=== PATIENT | female | born 1960 | race Caucasian/White ===

== ENCOUNTER 2022-03-18 08:59 | Outpatient (CLI) | payer OTHER, SELFPAY ==
[2022-03-18 13:42] LABS: Basophils Absolute Auto 0.04 K/uL (0.00-0.30); Basophils Percent Auto 0.6 % (0.0-3.0); Eosinophils Absolute Auto 0.17 K/uL (0.00-0.50); Eosinophils Percent Auto 2.5 % (0.0-7.0); Hematocrit 42.2 % (33.0-51.0); Hemoglobin* 13.4 gm/dL (12.0-16.0); Immature Granulocytes Abs Auto 0.04 K/uL (0.00-0.30); Lymphocytes Percent Auto 22.3 % (20-44); Mean Corpuscular HGB Conc 32 gm/dL (32-36); Mean Corpuscular Hemoglobin 28 pg (26-34); Mean Corpuscular Volume 87 fL (80-100); Monocytes Percent Auto 5.5 % (0.0-11.0); Neutrophils Absolute Auto 4.61 K/uL (1.7-7.0); Neutrophils Percent Auto 68.5 % (42.0-72.0); Platelet Count* 280 K/uL (140-440); RDW Coefficient of Variation % 13.5 % (11.5-15.5); Red Blood Count 4.86 m/uL (4.00-5.20); White Blood Count* 6.73 K/uL (4.50-11.00)
[2022-03-18 13:56] LABS: D Dimer Quantitative* 0.35 ug/ml (0.00-0.50)
[2022-03-18 14:00] LABS: Slide Review Reflex No
[2022-03-18 14:47] LABS: Chloride* 100 mmol/L (96-114); Sodium* 137 mmol/L (135-149)
[2022-03-18 14:50] LABS: Creatinine* 0.7 mg/dL (0.5-1.5); Estimated Glomerular Filt Rate 97 ml/min
[2022-03-18 14:51] LABS: Blood Urea Nitrogen* 17 mg/dL (7-30); Carbon Dioxide* 24 mmol/L (20-32); Glucose* 125 mg/dL (60-115)
[2022-03-18 15:01] LABS: NT Pro B Type NatriureticPept* 51 PG/mL (0-125)
[2022-03-18 15:08] LABS: Troponin I* < 0.01 ng/mL (0.01-0.04)
== END 2022-03-18 09:00 | disposition home or self-care (01) ==
PROVIDERS: PCP Physician Assistant; Visit Provider Nurse Practitioner Family
DX: R42 Dizziness and giddiness (principal); R06.00 Dyspnea, unspecified
CPT/HCPCS: 36415; 80048; 83880; 84443; 84484; 85025; 85379

== ENCOUNTER 2022-07-17 08:23 | Outpatient (CLI) | payer OTHER, SELFPAY ==
[2022-07-17 14:56] LABS: Basophils Absolute Auto 0.05 K/uL (0.00-0.30); Eosinophils Absolute Auto 0.25 K/uL (0.00-0.50); Eosinophils Percent Auto 5.1 % (0.0-7.0); Hematocrit 41.9 % (33.0-51.0); Hemoglobin* 13.4 gm/dL (12.0-16.0); Immature Granulocytes Abs Auto 0.03 K/uL (0.00-0.30); Immature Granulocytes Pct Auto 0.6 %; Lymphocytes Percent Auto 28.3 % (20-44); Mean Corpuscular HGB Conc 32 gm/dL (32-36); Mean Corpuscular Hemoglobin 27 pg (26-34); Mean Corpuscular Volume 86 fL (80-100); Monocytes Percent Auto 7.5 % (0.0-11.0); Neutrophils Absolute Auto 2.84 K/uL (1.7-7.0); Neutrophils Percent Auto 57.5 % (42.0-72.0); Platelet Count* 203 K/uL (140-440); RDW Coefficient of Variation % 14.2 % (11.5-15.5); Red Blood Count 4.89 m/uL (4.00-5.20); White Blood Count* 4.94 K/uL (4.50-11.00)
[2022-07-17 15:07] LABS: Slide Review Reflex No
[2022-07-17 15:22] LABS: Chloride* 104 mmol/L (96-114)
[2022-07-17 15:23] LABS: Albumin* 4.6 g/dL (3.3-5.0); Potassium* 4.2 mmol/L (3.6-5.1); Sodium* 138 mmol/L (135-149)
[2022-07-17 15:25] LABS: Carbon Dioxide* 23 mmol/L (20-32); Cholesterol* 218 mg/dL (90-199); Creatinine* 0.7 mg/dL (0.5-1.5); Estimated Glomerular Filt Rate 97 ml/min
[2022-07-17 15:26] LABS: Alanine Aminotransferase* 20 U/L (4-35); Alkaline Phosphatase* 79 U/L (40-150); Aspartate Amino Transferase* 19 U/L (12-35); Bilirubin Total* 0.4 mg/dL (0.1-1.5); Blood Urea Nitrogen* 15 mg/dL (7-30); Glucose* 130 mg/dL (60-115); Triglycerides* 259 mg/dL (40-149)
[2022-07-17 15:27] LABS: HDL Cholesterol* 50 mg/dL (>=50); LDL Cholesterol Calculated 116 mg/dL (<100)
== END 2022-07-17 08:24 | disposition home or self-care (01) ==
PROVIDERS: PCP Physician Assistant; Visit Provider Nurse Practitioner Family
DX: Z00.00 Encounter for general adult medical examination without abnormal findings (principal); E03.9 Hypothyroidism, unspecified; I10 Essential (primary) hypertension; R53.83 Other fatigue; Z13.6 Encounter for screening for cardiovascular disorders; Z13.1 Encounter for screening for diabetes mellitus
CPT/HCPCS: 80053; 80061; 84443; 85025

== ENCOUNTER 2022-08-19 10:39 | Emergency (ER) | payer OTHER, SELFPAY ==
[2022-08-19 10:44] VITALS: BP 142/102; PULSE 76; RESP 18; TEMP 36.3; O2SAT 96; BMI 33.9
--- NOTE | 2022-08-19 11:00 | ED.HA ---
HPI - Headache General Time Seen by Provider: 11:00 Date Seen: 08/19/22 Chief Complaint: Headache/Migraine Stated Complaint: Headache, dizzy Time Seen by Provider: 08/19/22 11:00 Source: patient and RN notes reviewed Mode of arrival: ambulatory Limitations: no limitations History of Present Illness HPI Narrative: Patient is a very pleasant 62-year-old female with a history of frequent headaches cluster headaches hypertension recent positive Cologuard test who comes to the emergency room for evaluation regarding a severe headache. Patient initially seen at the clinic at which time blood pressure 147/87 per patient report. She was sent here to the emergency room. Patient notes that she does get frequent headaches but this headache today that she woke with his unusual and that it is quite severe and associated with nausea and blurriness of vision. She does not normally have these things occur. Her headaches often are clustered and she states around the left side of her eye and zoroastrianism but today the headache is everywhere. Has not had any trauma fever or chills. She denies photophobia. She denies any neck pain. She has not had a new cough. She does describe a severe cough which has been ongoing for about 5 years. Initially they thought this was attributable to an JUSTINE-inhibitor but it has not improved in she was taken off her lisinopril. She denies a sore throat or runny nose. Her had COVID but that was over a month and a half ago but they do have some grand children with recent illnesses. She also states that she had Cologuard done and that it was positive about a week ago. She cannot see any hiro blood in her stool. She states she takes 1 Advil does a day for arthritis. Initially patient denies any numbness or tingling or weakness. However upon further discussion she notes that her right fingers have been tingling since yesterday. She has not noticed any change in her strength. She denies going to bed with a headache. This is a headache that she awoke with at approximately 0730. Additional discussion shows that she is what she describes as dizzy but this is not vertigo and is was described as lightheadedness. Related Data Home Medications Medication Instructions Recorded Confirmed ibuprofen 200 mg tablet (Advil) 400 mg PO Q8H PRN 07/17/22 07/28/22 Previous Rx's Medication Instructions Recorded amlodipine 5 mg tablet 5 mg PO QDAY #90 tabs 07/21/22 levothyroxine 100 mcg tablet 100 mcg PO QDAY #90 tabs 07/21/22 (Euthyrox) triamterene 37.5 1 cap PO QDAY #90 caps 07/21/22 mg-hydrochlorothiazide 25 mg capsule Allergies Allergy/AdvReac Type Severity Reaction Status Date / Time neomycin Allergy Verified 07/28/22 09:41 lisinopril Allergy Uncoded 07/28/22 09:41 Review of Systems Status of ROS: Reports: 10 or more systems reviewed and unremarkable except as noted in History and below Const: Denies: fever or chills Eyes: Reports: blurry vision; Denies: light sensitivity or eye discomfort ENMT: Denies: throat pain, neck pain or difficulty swallowing Cardio: Denies: chest pain, swelling of feet/ankles, lightheadedness or shortness of breath with exertion Resp: Reports: cough (Chronic); Denies: shortness of breath GI: Reports: nausea; Denies: abdominal pain, vomiting, diarrhea or difficulty swallowing : Denies: painful urination Musculo: Denies: neck pain Integ/Breast: Denies: rash Neuro: Reports: headache and numbness in extremities (Tingling of the right fingers); Denies: weakness in extremities, lack of coordination, dizziness or confusion [facility] History History of femur fracture (Unknown) Hypertension Surgical History Fixation hardware in foot Fixation hardware in lower extremity History of hysterectomy History of left hip replacement Family History Mother Heart disease Diabetes Brother High blood pressure Social History Narrative: . 4 children. The patient does not formally exercise. Alcohol rare. No illicit drug use. No smoker. bottle carrier. Smoking Status: Never smoker How often do you have a drink containing alcohol: 4 or more times a week AUDIT-C Alcohol total score: 4 Non-prescribed substance use: denies use Little interest or pleasure in doing things: not at all Feeling down, depressed, or hopeless: not at all Exam Narrative: Exam Narrative: Nurse's note reviewed. Patient is alert and oriented. She is nontoxic in appearance. Eyes are clear. EOM is full and pupils are equal round reactive. Head is atraumatic normocephalic. No midline cervical tenderness. Range of motion of neck is full. No photophobia. TMs bilaterally without erythema or fluid line. Oral cavity with moist mucous membranes. No erythema exudate in the posterior oropharynx. Neck is supple without lymphadenopathy. Heart with regular rate and rhythm lungs are clear to auscultation. Abdomen is soft nontender. Lower extremities with scant peripheral edema. Patient has full strength and motor throughout. Motor strength in hand and upper extremities fully intact and symmetrical. Const: Vital Signs, click to edit/add: Vital Signs - 24 hr 08/19/22 10:44 08/19/22 12:14 08/19/22 13:00 Temperature 97.4 F L Pulse Rate [Pulse Oximeter] 76 72 83 Respiratory Rate 18 18 Blood Pressure [Le ft Upper Arm] Blood Pressure [Ri ght Upper Arm] 142/102 H 163/105 H Pulse Oximetry 96 96 98 Oxygen Delivery Me thod Room Air Room Air 08/19/22 13:30 08/19/22 13:30 08/19/22 14:04 Temperature 97.0 F L Pulse Rate [Pulse Oximeter] Respiratory Rate Blood Pressure [Le ft Upper Arm] 150/94 H Blood Pressure [Ri ght Upper Arm] 148/92 H Pulse Oximetry Oxygen Delivery Me thod Documenting provider has reviewed patient's vital signs: yes Eye: Direct Ophthalmoscopy: no photophobia Course Course Hospital Course: Patient notes history of headaches with states that this is severe and she has not experienced anything like this in the past. Her blood pressure is somewhat elevated at 140/102. At this time will obtain head CT start IV and use Reglan and Benadryl for treatment of suspected migraine. However will need to rule out other underlying possibilities with the CT including intracranial mass, bleed. Patient notes tingling of the right fingers but there is no change in strength or movement. Stroke is in the differential diagnosis although symptoms started 24 hours ago. Laboratory values also pending include a CBC, basic panel, CRP, INR. Reevaluation(s) Reevaluation #1: Patient noted to have decreased in her headache from 7 until 2. She notes resolution of her right hand symptoms and blurred vision. Blood pressure continues to be elevated. I have requested manual check and blood pressure is 150/94. Consultations Consultation #1: Had the pleasure of speaking with Dr. Krueger, [place] neurologist. At this time no suggestion that an MRI is needed in this particular situation especially with patient improved. She has no meningeal signs and white count is reassuring. She is negative for COVID. We did briefly speak about the use of aspirin and patient has had recent positive Cologuard and therefore will hold off on that right now. Vital Signs Vital signs: Initial Vital Signs Temperature 97.4 F L 08/19/22 10:44 Temperature Source Temporal Artery Scan 08/19/22 10:44 Pulse Rate 76 08/19/22 10:44 Respiratory Rate 18 08/19/22 10:44 Blood Pressure 142/102 H 08/19/22 10:44 Blood Pressure Mean 115 08/19/22 10:44 Blood Pressure Position Supine 08/19/22 10:44 Pulse Oximetry 96 08/19/22 10:44 Oxygen Delivery Method 08/19/22 10:44 Vital Signs Temperature 97.4 F L 08/19/22 10:44 Pulse Rate 76 08/19/22 10:44 Respiratory Rate 18 08/19/22 10:44 Blood Pressure 142/102 H 08/19/22 10:44 Pulse Oximetry 96 08/19/22 10:44 Oxygen Delivery Method 08/19/22 10:44 Temperature 97.0 F L 08/19/22 14:04 Pulse Rate 83 08/19/22 13:00 Respiratory Rate 18 08/19/22 12:14 Blood Pressure 148/92 H 08/19/22 13:30 Pulse Oximetry 98 08/19/22 13:00 Oxygen Delivery Method 08/19/22 13:00 MDM - Headache MDM Narrative Medical decision making narrative: 1. Headache-patient has longstanding history of headaches but this is what she described as quite severe and unusual. This was proceeded by some tingling in her left fingers yesterday. She also then discussed some lightheadedness not originally noted in our initial conversation. There has been no vertigo or difficulty with ambulation. Exam and Head CT is reassuring and negative for any acute abnormalities. Patient received Reglan Benadryl and IV fluids and has had resolution of the tingling in her fingers. Headache has gone from 7/10 to 2. I did discuss this patient with Neurology. No further imaging or interventions at this time. At this time patient will be discharged home in the care of her . Recommend sleeping this afternoon. Recommending push fluids. Requested she return for further evaluation for recurrent symptoms onset of new symptoms and as needed. She agrees that she feels safe going home. 2. Positive Cologuard-hemoglobin 12.0. Recommend follow-up with primary MD as I suspect they will proceed with scheduling of colonoscopy. 3. Disposition -home. Return as needed for worsening symptoms. Lab Data Attestation: I reviewed the patient's lab results. Labs: Lab Results 08/19/22 08/19/22 08/19/22 Range/Units 11:16 11:32 11:32 WBC 7.20 (4.50-11.00) K/uL RBC 4.43 (4.00-5.20) m/uL Hgb 12.0 (12.0-16.0) gm/dL Hct 37.6 (33.0-51.0) % MCV 85 (80-100) fL MCH 27 (26-34) pg MCHC 32 (32-36) gm/dL RDW Coeff of Hamida 13.6 (11.5-15.5) % Plt Count 257 (140-440) K/uL Neut % (Auto) 74.7 H (42.0-72.0) % Lymph % (Auto) 18.1 L (20-44) % Toombs % (Auto) 5.6 (0.0-11.0) % Eos % (Auto) 0.6 (0.0-7.0) % Baso % (Auto) 0.6 (0.0-3.0) % Neut # (Auto) 5.40 (1.7-7.0) K/uL Lymph # (Auto) 1.30 (0.90-2.90) K/uL Toombs # (Auto) 0.40 (0.00-0.90) K/UL Eos # (Auto) 0.04 (0.00-0.50) K/uL Baso # (Auto) 0.04 (0.00-0.30) K/uL INR 0.95 (0.91-1.10) Sodium (135-149) mmol/L Potassium (3.6-5.1) mmol/L Chloride (96-114) mmol/L Carbon Dioxide (20-32) mmol/L BUN (7-30) mg/dL Creatinine (0.5-1.5) mg/dL Estimated Creat Clear Estimated GFR ml/min Glucose (60-115) mg/dL Calcium (8.4-10.6) mg/dL Magnesium (1.5-2.6) mg/dL C-Reactive Protein (0.5-1.0) mg/dL SARS-CoV-2 (PCR) Negative SARS-CoV-2 (Negative) Influenza Type A (PCR) Negative PCR FLU A (Negative) Influenza Type B (PCR) Negative PCR FLU B (Negative) RSV (PCR) Negative PCR RSV (Negative) 08/19/22 Range/Units 11:32 WBC (4.50-11.00) K/uL RBC (4.00-5.20) m/uL Hgb (12.0-16.0) gm/dL Hct (33.0-51.0) % MCV (80-100) fL MCH (26-34) pg MCHC (32-36) gm/dL RDW Coeff of Hamida (11.5-15.5) % Plt Count (140-440) K/uL Neut % (Auto) (42.0-72.0) % Lymph % (Auto) (20-44) % Toombs % (Auto) (0.0-11.0) % Eos % (Auto) (0.0-7.0) % Baso % (Auto) (0.0-3.0) % Neut # (Auto) (1.7-7.0) K/uL Lymph # (Auto) (0.90-2.90) K/uL Toombs # (Auto) (0.00-0.90) K/UL Eos # (Auto) (0.00-0.50) K/uL Baso # (Auto) (0.00-0.30) K/uL INR (0.91-1.10) Sodium 138 (135-149) mmol/L Potassium 4.0 (3.6-5.1) mmol/L Chloride 106 (96-114) mmol/L Carbon Dioxide 26 (20-32) mmol/L BUN 16 (7-30) mg/dL Creatinine 0.6 (0.5-1.5) mg/dL Estimated Creat Clear 53.91 Estimated GFR 101 ml/min Glucose 111 (60-115) mg/dL Calcium 9.3 (8.4-10.6) mg/dL Magnesium 2.0 (1.5-2.6) mg/dL C-Reactive Protein 1.2 H (0.5-1.0) mg/dL SARS-CoV-2 (PCR) (Negative) Influenza Type A (PCR) (Negative) Influenza Type B (PCR) (Negative) RSV (PCR) (Negative) Imaging Data CT scan - head: Attestation: I have reviewed the pertinent imaging results. My impression: I do not note any acute findings. Radiologist's impression: The brain shows no sign of mass lesion, mass effect, hemorrhage, or edema. The ventricles and sulci are normal in appearance for the patient`s age. The visualized portions of the orbits are normal in appearance. The osseous structures are normal in their appearance with no sign of abnormality in the skull base or calvarium. IMPRESSION: Age-appropriate appearance of the brain. No acute focal findings. Discharge Plan Discharge Clinical Impression: Headache Patient Disposition: Home, Self-Care Condition: Improved Additional Instructions: Rest. Increase fluid intake. Return or seek medical attention for ongoing symptoms. Prescriptions: No Action ibuprofen [Advil] 200 mg tablet 400 mg PO Q8H PRN amlodipine 5 mg tablet 5 mg PO QDAY Qty: 90 3RF levothyroxine [Euthyrox] 100 mcg tablet 100 mcg PO QDAY Qty: 90 3RF triamterene-hydrochlorothiazid 37.5-25 mg capsule 1 cap PO QDAY Qty: 90 3RF Follow Up/Referrals: Laith Luz PA-C [Referring] - Stand Alone Forms: [facility] Info Instructions
--- NOTE | 2022-08-19 11:16 | CRLHL7_ITS ---
For Patients: As a result of the Century Cures Act, medical imaging exams and procedure reports are released immediately into your electronic medical record. You may view this report before your referring provider. If you have questions, please contact your health care provider. INDICATION: Severe headache COMPARISON: None TECHNIQUE: CT examination of the head was performed as axial sections without intravenous contrast. Images were obtained from the vertex of the skull through the skull base. Please note that all CT scans at this facility use dose modulation, iterative reconstruction, and/or weight-based dosing when appropriate to reduce radiation dose to as low as reasonably achievable. FINDINGS: The brain shows no sign of mass lesion, mass effect, hemorrhage, or edema. The ventricles and sulci are normal in appearance for the patient`s age. The visualized portions of the orbits are normal in appearance. The osseous structures are normal in their appearance with no sign of abnormality in the skull base or calvarium. IMPRESSION: Age-appropriate appearance of the brain. No acute focal findings. Please note that all CT scans at this facility use dose modulation, iterative reconstruction, and/or weight-based dosing when appropriate to reduce radiation dose to as low as reasonably achievable. Dictated by Sharif Kwong MD @ 08/19/2022 12:46:30 PM (Electronically Signed)
[2022-08-19 11:40] LABS: Basophils Absolute Auto 0.04 K/uL (0.00-0.30); Basophils Percent Auto 0.6 % (0.0-3.0); Eosinophils Absolute Auto 0.04 K/uL (0.00-0.50); Eosinophils Percent Auto 0.6 % (0.0-7.0); Hematocrit 37.6 % (33.0-51.0); Immature Granulocytes Abs Auto 0.03 K/uL (0.00-0.30); Immature Granulocytes Pct Auto 0.4 %; Lymphocytes Percent Auto 18.1 % (20-44); Mean Corpuscular HGB Conc 32 gm/dL (32-36); Mean Corpuscular Hemoglobin 27 pg (26-34); Mean Corpuscular Volume 85 fL (80-100); Monocytes Percent Auto 5.6 % (0.0-11.0); Neutrophils Percent Auto 74.7 % (42.0-72.0); Platelet Count* 257 K/uL (140-440); RDW Coefficient of Variation % 13.6 % (11.5-15.5); Red Blood Count 4.43 m/uL (4.00-5.20)
[2022-08-19 11:44] LABS: Slide Review Reflex No
[2022-08-19 12:11] LABS: INR 0.95 (0.91-1.10); Prothrombin Time 13.3 Seconds
[2022-08-19] MEDS: 0.9 % SODIUM CHLORIDE 1000 ml 1,000 ML IV (12:11)
[2022-08-19] MEDS: diphenhydrAMINE 50 MG/ML inj IVP (12:12)
[2022-08-19] MEDS: METOCLOPRAMIDE HCL 10 MG in 0.9 % SODIUM CHLORIDE 100 ml 100 ML 306 MG IVPB (12:12)
[2022-08-19 12:14] VITALS: PULSE 72; RESP 18; O2SAT 96
[2022-08-19 12:17] LABS: Chloride* 106 mmol/L (96-114); Sodium* 138 mmol/L (135-149)
[2022-08-19 12:20] LABS: Blood Urea Nitrogen* 16 mg/dL (7-30); Carbon Dioxide* 26 mmol/L (20-32); Creatinine* 0.6 mg/dL (0.5-1.5); Est. Creatinine Clearance* 53.91; Estimated Glomerular Filt Rate 101 ml/min
[2022-08-19 12:21] LABS: Calcium* 9.3 mg/dL (8.4-10.6); Glucose* 111 mg/dL (60-115)
[2022-08-19 12:23] LABS: C Reactive Protein* 1.2 mg/dL (0.5-1.0)
[2022-08-19 12:52] LABS: PCR FLU A Negative PCR FLU A (Negative); PCR FLU B Negative PCR FLU B (Negative); PCR RSV Negative PCR RSV (Negative)
[2022-08-19 12:54] LABS: SARS PCR* Negative SARS-CoV-2 (Negative)
[2022-08-19 13:00] VITALS: BP 163/105; PULSE 83; O2SAT 98
[2022-08-19 13:30] VITALS: BP 148/92; BP 150/94
[2022-08-19 14:04] VITALS: TEMP 36.1
== END 2022-08-19 14:05 | disposition home or self-care (01) ==
PROVIDERS: Emergency Provider Family Medicine; PCP Nurse Practitioner Family
DX: R51.9 Headache, unspecified (principal)
CPT/HCPCS: 36415; 70450; 80048; 83735; 85025; 85610; 86140; 87502; 87634; 87635; 96365; 96375; 99284; J1200; J2765; J7030

== ENCOUNTER 2022-10-02 07:55 | Day surgery (SDC) | payer OTHER, SELFPAY ==
[2022-10-02] VITALS (11 sets, daily range): BP systolic 128–155; BP diastolic 83–109; PULSE 64–93; RESP 11–16; TEMP 36.1–36.6; O2SAT 92–100; BMI 33.9
[2022-10-02] MEDS: SODIUM CHLORIDE 0.9 % (FLUSH) 10 ML SYRINGE IVF (08:20)
[2022-10-02] MEDS: LACTATED RINGERS 1000 ML 1,000 ML 100 ML IV ×2 (08:20→11:51)
--- NOTE | 2022-10-02 08:28 | SUR.PREOP ---
Patient provided home covid negative results to RN.
--- NOTE | 2022-10-02 09:15 | CRLHL7_ITS ---
For Patients: As a result of the 21st Century Cures Act, medical imaging exams and procedure reports are released immediately into your electronic medical record. You may view this report before your referring provider. If you have questions, please contact your health care provider. INDICATION: 62-year-old female. Malignant melanoma of the left shoulder. Injection for sentinel lymph node scintigraphy. PROCEDURE: Informed consent was obtained by the on-site staff. The benefits and risks were discussed. The patient agreed to proceed. Utilizing sterile technique, 530 microcuries of technetium-filtered sulfur colloid was injected within four points about the left shoulder lesion. No immediate complications. A single sentinel lymph node was identified in the left axilla and marked on the overlying skin. Subsequently, two small foci of activity were identified in the medial left infraclavicular space, also indicating lymph nodes. These findings were discussed briefly with Dr. Montalvo at 10:25 a.m. IMPRESSION: Technically successful injection for sentinel lymph node scintigraphy. Dictated by George Espinal MD @ 10/02/2022 11:03:06 AM (Electronically Signed)
--- NOTE | 2022-10-02 09:38 | W.ANESCHARGE ---
Anesthesia Charges Start Date/Time Anesthesia Start Date: 10/02/22 Anesthesia Start Time: 10:52 Stop Date/Time Anesthesia Stop Date: 10/02/22 Anesthesia Stop Time: 12:40
[2022-10-02] MEDS: CEFAZOLIN 2 GM INJ IVP (11:00)
[2022-10-02] MEDS: BUPIVACAINE 0.25% 30 ML INJECTION (11:15)
[2022-10-02] MEDS: ISOSULFAN BLUE 5 ML VIAL INJECTION (11:15)
--- NOTE | 2022-10-02 11:50 | W.ANESCHARGE ---
Anesthesia Charges Start Date/Time Anesthesia Start Date: 10/02/22 Anesthesia Start Time: 10:52 Stop Date/Time Anesthesia Stop Date: 10/02/22 Anesthesia Stop Time: 12:40
--- NOTE | 2022-10-02 12:33 | P.GSOP_ITS ---
Operative Note Date of procedure: 10/02/22 Pre-op diagnosis: Malignant melanoma, left shoulder Post-op diagnosis: Same Type of Procedure: 1. Wide local excision malignant melanoma, left shoulder 2. Goodspring lymph node biopsy, left axillary Indications: Patient is a 62-year-old female who presented to clinic with a new diagnosis malignant melanoma. Pathology demonstrated a Breslow depth of 1 mm and recommendations based off of NCCN guidelines were discussed. Risks and benefits of wide local excision with sentinel lymph node biopsy were reviewed. Risks included, but were not limited to: Bleeding, infection, seroma, lymphedema, damage to surrounding structures and possible need for additional procedures. All questions and concerns were addressed with patient agreeing to proceed. Procedure Description: After discussing the risks and benefits of the procedure, the patient signed informed consent.? The operative site was marked and the patient was brought to the operating room and placed on the operating table in supine position.? Care was taken to pad the patient's pressure points.?? The patient was then intubated by anesthesia.?? The operative site was then prepped and draped in the usual sterile fashion.? A time-out was then performed. ? I injected 5 cc of lymphazurin blue into the biopsy site scar for lymph node mapping. ? I identified the patient's biopsy site and measured 1 cm circumferential margins. I then made an elliptical incision longer than wide. I sharply incised the skin and dissected the subcutaneous tissue down to but not including the underlying fascia. The specimen was circumferentially completely resected in this plane. It was marked with a short stitch superior and a long stitch lateral and sent for permanent evaluation. Lidocaine was infused for analgesia. ? Circumferentially I created approximately 2 cm of undermining within the subcutaneous space, to all helped assist with closure. I then closed the wound in intermediate fashion using interrupted 2-0 Vicryl deep stitches, 2-0 Vicryl stitches in the subcutaneous tissue and a running 4-0 monocryl for the skin. Steri strips and a sterile dressing were applied. ? The patient was then repositioned, reprepped and redraped. Using the Neoprobe, I identified an area of maximal counts in the left axilla. This was consistent with preoperative lymphoscintigraphy imaging which suggested drainage to the left axilla. I made a skin incision, dissected the subcutaneous tissue. There was an immediately identifiable radioactive non-blue node. This was circumferentially dissected and removed. The lymphatic drainage in arterial supply were ligated with 3-0 Vicryl ties. Ex vivo counts were in the 790. I rescanned the left axilla and found no additional area of high counts. ? Lidocaine was infused into the incision for analgesia. It was then closed with 3-0 Vicryl, 4-0 Monocryl and Dermabond. The patient was awakened from anesthesia and taken to the PACU in stable condition. ? The patient tolerated the procedure well. Findings: A 1.00 mm thick melanoma was excised with 1.0 cm margins down to fascia. A left axillary sentinel lymph node was identified and removed. Anesthesia: GETA Surgeon: Zaira Montalvo MD Estimated blood loss (mL): 5 Additional Specimen Information: 1. Left shoulder melanoma 2. Left axillary sentinel lymph node Condition: stable Disposition: same day
--- NOTE | 2022-10-02 14:53 | SUR.PHASEII ---
1309: Patient arrived from Phase I on room air. 1325: O2 sats dipping to 86-87% RA. Patient placed on O2 2L NC. Sats increased to 98-100%. 1345: O2 weaned to 1L NC. 1357: Patient on room air. Ambulatory to restroom independently. Patient returned to room sitting in recliner. O2 sats 91-94% RA.
== END 2022-10-02 14:58 | disposition home or self-care (01) ==
PROVIDERS: PCP Nurse Practitioner Family; Visit Provider Surgery
PROC: (CPT 11603; principal; 2022-10-02 10:15)
PROC: (CPT 11603; 2022-10-02 10:15)
DX: C43.62 Malignant melanoma of left upper limb, including shoulder (principal)
CPT/HCPCS: 11603; 12031; 38500; 00300; 00400; 78195; A9541; J0690; J1100; J2250; J2405; J2704; J2710; J3010; J3490; J7120

== ENCOUNTER 2022-10-21 07:25 | Outpatient (CLI) | payer OTHER, SELFPAY | END 2022-10-21 07:26 | disposition home or self-care (01) | LOC: OP CLINIC 07:25 | PROVIDERS: PCP Nurse Practitioner Family; Visit Provider Internal Medicine | DX: R19.5 Other fecal abnormalities (principal); K63.5 Polyp of colon; K57.30 Diverticulosis of large intestine without perforation or abscess without bleeding | CPT/HCPCS: 45385; 88305; 88307; 88342; 99153; J2250; J3010 ==

== ENCOUNTER 2022-11-24 15:30 | Outpatient (RCR) | payer OTHER, SELFPAY | END 2023-02-09 14:43 | disposition home or self-care (01) | PROVIDERS: PCP Nurse Practitioner Family; Visit Provider Nurse Practitioner Family | DX: M54.31 Sciatica, right side (principal); Z51.89 Encounter for other specified aftercare | CPT/HCPCS: 97110; 97162 ==

== ENCOUNTER 2023-04-14 09:16 | Outpatient (CLI) | payer OTHER, SELFPAY | END 2023-04-14 09:17 | disposition home or self-care (01) | LOC: NFLDREF 04-15 21:35 | PROVIDERS: PCP Nurse Practitioner Family; Referring Provider Nurse Practitioner Family; Visit Provider Nurse Practitioner Family | DX: M54.9 Dorsalgia, unspecified (principal); R13.10 Dysphagia, unspecified; R05.3 Chronic cough; L98.9 Disorder of the skin and subcutaneous tissue, unspecified | CPT/HCPCS: 81015 ==

== ENCOUNTER 2023-04-22 07:42 | Outpatient (CLI) | payer OTHER, SELFPAY ==
--- NOTE | 2023-04-22 08:00 | CRLHL7_ITS ---
For Patients: As a result of the Century Cures Act, medical imaging exams and procedure reports are released immediately into your electronic medical record. You may view this report before your referring provider. If you have questions, please contact your health care provider. CLINICAL INFORMATION: Right back pain, chronic cough. TECHNIQUE: Contrast-enhanced CT of the chest, abdomen and pelvis was obtained. Enteric contrast was administered.Coronal and sagittal reformatted images were obtained. Contrast: 106 mL of Isovue 370 intravenous contrast was injected uneventfully prior to image acquisition. Radiation Dose Estimate (Total Exam DLP): 1467 mGy-cm. COMPARISON: Chest radiograph 03/18/2022. FINDINGS: Chest: Thyroid: Visualized portions are symmetric. Lungs: Mild bibasilar dependent atelectatic changes. No focal airspace opacities or pleural effusions. 4 mm subsolid subpleural nodule in the lingula (series 3, image 38). Heart/Pericardium: Heart normal in size. No pericardial effusion. Main pulmonary artery normal in caliber. No central filling defects within the main, left, and right pulmonary arteries. Lymph Nodes: No significant axillary, mediastinal, or hilar lymphadenopathy. Abdomen/Pelvis: Liver: Noncirrhotic morphology. 1.6 cm anterior left hepatic lobe cyst. Gallbladder: Unremarkable. Spleen: Unremarkable. Adrenal glands: Unremarkable. Kidneys: Unremarkable. Pancreas: Unremarkable. Lymph nodes: Nonspecific fat stranding in the left mid abdomen along the mesenteric root with mildly prominent lymph nodes, nonspecific in appearance may represent entity such as sclerosing mesenteritis. Vascular: Abdominal aorta normal in caliber. Bowel: No bowel obstruction. Normal appendix in the right lower quadrant. Colonic diverticulosis. No evidence of diverticulitis. Urinary bladder: Limited evaluation due to underdistention. No gross pathology. Reproductive structures: Status post hysterectomy. No abdominal/pelvis ascites or free intraperitoneal air. Musculoskeletal: Fixation screws in the right iliac bone adjacent to the SI joint. Status post left hip arthroplasty. Visualized osseous structures demonstrate diffuse degenerative changes. 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 Healed fracture deformity of the posterior right 11th rib. IMPRESSION: 1. No acute findings in the chest, abdomen, and pelvis. 2. 4 mm subsolid pulmonary nodule in the lingula. No further follow-up is required. 3. Nonspecific fat stranding in the left mid abdomen along the mesenteric root with surrounding mildly prominent lymph nodes. This is nonspecific in appearance and may represent entity such as sclerosing mesenteritis. Lymphoma is considered less likely but cannot be excluded. Consider follow-up evaluation with repeat CT in 3-6 months to assure stability of findings. Please note that all CT scans at this facility use dose modulation, iterative reconstruction, and/or weight-based dosing when appropriate to reduce radiation dose to as low as reasonably achievable. Dictated by Florin Crooks MD @ 04/24/2023 6:43:16 AM (Electronically Signed)
[2023-04-22 08:20] LABS: Creatinine* 0.6 mg/dL (0.5-1.5); Estimated Glomerular Filt Rate 100 ml/min
--- NOTE | 2023-04-22 09:15 | CRLHL7_ITS ---
For Patients: As a result of the Century Cures Act, medical imaging exams and procedure reports are released immediately into your electronic medical record. You may view this report before your referring provider. If you have questions, please contact your health care provider. INDICATION: Dysphagia. TECHNIQUE: Recorded video swallow performed in junction speech therapy. FINDINGS: The patient tolerated all preparations of barium well. No aspiration. No penetration. No holdup of barium. Please see detailed notes from speech therapy. 1 minute 37 seconds fluoroscopy time utilized. IMPRESSION: Normal recorded video swallow. Dictated by George Espinal MD @ 04/22/2023 10:03:16 AM (Electronically Signed)
--- NOTE | 2023-04-22 09:50 | SLP.EVAL ---
Laura Curtis Please review, sign and return. Thank you Susan Ma, WINDING INSPECTOR WINDING INSPECTOR Rosalba Navarrete Start: 04/22/23 09:36 Freq: Status: Active Protocol: Document 04/22/23 09:37 HJS (Rec: 04/22/23 09:49 HJS [id number]) E-signed By Susan Ma, [place], WINDING INSPECTOR WINDING INSPECTOR System Review History & Reason For Referral Type of Speech Evaluation Modified Barium Swallow Evaluation Rehabilitation Order Evaluation Date of Order 04/14/23 Reason for Referral food getting stuck Medical Diagnosis Dysphagia unspecified Treatment Diagnosis dysphagia Hearing Information Hearing Status Normal Vision Information Vision Status within normal limits Patient Orientation Orientation & Mental Status Normal WINDING INSPECTOR Initial Assessment/POC Subjective Information Subjective/Pain Comment Patient independently ambulated to the xray suite. She is pleasant and cooperative. Assessment & Impression Assessment/Impression Patient is a 63 year old female referred for a modified barium swallow study due to some intermittent episodes of food getting stuck. She reports that last time it happened was when she was eating chicken on vacation in January. She ended up having to go to the restroom and vomiting up the stuck food. She denies episodes of aspiration. She is not aware of history of reflux. When she was she thinks she may have been diagnosed with an hiatal hernia. ORAL MOTOR FUNCTION AND DENTITION Patient exhibits functional tongue and lip movements and has adequate natural dentition . THIN LIQUID Patient took multiple sips of thin liquid by cup. She was able to initiate a swallow immediately and there was no penetration or aspiration on any trials. PUREE Patient given a teaspoon of puree. She was able to manipulate and swallow without penetration, aspiration or pharyngeal residue.. MUFFIN AND COOKIE WITH BARIUM PUREE Patient given separate trials of muffin and cookie each mixed with barium puree. She was able to adequately chew and swallow both consistencies without penetration, aspiration or pharyngeal residue. At various times throughout the test the radiologist followed the boluses down and did not note any difficulty with esophageal clearing. IMPRESSIONS AND RECOMMENDATIONS Patient exhibits a safe and functional oral pharyngeal swallow with no episodes of penetration, aspiration or pharyngeal residue. Since these episodes are happening so infrequently further evaluation of the esophagus may not be needed at this time . Recommended to patient that she keep track and if they start to increase in frequency report to doctor and at that time an esophagram might be appropriate. Other recommendations are that patient take small bites, chew well and alternate solids and liquids. Therapist Signature & License # I Certify That Therapy Services Provided Therapist Signature & License Number Susan Ma, [facility]-WINDING INSPECTOR, # [id number] Physician Signature Signature of Physician Indicates Medically Needed Services Physician Signature & Date Required Please Sign/Date Here Speech/Language Pathology Billing Units Billing Units Eval Swallow Motion Fluoro 1
== END 2023-04-22 07:43 | disposition home or self-care (01) ==
LOC: CT 07:42
PROVIDERS: PCP Nurse Practitioner Family; Visit Provider Nurse Practitioner Family
DX: R13.10 Dysphagia, unspecified (principal)
CPT/HCPCS: 36415; 71260; 74177; 74230; 82565; 92611; Q9967

== ENCOUNTER 2023-07-20 08:23 | Outpatient (CLI) | payer OTHER, SELFPAY ==
--- OUTSIDE RECORDS SUMMARY | 2023-07-20 08:29 | XMS_ITS | Clinical Summary ---
Author Name Unknown Organization [employer] [facility] [employer] Address [place], [place] [address] Care Team Providers Care Story Editor Name Role Phone Laith Luz Primary Care Provider [phone] Allergies Active Allergy Reactions Criticality Noted Date Comments Neomycin *Unknown 08/10/2015 Medications Medication Sig Dispensed Refills Start Date End Date Status levothyroxine (SYNTHROID) 100 mcg tablet Take 100 mcg by mouth before breakfast. 0 Active Active Problems Problem Noted Date Diagnosed Date Essential hypertension 07/11/2019 Lichen planus 05/14/2017 Hypothyroidism 02/22/2010 Social History Tobacco Use Types Packs/Day Years Used Date Smoking Tobacco: Never Smokeless Tobacco: Never Alcohol Use Standard Drinks/Week Comments Yes 0 (1 standard drink = 0.6 oz pur e alcohol) social Sex and Gender Information Value Date Recorded Sex Assigned at Not on file Gender Identity Not on file Sexual Orientation Not on file Obstetrics History Last Filed Vital Signs Vital Sign Reading Time Taken Comments Blood Pressure 156/106 10/11/2020 5:18 PM CDT Pulse 77 10/11/2020 5:18 PM CDT Temperature 36.7 ??C (98 ??F) 10/11/2020 5:18 PM CDT Respiratory Rate 12 10/11/2020 5:18 PM CDT Oxygen Saturation 96% 10/11/2020 5:18 PM CDT Inhaled Oxygen Concentration - - Weight 98.6 kg (217 lb 4.8 oz) 10/11/2020 5:17 P M CDT Height 167.6 cm (5' 6) 10/11/2020 5:17 PM CDT Body Mass Index 35.07 10/11/2020 5:17 PM CDT Plan of Treatment Health Maintenance Due Date Last Done Comments Tdap 1970 Depression screening for age 12+ 1971 HIV for age 15-65 1974 BMI (ht and wt on same day) for age 18+ 1977 Hepatitis C screening for ag e 18-79 1977 Tetanus booster 1979 Pap test for age 21-65 02/18/1980 Colonoscopy through age 75 02/18/2004 Lipids for age 45-75 02/18/2004 Mammogram for age 45-75 02/18/2004 Zoster (shingles) series for age 50+ (1 of 2) 2009 COVID-19 vaccine series (3 2022- season) 2023 10/23/2020, 09/26/2020 Influenza for age 50-64 03/06/2023 Pneumococcal series for age 6-64 Aged Out No longer eligible b ased on patient's age to complete this topic Additional Health Concerns Infection Onset Date Last Indicated MRSA Comment:Right foot 08/16/2015 08/16/2015 Advance Directives Latest Code Status on File Code Status Date Activated Date Inactivated Comments Full Code 08/16/2015 9:14 AM 08/16/2015 12:48 PM Care Teams Story Editor Relationship Specialty Start Date End Date Laith Luz PA PCP - General 08/08/15
== END 2023-07-20 08:24 | disposition home or self-care (01) ==
PROVIDERS: PCP Nurse Practitioner Family; Visit Provider Nurse Practitioner Family
DX: I10 Essential (primary) hypertension (principal); E03.9 Hypothyroidism, unspecified; Z13.220 Encounter for screening for lipoid disorders
CPT/HCPCS: 80053; 80061; 82607; 82746; 83540; 84443; 85025

== ENCOUNTER 2023-07-30 14:26 | Outpatient (CLI) | payer OTHER, SELFPAY ==
--- OUTSIDE RECORDS SUMMARY | 2023-07-30 14:31 | XMS_ITS | Clinical Summary ---
Author Name Unknown Organization [employer] [facility] Address [place], [place] [address] Care Team Providers Care Transplant Immunologist Name Role Phone Laith Luz Primary Care Provider [phone] Allergies Active Allergy Reactions Criticality Noted Date [...] 9:14 AM 08/16/2015 12:48 PM Care Teams Transplant Immunologist Relationship Specialty Start Date End Date Laith Luz PA PCP - General 08/08/15
== END 2023-07-30 14:27 | disposition home or self-care (01) ==
PROVIDERS: PCP Nurse Practitioner Family; Visit Provider Nurse Practitioner Family
DX: D50.9 Iron deficiency anemia, unspecified (principal); R19.5 Other fecal abnormalities; R73.03 Prediabetes; I10 Essential (primary) hypertension; E03.9 Hypothyroidism, unspecified; R53.83 Other fatigue
CPT/HCPCS: 82746; 84165; 85025

== ENCOUNTER 2023-08-10 08:56 | Outpatient (CLI) | payer OTHER, SELFPAY ==
--- OUTSIDE RECORDS SUMMARY | 2023-08-10 08:58 | XMS_ITS | Clinical Summary ---
Author Name Unknown Organization [employer] [facility] [employer] Address [place], [place] [address] Care Team Providers Care Trouble Operator Name Role Phone Laith Luz Primary Care Provider [phone] Allergies Active Allergy Reactions Criticality Noted Date [...] 9:14 AM 08/16/2015 12:48 PM Care Teams Trouble Operator Relationship Specialty Start Date End Date Laith Luz PA PCP - General 08/08/15
--- NOTE | 2023-08-10 10:16 | W.ANESCHARGE ---
Anesthesia Charges Start Date/Time Anesthesia Start Date: 08/10/23 Anesthesia Start Time: 09:40 Stop Date/Time Anesthesia Stop Date: 08/10/23 Anesthesia Stop Time: 10:15
== END 2023-08-10 08:57 | disposition home or self-care (01) ==
LOC: OP CLINIC 08:56
PROVIDERS: PCP Nurse Practitioner Family; Visit Provider Internal Medicine
DX: D50.9 Iron deficiency anemia, unspecified (principal); K64.8 Other hemorrhoids; K57.30 Diverticulosis of large intestine without perforation or abscess without bleeding
CPT/HCPCS: 00731; 43239; 45378; 88305; J2704; J3490

== ENCOUNTER 2023-08-13 08:38 | Outpatient (CLI) | payer OTHER, SELFPAY ==
--- OUTSIDE RECORDS SUMMARY | 2023-08-13 08:40 | XMS_ITS | Clinical Summary ---
Author Name Unknown Organization [employer] [facility] [employer] Address [place], [place] [address] Care Team Providers Care Casino Investigator Name Role Phone Laith Luz Primary Care Provider [phone] Allergies Active Allergy Reactions Criticality Noted Date Comments Neomycin *Unknown 08/10/2015 Medications Medication Sig Dispensed Refills Start Date End Date Status levothyroxine (SYNTHROID) 100 mcg tablet Take 100 mcg by mouth before breakfast. 0 Active Active Problems Problem Noted Date Diagnosed Date Essential hypertension 07/11/2019 Lichen planus 05/14/2017 Hypothyroidism 02/22/2010 Encounters Date Type Department Care Team Description 08/10/2023 Lab Requisition [facility] [phone] Soto Ibarra MD from Last 3 Months Social History Tobacco Use Types Packs/Day Years [...] (1 of 2) 2009 COVID-19 vaccine series (2022- season) 2023 10/23/2020, 09/26/2020 Influenza for age 50-64 03/06/2023 Pneumococcal series for age 6-64 Aged Out No longer eligible b ased on patient's age to complete this topic Procedures Procedure Name Priority Date/Time Associated Diagnosis Comments PATH TISSUE EXAM Routine 08/10/2023 9:50 AM NEWS EDITOR from Last 3 Months Results * PATH TISSUE EXAM (08/10/2023 9:50 AM NEWS EDITOR) Case Report Pathology Report ?Case: [id number] ? Authorizing Provider: ??Soto Ibarra MD ?Collected: ? 08/10/2023 0950 ? Ordering Location: ? [facility] ?Received: ?08/11/2023 0921 ? Pathologist: ? Coral Mackenzie MD ? Specimens: ?? A) - Duodenum ? B) - Stomach Biopsy, random stomach ? 08/12/2023 8:31 AM [facility] Final Diagnosis A) DUODENUM, BIOPSY: 1. Normal duodenal mucosa 2. Negative for celiac disease and other enteropathy B) STOMACH, BIOPSY: 1. Gastric antral and body mucosae with no diagnostic abnormalities 2. Negative for Helicobacter 08/12/2023 8:31 AM [facility] Clinical Information Iron deficiency anemia. Normal upper GI endoscopy. 08/12/2023 8:31 AM [facility] Gross Description A) Received in formalin is a woodard mucosal fragment measuring 5 mm in greatest dimension, which is entirely submitted in one cassette. It is labeled with the patient's name and designated duodenum. B) Received in formalin are 3 woodard mucosal fragments ranging from 2 mm to 7 mm in greatest dimension, which are entirely submitted in one cassette. It is labeled with the patient's name and designated random stomach. Rhea Carlos 08/11/2023 9:32 AM 08/12/2023 8:31 AM [facility] Microscopic Description The final diagnosis is based on microscopic examination of appropriate sections of all specimens. 08/12/2023 8:31 AM NEWS EDITOR [facility] Additional Information Interpreted at [facility] - [address] [facility] [address], [place] [address] 08/12/2023 8:31 AM NEWS EDITOR [facility] Other (Duodenum) 08/10/2023 9:50 AM NEWS EDITOR 08/11/2023 9:21 AM NEWS EDITOR Specimen (specimen) (Stomach Biopsy) 08/10/2023 9:50 AM NEWS EDITOR 08/11/2023 9:21 AM NEWS EDITOR Soto Ibarra MD [facility] [address] [place] [address], from Last 3 Months Additional Health Concerns Infection Onset Date Last Indicated MRSA Comment:Right foot 08/16/2015 08/16/2015 Advance Directives Latest Code Status on File Code Status Date Activated Date Inactivated Comments Full Code 08/16/2015 9:14 AM 08/16/2015 12:48 PM Care Teams Casino Investigator Relationship Specialty Start Date End Date Laith Luz PA PCP - General 08/08/15
--- NOTE | 2023-08-13 09:00 | CRLHL7_ITS ---
For Patients: As a result of the Century Cures Act, medical imaging exams and procedure reports are released immediately into your electronic medical record. You may view this report before your referring provider. If you have questions, please contact your health care provider. Indication: Swelling Technique: CT Chest/Abd/Pelvis W/104CC [id number] Please note that all CT scans at this facility use dose modulation, iterative reconstruction, and/or weight-based dosing when appropriate to reduce radiation dose to as low as reasonably achievable. Comparison: 04/22/2023 Findings: In the chest, enlarged left axillary lymph node noted measuring 1.8 cm. Visualized thyroid gland is within normal limits. A few scattered subcentimeter intrathoracic lymph nodes are present. There is no pleural or pericardial effusion. Severe degenerative changes are present at the left shoulder. Milder degenerative changes right shoulder. Mild dependent areas of scarring are present within the pulmonary parenchyma. Stable nodular density within the periphery of the left upper lobe measuring 4.7 millimeters. Stable nodular density within the right lower lobe measuring 5 millimeters. No fracture is present. In the abdomen, simple hepatic cyst is present within the left hepatic lobe. The gallbladder is within normal limits. Normal spleen. Small hiatal hernia. Adrenal glands normal. No hydronephrosis. No solid renal mass. Tiny cyst in the caudate lobe of the liver. Normal pancreas. Mild atherosclerotic changes. Similar ill-defined stranding within the central mesenteric fat with scattered subcentimeter lymph nodes. In the pelvis, the bladder is normal. Postop changes to the left hemipelvis. 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 Degenerative changes L5-S1. No pelvic adenopathy. Impression: Indeterminate left axillary lymph node measuring 1.8 cm. Targeted ultrasound recommended. 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 Stable bilateral pulmonary nodules measuring up to 5 millimeters. Please note that all CT scans at this facility use dose modulation, iterative reconstruction, and/or weight-based dosing when appropriate to reduce radiation dose to as low as reasonably achievable. Dictated by Keyshawn Barros MD @ 08/14/2023 3:06:03 PM (Electronically Signed)
--- NOTE | 2023-08-13 09:30 | CRLHL7_ITS ---
For Patients: As a result of the Century Cures Act, medical imaging exams and procedure reports are released immediately into your electronic medical record. You may view this report before your referring provider. If you have questions, please contact your health care provider. INDICATION: Swelling, neck mass, history of melanoma. TECHNIQUE: CT of the neck from the skull base to the thoracic inlet following administration of 104 cc iodinated intravenous contrast. COMPARISON: None available. FINDINGS: Normal appearance of the aerodigestive structures. Specifically, no mass or abnormal mucusal-based enhancement. Few mildly prominent left level IIa lymph nodes, the largest measuring up to 1.5 cm (series 2, image 37). Normal parotid and submandibular glands. Unremarkable thyroid. The lung apices are clear. The major vascular structures are normal in appearance. No suspicious osseous lesion is identified. IMPRESSION: 1. No soft tissue mass or suspicious mucosal-based lesion. 2. Few mildly prominent left level IIa lymph nodes, nonspecific but perhaps reactive. Please note that all CT scans at this facility use dose modulation, iterative reconstruction, and/or weight-based dosing when appropriate to reduce radiation dose to as low as reasonably achievable. Dictated by Salbador Kam MD @ 08/13/2023 1:48:29 PM (Electronically Signed)
== END 2023-08-13 08:39 | disposition home or self-care (01) ==
LOC: CT 08:38
PROVIDERS: PCP Nurse Practitioner Family; Visit Provider Nurse Practitioner Family
DX: R22.1 Localized swelling, mass and lump, neck (principal); R93.89 Abnormal findings on diagnostic imaging of other specified body structures
CPT/HCPCS: 70491; 71260; 74177; Q9967

== ENCOUNTER 2023-08-27 18:30 | Emergency (ER) | payer OTHER, SELFPAY ==
[2023-08-27 18:32] VITALS: BP 132/91; PULSE 102; RESP 18; TEMP 36.4; O2SAT 96; BMI 33.9
--- NOTE | 2023-08-27 18:59 | CT_ITS ---
Patient: BRENNA LAN Facility:?[facility] Patient ID:?[id number] Site Patient ID:?[id number]. Site :?[id number] Study:?CT-Abdomen/Pelvis W/ 103CC ISOVUE 370-08/27/2023 8:47:49 PM Ordering Physician:MADISON Final Report: INDICATION: Right lower quadrant pain, vomiting. TECHNIQUE: CT abdomen and pelvis acquired with 103 cc Isovue 370 IV contrast. COMPARISON: CT chest, abdomen, and pelvis 08/13/2023. FINDINGS: Lower chest: Unchanged bibasilar atelectasis versus fibrotic changes. Liver: Unchanged 1.6 cm anterior left hepatic lobe cyst. No suspicious mass. Gallbladder and bile ducts: Unremarkable. No stones or inflammation. No biliary dilatation. Pancreas: Unremarkable. No mass or inflammation. Spleen: Unremarkable. Normal in size. No masses. Adrenal glands: Unremarkable. No nodules. Kidneys: Unremarkable. No suspicious masses, stones, or hydronephrosis. GI tract: Diverticulosis without pericolonic inflammation. Normal appendix. Prominent, nondilated, though fluid-filled, small bowel loops within the left mid hemiabdomen in the region of the inflammatory process described below. There is a smooth transition to normal caliber distal small bowel. No bowel obstruction. Vasculature: Abdominal aorta is normal in caliber. Mesenteric arteries are patent. Lymph nodes: No lymphadenopathy. Peritoneum/Abdominal Wall: Worsening inflammatory stranding in the left mid abdomen mesenteric root with surrounding mildly prominent lymph nodes. There is more involvement of the central mesentery. There is mild inflammation of the adjacent small bowel loops. Small volume free fluid in the pelvis. No free air. Pelvis: Status post hysterectomy. Bones: Similar-appearing plate and screw fixation hardware within the left acetabulum and left total hip arthroplasty. Unchanged screws about the right sacroiliac joint. 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 Old left inferior pubic ramus fracture. IMPRESSION: Progressively worsening inflammatory process in the left/central mid abdomen mesenteric root with increasingly prominent surrounding lymph nodes. Again, this is nonspecific but is suspicious for sclerosing mesenteritis. Lymphoma can not be excluded. This process appears to cause an ileus of the adjacent small bowel loops. Please note that all CT scans at this facility use dose modulation, iterative reconstruction, and/or weight-based dosing when appropriate to reduce radiation dose to as low as reasonably achievable. Dictated by Jim Paz MD @ 08/27/2023 9:35:55 PM Signed by:?Jim Paz MD @08/27/2023 9:35:55 PM (Electronic Signature)
--- NOTE | 2023-08-27 19:10 | ED.GENADULT ---
HPI - General Adult General Date Seen: 08/27/23 Chief complaint: Abdominal Pain Stated complaint: abdominal pain Time Seen by Provider: 08/27/23 18:43 Source: patient, RN notes reviewed and old records reviewed Mode of arrival: ambulatory Limitations: no limitations History of Present Illness HPI narrative: Patient is a 63-year-old woman here for evaluation of right lower abdominal pain associated with nausea and 1 episode of vomiting a little bit ago. She says that she has actually been having some pain in this area for at least a few days, perhaps even longer. However, at 3:30 a.m. last night pain worsened and has been more severe since then. It waxes and wanes a little bit but has not gone completely away. She has currently been undergoing an extensive evaluation related to anemia, hemoglobin done in July was 8.5. She had an endoscopy and colonoscopy on August 10 both of which were unremarkable. She had CT soft tissue neck as well as a CT of the chest abdomen pelvis earlier this month as well which were essentially unremarkable. She had 1 prominent lymph node in the left axilla, with ultrasound recommended. I do not see that that has been followed up yet she has not had fever chills. She has not had urinary symptoms. She has not had visible blood in her stools although she has tested positive for microscopic blood previously. She does have a history of melanoma. Prior abdominal surgeries include hysterectomy. She reports that she still has her appendix and gallbladder. She does not smoke or drink. Here tonight with her . Related Data Home Medications Medication Instructions Recorded Confirmed ibuprofen 200 mg tablet (Advil) 400 mg PO Q8H PRN 07/17/22 08/14/23 Previous Rx's Medication Instructions Recorded triamterene 37.5 1 cap PO QDAY #90 caps 06/23/23 mg-hydrochlorothiazide 25 mg capsule levothyroxine 100 mcg tablet 100 mcg PO QDAY #90 tabs 07/01/23 (Euthyrox) triamcinolone acetonide 0.1 % 1 applic topical TID #80 grams 07/03/23 topical cream amlodipine 5 mg tablet 5 mg PO QDAY #90 tabs 07/27/23 iron,carbonyl 65 mg-vitamin C 125 1 tab PO ONCE #90 tabs 07/31/23 mg tablet,delayed release (Vitron-C) Allergies Allergy/AdvReac Type Severity Reaction Status Date / Time lisinopril Allergy Verified 08/27/23 18:37 neomycin Allergy Verified 08/27/23 18:37 Review of Systems Status of ROS: Reports: 10 or more systems reviewed and unremarkable except as noted in History and below [facility] Medical History Malignant melanoma ?C43.9 - Malignant melanoma of skin, unspecified (ICD-10) History of femur fracture (Unknown) ?Z87.81 - Personal history of (healed) traumatic fracture (ICD-10) Hypertension ?I10 - Essential (primary) hypertension (ICD-10) Surgical History Fixation hardware in foot ?Z96.7 - Presence of other bone and tendon implants (ICD-10) Fixation hardware in lower extremity ?Z96.7 - Presence of other bone and tendon implants (ICD-10) History of hysterectomy ?Z90.710 - Acquired absence of both cervix and uterus (ICD-10) History of left hip replacement ?Z96.642 - Presence of left artificial hip joint (ICD-10) Family History Mother Heart disease Diabetes Vertigo Coronary artery disease Brother High blood pressure Social History Narrative: . 4 children. The patient does not formally exercise. Alcohol rare. No illicit drug use. 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 What is your current living situation?: I presently have a place to live Problems where you live: no known problems In the past 12 months, utilities in danger of being shut off: no In past 12 months, lack of transportation kept you from medical appts, meetings, work, or getting things needed for daily living: no In the past 12 mos, have been you worried that your food would run out before you had money to buy more?: never true In the past 12 mos, the food you bought just didn't last and you didn't have money to buy more?: never true Smoking Status: Never smoker Do you use any of these nicotine containing products: None Second hand tobacco smoke exposure: No How often do you have a drink containing alcohol: 4 or more times a week How often do you have six or more drinks on one occasion: Never AUDIT-C Alcohol total score: 4 Non-prescribed substance use: denies use Caffeine: Yes How often does anyone, including family, friends and others, physically hurt you: never How often does anyone, including family, friends and others, insult or talk down to you: rarely How often does anyone, including family, friends and others, threaten you with harm: never How often does anyone, including family, friends and others, scream or curse at you: never Little interest or pleasure in doing things: not at all Feeling down, depressed, or hopeless: not at all service: No Exam Narrative: Exam Narrative: Vital signs as noted above. In general, an alert, well-appearing patient. Head: Normocephalic, atraumatic. Eyes: Pupils are equal reactive. Extraocular movements are full. Conjunctivae are normal. ENT: Mucous membranes are moist. Throat is normal. Neck: Supple without lymphadenopathy. Heart: Regular rate and rhythm. No murmur or rub. Lungs: Clear bilaterally. No increased work of breathing, crackles or wheezes. Abdomen: Soft, nondistended. Really minimal tenderness in the right lower quadrant, otherwise nontender to palpation. No rebound guarding or rigidity. Extremities: Well perfused. No edema. No calf tenderness. Pulses intact. Neurologic: Patient is alert and oriented to person and place. Speech is fluent. Face is symmetric. Moves all extremities equally. Affect: Normal. Skin: Warm and dry. Well perfused. Const: Vital Signs, click to edit/add: Vital Signs - 24 hr 08/27/23 18:32 08/27/23 21:14 Temperature 97.6 F Pulse Rate [Pulse Oximeter] 102 H 87 Respiratory Rate 18 Blood Pressure [Ri ght Upper Arm] 132/91 H 128/91 H Pulse Oximetry 96 95 Oxygen Delivery Me thod Room Air Room Air Course Course ED Course: I elected to do labs as well as CT scan. I reviewed all of her prior recent imaging. 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 Biopsies of her stomach and duodenum were normal. Her endoscopy and colonoscopy were otherwise unremarkable. She tells me she has an appointment pending to evaluate this lymph node in the next week or so and then she is on the wait list for further bowel evaluation at [facility] of her small bowel to look for possible bleeding source. With regard to tonight's workup, her white blood cell count is essentially normal at 11.01. Hemoglobin is up from 8 0.5-10.1. Remains microcytic. Sodium is 134, potassium is 3.4. Other electrolytes normal, blood sugar 134. Lactate is normal at 1. LFTs are normal, CRP is 1, lipase is 46. UA is negative. CT scan is read by radiology as follows:FINDINGS: Lower chest: Unchanged bibasilar atelectasis versus fibrotic changes. Liver: Unchanged 1.6 cm anterior left hepatic lobe cyst. No suspicious mass. Gallbladder and bile ducts: Unremarkable. No stones or inflammation. No biliary dilatation. Pancreas: Unremarkable. No mass or inflammation. Spleen: Unremarkable. Normal in size. No masses. Adrenal glands: Unremarkable. No nodules. Kidneys: Unremarkable. No suspicious masses, stones, or hydronephrosis. GI tract: Diverticulosis without pericolonic inflammation. Normal appendix. Prominent, nondilated, though fluid-filled, small bowel loops within the left mid hemiabdomen in the region of the inflammatory process described below. There is a smooth transition to normal caliber distal small bowel. No bowel obstruction. Vasculature: Abdominal aorta is normal in caliber. Mesenteric arteries are patent. Lymph nodes: No lymphadenopathy. Peritoneum/Abdominal Wall: Worsening inflammatory stranding in the left mid abdomen mesenteric root with surrounding mildly prominent lymph nodes. There is more involvement of the central mesentery. There is mild inflammation of the adjacent small bowel loops. Small volume free fluid in the pelvis. No free air. Pelvis: Status post hysterectomy. Bones: Similar-appearing plate and screw fixation hardware within the left acetabulum and left total hip arthroplasty. Unchanged screws about the right sacroiliac joint. 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 Old left inferior pubic ramus fracture. IMPRESSION: Progressively worsening inflammatory process in the left/central mid abdomen mesenteric root with increasingly prominent surrounding lymph nodes. Again, this is nonspecific but is suspicious for sclerosing mesenteritis. Lymphoma can not be excluded. This process appears to cause an ileus of the adjacent small bowel loops. Patient was not previously aware of the diagnosis of sclerosing mesenteritis. I have discussed this with her as the likely cause for her symptoms. She does have evidence of an ileus but not an obstruction. She has had no further vomiting and is feeling comfortable at this time. Also reviewed with her that lymphoma has not entirely been ruled out and that workup of this lymph node in her axilla is going to be important as if that were to show lymphoma I think it would change the plan with her abdominal process. I have asked her to follow up with her primary clinic. For now I am going to start her on prednisone. Further treatment of sclerosing mesenteritis according to [employer] includes tamoxifen long-term, however for now I am starting just prednisone, would like to get the additional information regarding the axillary lymph node and perhaps specialty consultation regarding management of her sclerosing mesenteritis/mesenteric panniculitis, if that ends up being the definitive diagnosis. Reviewed with her that if she has worsening or severe pain, has persistent vomiting, is not passing gas, that she should come back for re-evaluation. She is comfortable with all of this. Vital Signs Vital signs: Initial Vital Signs Temperature 97.6 F 08/27/23 18:32 Temperature Source Temporal Artery Scan 08/27/23 18:32 Pulse Rate 102 H 08/27/23 18:32 Pulse Rhythm Regular 08/27/23 18:32 Respiratory Rate 18 08/27/23 18:32 Blood Pressure 132/91 H 08/27/23 18:32 Blood Pressure Mean 104 08/27/23 18:32 Blood Pressure Position Sitting 08/27/23 18:32 Pulse Oximetry 96 08/27/23 18:32 Oxygen Delivery Method Room Air 08/27/23 18:32 Vital Signs Temperature 97.6 F 08/27/23 18:32 Pulse Rate 102 H 08/27/23 18:32 Respiratory Rate 18 08/27/23 18:32 Blood Pressure 132/91 H 08/27/23 18:32 Pulse Oximetry 96 08/27/23 18:32 Oxygen Delivery Method Room Air 08/27/23 18:32 Temperature 97.6 F 08/27/23 18:32 Pulse Rate 87 08/27/23 21:14 Respiratory Rate 18 08/27/23 18:32 Blood Pressure 128/91 H 08/27/23 21:14 Pulse Oximetry 95 08/27/23 21:14 Oxygen Delivery Method Room Air 08/27/23 21:14 Medications Administered Medications: Discontinued Medications Generic Name Dose Route Start Last Admin Trade Name Freq PRN Reason Stop Dose Admin Sodium Chloride 1,000 mls @ 1,000 mls/hr 08/27/23 19:00 08/27/23 20:01 0.9 % Sodium Chloride 1000 Ml IV 08/27/23 19:59 Infused .Q1H ANGELA Infusion Morphine Sulfate 4 mg 08/27/23 18:59 08/27/23 19:22 Morphine 4 Mg/Ml Inj IVP 08/27/23 19:00 4 mg ONCE ONE Administration Ondansetron HCl 4 mg 08/27/23 18:59 08/27/23 19:22 Ondansetron 2 Mg/Ml Inj IVP 08/27/23 19:00 4 mg ONCE ONE Administration Medical Decision Making Lab Data Labs: Lab Results 08/27/23 08/27/23 08/27/23 Range/Units 19:00 19:00 19:00 WBC (4.50-11.00) K/uL RBC (4.00-5.20) m/uL Hgb (12.0-16.0) gm/dL Hct (33.0-51.0) % MCV (80-100) fL MCH (26-34) pg MCHC (32-36) gm/dL RDW Coeff of [place] (11.5-15.5) % Plt Count (140-440) K/uL Neut % (Auto) (42.0-72.0) % Lymph % (Auto) (20-44) % [place] % (Auto) (0.0-11.0) % Eos % (Auto) (0.0-7.0) % Baso % (Auto) (0.0-3.0) % Neut # (Auto) (1.7-7.0) K/uL Lymph # (Auto) (0.90-2.90) K/uL [place] # (Auto) (0.00-0.90) K/UL Eos # (Auto) (0.00-0.50) K/uL Baso # (Auto) (0.00-0.30) K/uL Abs Immat Gran (auto) (0.00-0.30) K/uL Imm/Tot Granulo (auto) % Diff Slide Review (Acceptable) Sodium (135-149) mmol/L Potassium (3.6-5.1) mmol/L Chloride (96-114) mmol/L Carbon Dioxide (20-32) mmol/L Anion Gap (7-15) mEq/L BUN (7-30) mg/dL Creatinine (0.5-1.5) mg/dL Estimated Creat Clear Estimated GFR ml/min Glucose (60-115) mg/dL Lactate (0.5-1.9) mmol/L Calcium (8.4-10.6) mg/dL Total Bilirubin (0.1-1.5) mg/dL Direct Bilirubin (0.0-0.5) mg/dL AST (12-35) U/L ALT (4-35) U/L Alkaline Phosphatase (40-150) U/L C-Reactive Protein (0.5-1.0) mg/dL Total Protein (6.0-8.3) g/dL Albumin (3.3-5.0) g/dL Lipase (23-300) U/L Urine Color Yellow Cancelled (Yellow) Urine Appearance Clear Cancelled (Clear) Urine pH 6.0 (5.0-8.5) Ur Specific [place] (1.000-1.030) Urine Protein (Negative) Urine Glucose (UA) (Negative) Urine Ketones (Negative) Urine Blood (Negative) Urine Nitrite (Negative) Urine Bilirubin (Negative) Urine Urobilinogen (0.2-1.0) Ur Leukocyte Esterase (Negative) Urine RBC (0-2) Urine WBC (0-5) Urine WBC Clumps Ur Squamous Epith Cells (None-Few) Francis Biurate Crystals Calcium Carbonate Cryst Calcium Phosphate Cryst Calcium Oxalate Crystal Cystine Crystals Uric Acid Crystals Triple Phos Crystals Sulfur Crystals Cholesterol Crystals Tyrosine Crystals Hippuric Acid Crystals Amorphous Sediment Other Sediment Urine Bacteria (None) Fatty Casts Hyaline Casts Fine Granular Casts Coarse Granular Casts Waxy Casts RBC Casts WBC Casts Other Casts Urine Starch Urine Mucus Urine Trichomonas Urine Yeast 08/27/23 08/27/23 08/27/23 Range/Units 19:00 19:00 19:00 WBC (4.50-11.00) K/uL RBC (4.00-5.20) m/uL Hgb (12.0-16.0) gm/dL Hct (33.0-51.0) % MCV (80-100) fL MCH (26-34) pg MCHC (32-36) gm/dL RDW Coeff of [place] (11.5-15.5) % Plt Count (140-440) K/uL Neut % (Auto) (42.0-72.0) % Lymph % (Auto) (20-44) % [place] % (Auto) (0.0-11.0) % Eos % (Auto) (0.0-7.0) % Baso % (Auto) (0.0-3.0) % Neut # (Auto) (1.7-7.0) K/uL Lymph # (Auto) (0.90-2.90) K/uL [place] # (Auto) (0.00-0.90) K/UL Eos # (Auto) (0.00-0.50) K/uL Baso # (Auto) (0.00-0.30) K/uL Abs Immat Gran (auto) (0.00-0.30) K/uL Imm/Tot Granulo (auto) % Diff Slide Review (Acceptable) Sodium (135-149) mmol/L Potassium (3.6-5.1) mmol/L Chloride (96-114) mmol/L Carbon Dioxide (20-32) mmol/L Anion Gap (7-15) mEq/L BUN (7-30) mg/dL Creatinine (0.5-1.5) mg/dL Estimated Creat Clear Estimated GFR ml/min Glucose (60-115) mg/dL Lactate (0.5-1.9) mmol/L Calcium (8.4-10.6) mg/dL Total Bilirubin (0.1-1.5) mg/dL Direct Bilirubin (0.0-0.5) mg/dL AST (12-35) U/L ALT (4-35) U/L Alkaline Phosphatase (40-150) U/L C-Reactive Protein (0.5-1.0) mg/dL Total Protein (6.0-8.3) g/dL Albumin (3.3-5.0) g/dL Lipase (23-300) U/L Urine Color (Yellow) Urine Appearance (Clear) Urine pH Cancelled (5.0-8.5) Ur Specific [place] 1.025 Cancelled (1.000-1.030) Urine Protein Negative Cancelled (Negative) Urine Glucose (UA) Negative (Negative) Urine Ketones (Negative) Urine Blood (Negative) Urine Nitrite (Negative) Urine Bilirubin (Negative) Urine Urobilinogen (0.2-1.0) Ur Leukocyte Esterase (Negative) Urine RBC (0-2) Urine WBC (0-5) Urine WBC Clumps Ur Squamous Epith Cells (None-Few) Francis Biurate Crystals Calcium Carbonate Cryst Calcium Phosphate Cryst Calcium Oxalate Crystal Cystine Crystals Uric Acid Crystals Triple Phos Crystals Sulfur Crystals Cholesterol Crystals Tyrosine Crystals Hippuric Acid Crystals Amorphous Sediment Other Sediment Urine Bacteria (None) Fatty Casts Hyaline Casts Fine Granular Casts Coarse Granular Casts Waxy Casts RBC Casts WBC Casts Other Casts Urine Starch Urine Mucus Urine Trichomonas Urine Yeast 08/27/23 08/27/23 08/27/23 Range/Units 19:00 19:00 19:00 WBC (4.50-11.00) K/uL RBC (4.00-5.20) m/uL Hgb (12.0-16.0) gm/dL Hct (33.0-51.0) % MCV (80-100) fL MCH (26-34) pg MCHC (32-36) gm/dL RDW Coeff of [place] (11.5-15.5) % Plt Count (140-440) K/uL Neut % (Auto) (42.0-72.0) % Lymph % (Auto) (20-44) % [place] % (Auto) (0.0-11.0) % Eos % (Auto) (0.0-7.0) % Baso % (Auto) (0.0-3.0) % Neut # (Auto) (1.7-7.0) K/uL Lymph # (Auto) (0.90-2.90) K/uL [place] # (Auto) (0.00-0.90) K/UL Eos # (Auto) (0.00-0.50) K/uL Baso # (Auto) (0.00-0.30) K/uL Abs Immat Gran (auto) (0.00-0.30) K/uL Imm/Tot Granulo (auto) % Diff Slide Review (Acceptable) Sodium (135-149) mmol/L Potassium (3.6-5.1) mmol/L Chloride (96-114) mmol/L Carbon Dioxide (20-32) mmol/L Anion Gap (7-15) mEq/L BUN (7-30) mg/dL Creatinine (0.5-1.5) mg/dL Estimated Creat Clear Estimated GFR ml/min Glucose (60-115) mg/dL Lactate (0.5-1.9) mmol/L Calcium (8.4-10.6) mg/dL Total Bilirubin (0.1-1.5) mg/dL Direct Bilirubin (0.0-0.5) mg/dL AST (12-35) U/L ALT (4-35) U/L Alkaline Phosphatase (40-150) U/L C-Reactive Protein (0.5-1.0) mg/dL Total Protein (6.0-8.3) g/dL Albumin (3.3-5.0) g/dL Lipase (23-300) U/L Urine Color (Yellow) Urine Appearance (Clear) Urine pH (5.0-8.5) Ur Specific [place] (1.000-1.030) Urine Protein (Negative) Urine Glucose (UA) Cancelled (Negative) Urine Ketones Negative Cancelled (Negative) Urine Blood Negative Cancelled (Negative) Urine Nitrite Negative (Negative) Urine Bilirubin (Negative) Urine Urobilinogen (0.2-1.0) Ur Leukocyte Esterase (Negative) Urine RBC (0-2) Urine WBC (0-5) Urine WBC Clumps Ur Squamous Epith Cells (None-Few) [place] Biurate Crystals Calcium Carbonate Cryst Calcium Phosphate Cryst Calcium Oxalate Crystal Cystine Crystals Uric Acid Crystals Triple Phos Crystals Sulfur Crystals Cholesterol Crystals Tyrosine Crystals Hippuric Acid Crystals Amorphous Sediment Other Sediment Urine Bacteria (None) Fatty Casts Hyaline Casts Fine Granular Casts Coarse Granular Casts Waxy Casts RBC Casts WBC Casts Other Casts Urine Starch Urine Mucus Urine Trichomonas Urine Yeast 08/27/23 08/27/23 08/27/23 Range/Units 19:00 19:00 19:00 WBC (4.50-11.00) K/uL RBC (4.00-5.20) m/uL Hgb (12.0-16.0) gm/dL Hct (33.0-51.0) % MCV (80-100) fL MCH (26-34) pg MCHC (32-36) gm/dL RDW Coeff of [place] (11.5-15.5) % Plt Count (140-440) K/uL Neut % (Auto) (42.0-72.0) % Lymph % (Auto) (20-44) % [place] % (Auto) (0.0-11.0) % Eos % (Auto) (0.0-7.0) % Baso % (Auto) (0.0-3.0) % Neut # (Auto) (1.7-7.0) K/uL Lymph # (Auto) (0.90-2.90) K/uL [place] # (Auto) (0.00-0.90) K/UL Eos # (Auto) (0.00-0.50) K/uL Baso # (Auto) (0.00-0.30) K/uL Abs Immat Gran (auto) (0.00-0.30) K/uL Imm/Tot Granulo (auto) % Diff Slide Review (Acceptable) Sodium (135-149) mmol/L Potassium (3.6-5.1) mmol/L Chloride (96-114) mmol/L Carbon Dioxide (20-32) mmol/L Anion Gap (7-15) mEq/L BUN (7-30) mg/dL Creatinine (0.5-1.5) mg/dL Estimated Creat Clear Estimated GFR ml/min Glucose (60-115) mg/dL Lactate (0.5-1.9) mmol/L Calcium (8.4-10.6) mg/dL Total Bilirubin (0.1-1.5) mg/dL Direct Bilirubin (0.0-0.5) mg/dL AST (12-35) U/L ALT (4-35) U/L Alkaline Phosphatase (40-150) U/L C-Reactive Protein (0.5-1.0) mg/dL Total Protein (6.0-8.3) g/dL Albumin (3.3-5.0) g/dL Lipase (23-300) U/L Urine Color (Yellow) Urine Appearance (Clear) Urine pH (5.0-8.5) Ur Specific [place] (1.000-1.030) Urine Protein (Negative) Urine Glucose (UA) (Negative) Urine Ketones (Negative) Urine Blood (Negative) Urine Nitrite Cancelled (Negative) Urine Bilirubin Negative Cancelled (Negative) Urine Urobilinogen 0.2 Cancelled (0.2-1.0) Ur Leukocyte Esterase Trace A (Negative) Urine RBC (0-2) Urine WBC (0-5) Urine WBC Clumps Ur Squamous Epith Cells (None-Few) Francis Biurate Crystals Calcium Carbonate Cryst Calcium Phosphate Cryst Calcium Oxalate Crystal Cystine Crystals Uric Acid Crystals Triple Phos Crystals Sulfur Crystals Cholesterol Crystals Tyrosine Crystals Hippuric Acid Crystals Amorphous Sediment Other Sediment Urine Bacteria (None) Fatty Casts Hyaline Casts Fine Granular Casts Coarse Granular Casts Waxy Casts RBC Casts WBC Casts Other Casts Urine Starch Urine Mucus Urine Trichomonas Urine Yeast 08/27/23 08/27/23 08/27/23 Range/Units 19:00 19:00 19:00 WBC (4.50-11.00) K/uL RBC (4.00-5.20) m/uL Hgb (12.0-16.0) gm/dL Hct (33.0-51.0) % MCV (80-100) fL MCH (26-34) pg MCHC (32-36) gm/dL RDW Coeff of [place] (11.5-15.5) % Plt Count (140-440) K/uL Neut % (Auto) (42.0-72.0) % Lymph % (Auto) (20-44) % [place] % (Auto) (0.0-11.0) % Eos % (Auto) (0.0-7.0) % Baso % (Auto) (0.0-3.0) % Neut # (Auto) (1.7-7.0) K/uL Lymph # (Auto) (0.90-2.90) K/uL [place] # (Auto) (0.00-0.90) K/UL Eos # (Auto) (0.00-0.50) K/uL Baso # (Auto) (0.00-0.30) K/uL Abs Immat Gran (auto) (0.00-0.30) K/uL Imm/Tot Granulo (auto) % Diff Slide Review (Acceptable) Sodium (135-149) mmol/L Potassium (3.6-5.1) mmol/L Chloride (96-114) mmol/L Carbon Dioxide (20-32) mmol/L Anion Gap (7-15) mEq/L BUN (7-30) mg/dL Creatinine (0.5-1.5) mg/dL Estimated Creat Clear Estimated GFR ml/min Glucose (60-115) mg/dL Lactate (0.5-1.9) mmol/L Calcium (8.4-10.6) mg/dL Total Bilirubin (0.1-1.5) mg/dL Direct Bilirubin (0.0-0.5) mg/dL AST (12-35) U/L ALT (4-35) U/L Alkaline Phosphatase (40-150) U/L C-Reactive Protein (0.5-1.0) mg/dL Total Protein (6.0-8.3) g/dL Albumin (3.3-5.0) g/dL Lipase (23-300) U/L Urine Color (Yellow) Urine Appearance (Clear) Urine pH (5.0-8.5) Ur Specific [place] (1.000-1.030) Urine Protein (Negative) Urine Glucose (UA) (Negative) Urine Ketones (Negative) Urine Blood (Negative) Urine Nitrite (Negative) Urine Bilirubin (Negative) Urine Urobilinogen (0.2-1.0) Ur Leukocyte Esterase Cancelled (Negative) Urine RBC 0-2 Cancelled (0-2) Urine WBC 0-2 Cancelled (0-5) Urine WBC Clumps Cancelled Ur Squamous Epith Cells Few (None-Few) Francis Biurate Crystals Calcium Carbonate Cryst Calcium Phosphate Cryst Calcium Oxalate Crystal Cystine Crystals Uric Acid Crystals Triple Phos Crystals Sulfur Crystals Cholesterol Crystals Tyrosine Crystals Hippuric Acid Crystals Amorphous Sediment Other Sediment Urine Bacteria (None) Fatty Casts Hyaline Casts Fine Granular Casts Coarse Granular Casts Waxy Casts RBC Casts WBC Casts Other Casts Urine Starch Urine Mucus Urine Trichomonas Urine Yeast 08/27/23 08/27/23 08/27/23 Range/Units 19:00 19:00 19:13 WBC 11.01 H (4.50-11.00) K/uL RBC 4.69 (4.00-5.20) m/uL Hgb 10.1 L (12.0-16.0) gm/dL Hct 34.7 (33.0-51.0) % MCV 74 L (80-100) fL MCH 22 L (26-34) pg MCHC 29 L (32-36) gm/dL RDW Coeff of [place] 20.9 H (11.5-15.5) % Plt Count 364 (140-440) K/uL Neut % (Auto) 86.2 H (42.0-72.0) % Lymph % (Auto) 8.7 L (20-44) % [place] % (Auto) 4.5 (0.0-11.0) % Eos % (Auto) 0.1 (0.0-7.0) % Baso % (Auto) 0.3 (0.0-3.0) % Neut # (Auto) 9.50 H (1.7-7.0) K/uL Lymph # (Auto) 1.00 (0.90-2.90) K/uL [place] # (Auto) 0.50 (0.00-0.90) K/UL Eos # (Auto) 0.00 (0.00-0.50) K/uL Baso # (Auto) 0.00 (0.00-0.30) K/uL Abs Immat Gran (auto) 0.00 (0.00-0.30) K/uL Imm/Tot Granulo (auto) 0.2 % Diff Slide Review Acceptable Review (Acceptable) Sodium 134 L (135-149) mmol/L Potassium 3.4 L (3.6-5.1) mmol/L Chloride 98 (96-114) mmol/L Carbon Dioxide 25 (20-32) mmol/L Anion Gap 11 (7-15) mEq/L BUN 14 (7-30) mg/dL Creatinine 0.6 (0.5-1.5) mg/dL Estimated Creat Clear 53.21 Estimated GFR 100 ml/min Glucose 134 H (60-115) mg/dL Lactate 1.0 (0.5-1.9) mmol/L Calcium 9.7 (8.4-10.6) mg/dL Total Bilirubin 0.5 (0.1-1.5) mg/dL Direct Bilirubin 0.2 (0.0-0.5) mg/dL AST 23 (12-35) U/L ALT 18 (4-35) U/L Alkaline Phosphatase 86 (40-150) U/L C-Reactive Protein 1.0 (0.5-1.0) mg/dL Total Protein 7.3 (6.0-8.3) g/dL Albumin 4.6 (3.3-5.0) g/dL Lipase 46 (23-300) U/L Urine Color (Yellow) Urine Appearance (Clear) Urine pH (5.0-8.5) Ur Specific [place] (1.000-1.030) Urine Protein (Negative) Urine Glucose (UA) (Negative) Urine Ketones (Negative) Urine Blood (Negative) Urine Nitrite (Negative) Urine Bilirubin (Negative) Urine Urobilinogen (0.2-1.0) Ur Leukocyte Esterase (Negative) Urine RBC (0-2) Urine WBC (0-5) Urine WBC Clumps Ur Squamous Epith Cells Cancelled (None-Few) [place] Biurate Crystals Cancelled Calcium Carbonate Cryst Cancelled Calcium Phosphate Cryst Cancelled Calcium Oxalate Crystal Cancelled Cystine Crystals Cancelled Uric Acid Crystals Cancelled Triple Phos Crystals Cancelled Sulfur Crystals Cancelled Cholesterol Crystals Cancelled Tyrosine Crystals Cancelled Hippuric Acid Crystals Cancelled Amorphous Sediment Cancelled Other Sediment Cancelled Urine Bacteria None Cancelled (None) Fatty Casts Cancelled Hyaline Casts Cancelled Fine Granular Casts Cancelled Coarse Granular Casts Cancelled Waxy Casts Cancelled RBC Casts Cancelled WBC Casts Cancelled Other Casts Cancelled Urine Starch Cancelled Urine Mucus Cancelled Urine Trichomonas Cancelled Urine Yeast Cancelled Discharge Plan Discharge Clinical Impression: Anemia, Mesenteric panniculitis Patient Disposition: Home, Self-Care Condition: Improved Additional Instructions: Prednisone as follows, 3 tablets daily for 3 days, then 2 tablets daily for 3 days, then 1 tablet daily until gone. Please follow-up with your regular clinic in the next 1-2 weeks for further discussion of the diagnosis of mesenteric panniculitis. It will be important to see how the lymph node workup goes, as lymphoma has not entirely been excluded as a cause for the findings on your CT scan. If you have worsening pain, new symptoms such as fever, protracted vomiting, or other worsening, please return to the emergency department. Prescriptions: No Action ibuprofen [Advil] 200 mg tablet 400 mg PO Q8H PRN Vitron-C 65 mg iron- 125 mg tablet,delayed release (DR/EC) 1 tab PO ONCE Qty: 90 3RF triamterene-hydrochlorothiazid 37.5-25 mg capsule 1 cap PO QDAY Qty: 90 0RF levothyroxine [Euthyrox] 100 mcg tablet 100 mcg PO QDAY Qty: 90 0RF triamcinolone acetonide 0.1 % cream 1 applic topical TID Qty: 80 1RF amlodipine 5 mg tablet 5 mg PO QDAY Qty: 90 0RF Follow Up/Referrals: Laura Curtis APRN, EQUIPMENT SERVICE TECHNICIAN [Primary Care Provider] - Stand Alone Forms: Post[employer] Info Instructions
[2023-08-27 19:11] LABS: Appearance Urine Clear (Clear); Bilirubin Urine Negative (Negative); Blood Urine Negative (Negative); Color Urine Yellow (Yellow); Glucose Urine Negative (Negative); Ketones Urine Negative (Negative); Leukocyte Esterase Urine Trace (Negative); Nitrite Urine Negative (Negative); Protein Urine Negative (Negative); Specific Gravity Urine 1.025 (1.000-1.030); Urobilinogen Urine 0.2 (0.2-1.0)
[2023-08-27 19:20] LABS: Basophils Percent Auto 0.3 % (0.0-3.0); Eosinophils Percent Auto 0.1 % (0.0-7.0); Hematocrit 34.7 % (33.0-51.0); Hemoglobin* 10.1 gm/dL (12.0-16.0); Immature Granulocytes Pct Auto 0.2 %; Lymphocytes Percent Auto 8.7 % (20-44); Mean Corpuscular HGB Conc 29 gm/dL (32-36); Mean Corpuscular Hemoglobin 22 pg (26-34); Mean Corpuscular Volume 74 fL (80-100); Monocytes Percent Auto 4.5 % (0.0-11.0); Neutrophils Percent Auto 86.2 % (42.0-72.0); Platelet Count* 364 K/uL (140-440); RDW Coefficient of Variation % 20.9 % (11.5-15.5); Red Blood Count 4.69 m/uL (4.00-5.20); White Blood Count* 11.01 K/uL (4.50-11.00)
[2023-08-27] MEDS: ONDANSETRON 2 MG/ML inj 4 MG IVP (19:22)
[2023-08-27] MEDS: MORPHINE 4 MG/ML INJ IVP (19:22)
[2023-08-27] MEDS: 0.9 % SODIUM CHLORIDE 1000 ml 1,000 ML IV (19:23)
[2023-08-27 19:40] LABS: Slide Review Reflex Yes
[2023-08-27 19:56] LABS: Albumin* 4.6 g/dL (3.3-5.0); Chloride* 98 mmol/L (96-114); Sodium* 134 mmol/L (135-149)
[2023-08-27 19:57] LABS: Potassium* 3.4 mmol/L (3.6-5.1)
[2023-08-27 19:58] LABS: Creatinine* 0.6 mg/dL (0.5-1.5); Est. Creatinine Clearance* 53.21; Estimated Glomerular Filt Rate 100 ml/min
[2023-08-27 19:59] LABS: Alanine Aminotransferase* 18 U/L (4-35); Alkaline Phosphatase* 86 U/L (40-150); Anion Gap 11 mEq/L (7-15); Aspartate Amino Transferase* 23 U/L (12-35); Bilirubin Direct* 0.2 mg/dL (0.0-0.5); Bilirubin Total* 0.5 mg/dL (0.1-1.5); Blood Urea Nitrogen* 14 mg/dL (7-30); Carbon Dioxide* 25 mmol/L (20-32); Glucose* 134 mg/dL (60-115); Lipase* 46 U/L (23-300); Total Protein* 7.3 g/dL (6.0-8.3)
[2023-08-27 20:00] LABS: Calcium* 9.7 mg/dL (8.4-10.6)
[2023-08-27 20:07] LABS: RBC Urine 0-2 (0-2); Squamous Epithelial Cell Urine Few (None-Few); WBC Urine 0-2 (0-5)
[2023-08-27 20:11] LABS: Slide Review Acceptable Review (Acceptable)
[2023-08-27 21:14] VITALS: BP 128/91; PULSE 87; O2SAT 95
== END 2023-08-27 22:10 | disposition home or self-care (01) ==
PROVIDERS: Emergency Provider Emergency Medicine; PCP Nurse Practitioner Family
DX: K65.4 Sclerosing mesenteritis (principal); D64.9 Anemia, unspecified
CPT/HCPCS: 36415; 74177; 80048; 80076; 81001; 83605; 83690; 85025; 86140; 87086; 96374; 96375; 99284; 99285; J2270; J2405; J7030; Q9967

== ENCOUNTER 2023-09-03 09:40 | Outpatient (CLI) | payer OTHER, SELFPAY ==
--- NOTE | 2023-09-03 09:45 | MM_ITS ---
Patient: BRENNA LAN Facility:?[facility] Patient ID:?[id number] Site Patient ID:?[id number]. Site :?1960 Study:?XRay-Breast Bilateral 3D W/CAD-09/03/2023 12:01:18 PM Ordering Physician:?Laura Curtis Final Report: DIAGNOSTIC BILATERAL MAMMOGRAM WITH COMPUTER-AIDED DETECTION AND TOMOSYNTHESIS LEFT AXILLARY ULTRASOUND CLINICAL HISTORY: LEFT axillary adenopathy. COMPARISON: CT chest 08/13/2023, mammogram 10/13/2018. TECHNIQUE: Digital BILATERAL mammogram in 4 projections. Computer-aided detection and tomosynthesis were used. Real-time ultrasound imaging of LEFT axilla with imaging documentation. BREAST COMPOSITION: There are scattered areas of fibroglandular density FINDINGS: 3D CC/MLO BILATERAL mammogram images submitted. Enlarged LEFT axillary lymph nodes are present. No suspicious breast mass. No suspicious calcifications or architectural distortion BILATERALLY. Targeted LEFT axillary ultrasound performed. In the left axilla, there is a solid hypoechoic masslike area measuring 1.5 x 1.4 x 1.5 cm. IMPRESSION: Indeterminate hypoechoic structure within the LEFT axilla measuring 1.5 cm. Differential diagnosis includes enlarged lymph node or postop seroma. RECOMMENDATIONS: Ultrasound-guided core needle biopsy. BI-RADS Category 4: Suspicious Results and recommendations discussed with the patient. A lay language report of this examination will be provided to the patient. Keyshawn Barros MD @09/03/2023 11:43:12 AM/jsamber YASSINE/Dictated by: Keyshawn Barros MD @ 09/03/2023 12:04:00 PM YASSINE/Dictated by: Keyshawn Barros MD @ 09/03/2023 12:04:00 PM YASSINE/Dictated by: Keyshawn Barros MD @ 09/03/2023 12:04:00 PM YASSINE/Dictated by: Keyshawn Barros MD @ 09/03/2023 12:04:00 PM Signed by:?Keyshawn Barros MD @09/05/2023 10:15:22 AM (Electronic Signature)
--- NOTE | 2023-09-03 10:15 | US_ITS ---
Patient: BRENNA LAN Facility:?[facility] Patient ID:?[id number] Site Patient ID:?[id number]. Site :?1960 Study:?US-Extremity Left DR MOYER TO READ-09/03/2023 11:37:14 AM Ordering Physician:?KATHY SEALS Final Report: CLINICAL HISTORY: Left axillary adenopathy COMPARISON: CT chest 08/13/2023, mammogram 10/13/2018 TECHNIQUE: Digital BILATERAL mammogram in 4 projections. Real-time ultrasound imaging of LEFT breast with imaging documentation. BREAST COMPOSITION: Scattered fibroglandular densities. FINDINGS: 3D cc/MLO bilateral mammogram images submitted. Enlarged left axillary lymph nodes are present. No suspicious breast mass. No suspicious calcifications or architectural distortion bilaterally. Targeted left axillary ultrasound performed. In the left axilla, there is a solid hypoechoic masslike area measuring 1.5 x 1.4 x 1.5 cm. IMPRESSION: Indeterminate hypoechoic structure within the left axilla measuring 1.5 cm. Differential diagnosis includes enlarged lymph node or postop seroma. RECOMMENDATIONS: Ultrasound-guided core needle biopsy. BI-RADS: 4. Suspicious. Results and recommendations discussed with the patient. Dictated by Keyshawn Moyer MD @ 09/03/2023 11:43:12 AM Signed by:?Keyshawn Moyer MD @09/03/2023 3:45:44 PM (Electronic Signature)
== END 2023-09-03 09:41 | disposition home or self-care (01) ==
PROVIDERS: PCP Nurse Practitioner Family; Visit Provider Nurse Practitioner Family
DX: R59.9 Enlarged lymph nodes, unspecified (principal)
CPT/HCPCS: 76882; 77066; G0279

== ENCOUNTER 2023-09-15 09:59 | Outpatient (CLI) | payer OTHER, SELFPAY ==
--- NOTE | 2023-09-15 10:15 | US_ITS ---
Patient: BRENNA LAN Facility:?[facility] Patient ID:?[id number] Site Patient ID:?[id number]. Site :?1960 Study:?US-Extremity Procedure DR MOYER TO READ-09/15/2023 10:53:01 AM Ordering Physician:?KATHY SEALS Final Report: ULTRASOUND-GUIDED LEFT AXILLARY LYMPH NODE BIOPSY AND CLIP PLACEMENT CLINICAL HISTORY: Hypoechoic lesion within the left axilla, indeterminate. COMPARISON STUDIES: Ultrasound 09/03/2023 TECHNIQUE: Real-time ultrasound with image documentation was used for targeting the left axillary lesion. Core biopsy specimens were obtained using an automated gun with a 18-gauge biopsy needle. CONSENT and TIME OUT: The procedure, risks, and alternatives were explained to the patient and a consent was signed. Tippo Protocol was followed including pre-procedure verification that relevant information/documentation was available, reviewed and properly matched to the patient; consent accurate and complete; and equipment and supplies available. Time Out was conducted just prior to starting procedure to verify the four required elements: patient identity, correct side/site marked (if applicable), procedure, relevant images/results properly labeled and displayed (if applicable). PROCEDURE: The patient was positioned supine on the ultrasound table. The left axilla was prepped with ChloraPrep. 6 cc of 1 percent lidocaine used for local anesthesia core samples were obtained. A sterile metal biopsy clip was placed percutaneously to paulette the lesion position within the left axilla. The specimens were placed in 10% formalin and sent to the pathology department. Pressure was held on the biopsy site until all bleeding subsided. The skin incision was closed with Steri-Strips. An ice pack was positioned over the biopsy site. Post- biopsy instructions were reviewed with the patient, and a written copy was given to her. LATERALITY: Left axilla LESION: Hypoechoic lesion is present measuring 1.5 cm in the left axilla. SUSPICION FOR MALIGNANCY: Low. The lesion decreased in size during the study. NUMBER OF SAMPLES: 5 BIOPSY CLIP SHAPE: Oval PROXIMITY OF CLIP TO TARGET: Within the lesion IMPRESSION: Ultrasound-guided left axillary biopsy. When the pathology report is available, an addendum to this report will be made. ACR not applicable Dictated by Keyshawn Moyer MD @ 09/15/2023 12:30:18 PM Signed by:?Keyshawn Moyer MD @09/15/2023 4:21:11 PM
== END 2023-09-15 10:00 | disposition home or self-care (01) ==
LOC: US 10:00
PROVIDERS: PCP Nurse Practitioner Family; Visit Provider Nurse Practitioner Family
DX: N63.20 Unspecified lump in the left breast, unspecified quadrant (principal); N60.32 Fibrosclerosis of left breast; R92.8 Other abnormal and inconclusive findings on diagnostic imaging of breast
CPT/HCPCS: 38505; 76942; 88305; A4648; A4649

== ENCOUNTER 2023-11-26 21:56 | Inpatient (IN) | payer OTHER, SELFPAY ==
--- OUTSIDE RECORDS SUMMARY | 2023-11-26 21:59 | XMS_ITS | Referral Summary ---
Author Organization [facility] Address [address] [place] [address] Care Team Providers Care Sandfill Operator Surface Name Role Phone Elsewhere, Pcp Primary Care Provider Unavailabl e Source Comments Patient records contain information from all sites at [facility]. For routine questions regarding patient records, call [phone] during business hours, M-F 8:00 AM - 5:00 PM Central Time. Record requests for emergency care only can be directed to [phone] at any time.[facility] Encounters Date Type Department Care Team Description 10/26/2023 7:48 AM CDT - 10/26/2023 11:59 PM CDT Hospital Encounter Department of Radiology in [place], [place] [address] [place] [phone] Xu Pat M.D. Crohn's Disease (HCC) Discharge Disposition: Home or Self Care 10/05/2023 10:59 AM CDT - 10/05/2023 11:59 PM CDT Hospital Encounter Department of Laboratory Medicine in [place], [place] [address] [phone] Bri Hampton M.D. Anemia Microcytic Hypochromic Discharge Disposition: Home or Self Care 09/29/2023 Clinical Communication Department of General Surgery in [place], [place] [address] [phone] [place], [facility] - from Last 3 Months Allergies Active Allergy Reactions Criticality Noted Date Comments Lisinopril Other (see comments) 07/28/2022 Neomycin Other (see comments) 08/10/2015 Medications Medication Sig Dispensed Refills Start Date End Date Status acetaminophen (TYLENOL 8 HOUR ORAL) Take 1-3 tablets by mouth daily. 04/24/2008 Active diclofenac sodium (VOLTAREN) 1 % gel Apply 4 g topically 4 (four) times a day as needed (Pain). 300 g 2 07/15/2019 Active Additional Information Patient taking differently:4 g topical2 times daily, Informant: Self, Reported on 05/14/2023 amLODIPine (NORVASC) 5 mg tablet Take 1 tablet (5 mg total) by mouth daily. 90 tablet 3 07/29/2021 Active levothyroxine (Euthyrox) 100 mcg tablet Take 1 tablet (100 mcg total) by mouth every morning before breakfast. 90 tablet 3 07/29/2021 Active triamterene-hydroCH LOROthiazide (DYAZIDE) 37.5-25 mg per capsule Take 1 capsule by mouth daily. Active Active Problems Problem Noted Date Diagnosed Date Hypertension Essential Primary 07/11/2019 Lichen Planus 05/14/2017 Hypothyroidism 02/22/2010 Resolved Problems Problem Noted Date Diagnosed Date Resolved Date Restless Leg Syndrome 05/15/20162018 Presence Of Left Artificial Hip Joint 05/14/2015 05/14/2017 Overview: Last Assessment & Plan: 56yoF 17 months s/p L MACHELLE. Doing well. - WBAT LLE, continue activities as tolerated - RTC 1 year PRN Impaired Fasting Glucose 04/20/201403/2017 Obesity NOS 03/14/2011 05/12/2019 Immunizations Name Administration Dates Next Due Influenza (IM) Preservative Free 04/24/2008,04/06,05/12/2007 Influenza, Seasonal, Injectable 05/02/2010,04/28,04/28/2005 Influenza, Unspecified 04/14/2010,05/12/2007 Rubella 08/31/1969 SARS-COV-2 (COVID-19) - PFIZ ER (Discontinued)(12 years or older) 10/23/2020,09/26/2020 Td (Adult), adsorbed 01/04/2002 Tdap 11/18/2011 Tetanus Toxoid, Adsorbed (discontinued) 04/26/19 85 influenza vaccine QV(FLUBLOK ) (18 years or older) (PF) 04/03/2020 influenza vaccine quad (FLUZ ONE/FLUARIX) (6 months and older)(PF) 05/20/2021 Social History Tobacco Use Types Packs/Day Years Used Date Smoking Tobacco: Never Smokeless Tobacco: Never Tobacco Cessation:Counseling Given: Yes Alcohol Use Standard Drinks/Week Comments Yes 2 (1 standard drink = 0.6 oz pur e alcohol) Humiliation, Afraid, Rape, and Kick questionnair e Answer Date Recorded Within the last year, have y ou been afraid of your partner or ex-partner? No 07/28/2021 Within the last year, have y ou been humiliated or emotionally abused in other ways by your partner or ex-partner? No Within the last year, have y ou been kicked, hit, slapped, or otherwise physically hurt by your partner or ex-partner? No 07/28/2021 Within the last year, have y ou been raped or forced to have any kind of sexual activity by your partner or ex-partner? No 07/28/2021 Social Connection and Isolat ion Panel [NHANES] Answer Date Recorded In a typical week, how many times do you talk on the phone with family, friends, or neighbors? More than three times a week 07/28/2021 How often do you get togethe r with friends or relatives? Once a week 07/28/2021 How often do you attend [facility] or druze services? 1 to 4 times per year 07/28/2021 Do you belong to any clubs o r organizations such as amish groups, unions, fraternal or athletic groups, or school groups? Yes 07/28/2021 How often do you attend meet ings of the clubs or organizations you belong to? More than 4 times per year 07/28/2021 Are you , , di vorced, , never , or living with a partner? 07/28/2021 AUDIT-C Answer Date Recorded Q1: How often do you have a drink containing alc ohol? 2-3 times a week 07/28/2021 Q2: How many drinks containi ng alcohol do you have on a typical day when you are drinking? 1 or 2 07/28/2021 Q3: How often do you have si x or more drinks on one occasion? Less than monthly 07/28/2021 Overall Financial Resource Strain (CARDIA) Answe r Date Recorded How hard is it for you to pa y for the very basics like food, housing, medical care, and heating? Not hard at all 05/13/2023 PHQ-2 Answer Date Recorded PHQ-2 Score 0 07/29/2021 [employer] [facility] - Occupational Stress Questionnaire Answer Date Recorded Do you feel stress - tense, restless, nervous, or anxious, or unable to sleep at night because your mind is troubled all the time - these days? To some extent 07/28/2021 Exercise Vital Sign Answer Date Recorde d On average, how many days pe r week do you engage in moderate to strenuous exercise (like a brisk walk)? 0 days 05/13/2023 On average, how many minutes do you engage in exercise at this level? 0 min 05/13/2023 Hunger Vital Sign Answer Date Recorded Within the past 12 months, y ou worried that your food would run out before you got the money to buy more. Never true 05/13/20 Within the past 12 months, t he food you bought just didn't last and you didn't have money to get more. Never true 05/13/2023 PRAPARE - Transportation Answer Date Re corded In the past 12 months, has l ack of transportation kept you from medical appointments or from getting medications? No 02/2023 In the past 12 months, has l ack of transportation kept you from meetings, work, or from getting things needed for daily living? No 05/13/2023 Nutrition Answer Date Recorded Nutrition: EVOO Fat Source No 05/13 On average, how many serving s of fruits and vegetables do you eat per day (serving size is equal to 1 cup or approximately the size of a tennis ball)? 3-5 05/13/2023 Dental Answer Date Recorded Dental: Regular Dentist No 07/28/19 Employment Answer Date Recorded Employment status Employed and actively working without restrictions 05/13/2023 Housing Stability Answer Date Recorded What is your living situation today? [facility] 05/13/2023 Education Answer Date Recorded What is the highest level of school you have completed or the highest degree you have received? Some college, no degree 07/28/2021 Sex and Gender Information Value Date Recorded Sex Assigned at Female 05/14/2017 2:12 PM STATION MECHANIC APPRENTICE Gender Identity Female 05/14/2017 2:12 PM STATION MECHANIC APPRENTICE Sexual Orientation Straight 05/14/2017 2: 12 PM STATION MECHANIC APPRENTICE Last Filed Vital Signs Vital Sign Reading Time Taken Comments Blood Pressure 126/85 07/29/2021 9:02 AM STATION MECHANIC APPRENTICE Pulse 83 07/29/2021 9:02 AM STATION MECHANIC APPRENTICE Temperature 36.2 ??C (97.1 ??F) 07/29/2021 9:02 AM CS T Respiratory Rate 18 07/29/2021 9:02 AM STATION MECHANIC APPRENTICE Oxygen Saturation 93% 06/06/2020 2:58 PM STATION MECHANIC APPRENTICE Inhaled Oxygen Concentration - - Weight 96.6 kg (212 lb 15.4 oz) 07/29/2021 9:02 AM STATION MECHANIC APPRENTICE Height 168.6 cm (5' 6.38) 07/29/2021 9:02 AM CS T Body Mass Index 33.98 07/29/2021 9:02 AM STATION MECHANIC APPRENTICE Plan of Treatment Not on file Medical Devices Implanted Type Area Welder Apprentice Combination Device Identifier Shelf Expiration Date Model / Serial / Lot Hardware E.G. Pins/Screws/Ro ds Hardware e.g. pins/screws/r ods Foot Hip Implant-03/06/20 10 Implanted:07/2009 (Quantity not on file) Hip Implant Hip Procedures Procedure Name Priority Date/Time Associated Diagnosis Comments CT ABDOMEN PELVIS ENTEROGRAPHY WITH IV CONTRAST RAD - Routine (most inpatients and all outpatients) 10/26/2023 9:02 AM CDT Crohn's Disease (HCC) CREATININE WITH EGFR, S/P Routine 10/05/2023 11:09 AM CDT Anemia Microcytic Hypochromic BUN (BLOOD UREA NITROGEN), S/P Routine 10/05/2023 11:09 AM CDT Anemia Microcytic Hypochromic LIPID PANEL, S Routine 07/29/2021 8:42 AM STATION MECHANIC APPRENTICE Hypertension Essential Primary Encounter For Screening For Cardiovascular Disorders Hypothyroidism Screening Examination Diabetes Mellitus COMPREHENSIVE METABOLIC PANEL, S/P Routine 07/29/2021 8:42 AM STATION MECHANIC APPRENTICE Hypertension Essential Primary Encounter For Screening For Cardiovascular Disorders Hypothyroidism Screening Examination Diabetes Mellitus BI BREAST SCREENING BILATERAL WITH TOMOSYNTHESIS RAD - Routine (most inpatients and all outpatients) 10/13/2018 11:47 AM CDT Screening Mammogram Average Risk Patient from Last 3 Months or Most Recently Relevant to Health Maintenance Results * CT Abdomen Pelvis Enterography with IV Contrast (10/26/2023 9:02 AM CDT) Anatomical Region Laterality Modality Abdomen, Pelvis, Abdominal R ST LOS, Abdominal ARZ LOS, Abdominal FLA LOS N/A Computed Tomography 10/26/2023 9:01 AM CDT Impressions 10/26/2023 9:40 AM CDT 1. Short segment nonspecific distal small bowel wall thickening. Could be infectious, inflammatory, or neoplastic. Could be seen with inflammatory bowel disease as queried. 2. Chronic mesenteric stranding and adjacent prominent lymph nodes. Nonspecific appearance but could be seen with mesenteric panniculitis. Narrative 10/26/2023 9:40 AM CDT REVISED REPORT: EXAM: CT ABDOMEN PELVIS ENTEROGRAPHY WITH IV CONTRAST COMPARISON: Abdomen CT 08/13/2023 FINDINGS: Approximately 5 cm segment of distal small bowel in the right abdomen demonstrates thickened enhancing wall (series 4 image 73). This was likely present on the comparison exam but was less well seen due to technique. Several other segments of small bowel appear collapsed, however, do no other areas of convincing wall thickening or inflammatory changes. No evidence of penetrating small bowel disease or perianal disease. Left upper quadrant scattered mesenteric stranding and prominent adjacent mesenteric lymph nodes, unchanged. Stable anterior left hepatic cyst. Normal adrenal glands, gallbladder, kidneys, spleen, and pancreas. Colonic diverticulosis without diverticulitis. Normal appendix. Mild arterial calcifications. Hysterectomy. Chronic posttraumatic and postoperative changes in the pelvic bones and the left hip. Procedure Note Johnathan Curtis M.D. - 10/26/2023 REVISED REPORT: EXAM: CT ABDOMEN PELVIS ENTEROGRAPHY WITH IV CONTRAST COMPARISON: Abdomen CT 08/13/2023 FINDINGS: Approximately 5 cm segment of distal small bowel in the right abdomendemonstrates thickened enhancing wall (series 4 image 73). This was likelypresent on the comparison exam but was less well seen due to technique.Several other segments of small bowel appear collapsed, however, do no other areas of convincing wallthickening or inflammatory changes. No evidence of penetrating small boweldisease or perianal disease. Left upper quadrant scattered mesenteric stranding and prominent adjacentmesenteric lymph nodes, unchanged. Stable anterior left hepatic cyst. Normal adrenal glands, gallbladder,kidneys, spleen, and pancreas. Colonic diverticulosis withoutdiverticulitis. Normal appendix. Mild arterial calcifications.Hysterectomy. Chronic posttraumatic and postoperative changes in the pelvic bones andthe left hip. IMPRESSION: 1. Short segment nonspecific distal small bowel wall thickening. Could beinfectious, inflammatory, or neoplastic. Could be seen with inflammatorybowel disease as queried. 2. Chronic mesenteric stranding and adjacent prominent lymph nodes.Nonspecific appearance but could be seen with mesenteric panniculitis. Xu Pat M.D. IMG CT PROCEDURES * BUN (Blood Urea Nitrogen) (10/05/2023 11:09 AM CDT) BUN (Blood Urea Nitrogen), P 15 6 - 21 mg/dL 10/05/2023 11:35 AM CDT OWAT Blood (Blood, Venous) 10/05/2023 11:09 AM CDT 10/05/2023 11:13 AM CDT Bri Hampton M.D. LAB BLOOD ADD-ON [facility] [address] [place] [address], [facility] OWAT [facility] in [place] [address] [place] [address] * Creatinine with Estimated GFR (10/05/2023 11:09 AM CDT) Creatinine 0.68 0.59 - 1.04 mg/dL 10/05/2023 11:35 AM CDT OWAT Estimated GFR (eGFR) >90 >=60 mL/min/BSA 10/05/2023 11:35 AM CDT OWAT Comment: Estimated GFR calculated using the 2020 CKD_EPI creatinine equation. Blood (Blood, Venous) 10/05/2023 11:09 AM CDT 10/05/2023 11:13 AM CDT Bri Hampton M.D. LAB BLOOD ADD-ON [facility] [address] [place] [address], [facility] OWAT [facility] [place] [address] [place] [address] * (ABNORMAL) Lipid Panel (07/29/2021 8:42 AM STATION MECHANIC APPRENTICE) Cholesterol, Total 207(H) mg/dL 2021 11:45 AM STATION MECHANIC APPRENTICE OWAT Comment: ----REFERENCE VALUE---- Desirable: < 200 Borderline high: 200 - 239 High: > or = 240 Triglycerides 253(H) mg/dL 07/29/2021 11:45 AM STATION MECHANIC APPRENTICE OWAT Comment: ----REFERENCE VALUE---- Normal: <150 Borderline high: 150-199 High: 200-499 Very high: > or =500 Cholesterol, HDL 52 >=50 mg/dL 07/29/19 11:45 AM STATION MECHANIC APPRENTICE OWAT Calculated LDL 104 mg/dL 07/29/2021 11:45 AM STATION MECHANIC APPRENTICE OWAT Comment: ----REFERENCE VALUE---- Desirable: <100 mg/dL Above Desirable: 100-129 mg/dL Borderline High: 130-159 mg/dL High: 160-189 mg/dL Very High: >=190 mg/dL Cholesterol, Non-HDL, Calculated 155 mg/dL 07/29/2021 11:45 AM STATION MECHANIC APPRENTICE OWAT Comment: ----REFERENCE VALUE---- Desirable: <130 Above Desirable: 130-159 Borderline high: 160-189 High: 190-219 Very high: > or =220 Blood (Blood, Venous) 07/29/2021 8:42 AM STATION MECHANIC APPRENTICE 07/29/2021 10:44 AM STATION MECHANIC APPRENTICE Devaughn Dumont P.A.-C. LAB BLOO D ADD-ON [facility] [address] [facility] [place] [address], [place] [facility] [facility] in [place] [address] [place] [address] * Comprehensive Metabolic Panel (07/29/2021 8:42 AM STATION MECHANIC APPRENTICE) Potassium, P 4.4 3.6 - 5.2 mmol/L 07/29/2021 11:45 AM STATION MECHANIC APPRENTICE OWAT Sodium, P 141 135 - 145 mmol/L 07/29/2021 11:45 AM STATION MECHANIC APPRENTICE OWAT Chloride, P 102 98 - 107 mmol/L 07/29/2021 11:45 AM STATION MECHANIC APPRENTICE OWAT Bicarbonate, P 28 22 - 29 mmol/L 07/29/2021 11:45 AM STATION MECHANIC APPRENTICE OWAT Anion Gap, P 11 7 - 15 07/29/2021 11:45 AM STATION MECHANIC APPRENTICE OWAT BUN (Blood Urea Nitrogen), P 18 6 - 21 mg/dL 07/29/2021 11:45 AM STATION MECHANIC APPRENTICE OWAT Creatinine 0.67 0.59 - 1.04 mg/dL 07/29/2021 11:45 AM STATION MECHANIC APPRENTICE OWAT eGFR-Black/ >90 >=60 mL/min/BS A 07/29/2021 11:45 AM STATION MECHANIC APPRENTICE OWAT Comment: ----ADDITIONAL INFORMATION---- Estimated GFR calculated using the 2009 CKD_EPI creatinine equation. eGFR Non-Black/ >90 >=60 mL/min/BS A 07/29/2021 11:45 AM STATION MECHANIC APPRENTICE OWAT Comment: ----ADDITIONAL INFORMATION---- Estimated GFR calculated using the 2009 CKD_EPI creatinine equation. Calcium, Total, P 10.1 8.8 - 10.2 mg/dL 07/29/2021 11:45 AM STATION MECHANIC APPRENTICE OWAT Glucose, P 129 70 - 140 mg/dL 07/29/2021 11:45 AM STATION MECHANIC APPRENTICE OWAT Protein, Total, P 7.2 6.3 - 7.9 g/dL 07/29/2021 11:45 AM STATION MECHANIC APPRENTICE OWAT Albumin, P 4.7 3.5 - 5.0 g/dL 07/29/2021 11:45 AM STATION MECHANIC APPRENTICE OWAT Aspartate Aminotransferase (AST), P 16 8 - 43 U/L 07/29/2021 11:45 AM STATION MECHANIC APPRENTICE OWAT Alkaline Phosphatase, P 79 35 - 104 U/L 07/29/2021 11:45 AM STATION MECHANIC APPRENTICE OWAT Alanine Aminotransferase (ALT), P 16 7 - 45 U/L 07/29/2021 11:45 AM STATION MECHANIC APPRENTICE OWAT Bilirubin, Total, P 0.3 <=1.2 mg/dL 07/29/2021 11:45 AM STATION MECHANIC APPRENTICE OWAT Blood (Blood, Venous) 07/29/2021 8:42 AM STATION MECHANIC APPRENTICE 07/29/2021 10:44 AM STATION MECHANIC APPRENTICE Laith Luz P.A.-C., P.Iris LAB BLOO D ADD[facility] [address] [place] [address], [facility] OWAT [facility] [place] [address] [place] [address] * BI Breast Screening Bilateral with Tomosynthesis (10/13/2018 11:47 AM CDT) Anatomical Region Laterality Modality Breast, Breast Imaging RST L OS, Breast Imaging ARZ LOS, Breast Imaging FLA LOS Bilateral Mammography 10/13/2018 3:24 PM CDT Impressions 10/13/2018 3:25 PM CDT IMPRESSION: ??Negative. RECOMMENDATION: ??Annual Screening Mammogram ASSESSMENT: ??BI-RADS: 1: Negative. Narrative 10/13/2018 3:25 PM CDT EXAM: ??BI BREAST SCREENING BILATERAL WITH TOMOSYNTHESIS Current study was evaluated with a Computer Aided Detection (CAD) system. INDICATION: ??Screening mammogram. COMPARISON: ??Prior exam(s) were available and reviewed for comparison. DENSITY: ??b. There are scattered areas of fibroglandular density. FINDINGS: ??No mammographic findings of malignancy. Procedure Note Keyshawn Cash M.D. - 10/13/2018 EXAM: BI BREAST SCREENING BILATERAL WITH TOMOSYNTHESIS Current study was evaluated with a Computer Aided Detection (CAD) system. INDICATION: Screening mammogram. COMPARISON: Prior exam(s) were available and reviewed for comparison. DENSITY: b. There are scattered areas of fibroglandular density. FINDINGS: No mammographic findings of malignancy. IMPRESSION: Negative. RECOMMENDATION: Annual Screening Mammogram ASSESSMENT: BI-RADS: 1: Negative. Laith Luz P.A.-C., P.A. IM BI P ROCEDURES from Last 3 Months or Most Recently Relevant to Health Maintenance Advance Directives For more information, please contact: [phone] Documents on File Type Date Recorded Patient Cloth Printer Expl anation Advance Directives 07/26/2015 12:00 AM Leg acy document. See document viewer. Care Teams Sandfill Operator Surface Relationship Specialty Start Date End Date Elsewhere, Pcp PCP - General Internal Medicine 09/02/22
--- OUTSIDE RECORDS SUMMARY | 2023-11-26 21:59 | XMS_ITS | Clinical Summary ---
Author Organization [facility] Address [address] [place] [address] Care Team Providers Care Crna Name Role Phone Elsewhere, Pcp Primary Care Provider Unavailabl e Source Comments Patient records contain information from all sites at [facility]. For routine questions regarding patient records, call [phone] during business hours, M-F 8:00 AM - 5:00 PM Central Time. Record requests for emergency care only can be directed to [phone] at any time.[facility] Allergies Active Allergy Reactions Criticality Noted Date [...] Fasting Glucose 04/20/201403/2017 Obesity NOS 03/14/2011 05/12/2019 Encounters Date Type Department Care Team Description 10/26/2023 7:48 AM CDT - 10/26/2023 11:59 PM CDT Hospital Encounter Department of Radiology in [address] [address] Xu Pat M.D. Crohn's Disease (HCC) Discharge Disposition: Home or Self Care 10/05/2023 10:59 AM CDT - 10/05/2023 11:59 PM CDT Hospital Encounter Department of Laboratory Medicine in [address] [address] Bri Hampton M.D. Anemia Microcytic Hypochromic Discharge Disposition: Home or Self Care 09/29/2023 Clinical Communication Department of General Surgery in [address] [address] [facility] - from Last 3 Months Immunizations Name Administration Dates Next Due Influenza (IM) Preservative Free 04/24/2008,04/06,05/12/2007 Influenza, Seasonal, Injectable 05/02/2010,04/28,04/28/2005 Influenza, Unspecified 04/14/2010,05/12/2007 Rubella 08/31/1969 SARS-COV-2 (COVID-19) - PFIZ ER (Discontinued)(12 years or older) 10/23/2020,09/26/2020 Td (Adult), adsorbed 01/04/2002 Tdap 11/18/2011 Tetanus Toxoid, Adsorbed (discontinued) 04/26/19 85 influenza vaccine QV(FLUBLOK ) (18 years or older) (PF) 04/03/2020 influenza vaccine quad (FLUZ ONE/FLUARIX) (6 months and older)(PF) 05/20/2021 Family History Medical History Relation Name Comments Alcohol abuse Brother Hypertension Brother Alcohol abuse Father Diabetes Mother Hypertension Mother Alcohol abuse Sister Hypertension Sister Relation Name Status Comments Brother Father Mother Alive Sister Alive Social History Tobacco Use Types Packs/Day Years [...] week 07/28/2021 How often do you attend chur or cheondoism services? 1 to 4 times per year 07/28/2021 Do you belong to any clubs o r organizations such as adventist groups, unions, fraternal or athletic groups, or [...] Answer Date Recorded PHQ-2 Score 0 07/29/2021 [facility] Occupat ional Health - Occupational Stress Questionnaire Answer Date Recorded [...] your living situation today? I have a [place] place to live 05/13/2023 Education Answer Date Recorded What is the highest level of school you have completed or the highest degree you have received? Some college, no degree 07/28/2021 Sex and Gender Information Value Date Recorded Sex Assigned at Female 05/14/2017 2:12 PM SIGNALS INTELLIGENCE ANALYSIS MANAGER Gender Identity Female 05/14/2017 2:12 PM SIGNALS INTELLIGENCE ANALYSIS MANAGER Sexual Orientation Straight 05/14/2017 2: 12 PM SIGNALS INTELLIGENCE ANALYSIS MANAGER Last Filed Vital Signs Vital Sign Reading Time Taken Comments Blood Pressure 126/85 07/29/2021 9:02 AM SIGNALS INTELLIGENCE ANALYSIS MANAGER Pulse 83 07/29/2021 9:02 AM SIGNALS INTELLIGENCE ANALYSIS MANAGER Temperature 36.2 ??C (97.1 ??F) 07/29/2021 9:02 AM CS T Respiratory Rate 18 07/29/2021 9:02 AM SIGNALS INTELLIGENCE ANALYSIS MANAGER Oxygen Saturation 93% 06/06/2020 2:58 PM SIGNALS INTELLIGENCE ANALYSIS MANAGER Inhaled Oxygen Concentration - - Weight 96.6 kg (212 lb 15.4 oz) 07/29/2021 9:02 AM SIGNALS INTELLIGENCE ANALYSIS MANAGER Height 168.6 cm (5' 6.38) 07/29/2021 9:02 AM CS T Body Mass Index 33.98 07/29/2021 9:02 AM SIGNALS INTELLIGENCE ANALYSIS MANAGER Plan of Treatment Health Maintenance Due Date Last Done Comments CT Colonography 1959 Cologuard 1960 HIV Screening 1960 Hepatitis C Screening 1960 Office Visit for Blood Pressure Check / Re-check 1959 Zoster Vaccines (1 of 2) 2009 Mammogram 10/14/2019 10/13/2018, 12/0 02/2017, 05/26/2017, Additional history exists Colonoscopy 08/16/2020 08/16/2015 Colorectal Cancer Surveillance 08/16/2020 Potassium Level 07/29/2022 07/29/2021, 07/06, 04/23/2020, Additional history exists Sodium Level 07/29/2022 07/29/2021, 07/06, 04/23/2020, Additional history exists COVID-19 Vaccine ( season) 2023 05/20/2021, 10/23/2020, 09/26/2020 Influenza Vaccine (#1) 2023 , 04/03/2020, 05/02/2010, Additional history exists Depression Screening (Annual PHQ-2) 07/06/2023 Fasting Glucose for Diabetes Screening 07/29/2024 07/29/2021, 07/29/2021, 07/23/2020, Additional history exists Creatinine Level (Kidney Function Test) 10/04/2024 10/05/2023, 07/29/2021, 07/23/2020, Additional history exists Lipid (Cholesterol) Screening 07/29/2026 07/29/2021, 05/12/2019, 04/29/2018, Additional history exists DTaP,Tdap,and Td Vaccines (3 - Td or Tdap) 07/17/2032 07/17/2022, 11/18/2011, 01/04/2002 Pneumococcal vaccine (0-64 years) Aged Out No longer eligible based on patient's age to complete this topic Medical Devices Implanted Type Area Retail Support Specialist Device Identifier Shelf Expiration Date Model / [...] LIPID PANEL, S Routine 07/29/2021 8:42 AM SIGNALS INTELLIGENCE ANALYSIS MANAGER Hypertension Essential Primary Encounter For Screening For Cardiovascular Disorders Hypothyroidism Screening Examination Diabetes Mellitus COMPREHENSIVE METABOLIC PANEL, S/P Routine 07/29/2021 8:42 AM SIGNALS INTELLIGENCE ANALYSIS MANAGER Hypertension Essential Primary Encounter For Screening For [...] CDT Bri Hampton M.D. LAB BLOOD ADD-ON [facility] [address] [place] [address], [facility] OWAT [facility] [place] [address] [place] [address] * Creatinine with Estimated GFR (10/05/2023 11:09 AM CDT) Creatinine 0.68 0.59 - 1.04 mg/dL 10/05/2023 11:35 AM CDT OWAT Estimated GFR (eGFR) >90 >=60 mL/min/BSA 10/05/2023 11:35 AM CDT OWAT Comment: Estimated GFR calculated using the 2020 CKD_EPI creatinine equation. Blood (Blood, Venous) 10/05/2023 11:09 AM CDT 10/05/2023 11:13 AM CDT Bri Hampton M.D. LAB BLOOD [facility] [address] [place] [address], [facility] OWAT [facility] [place] [address] [place] [address] * (ABNORMAL) Lipid Panel (07/29/2021 8:42 AM SIGNALS INTELLIGENCE ANALYSIS MANAGER) Cholesterol, Total 207(H) mg/dL 2021 11:45 AM SIGNALS INTELLIGENCE ANALYSIS MANAGER OWAT Comment: ----REFERENCE VALUE---- Desirable: < 200 Borderline high: 200 - 239 High: > or = 240 Triglycerides 253(H) mg/dL 07/29/2021 11:45 AM SIGNALS INTELLIGENCE ANALYSIS MANAGER OWAT Comment: ----REFERENCE VALUE---- Normal: <150 Borderline high: 150-199 High: 200-499 Very high: > or =500 Cholesterol, HDL 52 >=50 mg/dL 07/29/19 11:45 AM SIGNALS INTELLIGENCE ANALYSIS MANAGER OWAT Calculated LDL 104 mg/dL 07/29/2021 11:45 AM SIGNALS INTELLIGENCE ANALYSIS MANAGER OWAT Comment: ----REFERENCE VALUE---- Desirable: <100 mg/dL Above Desirable: 100-129 mg/dL Borderline High: 130-159 mg/dL High: 160-189 mg/dL Very High: >=190 mg/dL Cholesterol, Non-HDL, Calculated 155 mg/dL 07/29/2021 11:45 AM SIGNALS INTELLIGENCE ANALYSIS MANAGER OWAT Comment: ----REFERENCE VALUE---- Desirable: <130 Above Desirable: 130-159 Borderline high: 160-189 High: 190-219 Very high: > or =220 Blood (Blood, Venous) 07/29/2021 8:42 AM SIGNALS INTELLIGENCE ANALYSIS MANAGER 07/29/2021 10:44 AM SIGNALS INTELLIGENCE ANALYSIS MANAGER Laith Luz P.A.-C., P.A. LAB BLOO D ADD-ON [facility] [address] [place] [address], [place] OWAT [facility] [place] [address] [place] [address] * Comprehensive Metabolic Panel (07/29/2021 8:42 AM SIGNALS INTELLIGENCE ANALYSIS MANAGER) Potassium, P 4.4 3.6 - 5.2 mmol/L 07/29/2021 11:45 AM SIGNALS INTELLIGENCE ANALYSIS MANAGER OWAT Sodium, P 141 135 - 145 mmol/L 07/29/2021 11:45 AM SIGNALS INTELLIGENCE ANALYSIS MANAGER OWAT Chloride, P 102 98 - 107 mmol/L 07/29/2021 11:45 AM SIGNALS INTELLIGENCE ANALYSIS MANAGER OWAT Bicarbonate, P 28 22 - 29 mmol/L 07/29/2021 11:45 AM SIGNALS INTELLIGENCE ANALYSIS MANAGER OWAT Anion Gap, P 11 7 - 15 07/29/2021 11:45 AM SIGNALS INTELLIGENCE ANALYSIS MANAGER OWAT BUN (Blood Urea Nitrogen), P 18 6 - 21 mg/dL 07/29/2021 11:45 AM SIGNALS INTELLIGENCE ANALYSIS MANAGER OWAT Creatinine 0.67 0.59 - 1.04 mg/dL 07/29/2021 11:45 AM SIGNALS INTELLIGENCE ANALYSIS MANAGER OWAT eGFR-Black/ >90 >=60 mL/min/BS A 07/29/2021 11:45 AM SIGNALS INTELLIGENCE ANALYSIS MANAGER OWAT Comment: ----ADDITIONAL INFORMATION---- Estimated GFR calculated using the 2009 CKD_EPI creatinine equation. eGFR Non-Black/ >90 >=60 mL/min/BS A 07/29/2021 11:45 AM SIGNALS INTELLIGENCE ANALYSIS MANAGER OWAT Comment: ----ADDITIONAL INFORMATION---- Estimated GFR calculated using the 2009 CKD_EPI creatinine equation. Calcium, Total, P 10.1 8.8 - 10.2 mg/dL 07/29/2021 11:45 AM SIGNALS INTELLIGENCE ANALYSIS MANAGER OWAT Glucose, P 129 70 - 140 mg/dL 07/29/2021 11:45 AM SIGNALS INTELLIGENCE ANALYSIS MANAGER OWAT Protein, Total, P 7.2 6.3 - 7.9 g/dL 07/29/2021 11:45 AM SIGNALS INTELLIGENCE ANALYSIS MANAGER OWAT Albumin, P 4.7 3.5 - 5.0 g/dL 07/29/2021 11:45 AM SIGNALS INTELLIGENCE ANALYSIS MANAGER OWAT Aspartate Aminotransferase (AST), P 16 8 - 43 U/L 07/29/2021 11:45 AM SIGNALS INTELLIGENCE ANALYSIS MANAGER OWAT Alkaline Phosphatase, P 79 35 - 104 U/L 07/29/2021 11:45 AM SIGNALS INTELLIGENCE ANALYSIS MANAGER OWAT Alanine Aminotransferase (ALT), P 16 7 - 45 U/L 07/29/2021 11:45 AM SIGNALS INTELLIGENCE ANALYSIS MANAGER OWAT Bilirubin, Total, P 0.3 <=1.2 mg/dL 07/29/2021 11:45 AM SIGNALS INTELLIGENCE ANALYSIS MANAGER OWAT Blood (Blood, Venous) 07/29/2021 8:42 AM SIGNALS INTELLIGENCE ANALYSIS MANAGER 07/29/2021 10:44 AM SIGNALS INTELLIGENCE ANALYSIS MANAGER Laith Luz P.A.-C., PMallika LAB BLOO D ADD-ON [facility] [address] [place] [address], [facility] OWAT [facility] [place] [address] [place] [address] * BI Breast Screening Bilateral with Tomosynthesis [...] ASSESSMENT: BI-RADS: 1: Negative. Laith Luz P.A.-C., PJeannieAJeannie [facility] BI P ROCEDURES from Last 3 Months or Most Recently Relevant to Health Maintenance Advance Directives For more information, please contact: [phone] Documents on File Type Date Recorded Patient Material [employer] Expl anation Advance Directives 07/26/2015 12:00 AM Leg acy document. See document viewer. Care Teams Crna Relationship Specialty Start Date End Date Elsewhere, Pcp PCP - General Internal Medicine 09/02/22
--- OUTSIDE RECORDS SUMMARY | 2023-11-26 21:59 | XMS_ITS | Clinical Summary ---
Author Organization [facility] Address [place], [place] [address] Care Team Providers Care Vba Developer Name Role Phone Laura Curtis NP Primary Care Provider [phone] Allergies Active Allergy Reactions Criticality Noted Date Comments Neomycin *Unknown 08/10/2015 Medications Medication Sig Dispensed Refills Start Date End Date Status levothyroxine (SYNTHROID) 100 mcg tablet Take 100 mcg by mouth before breakfast. Active Active Problems Problem Noted Date Diagnosed Date Essential hypertension 07/11/2019 Lichen planus 05/14/2017 Hypothyroidism 02/22/2010 Encounters Date Type Department Care Team Description 10/26/2023 7:58 AM CDT - 10/26/2023 11:59 PM CDT Hospital Encounter [facility] [address] [place] [address] Xu Pat MD Crohn's disease (HC) 10/26/2023 Travel 09/15/2023 Lab Requisition [facility] [phone] Unknown, Doctor from Last 3 Months Social History Tobacco [...] 10/11/2020 5:17 PM CDT Plan of Treatment Upcoming Encounters Date Type Department Care Team (Late st Contact Info) Description 01/08/2024 6:50 AM CDT Hospital Encounter [facility] [address] [place] [address] Jacey Myers MBBS [address] [place] [address] 01/08/2024 7:50 AM CDT - 01/08/2024 9:50 AM CDT Surgery [facility] [address] [place] [address] Jacey Myers MBBS [address] [place] [address] RETROGRADE ENTEROSCOPY DOUBLE BALLOON Scheduled Procedures Name Priority Associated Diagnoses Date/Ti me ENTEROSCOPY DOUBLE BALLOON Elective MASS OF ILEUM 01/08/2024 7:50 AM CDT Health Maintenance Due Date Last Done Comments [...] (1 of 2) 2009 COVID-19 vaccine series ( season) 2023 10/23/2020, 09/26/2020 Influenza for age 50-64 03/06/2024 Pneumococcal series for age 6-64 Aged Out No longer eligible b ased on patient's age to complete this topic Procedures Procedure Name Priority Date/Time Associated Diagnosis Comments CT ABDOMEN PELVIS ENTEROGRAPHY W Routine 10/26/2023 9:00 AM CDT Crohn's disease (HC) LAB TRACKING EVENT Routine 09/15/2023 10 :30 AM CDT PATH TISSUE EXAM Routine 09/15/2023 10:3 0 AM CDT from Last 3 Months Results * CT ABDOMEN PELVIS ENTEROGRAPHY W (10/26/2023 9:00 AM CDT) Anatomical Region Laterality Modality Abdomen, Pelvis, AORTA, LIVER, SPLEEN Computed Tomography Xu Pat MD CT * LAB TRACKING EVENT (09/15/2023 10:30 AM CDT) Other (Other) Client Collect / Unknown 09/15/2023 10:30 AM CDT 09/15/2023 9:24 PM CDT Doctor Unknown LAB BILL ONLY [facility] [address] [place] [address], * PATH TISSUE EXAM (09/15/2023 10:30 AM CDT) Case Report Pathology Report ?Case: [id number] ? Authorizing Provider: ??Unknown, Doctor ?Collected: ? 09/15/2023 1030 ? Ordering Location: ? [facility] ?Received: ?09/16/2023 0519 ? Pathologist: ? Ivette Medel, ? MD ? Specimen: ?Left Axilla ? 09/16/2023 1:43 PM CDT [facility] Final Diagnosis A) LEFT AXILLA, ULTRASOUND-GUID ED CORE BIOPSY: 1. Fibrosis with focal macrophages and fragment of possible seroma/cyst wall, consistent with previous procedure site changes 2. Negative for malignancy 09/16/2023 1:43 PM T [facility] Comment A) This is an image-guided biopsy. The pathologic findings should be correlated with radiologic and clinical findings prior to treatment decisions. Case seen in consultation with Dr. Christensen. 09/16/2023 1:43 PM CDT [facility] Clinical Information History of malignant melanoma on the left shoulder with negative left axillary sentinel lymph node excision in 2022 ([id number], [id number]). 1.5 cm, round, circumscribed, possibly solid and hypoechoic left axillary mass. Probable scant tissue (i.e. seroma), rule out metastasis. 09/16/2023 1:43 PM CDT [facility] Gross Description A) Label: Patient's name and left axilla Description: Fibrofatty core biopsies Size: 1.7 x 0.8 x 0.1 cm (aggregate) Ink color: Blue The specimen is submitted in toto in 1 cassette(s). Cold ischemic time: Less than 60 minutes, meets current ASCO/CAP guidelines. ?? The specimen was fixed in formalin for a minimum of 6 hours and not longer than 72 hours. ADW 09/16/2023 09/16/2023 1:43 PM CDT [facility] LAB[facility]ATORY Microscopic Description The final diagnosis is based on microscopic examination of appropriate sections of all specimens. A) The presence of blue ink is confirmed on tissue sections. 09/16/2023 1:43 PM CDT [facility] EN[facility]AL LABORATORY Additional Information Interpreted at [facility] [employer] [facility] - [address] [place] [place] [address] 09/16/2023 1:43 PM CDT [facility] LAB[facility]AT[facility] Other (Left Axilla) 09/15/2023 10:30 AM CDT 09/16/2023 5:19 AM CDT Doctor Unknown PATHOLOGY/CYTOLOGY [facility] [address] [place] [address], from Last 3 Months Additional Health Concerns Infection Onset Date Last Indicated MRSA Comment:Right foot 08/16/2015 08/16/2015 Advance Directives * Full Code (Latest Code Status on File) Date Activated Date Inactivated Comments 08/16/2015 9:14 AM 08/16/2015 12:48 PM Care Teams Vba Developer Relationship Specialty Start Date End Date Laura Curtis NP [address] [facility] [place] [address] PCP - General Emergency Medicine 10/23/23
--- OUTSIDE RECORDS SUMMARY | 2023-11-26 22:00 | XMS_ITS ---
Author Organization [facility] Address [address] [place] [address] Care Team Providers Care Folding Rules Printing Machine Operator Name Role Phone Unavailable Unavailable Unavailable Surgery Details Not on file Complications Check Surgery Details section. Procedure Estimated Blood Loss Check Surgery Details section. Procedure Findings Check Surgery Details section. Procedure Specimens Taken Check Surgery Details section.
--- OUTSIDE RECORDS SUMMARY | 2023-11-26 22:00 | XMS_ITS | Encounter Summary ---
Author Organization [facility] Address [address] [place] [address] Care Team Providers Care Debt Counselor Name Role Phone Elsewhere, Pcp Primary Care Provider Unavailabl e Reason for Referral * MRI/CAT/PET Scan (Routine) - Denied Specialty Diagnoses / Procedures Referred By Contac t Referred To Contact Radiology Diagnoses Crohn's Disease (HCC) Procedures CT Abdomen Pelvis Enterography with IV Contrast Xu Pat M.D. [address] [address] [place] [address] [facility] Region Referral ID Status Reason Start Date Expiration Date Visits Re quested Visits Authorized [id number] Denied 09/24/2023 09/23/2024 1 1 Reason for Visit * MRI/CAT/PET Scan (Routine) - Denied Specialty Diagnoses / Procedures Referred By Contac t Referred To Contact Radiology Diagnoses Crohn's Disease (HCC) Procedures CT Abdomen Pelvis Enterography with IV Contrast Xu Pat M.D. [address] [address] [place] [address] [facility] Region Referral ID Status Reason Start Date Expiration Date Visits Re quested Visits Authorized [id number] Denied 09/24/2023 09/23/2024 1 1 Encounter Details Date Type Department Care Team (Latest Contact Info) Description 10/26/2023 7:48 AM CDT - 10/26/2023 11:59 PM CDT Hospital Encounter Department of Radiology in [place], [place] [address] [place] [address] Xu Pat M.D. [address] [address] [place] [address] Crohn's Disease (HCC) Discharge Disposition: Home or Self Care Social History Tobacco Use Types Packs/Day Years Used Date Smoking Tobacco: Never Smokeless Tobacco: Never Alcohol Use Standard Drinks/Week Comments Yes 2 [...] 07/28/2021 How often do you attend chur ch or worship services? 1 to 4 times per year 07/28/2021 Do you belong to any clubs o r organizations such as religious groups, unions, fraternal or athletic groups, or [...] Answer Date Recorded PHQ-2 Score 0 07/29/2021 [facility] of Occupat ional Health - Occupational Stress [...] living situation today? I have a [facility] [place] place to live 05/13/2023 Education Answer Date Recorded What is the highest level of school you have completed or the highest degree you have received? Some college, no degree 07/28/2021 Sex and Gender Information Value Date Recorded Sex Assigned at Female 05/14/2017 2:12 PM VETERINARY POULTRY INSPECTOR Gender Identity Female 05/14/2017 2:12 PM VETERINARY POULTRY INSPECTOR Sexual Orientation Straight 05/14/2017 2: 12 PM VETERINARY POULTRY INSPECTOR documented as of this encounter Medications at Time of Discharge Medication Sig Dispensed Refills Start Date End Date acetaminophen (TYLENOL 8 HOUR ORAL) Take 1-3 tablets by mouth daily. 04/24/2008 amLODIPine (NORVASC) 5 mg tablet Take 1 tablet (5 mg total) by mouth daily. 90 tablet 3 07/29/2021 diclofenac sodium (VOLTAREN) 1 % gel Apply 4 g topically 4 (four) times a day as needed (Pain). 300 g 2 07/15/2019 triamterene-hydroCHLORO thiazide (DYAZIDE) 37.5-25 mg per capsule Take 1 capsule by mouth daily. documented as of this encounter Plan of Treatment Not on file documented as of this encounter Procedures Procedure Name Priority Date/Time Associated Diagnosis Comments CT ABDOMEN PELVIS ENTEROGRAPHY WITH IV CONTRAST RAD - Routine (most inpatients and all outpatients) 10/26/2023 9:02 AM CDT Crohn's Disease (HCC) documented in this encounter Results * CT Abdomen Pelvis Enterography with [...] could be seen with mesenteric panniculitis. Xu AGUILAR CT PROCEDURES documented in this encounter Visit Diagnoses Diagnosis Crohn's Disease (HCC) documented in this encounter Administered Medications Inactive Administered Medications - up to 3 most recent administrations Medication Order MAR Action Action Date Dose Rate Site iohexoL 300 mg iodine/mL solution 150 mL (OMNIPAQUE) 150 mL, intravenous, Once in imaging, contrast, Starting on Thu10/26/23 at 0848, For 1 dose Given 10/26/2023 8:57 AM CDT 150 mL sodium chloride 0.9 % flush 100 mL 100 mL, intravenous, Once, On Thu10/26/23 at 0915, For 1 dose Given 10/26/2023 8:57 AM CDT 100 mL sodium chloride 0.9 % injection 10 mL 10 mL, intravenous, Once, On Thu10/26/23 at 0915, For 1 dose Given 10/26/2023 8:57 AM CDT 10 mL documented in this encounter Additional Health Concerns Assessment Noted Time PHQ-9 Depression Total Score: 1 05/14/20 17 2:12 PM VETERINARY POULTRY INSPECTOR documented as of this encounter Care Teams Debt Counselor Relationship Specialty Start Date End Date Elsewhere, Pcp PCP - General Internal Medicine 09/02/22 documented as of this encounter
--- OUTSIDE RECORDS SUMMARY | 2023-11-26 22:00 | XMS_ITS | Encounter Summary ---
Author Organization [facility] Address [address] [place] [address] Care Team Providers Care Production Engineer Name Role Phone Elsewhere, Pcp Primary Care Provider Unavailabl e Encounter Details Date Type Department Care Team (Late st Contact Info) Description 09/29/2023 Clinical Communication Department of General Surgery in [place], [place] [address] [phone] [place] [address] [address] Social History Tobacco Use Types Packs/Day Years [...] How often do you attend chur or mandaeism services? 1 to 4 times per year 07/28/2021 Do you belong to any clubs o r organizations such as advent groups, unions, fraternal or athletic groups, or [...] Answer Date Recorded PHQ-2 Score 0 07/29/2021 [facility] of Occupat ional Health - Occupational [...] your living situation today? I have a [facility] place to live 05/13/2023 Education Answer Date Recorded What is the highest level of school you have completed or the highest degree you have received? Some college, no degree 07/28/2021 Sex and Gender Information Value Date Recorded Sex Assigned at Female 05/14/2017 2:12 PM LOGISTICS PLANNING ENGINEER Gender Identity Female 05/14/2017 2:12 PM LOGISTICS PLANNING ENGINEER Sexual Orientation Straight 05/14/2017 2: 12 PM LOGISTICS PLANNING ENGINEER documented as of this encounter Plan of Treatment Not on file documented as of this encounter Visit Diagnoses Not on filedocumented in this encounter Additional Health Concerns Assessment Noted Time PHQ-9 Depression Total Score: 1 05/14/20 17 2:12 PM LOGISTICS PLANNING ENGINEER documented as of this encounter Care Teams Production Engineer Relationship Specialty Start Date End Date Elsewhere, Pcp PCP - General Internal Medicine 09/02/22 documented as of this encounter
--- OUTSIDE RECORDS SUMMARY | 2023-11-26 22:00 | XMS_ITS | Encounter Summary ---
Author Organization [facility] Address [address] [place] [address] Care Team Providers Care Recycling Tech Name Role Phone Elsewhere, Pcp Primary Care Provider Unavailabl e Encounter Details Date Type Department Care Team (Late st Contact Info) Description 08/19/2023 [facility] [address] [place] [address] Laura Curtis, JosselinNJeanniePJeannie [address] [place] [address] Abnormal Feces (Primary Dx); Other Iron Deficiency Anemias Social History Tobacco Use Types Packs/Day Years [...] often do you attend chur ch or rastafari services? 1 to 4 times per year 07/28/2021 Do you belong to any clubs o r organizations such as yazidi groups, unions, fraternal or athletic groups, or [...] Answer Date Recorded PHQ-2 Score 0 07/29/2021 [facility] - Occupational Stress Questionnaire Answer Date Recorded [...] your living situation today? I have a [facility] place to live 05/13/2023 Education Answer Date Recorded What is the highest level of school you have completed or the highest degree you have received? Some college, no degree 07/28/2021 Sex and Gender Information Value Date Recorded Sex Assigned at Female 05/14/2017 2:12 PM FERRULER Gender Identity Female 05/14/2017 2:12 PM FERRULER Sexual Orientation Straight 05/14/2017 2: 12 PM FERRULER documented as of this encounter Plan of Treatment Not on file documented as of this encounter Visit Diagnoses Diagnosis Abnormal Feces- Primary Other Iron Deficiency Anemias documented in this encounter Additional Health Concerns Assessment Noted Time PHQ-9 Depression Total Score: 1 05/14/20 17 2:12 PM FERRULER documented as of this encounter Care Teams Recycling Tech Relationship Specialty Start Date End Date Elsewhere, Pcp PCP - General Internal Medicine 09/02/22 documented as of this encounter
--- OUTSIDE RECORDS SUMMARY | 2023-11-26 22:00 | XMS_ITS | Encounter Summary ---
Author Organization [facility] Address [address] [place] [address] Care Team Providers Care Lpta Name Role Phone Elsewhere, Pcp Primary Care Provider Unavailabl e Encounter Details Date Type Department Care Team (Late st Contact Info) Description 10/05/2023 10:59 AM CDT - 10/05/2023 11:59 PM CDT Hospital Encounter Department of Laboratory Medicine in [place], [place] [address] [place] [phone] Bri Hampton M.D. [address] [address], [facility] [address] [place] [address] Anemia Microcytic Hypochromic Discharge Disposition: Home or Self Care Social [...] How often do you attend chur or denominational services? 1 to 4 times per year 07/28/2021 Do you belong to any clubs o r organizations such as scientology groups, unions, fraternal or athletic groups, or [...] Answer Date Recorded PHQ-2 Score 0 07/29/2021 [facility]at ional Health - Occupational Stress [...] your living situation today? I have a [facility] place to live 05/13/2023 Education Answer Date Recorded What is the highest level of school you have completed or the highest degree you have received? Some college, no degree 07/28/2021 Sex and Gender Information Value Date Recorded Sex Assigned at Female 05/14/2017 2:12 PM BUSINESS PLANNER Gender Identity Female 05/14/2017 2:12 PM BUSINESS PLANNER Sexual Orientation Straight 05/14/2017 2: 12 PM BUSINESS PLANNER documented as of this encounter Medications at [...] Procedure Name Priority Date/Time Associated Diagnosis Comments BUN (BLOOD UREA NITROGEN), S/P Routine 10/05/2023 11:09 AM CDT Anemia Microcytic Hypochromic CREATININE WITH EGFR, S/P Routine 10/05/2023 11:09 AM CDT Anemia Microcytic Hypochromic documented in this encounter Results * Creatinine with Estimated GFR (10/05/2023 11:09 AM CDT) Creatinine 0.68 0.59 - 1.04 mg/dL 10/05/2023 11:35 AM CDT OWAT Estimated GFR (eGFR) >90 >=60 mL/min/BSA 10/05/2023 11:35 AM CDT OWAT Comment: Estimated GFR calculated using the 2020 CKD_EPI creatinine equation. Blood (Blood, Venous) 10/05/2023 11:09 AM CDT 10/05/2023 11:13 AM CDT Bri Hampton M.D. LAB BLOOD ADD-ON Performing Organization Address [facility]/ZIP Co de Phone Number [facility] [address] [place] [id number], [facility] in [place] [address] [place] [id number] * BUN (Blood Urea Nitrogen) (10/05/2023 11:09 AM CDT) BUN (Blood Urea Nitrogen), P 15 6 - 21 mg/dL 10/05/2023 11:35 AM CDT OWAT Blood (Blood, Venous) 10/05/2023 11:09 AM CDT 10/05/2023 11:13 AM CDT Bri Hampton M.D. LAB BLOOD ADD-ON Performing Organization Address City/[facility]/ZIP Co de Phone Number [facility] [address] [place] [address], [facility] [place] [address] [place] [address], [place] [address] documented in this encounter Visit Diagnoses Diagnosis Anemia Microcytic Hypochromic documented in this encounter Additional Health Concerns Assessment Noted Time PHQ-9 Depression Total Score: 1 05/14/20 17 2:12 PM BUSINESS PLANNER documented as of this encounter Care Teams Lpta Relationship Specialty Start Date End Date Elsewhere, Pcp PCP - General Internal Medicine 09/02/22 documented as of this encounter
--- OUTSIDE RECORDS SUMMARY | 2023-11-26 22:00 | XMS_ITS | Encounter Summary ---
Author Organization [facility] Address [address] [place] [address] Care Team Providers Care Gear Tester Name Role Phone Elsewhere, Pcp Primary Care Provider Unavailabl e Encounter Details Date Type Department Care Team (Late st Contact Info) Description 08/19/2023 Ancillary Procedure Department of Gastroenterology Social History Tobacco Use Types Packs/Day Years [...] week 07/28/2021 How often do you attend [facility] or denominational services? 1 to 4 times per year 07/28/2021 Do you belong to any clubs o r organizations such as bahai groups, unions, fraternal or athletic groups, or [...] Answer Date Recorded PHQ-2 Score 0 07/29/2021 [facility] of Occupat ional Health - Occupational Stress [...] living situation today? I have a [facility] place to live 05/13/2023 Education Answer Date Recorded What is the highest level of school you have completed or the highest degree you have received? Some college, no degree 07/28/2021 Sex and Gender Information Value Date Recorded Sex Assigned at Female 05/14/2017 2:12 PM ART SPECIALIST Gender Identity Female 05/14/2017 2:12 PM ART SPECIALIST Sexual Orientation Straight 05/14/2017 2: 12 PM ART SPECIALIST documented as of this encounter Plan of Treatment Not on file documented as of this encounter Procedures Procedure Name Priority Date/Time Associated Diagnosis Comments GASTROENTEROLOGY IMAGE EXAM Routine 08/19/2023 12:00 AM ART SPECIALIST documented in this encounter Results * Unspecified-Gastroenterology Image Exam (08/19/2023 12:00 AM ART SPECIALIST) Narrative IIMS - 08/19/2023 9:59 AM ART SPECIALIST This order has been created and auto-finalized to support the import of images acquired without order. The clinical documentation to support these images can be found on the encounter that produced images. Provider Not In System IMG NON RAD IMAGI NG PROCEDURES IIMS NA documented in this encounter Visit Diagnoses Not on filedocumented in this encounter Additional Health Concerns Assessment Noted Time PHQ-9 Depression Total Score: 1 05/14/20 17 2:12 PM ART SPECIALIST documented as of this encounter Care Teams Gear Tester Relationship Specialty Start Date End Date Elsewhere, Pcp PCP - General Internal Medicine 09/02/22 documented as of this encounter
[2023-11-26 22:05] VITALS: BP 125/81; PULSE 97; RESP 20; TEMP 36.7; O2SAT 97; BMI 33.1
--- NOTE | 2023-11-26 22:24 | CRLHL7_ITS ---
For Patients: As a result of the Century Cures Act, medical imaging exams and procedure reports are released immediately into your electronic medical record. You may view this report before your referring provider. If you have questions, please contact your health care provider. INDICATION: Crampy abdominal pain. Intermittent blood in stools for a few weeks. TECHNIQUE: CT abdomen and pelvis acquired with 100 cc Isovue 370 IV contrast. COMPARISON: 08/27/2023. FINDINGS: Lower chest: Mild dependent and bibasilar atelectasis. Liver: Normal in size and attenuation. Stable anterior left hepatic lobe cyst. Gallbladder and bile ducts: Unremarkable. No stones or inflammation. No biliary ductal dilatation. Spleen: Unremarkable. Normal in size. No masses. Adrenal glands: Unremarkable. No nodules. Pancreas: Unremarkable. No mass or inflammation. Kidneys: Unremarkable. No suspicious masses, stones, or hydronephrosis. GI tract: Multiple fluid-filled distended loops of small bowel with transition point in the right lower quadrant. Colonic diverticulosis without evidence of diverticulitis. Normal appendix. Lymph nodes: No lymphadenopathy. Vasculature: Mild scattered atherosclerotic calcifications. Abdominal aorta is normal in caliber. Omentum/Peritoneum/Abdominal Wall: Trace free fluid. No focal fluid collection. No free air. Pelvis: Status post hysterectomy. Bones: Multiple old pelvic fractures with postsurgical changes. Old posterior right 10th rib fracture. Left hip arthroplasty. IMPRESSION: 1. Small bowel obstruction with transition point in the right lower quadrant. 2. Colonic diverticulosis without evidence of diverticulitis. Please note that all CT scans at this facility use dose modulation, iterative reconstruction, and/or weight-based dosing when appropriate to reduce radiation dose to as low as reasonably achievable. Dictated by Cory Barahona MD @ 11/26/2023 11:53:20 PM (Electronically Signed)
--- NOTE | 2023-11-26 22:26 | ED.ABDPAIN ---
HPI - Abdominal Pain General Chief Complaint: Abdominal Pain Stated Complaint: Abdominal Pain Time Seen by Provider: 11/26/23 22:01 History of Present Illness HPI narrative: This 63-year-old female comes in reporting intermittent abdominal pain that is been going on for at least a few weeks. She also has had blood in her stools that is cause some iron deficiency. She states that she is head colonoscopy and an endoscopy and is also swallowed the camera to try to find the source of the GI bleed. She is seeing the fire prevention bureau captain who continues to work this up. She did have a virtual visit with the fire prevention bureau captain almost a week ago and was told then to come into the emergency department if symptoms worsen. The patient comes here under those instructions however there was no communication regarding what testing or workup was indicated for such a visit here. The patient arrives with normal vital signs. She states that she has episodes of abdominal pain and has had some episodes of vomiting today. She states that she did not sleep well last night because of generalized malaise. Related Data Home Medications ?Medication ?Instructions ?Recorded ?Confirmed ibuprofen 200 mg tablet (Advil) 400 mg PO Q8H PRN 07/17/22 11/26/23 Previous Rx's ?Medication ?Instructions ?Recorded iron,carbonyl 65 mg-vitamin C 125 1 tab PO ONCE #90 tabs 07/31/23 mg tablet,delayed release (Vitron-C) triamterene 37.5 1 cap PO QDAY #90 caps 09/22/23 mg-hydrochlorothiazide 25 mg capsule levothyroxine 100 mcg tablet 100 mcg PO QDAY #90 tabs 09/25/23 (Euthyrox) amlodipine 5 mg tablet 5 mg PO QDAY #90 tabs 10/19/23 Allergies Allergy/AdvReac Type Severity Reaction Status Date / Time lisinopril Allergy Mild Cough Verified 11/26/23 23:07 neomycin Allergy Mild Hives Verified 11/26/23 23:07 Review of Systems Status of ROS Reports: 10 or more systems reviewed and unremarkable except as noted in History and below Narrative Constitutional: No fevers, no weight gain or loss. Eyes: No discharge. No vision changes. HENT: No congestion, no sore throat, no ear pain. Cardiovascular: No chest pain, no palpitations. Respiratory: No shortness of breath, no wheezes, no cough. Gastrointestinal: No diarrhea. Episodes of vomiting today. Genitourinary: No dysuria, no hematuria. Musculoskeletal: Normal range of motion. Skin: No rashes, no pruritis. Neurological: No dizziness, weakness, sensory change, speech change. Endo/Heme/Allergies: No bruising or bleeding. No polydipsia. Pysch: no suicidality, no anxiety, no insomnia. All other systems reviewed and are negative. [facility] Medical History Malignant melanoma ?C43.9 - Malignant melanoma of skin, unspecified (ICD-10) History of femur fracture (Unknown) ?Z87.81 - Personal history of (healed) traumatic fracture (ICD-10) Hypertension ?I10 - Essential (primary) hypertension (ICD-10) Surgical History Fixation hardware in foot ?Z96.7 - Presence of other bone and tendon implants (ICD-10) Fixation hardware in lower extremity ?Z96.7 - Presence of other bone and tendon implants (ICD-10) History of hysterectomy ?Z90.710 - Acquired absence of both cervix and uterus (ICD-10) History of left hip replacement ?Z96.642 - Presence of left artificial hip joint (ICD-10) Family History Mother Heart disease Diabetes Vertigo Coronary artery disease Brother High blood pressure Social History Narrative: . 4 children. The patient does not formally exercise. Alcohol rare. No illicit drug use. No smoker. rn palliative. What is your current living situation?: I presently have a place to live Problems where you live: no known problems In the past 12 months, utilities in danger of being shut off: no In past 12 months, lack of transportation kept you from medical appts, meetings, work, or getting things needed for daily living: no In the past 12 mos, have been you worried that your food would run out before you had money to buy more?: never true In the past 12 mos, the food you bought just didn't last and you didn't have money to buy more?: never true Smoking Status: Never smoker Do you use any of these nicotine containing products: None Second hand tobacco smoke exposure: No How often do you have a drink containing alcohol: 4 or more times a week How often do you have six or more drinks on one occasion: Never AUDIT-C Alcohol total score: 4 Non-prescribed substance use: denies use Caffeine: Yes How often does anyone, including family, friends and others, physically hurt you: never How often does anyone, including family, friends and others, insult or talk down to you: rarely How often does anyone, including family, friends and others, threaten you with harm: never How often does anyone, including family, friends and others, scream or curse at you: never Little interest or pleasure in doing things: not at all Feeling down, depressed, or hopeless: not at all service: No Exam Narrative: Exam Narrative: Constitutional: Well-developed, well-nourished, no acute distress. HEENT: Normocephalic, atraumatic. Neck: Normal range of motion. Nontender. Supple. Heart: Regular. No murmurs. Normal rate. Intact distal pulses. Lungs: Clear to auscultation. No chest discomfort. No wheezes, rhonchi, or rales. Abdomen: Normal bowel sounds. Diffuse tenderness. No rebound tenderness. She reports pain just below the navel when she does have pain. Genitalia: Deferred. Back: No midline tenderness. Normal range of motion. Extremities: Normal range of motion. No injury. Skin: Intact. No rash. Warm. No erythema or pallor. Neurologic: No altered sensation. No weakness. Alert and oriented. Psychiatric: No suicidality. No anxiety or depression. No insomnia. Nursing notes and vitals signs are reviewed. Const: Vital Signs, click to edit/add: Vital Signs - 24 hr 11/26/23 22:05 Temperature 98.0 F Pulse Rate [Right Pulse Oximeter] 97 Respiratory Rate 20 Blood Pressure [Ri ght Upper Arm] 125/81 Pulse Oximetry 97 Oxygen Delivery Me thod Room Air Course Vital Signs Vital signs: Initial Vital Signs Temperature 98.0 F 11/26/23 22:05 Temperature Source Temporal Artery Scan 11/26/23 22:05 Pulse Rate 97 11/26/23 22:05 Respiratory Rate 20 11/26/23 22:05 Blood Pressure 125/81 11/26/23 22:05 Blood Pressure Mean 95 11/26/23 22:05 Blood Pressure Position Sitting 11/26/23 22:05 Pulse Oximetry 97 11/26/23 22:05 Oxygen Delivery Method Room Air 11/26/23 22:05 Vital Signs Temperature 98.0 F 11/26/23 22:05 Pulse Rate 97 11/26/23 22:05 Respiratory Rate 20 11/26/23 22:05 Blood Pressure 125/81 11/26/23 22:05 Pulse Oximetry 97 11/26/23 22:05 Oxygen Delivery Method Room Air 11/26/23 22:05 Temperature 98.0 F 11/26/23 22:05 Pulse Rate 97 11/26/23 22:05 Respiratory Rate 20 11/26/23 22:05 Blood Pressure 125/81 11/26/23 22:05 Pulse Oximetry 97 11/26/23 22:05 Oxygen Delivery Method Room Air 11/26/23 22:05 MDM - Abdominal Pain MDM Narrative Medical decision making narrative: This patient comes in reporting somewhat nonspecific symptoms but does have recurrent intermittent abdominal pain and reports occasions of blood per rectum. She has had numerous studies working this up without an obvious source of the cause for her bleeding in her abdomen. She arrives here with normal vital signs. An IV is established and labs are acquired and these returned with reassuring findings. It is unclear what her fire prevention bureau captain was specifically indicating to her when he told her to go to the emergency department. I did order a CT scan despite having a rather reassuring abdominal exam along with her vital signs. CT scan returns with report of small-bowel obstruction with transition point in the right lower quadrant. I recommended admission into the hospital and the patient is agreeable with this plan. I spoke with Dr. Bonilla from the [facility] group who agrees to this plan also and will arrange for admission overnight. Lab Data Labs: Lab Results 11/26/23 11/26/23 Range/Units 22:25 22:35 WBC 10.39 (4.50-11.00) K/uL RBC 4.68 (4.00-5.20) m/uL Hgb 12.6 (12.0-16.0) gm/dL Hct 40.0 (33.0-51.0) % MCV 86 (80-100) fL MCH 27 (26-34) pg MCHC 32 (32-36) gm/dL RDW Coeff of Hamida 15.7 H (11.5-15.5) % Plt Count 254 (140-440) K/uL Neut % (Auto) 82.6 H (42.0-72.0) % Lymph % (Auto) 10.5 L (20-44) % [place] % (Auto) 5.0 (0.0-11.0) % Eos % (Auto) 0.4 (0.0-7.0) % Baso % (Auto) 0.3 (0.0-3.0) % Neut # (Auto) 8.60 H (1.7-7.0) K/uL Lymph # (Auto) 1.10 (0.90-2.90) K/uL [place] # (Auto) 0.50 (0.00-0.90) K/UL Eos # (Auto) 0.04 (0.00-0.50) K/uL Baso # (Auto) 0.03 (0.00-0.30) K/uL Abs Immat Gran (auto) 0.12 (0.00-0.30) K/uL Imm/Tot Granulo (auto) 1.2 % Sodium 135 (135-149) mmol/L Potassium 3.4 L (3.6-5.1) mmol/L Chloride 101 (96-114) mmol/L Carbon Dioxide 25 (20-32) mmol/L Anion Gap 9 (7-15) mEq/L BUN 15 (7-30) mg/dL Creatinine 0.6 (0.5-1.5) mg/dL Estimated Creat Clear 53.21 Estimated GFR 100 ml/min Glucose 139 H (60-115) mg/dL Calcium 9.4 (8.4-10.6) mg/dL POC Creatinine 0.8 (0.6-1.3) mg/dl Imaging Data CT scan - abdomen: Radiologist's impression: 1. Small bowel obstruction with transition point in the right lower quadrant. 2. Colonic diverticulosis without evidence of diverticulitis. Discharge Plan Discharge Clinical Impression: Small bowel obstruction Patient Disposition: Admitted As Inpatient Condition: Unchanged Prescriptions: No Action ibuprofen [Advil] 200 mg tablet 400 mg PO Q8H PRN Vitron-C 65 mg iron- 125 mg tablet,delayed release (DR/EC) 1 tab PO ONCE Qty: 90 3RF triamterene-hydrochlorothiazid 37.5-25 mg capsule 1 cap PO QDAY Qty: 90 1RF levothyroxine [Euthyrox] 100 mcg tablet 100 mcg PO QDAY Qty: 90 2RF amlodipine 5 mg tablet 5 mg PO QDAY Qty: 90 2RF Follow Up/Referrals: Laura Curtis, CHARGE MASTER SPECIALIST, MEDICAL IMAGING DIRECTOR [Primary Care Provider] -
[2023-11-26 22:43] LABS: Creatinine, Point-of-Care* 0.8 mg/dl (0.6-1.3)
[2023-11-26 22:45] LABS: Basophils Absolute Auto 0.03 K/uL (0.00-0.30); Basophils Percent Auto 0.3 % (0.0-3.0); Eosinophils Absolute Auto 0.04 K/uL (0.00-0.50); Eosinophils Percent Auto 0.4 % (0.0-7.0); Hemoglobin* 12.6 gm/dL (12.0-16.0); Immature Granulocytes Abs Auto 0.12 K/uL (0.00-0.30); Immature Granulocytes Pct Auto 1.2 %; Lymphocytes Percent Auto 10.5 % (20-44); Mean Corpuscular HGB Conc 32 gm/dL (32-36); Mean Corpuscular Hemoglobin 27 pg (26-34); Mean Corpuscular Volume 86 fL (80-100); Neutrophils Percent Auto 82.6 % (42.0-72.0); Platelet Count* 254 K/uL (140-440); RDW Coefficient of Variation % 15.7 % (11.5-15.5); Red Blood Count 4.68 m/uL (4.00-5.20); White Blood Count* 10.39 K/uL (4.50-11.00)
[2023-11-26 22:48] LABS: Slide Review Reflex No
[2023-11-26 22:57] LABS: Chloride* 101 mmol/L (96-114); Sodium* 135 mmol/L (135-149)
[2023-11-26 22:58] LABS: Potassium* 3.4 mmol/L (3.6-5.1)
[2023-11-26 23:00] LABS: Anion Gap 9 mEq/L (7-15); Carbon Dioxide* 25 mmol/L (20-32); Creatinine* 0.6 mg/dL (0.5-1.5); Est. Creatinine Clearance* 53.21; Estimated Glomerular Filt Rate 100 ml/min
[2023-11-26 23:01] LABS: Blood Urea Nitrogen* 15 mg/dL (7-30); Calcium* 9.4 mg/dL (8.4-10.6); Glucose* 139 mg/dL (60-115)
--- OUTSIDE RECORDS SUMMARY | 2023-11-26 23:01 | XMS_ITS | Clinical Summary ---
Author Organization [facility] Address [place], [place] [address] Care Team Providers Care Credit Administration Officer Name Role Phone Laura Curtis NP Primary Care Provider [phone] Allergies Active Allergy Reactions Criticality Noted Date [...] - 10/26/2023 11:59 PM CDT Hospital Encounter [facility] [address] [place] [address] Xu Pat MD Crohn's disease (HC) 10/26/2023 Travel 09/15/2023 Lab Requisition [facility] [phone] Unknown, Doctor from Last 3 Months Social [...] Description 01/08/2024 6:50 AM CDT Hospital Encounter [facility] [address] [place] [address] Jacey Myers MBBS [address] [place] [address] 01/08/2024 7:50 AM CDT - 01/08/2024 9:50 AM CDT Surgery [facility] [address] [place] [address] Jacey Myers MBBS [address] [place] [address] RETROGRADE ENTEROSCOPY DOUBLE BALLOON Scheduled Procedures Name [...] PM CDT Doctor Unknown LAB BILL ONLY [facility] [address] [place] [address], * PATH TISSUE EXAM (09/15/2023 10:30 AM CDT) Case Report Pathology Report ?Case: [id number] ? Authorizing Provider: ??Unknown, Doctor ?Collected: ? 09/15/2023 1030 ? Ordering Location: ? [facility] ?Received: ?09/16/2023 0519 ? Pathologist: ? Ivette Medel, ? MD ? Specimen: ?Left Axilla ? 09/16/2023 1:43 PM CDT [facility] Final Diagnosis A) LEFT AXILLA, ULTRASOUND-GUID ED CORE BIOPSY: 1. Fibrosis with focal macrophages and fragment of possible seroma/cyst wall, consistent with previous procedure site changes 2. Negative for malignancy 09/16/2023 1:43 PM T [facility] Comment A) This is an image-guided biopsy. The pathologic findings should be correlated with radiologic and clinical findings prior to treatment decisions. Case seen in consultation with Dr. Christensen. 09/16/2023 1:43 PM CDT [facility] Clinical Information History of malignant melanoma on the left shoulder with negative left axillary sentinel lymph node excision in 2022 ([id number], [id number]). 1.5 cm, round, circumscribed, possibly solid and hypoechoic left axillary mass. Probable scant tissue (i.e. seroma), rule out metastasis. 09/16/2023 1:43 PM CDT [facility] Gross Description A) Label: [...] hours. ADW 09/16/2023 09/16/2023 1:43 PM CDT [email or web address] ENTRAL LABORATORY Microscopic Description The final diagnosis is based on microscopic examination of appropriate sections of all specimens. A) The presence of blue ink is confirmed on tissue sections. 09/16/2023 1:43 PM CDT [email or web address]-C ENTRAL LABORATORY Additional Information Interpreted at [facility] [employer] [facility], Central Laboratory - [address] [place] [address] 09/16/2023 1:43 PM CDT [facility] Other (Left Axilla) 09/15/2023 10:30 AM CDT 09/16/2023 5:19 AM CDT Doctor Unknown PATHOLOGY/CYTOLOGY [facility] [address] [place] [address], from Last 3 Months Additional Health Concerns Infection Onset Date Last Indicated MRSA Comment:Right foot 08/16/2015 08/16/2015 Advance Directives * Full Code (Latest Code Status on File) Date Activated Date Inactivated Comments 08/16/2015 9:14 AM 08/16/2015 12:48 PM Care Teams Credit Administration Officer Relationship Specialty Start Date End Date Laura Curtis NP [address] [facility] [place] [address] PCP - General Emergency Medicine 10/23/23
--- OUTSIDE RECORDS SUMMARY | 2023-11-26 23:02 | XMS_ITS | Encounter Summary ---
Author Organization [facility] Address [address] [place] [address] Care Team Providers Care Matrix Supervisor Name Role Phone Elsewhere, Pcp Primary Care Provider Unavailabl e Encounter Details Date Type Department Care Team (Late st Contact Info) Description 09/29/2023 Clinical Communication Department of General Surgery in [place], [place] [address] [phone] [place] [address] [address] Social History Tobacco Use Types Packs/Day Years [...] How often do you attend chur or yazidism services? 1 to 4 times per year 07/28/2021 Do you belong to any clubs o r organizations such as cheondoism groups, unions, fraternal or athletic groups, or [...] Answer Date Recorded PHQ-2 Score 0 07/29/2021 [facility] of Occupat ional Health - Occupational [...] your living situation today? I have a [employer] place to live 05/13/2023 Education Answer Date Recorded What is the highest level of school you have completed or the highest degree you have received? Some college, no degree 07/28/2021 Sex and Gender Information Value Date Recorded Sex Assigned at Female 05/14/2017 2:12 PM COPRA SAMPLER Gender Identity Female 05/14/2017 2:12 PM COPRA SAMPLER Sexual Orientation Straight 05/14/2017 2: 12 PM COPRA SAMPLER documented as of this encounter Plan of Treatment Not on file documented as of this encounter Visit Diagnoses Not on filedocumented in this encounter Additional Health Concerns Assessment Noted Time PHQ-9 Depression Total Score: 1 05/14/20 17 2:12 PM COPRA SAMPLER documented as of this encounter Care Teams Matrix Supervisor Relationship Specialty Start Date End Date Elsewhere, Pcp PCP - General Internal Medicine 09/02/22 documented as of this encounter
--- OUTSIDE RECORDS SUMMARY | 2023-11-26 23:02 | XMS_ITS | Encounter Summary ---
Author Organization [facility] Address [address] [place] [address] Care Team Providers Care Bridge Expert Name Role Phone Elsewhere, Pcp Primary Care [...] week 07/28/2021 How often do you attend [facility] or confucianist services? 1 to 4 times per year 07/28/2021 Do you belong to any clubs o r organizations such as congregational groups, unions, fraternal or athletic groups, or [...] Answer Date Recorded PHQ-2 Score 0 07/29/2021 [facility] of Occupat ional Health - Occupational [...] your living situation today? I have a [facility] place to live 05/13/2023 Education Answer Date Recorded What is the highest level of school you have completed or the highest degree you have received? Some college, no degree 07/28/2021 Sex and Gender Information Value Date Recorded Sex Assigned at Female 05/14/2017 2:12 PM OYSTER SHIPPER Gender Identity Female 05/14/2017 2:12 PM OYSTER SHIPPER Sexual Orientation Straight 05/14/2017 2: 12 PM OYSTER SHIPPER documented as of this encounter Plan of Treatment Not on file documented as of this encounter Procedures Procedure Name Priority Date/Time Associated Diagnosis Comments GASTROENTEROLOGY IMAGE EXAM Routine 08/19/2023 12:00 AM OYSTER SHIPPER documented in this encounter Results * Unspecified-Gastroenterology Image Exam (08/19/2023 12:00 AM OYSTER SHIPPER) Narrative IIMS - 08/19/2023 9:59 AM OYSTER SHIPPER This order has been created and auto-finalized [...] Total Score: 1 05/14/20 17 2:12 PM OYSTER SHIPPER documented as of this encounter Care Teams Bridge Expert Relationship Specialty Start Date End Date Elsewhere, Pcp PCP - General Internal Medicine 09/02/22 documented as of this encounter
--- OUTSIDE RECORDS SUMMARY | 2023-11-26 23:02 | XMS_ITS | Encounter Summary ---
Author Organization [facility] Address [address] [place] [address] Care Team Providers Care Green Ware Caster Name Role Phone Elsewhere, Pcp Primary Care Provider Unavailabl e Encounter Details Date Type Department Care Team (Late st Contact Info) Description 08/19/2023 [facility] [address] [place] [address] Laura Curtis, JosselinNJeanniePJeannie [address] [place] [address] Abnormal Feces (Primary Dx); Other [...] often do you attend chur ch or sabianism services? 1 to 4 times per year 07/28/2021 Do you belong to any clubs o r organizations such as shinto groups, unions, fraternal or athletic groups, or [...] Answer Date Recorded PHQ-2 Score 0 07/29/2021 [facility] - Occupational Stress Questionnaire Answer Date Recorded [...] your living situation today? I have a [facility] place to live 05/13/2023 Education Answer Date Recorded What is the highest level of school you have completed or the highest degree you have received? Some college, no degree 07/28/2021 Sex and Gender Information Value Date Recorded Sex Assigned at Female 05/14/2017 2:12 PM LABORER FILTER PLANT Gender Identity Female 05/14/2017 2:12 PM LABORER FILTER PLANT Sexual Orientation Straight 05/14/2017 2: 12 PM LABORER FILTER PLANT documented as of this encounter Plan of Treatment Not on file documented as of this encounter Visit Diagnoses Diagnosis Abnormal Feces- Primary Other Iron Deficiency Anemias documented in this encounter Additional Health Concerns Assessment Noted Time PHQ-9 Depression Total Score: 1 05/14/20 17 2:12 PM LABORER FILTER PLANT documented as of this encounter Care Teams Green Ware Caster Relationship Specialty Start Date End Date Elsewhere, Pcp PCP - General Internal Medicine 09/02/22 documented as of this encounter
--- OUTSIDE RECORDS SUMMARY | 2023-11-26 23:02 | XMS_ITS | Encounter Summary ---
Author Organization [facility] Address [address] [place] [address] Care Team Providers Care Informatica Name Role Phone Elsewhere, Pcp Primary Care Provider Unavailabl e Reason for Referral * MRI/CAT/PET Scan (Routine) - Denied Specialty Diagnoses / Procedures Referred By Contac t Referred To Contact Radiology Diagnoses Crohn's Disease (HCC) Procedures CT Abdomen Pelvis Enterography with IV Contrast Xu Pat M.D. [address] [address] [place] [address] [facility] Region Referral ID Status Reason Start Date Expiration Date Visits Re quested Visits Authorized [id number] Denied 09/24/2023 09/23/2024 1 1 Reason for Visit * MRI/CAT/PET Scan (Routine) - Denied Specialty Diagnoses / Procedures Referred By Contac t Referred To Contact Radiology Diagnoses Crohn's Disease (HCC) Procedures CT Abdomen Pelvis Enterography with IV Contrast Xu Pat M.D. [address] [address] [place] [address] [facility] Region Referral ID Status Reason Start Date Expiration Date Visits Re quested Visits Authorized [id number] Denied 09/24/2023 09/23/2024 1 1 Encounter Details Date Type Department Care Team (Latest Contact Info) Description 10/26/2023 7:48 AM CDT - 10/26/2023 11:59 PM CDT Hospital Encounter Department of Radiology in [place], [place] [address] [place] [address] Xu Pat M.D. [address] [address] [place] [phone] Crohn's Disease (HCC) Discharge Disposition: Home or [...] often do you attend chur ch or mandaeism services? 1 to 4 times per year 07/28/2021 Do you belong to any clubs o r organizations such as muslim groups, unions, fraternal or athletic groups, or [...] Answer Date Recorded PHQ-2 Score 0 07/29/2021 [facility] of Occupat ional Health - Occupational Stress [...] Sex Assigned at Female 05/14/2017 2:12 PM HELMET COVERER Gender Identity Female 05/14/2017 2:12 PM HELMET COVERER Sexual Orientation Straight 05/14/2017 2: 12 PM HELMET COVERER documented as of this encounter Medications at [...] Total Score: 1 05/14/20 17 2:12 PM HELMET COVERER documented as of this encounter Care Teams Informatica Relationship Specialty Start Date End Date Elsewhere, Pcp PCP - General Internal Medicine 09/02/22 documented as of this encounter
--- OUTSIDE RECORDS SUMMARY | 2023-11-26 23:02 | XMS_ITS | Clinical Summary ---
Author Organization [facility] Address [address] [place] [address] Care Team Providers Care Gum Dipper Name Role Phone Elsewhere, Pcp Primary Care Provider Unavailabl e Source Comments Patient records contain information from all sites at [facility]. For routine questions regarding patient records, call [phone] during business hours, M-F 8:00 AM - 5:00 PM Central Time. Record requests for emergency care only can be directed to [phone] at any time.[facility] Allergies Active Allergy Reactions Criticality Noted [...] CDT Hospital Encounter Department of Radiology in [address] [address] Xu Pat M.D. Crohn's Disease (HCC) Discharge Disposition: Home or Self Care 10/05/2023 10:59 AM CDT - 10/05/2023 11:59 PM CDT Hospital Encounter Department of Laboratory Medicine in [address] [address] Bri Hampton M.D. Anemia Microcytic Hypochromic Discharge Disposition: Home or Self Care 09/29/2023 Clinical Communication Department of General Surgery in [address] [address] [facility] - from Last 3 Months Immunizations Name [...] How often do you attend chur or jehovah's witness services? 1 to 4 times per year 07/28/2021 Do you belong to any clubs o r organizations such as yazdanism groups, unions, fraternal or athletic groups, or [...] Answer Date Recorded PHQ-2 Score 0 07/29/2021 [facility] of Occupat ional Health - [...] Sex Assigned at Female 05/14/2017 2:12 PM WELDER AND FITTER Gender Identity Female 05/14/2017 2:12 PM WELDER AND FITTER Sexual Orientation Straight 05/14/2017 2: 12 PM WELDER AND FITTER Last Filed Vital Signs Vital Sign Reading Time Taken Comments Blood Pressure 126/85 07/29/2021 9:02 AM WELDER AND FITTER Pulse 83 07/29/2021 9:02 AM WELDER AND FITTER Temperature 36.2 ??C (97.1 ??F) 07/29/2021 9:02 AM CS T Respiratory Rate 18 07/29/2021 9:02 AM WELDER AND FITTER Oxygen Saturation 93% 06/06/2020 2:58 PM WELDER AND FITTER Inhaled Oxygen Concentration - - Weight 96.6 kg (212 lb 15.4 oz) 07/29/2021 9:02 AM WELDER AND FITTER Height 168.6 cm (5' 6.38) 07/29/2021 9:02 AM CS T Body Mass Index 33.98 07/29/2021 9:02 AM WELDER AND FITTER Plan of Treatment Health Maintenance Due Date [...] this topic Medical Devices Implanted Type Area Weekend Anchor Device Identifier Shelf Expiration Date Model / [...] LIPID PANEL, S Routine 07/29/2021 8:42 AM WELDER AND FITTER Hypertension Essential Primary Encounter For Screening For Cardiovascular Disorders Hypothyroidism Screening Examination Diabetes Mellitus COMPREHENSIVE METABOLIC PANEL, S/P Routine 07/29/2021 8:42 AM WELDER AND FITTER Hypertension Essential Primary Encounter For Screening For [...] CDT Bri Hampton M.D. LAB BLOOD ADD-ON [facility] [address] [place] [address], [facility] OWAT [facility] [place] [address] [place] [address] * Creatinine with Estimated GFR (10/05/2023 11:09 AM CDT) Creatinine 0.68 0.59 - 1.04 mg/dL 10/05/2023 11:35 AM CDT OWAT Estimated GFR (eGFR) >90 >=60 mL/min/BSA 10/05/2023 11:35 AM CDT OWAT Comment: Estimated GFR calculated using the 2020 CKD_EPI creatinine equation. Blood (Blood, Venous) 10/05/2023 11:09 AM CDT 10/05/2023 11:13 AM CDT Bri Hampton M.D. LAB BLOOD [facility] [address] [place] [address], [facility] OWAT [facility] in [place] [address] [place] [address] * (ABNORMAL) Lipid Panel (07/29/2021 8:42 AM WELDER AND FITTER) Cholesterol, Total 207(H) mg/dL 2021 11:45 AM WELDER AND FITTER OWAT Comment: ----REFERENCE VALUE---- Desirable: < 200 Borderline high: 200 - 239 High: > or = 240 Triglycerides 253(H) mg/dL 07/29/2021 11:45 AM WELDER AND FITTER OWAT Comment: ----REFERENCE VALUE---- Normal: <150 Borderline high: 150-199 High: 200-499 Very high: > or =500 Cholesterol, HDL 52 >=50 mg/dL 07/29/19 11:45 AM WELDER AND FITTER OWAT Calculated LDL 104 mg/dL 07/29/2021 11:45 AM WELDER AND FITTER OWAT Comment: ----REFERENCE VALUE---- Desirable: <100 mg/dL Above Desirable: 100-129 mg/dL Borderline High: 130-159 mg/dL High: 160-189 mg/dL Very High: >=190 mg/dL Cholesterol, Non-HDL, Calculated 155 mg/dL 07/29/2021 11:45 AM WELDER AND FITTER OWAT Comment: ----REFERENCE VALUE---- Desirable: <130 Above Desirable: 130-159 Borderline high: 160-189 High: 190-219 Very high: > or =220 Blood (Blood, Venous) 07/29/2021 8:42 AM WELDER AND FITTER 07/29/2021 10:44 AM WELDER AND FITTER Laith Lzu P.A.-C., P.A. LAB BLOO D ADD-ON [facility] [address] [place] [facility] [place] [address], [place] OWAT [facility] in [place] [address] [place] [address] * Comprehensive Metabolic Panel (07/29/2021 8:42 AM WELDER AND FITTER) Potassium, P 4.4 3.6 - 5.2 mmol/L 07/29/2021 11:45 AM WELDER AND FITTER OWAT Sodium, P 141 135 - 145 mmol/L 07/29/2021 11:45 AM WELDER AND FITTER OWAT Chloride, P 102 98 - 107 mmol/L 07/29/2021 11:45 AM WELDER AND FITTER OWAT Bicarbonate, P 28 22 - 29 mmol/L 07/29/2021 11:45 AM WELDER AND FITTER OWAT Anion Gap, P 11 7 - 15 07/29/2021 11:45 AM WELDER AND FITTER OWAT BUN (Blood Urea Nitrogen), P 18 6 - 21 mg/dL 07/29/2021 11:45 AM WELDER AND FITTER OWAT Creatinine 0.67 0.59 - 1.04 mg/dL 07/29/2021 11:45 AM WELDER AND FITTER OWAT eGFR-Black/ >90 >=60 mL/min/BS A 07/29/2021 11:45 AM WELDER AND FITTER OWAT Comment: ----ADDITIONAL INFORMATION---- Estimated GFR calculated using the 2009 CKD_EPI creatinine equation. eGFR Non-Black/ >90 >=60 mL/min/BS A 07/29/2021 11:45 AM WELDER AND FITTER OWAT Comment: ----ADDITIONAL INFORMATION---- Estimated GFR calculated using the 2009 CKD_EPI creatinine equation. Calcium, Total, P 10.1 8.8 - 10.2 mg/dL 07/29/2021 11:45 AM WELDER AND FITTER OWAT Glucose, P 129 70 - 140 mg/dL 07/29/2021 11:45 AM WELDER AND FITTER OWAT Protein, Total, P 7.2 6.3 - 7.9 g/dL 07/29/2021 11:45 AM WELDER AND FITTER OWAT Albumin, P 4.7 3.5 - 5.0 g/dL 07/29/2021 11:45 AM WELDER AND FITTER OWAT Aspartate Aminotransferase (AST), P 16 8 - 43 U/L 07/29/2021 11:45 AM WELDER AND FITTER OWAT Alkaline Phosphatase, P 79 35 - 104 U/L 07/29/2021 11:45 AM WELDER AND FITTER OWAT Alanine Aminotransferase (ALT), P 16 7 - 45 U/L 07/29/2021 11:45 AM WELDER AND FITTER OWAT Bilirubin, Total, P 0.3 <=1.2 mg/dL 07/29/2021 11:45 AM WELDER AND FITTER OWAT Blood (Blood, Venous) 07/29/2021 8:42 AM WELDER AND FITTER 07/29/2021 10:44 AM WELDER AND FITTER Laith Luz P.A.-C., PMallika LAB BLOO D ADD-ON [facility] [address] [place] [address], [facility] OWAT [facility] [place] [address] [place] [address] * BI Breast Screening Bilateral with Tomosynthesis [...] BI-RADS: 1: Negative. Laith Luz P.A.-C., PJeannieAJeannie [facility] BI P ROCEDURES from Last 3 Months or Most Recently Relevant to Health Maintenance Advance Directives For more information, please contact: [phone] Documents on File Type Date Recorded Patient Customer Experience Intern Expl anation Advance Directives 07/26/2015 12:00 AM Leg acy document. See document viewer. Care Teams Gum Dipper Relationship Specialty Start Date End Date Elsewhere, Pcp PCP - General Internal Medicine 09/02/22
--- OUTSIDE RECORDS SUMMARY | 2023-11-26 23:02 | XMS_ITS | Referral Summary ---
Author Organization [facility] Address [address] [place] [address] Care Team Providers Care Licensing Services Clerk Name Role Phone Elsewhere, Pcp Primary Care Provider Unavailabl e Source Comments Patient records contain information from all sites at [facility]. For routine questions regarding patient records, call [phone] during business hours, M-F 8:00 AM - 5:00 PM Central Time. Record requests for emergency care only can be directed to [phone] at any time.[facility] Encounters Date Type Department Care Team Description 10/26/2023 7:48 AM CDT - 10/26/2023 11:59 PM CDT Hospital Encounter Department of Radiology in [place], [place] [address] [place] [phone] Xu Pat M.D. Crohn's Disease (HCC) Discharge Disposition: Home or Self Care 10/05/2023 10:59 AM CDT - 10/05/2023 11:59 PM CDT Hospital Encounter Department of Laboratory Medicine in [place], [place] [address] [phone] Bri Hampton M.D. Anemia Microcytic Hypochromic Discharge Disposition: Home or Self Care 09/29/2023 Clinical Communication Department of General Surgery in [place], [place] [address] [phone] [place], [facility] - from Last 3 Months Allergies Active [...] week 07/28/2021 How often do you attend [facility] or jewish services? 1 to 4 times per year 07/28/2021 Do you belong to any clubs o r organizations such as anglican groups, unions, fraternal or athletic groups, or [...] Answer Date Recorded PHQ-2 Score 0 07/29/2021 [facility] - Occupational Stress Questionnaire Answer [...] your living situation today? [facility] 05/13/2023 Education Answer Date Recorded What is the highest level of school you have completed or the highest degree you have received? Some college, no degree 07/28/2021 Sex and Gender Information Value Date Recorded Sex Assigned at Female 05/14/2017 2:12 PM [employer] Gender Identity Female 05/14/2017 2:12 PM [employer] Sexual Orientation Straight 05/14/2017 2: 12 PM [employer] Last Filed Vital Signs Vital Sign Reading Time Taken Comments Blood Pressure 126/85 07/29/2021 9:02 AM [employer] Pulse 83 07/29/2021 9:02 AM [employer] Temperature 36.2 ??C (97.1 ??F) 07/29/2021 9:02 AM CS T Respiratory Rate 18 07/29/2021 9:02 AM [employer] Oxygen Saturation 93% 06/06/2020 2:58 PM [employer] Inhaled Oxygen Concentration - - Weight 96.6 kg (212 lb 15.4 oz) 07/29/2021 9:02 AM [employer] Height 168.6 cm (5' 6.38) 07/29/2021 9:02 AM CS T Body Mass Index 33.98 07/29/2021 9:02 AM [employer] Plan of Treatment Not on file Medical Devices Implanted Type Area Professor Of Chemistry Device Identifier Shelf Expiration Date Model / [...] LIPID PANEL, S Routine 07/29/2021 8:42 AM [employer] Hypertension Essential Primary Encounter For Screening For Cardiovascular Disorders Hypothyroidism Screening Examination Diabetes Mellitus COMPREHENSIVE METABOLIC PANEL, S/P Routine 07/29/2021 8:42 AM [employer] Hypertension Essential Primary Encounter For Screening For [...] CDT Bri Hampton M.D. LAB BLOOD ADD-ON [facility] [address] [place] [address], [facility] OWAT [facility] [place] [address] [place] [address] * Creatinine with Estimated GFR (10/05/2023 11:09 AM CDT) Creatinine 0.68 0.59 - 1.04 mg/dL 10/05/2023 11:35 AM CDT OWAT Estimated GFR (eGFR) >90 >=60 mL/min/BSA 10/05/2023 11:35 AM CDT OWAT Comment: Estimated GFR calculated using the 2020 CKD_EPI creatinine equation. Blood (Blood, Venous) 10/05/2023 11:09 AM CDT 10/05/2023 11:13 AM CDT Bri Hampton M.D. LAB BLOOD ADD-ON [facility] [address] [place] [address], [facility] OWAT [facility] [place] [address] [place] [address] * (ABNORMAL) Lipid Panel (07/29/2021 8:42 AM [employer]) Cholesterol, Total 207(H) mg/dL 2021 11:45 AM [employer] OWAT Comment: ----REFERENCE VALUE---- Desirable: < 200 Borderline high: 200 - 239 High: > or = 240 Triglycerides 253(H) mg/dL 07/29/2021 11:45 AM [employer] OWAT Comment: ----REFERENCE VALUE---- Normal: <150 Borderline high: 150-199 High: 200-499 Very high: > or =500 Cholesterol, HDL 52 >=50 mg/dL 07/29/19 11:45 AM [employer] OWAT Calculated LDL 104 mg/dL 07/29/2021 11:45 AM [employer] OWAT Comment: ----REFERENCE VALUE---- Desirable: <100 mg/dL Above Desirable: 100-129 mg/dL Borderline High: 130-159 mg/dL High: 160-189 mg/dL Very High: >=190 mg/dL Cholesterol, Non-HDL, Calculated 155 mg/dL 07/29/2021 11:45 AM [employer] OWAT Comment: ----REFERENCE VALUE---- Desirable: <130 Above Desirable: 130-159 Borderline high: 160-189 High: 190-219 Very high: > or =220 Blood (Blood, Venous) 07/29/2021 8:42 AM [employer] 07/29/2021 10:44 AM [employer] Devaughn Dumont P.A.-C. LAB BLOO D ADD-ON [facility] [address] [place] [address], [place] OWAT [facility] in [place] [address] [place] [facility] [place] [address] * Comprehensive Metabolic Panel (07/29/2021 8:42 AM [employer]) Potassium, P 4.4 3.6 - 5.2 mmol/L 07/29/2021 11:45 AM [employer] OWAT Sodium, P 141 135 - 145 mmol/L 07/29/2021 11:45 AM [employer] OWAT Chloride, P 102 98 - 107 mmol/L 07/29/2021 11:45 AM [employer] OWAT Bicarbonate, P 28 22 - 29 mmol/L 07/29/2021 11:45 AM [employer] OWAT Anion Gap, P 11 7 - 15 07/29/2021 11:45 AM [employer] OWAT BUN (Blood Urea Nitrogen), P 18 6 - 21 mg/dL 07/29/2021 11:45 AM [employer] OWAT Creatinine 0.67 0.59 - 1.04 mg/dL 07/29/2021 11:45 AM [employer] OWAT eGFR-Black/ >90 >=60 mL/min/BS A 07/29/2021 11:45 AM [employer] OWAT Comment: ----ADDITIONAL INFORMATION---- Estimated GFR calculated using the 2009 CKD_EPI creatinine equation. eGFR Non-Black/ >90 >=60 mL/min/BS A 07/29/2021 11:45 AM [employer] OWAT Comment: ----ADDITIONAL INFORMATION---- Estimated GFR calculated using the 2009 CKD_EPI creatinine equation. Calcium, Total, P 10.1 8.8 - 10.2 mg/dL 07/29/2021 11:45 AM [employer] OWAT Glucose, P 129 70 - 140 mg/dL 07/29/2021 11:45 AM [employer] OWAT Protein, Total, P 7.2 6.3 - 7.9 g/dL 07/29/2021 11:45 AM [employer] OWAT Albumin, P 4.7 3.5 - 5.0 g/dL 07/29/2021 11:45 AM [employer] OWAT Aspartate Aminotransferase (AST), P 16 8 - 43 U/L 07/29/2021 11:45 AM [employer] OWAT Alkaline Phosphatase, P 79 35 - 104 U/L 07/29/2021 11:45 AM [employer] OWAT Alanine Aminotransferase (ALT), P 16 7 - 45 U/L 07/29/2021 11:45 AM [employer] OWAT Bilirubin, Total, P 0.3 <=1.2 mg/dL 07/29/2021 11:45 AM [employer] OWAT Blood (Blood, Venous) 07/29/2021 8:42 AM [employer] 07/29/2021 10:44 AM [employer] Laith Luz P.A.-C., P.Iris LAB BLOO D ADD-ON [facility] [address] [place] [address], [facility] OWAT [facility] [place] [address] [place] [address] * BI Breast Screening Bilateral with Tomosynthesis [...] Advance Directives For more information, please contact: [phone] Documents on File Type Date Recorded Patient Care Management Coordinator Expl anation Advance Directives 07/26/2015 12:00 AM Leg acy document. See document viewer. Care Teams Licensing Services Clerk Relationship Specialty Start Date End Date Elsewhere, Pcp PCP - General Internal Medicine 09/02/22
--- OUTSIDE RECORDS SUMMARY | 2023-11-26 23:02 | XMS_ITS ---
Author Organization [facility] Address [address] [place] [address] Care Team Providers Care Emergency Dept Tech Name Role Phone Unavailable Unavailable Unavailable Surgery Details Not on file Complications Check Surgery Details section. Procedure Estimated Blood Loss Check Surgery Details section. Procedure Findings Check Surgery Details section. Procedure Specimens Taken Check Surgery Details section.
--- OUTSIDE RECORDS SUMMARY | 2023-11-26 23:02 | XMS_ITS | Encounter Summary ---
Author Organization [facility] Address [address] [place] [address] Care Team Providers Care Fee Clerk Name Role Phone Elsewhere, Pcp Primary Care Provider Unavailabl e Encounter Details Date Type Department Care Team (Late st Contact Info) Description 10/05/2023 10:59 AM CDT - 10/05/2023 11:59 PM CDT Hospital Encounter Department of Laboratory Medicine in [place], [place] [address] [place] [phone] Bri Hampton M.D. [address] [address], [facility] [address] [place] [address] Anemia Microcytic Hypochromic Discharge Disposition: [...] How often do you attend chur or christian services? 1 to 4 times per year 07/28/2021 Do you belong to any clubs o r organizations such as restorationist groups, unions, fraternal or athletic groups, or [...] Answer Date Recorded PHQ-2 Score 0 07/29/2021 [facility] - Occupational [...] living situation today? I have a [facility] place to live 05/13/2023 Education Answer Date Recorded What is the highest level of school you have completed or the highest degree you have received? Some college, no degree 07/28/2021 Sex and Gender Information Value Date Recorded Sex Assigned at Female 05/14/2017 2:12 PM RESEARCH ADVISOR Gender Identity Female 05/14/2017 2:12 PM RESEARCH ADVISOR Sexual Orientation Straight 05/14/2017 2: 12 PM RESEARCH ADVISOR documented as of this encounter Medications at [...] M.D. LAB BLOOD ADD-ON Performing Organization Address [facility]/ZIP Co de Phone Number [facility] [address] [place] [id number], [facility] in [place] [address] [place] [phone] * BUN (Blood Urea Nitrogen) (10/05/2023 11:09 AM CDT) BUN (Blood Urea Nitrogen), P 15 6 - 21 mg/dL 10/05/2023 11:35 AM CDT OWAT Blood (Blood, Venous) 10/05/2023 11:09 AM CDT 10/05/2023 11:13 AM CDT Bri Hampton M.D. LAB BLOOD ADD-ON Performing Organization Address City/[facility]/ZIP Co de Phone Number [facility] [address] [place] [address], [facility] [place] [address] [place] [address], [place] [address] documented in this encounter Visit Diagnoses Diagnosis Anemia Microcytic Hypochromic documented in this encounter Additional Health Concerns Assessment Noted Time PHQ-9 Depression Total Score: 1 05/14/20 17 2:12 PM RESEARCH ADVISOR documented as of this encounter Care Teams Fee Clerk Relationship Specialty Start Date End Date Elsewhere, Pcp PCP - General Internal Medicine 09/02/22 documented as of this encounter
[2023-11-27] VITALS (10 sets, daily range): BP systolic 118–147; BP diastolic 74–100; PULSE 75–94; RESP 16–20; TEMP 36.2–37.1; O2SAT 91–97; BMI 33.4
--- NOTE | 2023-11-27 01:26 | PM.IMHP1 ---
Hospitalist- H&P: HPI History of Present Illness Date Seen: 11/27/23 Chief complaint: Abdominal Pain Narrative: Ann Edmondson is a 63 year old female who presented to the ED for concern of abdominal pain. She has been having intermittent abdominal pain with nausea for the past month. Over the past two days, her symptoms have worsened. She had an episode of bilious vomiting earlier in the day. Her last BM was the day prior however she is no longer passing any gas. No fevers or chills. No SOB, CP. Workup showed unremarkable CBC. Metabolic panel showed hypokalemia but was otherwise negative. CT abdomen/pelvis showed SBO with transition point. Review of Systems Status of ROS: Reports: 10 or more systems reviewed and unremarkable except as noted in History and below [facility] Medical History Malignant melanoma ?C43.9 - Malignant melanoma of skin, unspecified (ICD-10) History of femur fracture (Unknown) ?Z87.81 - Personal history of (healed) traumatic fracture (ICD-10) Hypertension ?I10 - Essential (primary) hypertension (ICD-10) Surgical History Fixation hardware in foot ?Z96.7 - Presence of other bone and tendon implants (ICD-10) Fixation hardware in lower extremity ?Z96.7 - Presence of other bone and tendon implants (ICD-10) History of hysterectomy ?Z90.710 - Acquired absence of both cervix and uterus (ICD-10) History of left hip replacement ?Z96.642 - Presence of left artificial hip joint (ICD-10) Family History Mother Heart disease Diabetes Vertigo Coronary artery disease Brother High blood pressure Social History Narrative: . 4 children. The patient does not formally exercise. Alcohol rare. No illicit drug use. No smoker. proof carrier. What is your current living situation?: I presently have a place to live Problems where you live: no known problems Problems where you live details: N/A In the past 12 months, utilities in danger of being shut off: no In past 12 months, lack of transportation kept you from medical appts, meetings, work, or getting things needed for daily living: no In the past 12 mos, have been you worried that your food would run out before you had money to buy more?: never true In the past 12 mos, the food you bought just didn't last and you didn't have money to buy more?: never true Highest level of school completed/degree received: some college, no degree Smoking Status: Never smoker Do you use any of these nicotine containing products: None Second hand tobacco smoke exposure: No How often do you have a drink containing alcohol: 2-3 times a week Alcohol type: beer How many standard drinks containing alcohol do you have on a typical day: 1 or 2 How often do you have six or more drinks on one occasion: Never AUDIT-C Alcohol total score: 3 Non-prescribed substance use: denies use Caffeine: Yes How often does anyone, including family, friends and others, physically hurt you: never How often does anyone, including family, friends and others, insult or talk down to you: never How often does anyone, including family, friends and others, threaten you with harm: never How often does anyone, including family, friends and others, scream or curse at you: never Little interest or pleasure in doing things: not at all Feeling down, depressed, or hopeless: not at all service: No Meds Home Medications and Allergies Home Medications ?Medication ?Instructions ?Recorded ?Confirmed ?Type ibuprofen 200 mg tablet (Advil) 400 mg PO Q8H PRN 07/17/22 11/26/23 History Allergies Allergy/AdvReac Type Severity Reaction Status Date / Time lisinopril Allergy Mild Cough Verified 11/26/23 23:07 neomycin Allergy Mild Hives Verified 11/26/23 23:07 Exam Const: Vital Signs, click to edit/add: Vital Signs - 24 hr 11/26/23 22:05 11/27/23 00:23 11/27/23 00:37 Temperature 98.0 F 98.0 F 97.2 F L Pulse Rate [Right Pulse Oximeter] 97 87 94 Respiratory Rate 20 20 16 Blood Pressure [Ri ght Arm] 147/99 H Blood Pressure [Ri ght Upper Arm] 125/81 118/74 Pulse Oximetry 97 97 92 Oxygen Delivery Me thod Room Air Room Air Room Air 11/27/23 01:04 Temperature Pulse Rate [Right Pulse Oximeter] Respiratory Rate 16 Blood Pressure [Ri ght Arm] Blood Pressure [Ri ght Upper Arm] Pulse Oximetry 92 Oxygen Delivery Me thod Room Air Common normals: no apparent distress and oriented x3 HENMT: Common normals: normocephalic and head/scalp atraumatic Head and scalp: normocephalic and atraumatic Eye: Common normals: PERRL, EOMs intact bilaterally, conjunctivae normal and no scleral icterus Conjunctiva: conjunctiva(e) normal Pupil: PERRL Neck & C-Spine: Common normals: no lymphadenopathy and supple Resp: Common normals: normal respiratory effort, no use of accessory muscles and clear to auscultation bilaterally Auscultation: clear to auscultation bilaterally Cardio: Common normals: regular rate and regular rhythm Rate: regular rate Rhythm: regular rhythm GI: Common normals: soft to palpation and non-tender Inspection: abdominal distension Palpation: soft Neuro: Common normals: oriented x3, moves all extremities and no focal motor deficits Psych: Common normals: mental status grossly normal Skin: Common normals: no rashes or lesions noted General skin exam: no rashes or lesions noted Hospitalist - H&P: Result Labs Labs: Short CBC 11/26/23 Range/Units 22:25 WBC 10.39 (4.50-11.00) K/uL Hgb 12.6 (12.0-16.0) gm/dL Hct 40.0 (33.0-51.0) % Plt Count 254 (140-440) K/uL BMP 11/26/23 22:25 Sodium 135 Potassium 3.4 L Chloride 101 Carbon Dioxide 25 BUN 15 Creatinine 0.6 Glucose 139 H Calcium 9.4 Assessment and Plan Assessment and plan (1) Small bowel obstruction: Status: Acute (2) Type 2 diabetes mellitus: Status: Acute (3) Iron deficiency anemia: Status: Acute (4) Prediabetes: Status: Acute (5) Degenerative joint disease, shoulder, left: Status: Acute (6) Hypertension: Status: Acute (7) Hypothyroidism: Status: Acute (8) Osteoarthritis of both knees: Status: Acute (9) Hypokalemia: Status: Acute Plan Bowel rest with NPO except meds, IV NS @ 125mL/hr. Pain medication prn. Surgery consult for AM. Replace potassium. Repeat labs in AM. This encounter was performed with telemedicine and the assistance of the nursing staff in regards to physical exam. Camera start time 0120, camera end time 0130
[2023-11-27] MEDS: 0.9 % SODIUM CHLORIDE 1000 ml 1,000 ML 125 ML IV ×3 (01:35→19:56)
[2023-11-27] MEDS: POTASSIUM CHLORIDE 10 MEQ/100 ML PIGGYBACK 100 MEQ IVPB ×3 (02:33→11:47)
--- NOTE | 2023-11-27 06:40 | PC.NURSE ---
End of shift note: Pt admitted to med/surg for SBO and reports abdominal pain as 2/10 when asked. Pt has been declining PRN pain medication when offered. She is currently NPO per order. Pt has had no vomiting noted since admission and denies nausea when asked. Abdomen noted to be soft upon palpation with bowel sounds active in all four quadrants. Pt states she is not passing gas when asked, MD Bonilla aware. IV to L AC patent with fluids running per current order in place. Pt alert & oriented x 4 and able to make needs known. Pt continent of bladder. IV K+ administered per order.
--- NOTE | 2023-11-27 09:21 | PM.IMPN1 ---
Progress Note: A&P Assessment and plan (1) Small bowel obstruction: Problem details: - h/o several pelvic surgeries, suspect adhesions are cause - Has h/o hypothyroidism, will check TSH as untreated hypothyroidism may prolong return of normal bowel function. - Bowel sounds this morning, less nausea, possible improvement with medical management. Has transition point on CT abd/pelvis done last night. Will d/w general surgery. - Continue NPO, IVF. Encouraged ambulation in [facility] 6 times today. Status: Acute (2) Hypokalemia: Problem details: - 2 bags of IV KCl given overnight. Recheck K this morning. - Patient on HCTZ, which is likely the cause - Consider switching IVF to LR or NS with KCl. Status: Acute (3) Type 2 diabetes mellitus: Problem details: - diet controlled. Check glucose daily and prn for signs of hypoglycemia. Status: Chronic (4) Hypertension: Problem details: - continue home doses of amlodipine, triamterene/HCTZ Status: Chronic (5) Hypothyroidism: Problem details: - as above, check TSH - Continue levothyroxine orally Status: Chronic Plan VTE risk low, encourage frequent ambulation Subjective Time Seen by Provider: 09:13 Date Seen: 11/27/23 Interval history: Ann has intermittent cramping in her lower abdomen. No BM or flatus for a day and a half. Severe nausea last night brought her into the ER, is better now with medications. She has noted some gurgling in her abdomen today. Exam Narrative: Exam Narrative: General: No acute distress. Awake, alert, oriented x3. No pallor. No jaundice. Oropharynx: Clear. Mucous membranes moist. Cardiovascular: Regular rate and rhythm. No murmurs, gallops, or rubs. Respiratory: Clear to auscultation bilaterally. No wheezes or crackles. Abdomen: Bowel sounds present, slightly hypoactive. Soft, nondistended, nontender to palpation. Const: Vital Signs, click to edit/add: Vital Signs - 24 hr 11/26/23 22:05 11/27/23 00:23 11/27/23 00:37 Temperature 98.0 F 98.0 F 97.2 F L Pulse Rate [Right Pulse Oximeter] 97 87 94 Respiratory Rate 20 20 16 Blood Pressure [Ri ght Arm] 147/99 H Blood Pressure [Ri ght Upper Arm] 125/81 118/74 Pulse Oximetry 97 97 92 Oxygen Delivery Me thod Room Air Room Air Room Air 11/27/23 01:04 11/27/23 03:52 Temperature 98.7 F Pulse Rate [Right Pulse Oximeter] 85 Respiratory Rate 16 16 Blood Pressure [Ri ght Arm] 134/84 Blood Pressure [Ri t Upper Arm] Pulse Oximetry 92 91 Oxygen Delivery Me thod Room Air Room Air Labs Labs: Laboratory Results - last 24 hr 11/26/23 11/26/23 22:25 22:35 WBC 10.39 RBC 4.68 Hgb 12.6 Hct 40.0 MCV 86 MCH 27 MCHC 32 RDW Coeff of Hamida 15.7 H Plt Count 254 Neut % (Auto) 82.6 H Lymph % (Auto) 10.5 L Power % (Auto) 5.0 Eos % (Auto) 0.4 Baso % (Auto) 0.3 Neut # (Auto) 8.60 H Lymph # (Auto) 1.10 Power # (Auto) 0.50 Eos # (Auto) 0.04 Baso # (Auto) 0.03 Abs Immat Gran (auto) 0.12 Imm/Tot Granulo (auto) 1.2 Sodium 135 Potassium 3.4 L Chloride 101 Carbon Dioxide 25 Anion Gap 9 BUN 15 Creatinine 0.6 Estimated Creat Clear 53.21 Estimated GFR 100 Glucose 139 H Calcium 9.4 POC Creatinine 0.8
[2023-11-27 10:24] LABS: Chloride* 104 mmol/L (96-114); Potassium* 3.5 mmol/L (3.6-5.1); Sodium* 135 mmol/L (135-149)
[2023-11-27 10:26] LABS: Creatinine* 0.6 mg/dL (0.5-1.5); Est. Creatinine Clearance* 53.21; Estimated Glomerular Filt Rate 100 ml/min
[2023-11-27 10:27] LABS: Anion Gap 6 mEq/L (7-15); Blood Urea Nitrogen* 11 mg/dL (7-30); Carbon Dioxide* 25 mmol/L (20-32); Glucose* 133 mg/dL (60-115)
--- NOTE | 2023-11-27 10:50 | P.GSCN_ITS ---
History of Present Illness Consult details Date Seen: 11/27/23 Consult date: 11/27/23 Narrative: 63-year-old female was admitted to the hospital small bowel obstruction and I was asked by Dr. Staples to see him in consultation. For the past 2 months patient has been having these intermittent episodes of abdominal pain that she describes as ?contractions?. The usually located suprapubically and in the right lower quadrant. She is not sure what brings the pain on and nothing makes the pain better except 4 time. She describes the ?contractions? as frequent at first and then with time it usually gets better. She was seen by Gastroenterology and had EGD, colonoscopy, and the PillCam. She states that a balloon procedure is planned in January to do something in the last 5 ft of her terminal ileum. In the emergency room she was found to have normal WBC. An abdominal CT was obtained that showed mesenteric edema. There were dilated loops of bowel and some bowel loops were decompressed with a possible transition point in the right lower quadrant. Review of Systems Narrative: General: no fevers HENT: no problems swallowing CV: no shortness of breath Resp: no cough GI: No nausea, vomiting, abdominal pain : no dysuria, no increased urinary frequency, no hematuria Skin: no new rashes Musculoskeletal: no back pain Neuro: no muscle weakness Psyche: no depression, no anxiety PFSH PFSH Medical History Osteoarthritis of both knees ?M17.0 - Bilateral primary osteoarthritis of knee (ICD-10) Dizziness ?R42 - Dizziness and giddiness (ICD-10) Hypothyroidism ?E03.9 - Hypothyroidism, unspecified (ICD-10) Cluster headaches ?G44.009 - Cluster headache syndrome, unspecified, not intractable (ICD-10) Frequent headaches ?R51.9 - Headache, unspecified (ICD-10) Degenerative joint disease, shoulder, left ?M19.012 - Primary osteoarthritis, left shoulder (ICD-10) Right sided sciatica ?M54.31 - Sciatica, right side (ICD-10) Right-sided back pain ?M54.9 - Dorsalgia, unspecified (ICD-10) Sensation disturbance of skin ?R20.9 - Unspecified disturbances of skin sensation (ICD-10) Skin lesion ?L98.9 - Disorder of the skin and subcutaneous tissue, unspecified (ICD-10) Dysphagia ?R13.10 - Dysphagia, unspecified (ICD-10) Neck fullness ?R22.1 - Localized swelling, mass and lump, neck (ICD-10) Iron deficiency anemia ?D50.9 - Iron deficiency anemia, unspecified (ICD-10) Positive FIT (fecal immunochemical test) ?R19.5 - Other fecal abnormalities (ICD-10) Type 2 diabetes mellitus ?E11.9 - Type 2 diabetes mellitus without complications (ICD-10) Enlarged lymph node ?R59.9 - Enlarged lymph nodes, unspecified (ICD-10) Malignant melanoma ?C43.9 - Malignant melanoma of skin, unspecified (ICD-10) History of femur fracture (Unknown) ?Z87.81 - Personal history of (healed) traumatic fracture (ICD-10) Hypertension ?I10 - Essential (primary) hypertension (ICD-10) Surgical History (Updated 11/27/23 @ 10:54 by Brittany Hernandez MD) History of pelvic surgery ?Z98.890 - Other specified postprocedural states (ICD-10) Fixation hardware in foot ?Z96.7 - Presence of other bone and tendon implants (ICD-10) Fixation hardware in lower extremity ?Z96.7 - Presence of other bone and tendon implants (ICD-10) History of hysterectomy ?Z90.710 - Acquired absence of both cervix and uterus (ICD-10) History of left hip replacement ?Z96.642 - Presence of left artificial hip joint (ICD-10) Family History Mother Heart disease Diabetes Vertigo Coronary artery disease Brother High blood pressure Social History Narrative: . 4 children. The patient does not formally exercise. Alcohol rare. No illicit drug use. No smoker. 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 What is your current living situation?: I presently have a place to live Problems where you live: no known problems Problems where you live details: N/A In the past 12 months, utilities in danger of being shut off: no In past 12 months, lack of transportation kept you from medical appts, meetings, work, or getting things needed for daily living: no In the past 12 mos, have been you worried that your food would run out before you had money to buy more?: never true In the past 12 mos, the food you bought just didn't last and you didn't have money to buy more?: never true Highest level of school completed/degree received: some college, no degree Smoking Status: Never smoker Do you use any of these nicotine containing products: None Second hand tobacco smoke exposure: No How often do you have a drink containing alcohol: 2-3 times a week Alcohol type: beer How many standard drinks containing alcohol do you have on a typical day: 1 or 2 How often do you have six or more drinks on one occasion: Never AUDIT-C Alcohol total score: 3 Non-prescribed substance use: denies use Caffeine: Yes How often does anyone, including family, friends and others, physically hurt you : never How often does anyone, including family, friends and others, insult or talk down to you: never How often does anyone, including family, friends and others, threaten you with harm: never How often does anyone, including family, friends and others, scream or curse at you: never Little interest or pleasure in doing things: not at all Feeling down, depressed, or hopeless: not at all service: No Meds Home Medications and Allergies Home Medications ?Medication ?Instructions ?Recorded ?Confirmed ?Type ibuprofen 200 mg tablet (Advil) 400 mg PO Q8H PRN 07/17/22 11/26/23 History amlodipine 5 mg tablet 5 mg PO DAILY 11/27/23 11/27/23 History iron,carbonyl 65 mg-vitamin C 125 1 tab PO DAILY 11/27/23 11/27/23 History mg tablet,delayed release (Vitron-C) levothyroxine 100 mcg tablet 100 mcg PO DAILY 11/27/23 11/27/23 History (Euthyrox) triamterene 37.5 1 cap PO DAILY 11/27/23 11/27/23 History mg-hydrochlorothiazide 25 mg capsule Allergies Allergy/AdvReac Type Severity Reaction Status Date / Time lisinopril Allergy Mild Cough Verified 11/26/23 23:07 neomycin Allergy Mild Hives Verified 11/26/23 23:07 Exam Narrative: Exam Narrative: General appearance: Alert, cooperative, and in no distress Pulmonary: Chest symmetric, lungs clear bilaterally Cardiovascular Heart: Regular rate and rhythm, S1, S2, no murmurs/rubs/gallops Gastrointestinal Abdominal: soft, not distended, tender to palpation in bilateral upper quadrants, no peritoneal signs. Skin: Normal skin color, texture, and turgor. No rashes or lesions. Psychiatric: Alert, cooperative, normal affect. Const: Vital Signs, click to edit/add: Vital Signs - 24 hr 11/26/23 22:05 11/27/23 00:23 11/27/23 00:37 Temperature 98.0 F 98.0 F 97.2 F L Pulse Rate [Right Pulse Oximeter] 97 87 94 Respiratory Rate 20 20 16 Blood Pressure [Ri ght Arm] 147/99 H Blood Pressure [Ri ght Upper Arm] 125/81 118/74 Pulse Oximetry 97 97 92 Oxygen Delivery Me thod Room Air Room Air Room Air 11/27/23 01:04 11/27/23 03:52 Temperature 98.7 F Pulse Rate [Right Pulse Oximeter] 85 Respiratory Rate 16 16 Blood Pressure [Ri ght Arm] 134/84 Blood Pressure [Ri ght Upper Arm] Pulse Oximetry 92 91 Oxygen Delivery Me thod Room Air Room Air Results Labs Labs: Abnormal lab results 11/26/23 11/27/23 Range/Units 22:25 09:49 RDW Coeff of Hamida 15.7 H (11.5-15.5) % Neut % (Auto) 82.6 H (42.0-72.0) % Lymph % (Auto) 10.5 L (20-44) % Neut # (Auto) 8.60 H (1.7-7.0) K/uL Potassium 3.4 L 3.5 L (3.6-5.1) mmol/L Anion Gap 6 L (7-15) mEq/L Glucose 139 H 133 H (60-115) mg/dL Diabetes panel 11/26/23 11/27/23 Range/Units 22:25 09:49 Sodium 135 135 (135-149) mmol/L Potassium 3.4 L 3.5 L (3.6-5.1) mmol/L Chloride 101 104 (96-114) mmol/L Carbon Dioxide 25 25 (20-32) mmol/L BUN 15 11 (7-30) mg/dL Creatinine 0.6 0.6 (0.5-1.5) mg/dL Glucose 139 H 133 H (60-115) mg/dL Calcium 9.4 9.0 (8.4-10.6) mg/dL Calcium panel 11/26/23 11/27/23 Range/Units 22:25 09:49 Calcium 9.4 9.0 (8.4-10.6) mg/dL Pituitary panel 11/26/23 11/27/23 Range/Units 22:25 09:49 Sodium 135 135 (135-149) mmol/L Potassium 3.4 L 3.5 L (3.6-5.1) mmol/L Chloride 101 104 (96-114) mmol/L Carbon Dioxide 25 25 (20-32) mmol/L BUN 15 11 (7-30) mg/dL Creatinine 0.6 0.6 (0.5-1.5) mg/dL Glucose 139 H 133 H (60-115) mg/dL Calcium 9.4 9.0 (8.4-10.6) mg/dL Adrenal panel 11/26/23 11/27/23 Range/Units 22:25 09:49 Sodium 135 135 (135-149) mmol/L Potassium 3.4 L 3.5 L (3.6-5.1) mmol/L Chloride 101 104 (96-114) mmol/L Carbon Dioxide 25 25 (20-32) mmol/L BUN 15 11 (7-30) mg/dL Creatinine 0.6 0.6 (0.5-1.5) mg/dL Glucose 139 H 133 H (60-115) mg/dL Calcium 9.4 9.0 (8.4-10.6) mg/dL All other labs normal. Progress Note:A&P Assessment and plan (1) Small bowel obstruction: Status: Acute Assessment and Plan: 63-year-old female admitted to the hospital with small-bowel obstruction. I discussed with the patient her laboratory and imaging findings. On the CT scan she does have some mesenteric edema and dilated loops of bowel suggestive of small-bowel obstruction. We also discussed the etiology of bowel obstruction and adhesions are the most common cause. Patient states that her ?contractions? episodes are getting less frequent and she is passing gas. We will continue with conservative approach. I discussed with the patient that I am not sure what type procedure is planned in gastroenterology in January. If patient continues to come back to the hospital with recurrent small-bowel obstructions, abdominal exploration with lysis of adhesions should be considered. I would recommend to continue with NPO today and if patient continues to improve, trial of clears tomorrow.
[2023-11-27] MEDS: POTASSIUM CHLORIDE 10 MEQ/100 ML PIGGYBACK 200 MEQ IVPB (13:45)
--- NOTE | 2023-11-27 17:50 | PC.NURSE ---
shift note: pt up indept in [facility]. pt had moderate semi formed tarry stool. RUQ tenderness upon palpation of abdomen. IV repositioned to rt AC
[2023-11-27] MEDS: ACETAMINOPHEN 325 MG TABLET 650 MG PO (21:30)
[2023-11-27] MEDS: MELATONIN 3 MG TABLET PO (21:31)
[2023-11-28] MEDS: 0.9 % SODIUM CHLORIDE 1000 ml 1,000 ML 125 ML IV (03:22)
[2023-11-28 03:27] VITALS: BP 139/90; PULSE 80; RESP 18; TEMP 36.3; O2SAT 90
--- NOTE | 2023-11-28 06:45 | PC.NURSE ---
Addendum entered by Bekah Orozco RN 11/28/23 07:36: Day RN who worked with pt on 11/27/23 reports pt had a BM on 11/27/23. Original Note: End of shift note [id number]: Pt remains alert & oriented x 4 and able to make needs known. She is independent with transferring/ambulation. Pt has been afebrile throughout the shift. She has not yet had a bowel movement since admission though bowel sounds noted to be active x 4, pt denies abdominal tenderness/pain when asked and reports passing gas when asked. IV in place to R AC with IV fluid running per order. Pt remains on NPO diet. Pt continent of bladder. PRN Tylenol administered last evening for 4/10 headache pain which pt reports is caused by not having caffeine. Medication effective upon followup.
[2023-11-28 08:03] LABS: Chloride* 110 mmol/L (96-114)
[2023-11-28 08:04] LABS: Potassium* 3.8 mmol/L (3.6-5.1); Sodium* 139 mmol/L (135-149)
[2023-11-28 08:06] LABS: Anion Gap 3 mEq/L (7-15); Carbon Dioxide* 26 mmol/L (20-32); Creatinine* 0.6 mg/dL (0.5-1.5); Est. Creatinine Clearance* 53.21; Estimated Glomerular Filt Rate 100 ml/min
[2023-11-28 08:07] LABS: Blood Urea Nitrogen* 8 mg/dL (7-30); Calcium* 8.6 mg/dL (8.4-10.6); Glucose* 120 mg/dL (60-115)
[2023-11-28] MEDS: AMLODIPINE 5 MG TABLET PO (08:12)
[2023-11-28] MEDS: LEVOTHYROXINE 100 MCG TABLET PO (08:13)
[2023-11-28] MEDS: TRIAMTERENE-HCTZ 37.5-25 MG TB 1 TAB PO (08:13)
[2023-11-28 08:18] VITALS: BP 144/100; PULSE 76; RESP 18; TEMP 36.6; O2SAT 96
--- NOTE | 2023-11-28 09:14 | PM.GSPN ---
Subjective Subjective Date Seen: 11/28/23 Interval history: Patient is doing well today. She denies abdominal pain. She was passing gas and had a bowel movement. Denies nausea and vomiting. Exam Narrative: Exam Narrative: Abdomen is soft, not distended, not tender to palpation. Const: Vital Signs, click to edit/add: Vital Signs - 24 hr 11/27/23 11:00 11/27/23 15:00 11/27/23 15:00 Temperature 98.7 F 98.7 F Pulse Rate [Right Pulse Oximeter] 84 82 82 Respiratory Rate 18 18 18 Blood Pressure [Le ft Arm] Blood Pressure [Ri ght Arm] 146/95 H 146/100 H Pulse Oximetry 92 96 Oxygen Delivery Me thod Room Air Room Air 11/27/23 19:51 11/27/23 22:58 11/27/23 23:00 Temperature 97.5 F L 98.8 F Pulse Rate [Right Pulse Oximeter] 82 75 75 Respiratory Rate 18 20 20 Blood Pressure [Le ft Arm] 136/89 136/82 Blood Pressure [Ri ght Arm] Pulse Oximetry 91 93 Oxygen Delivery Me thod Room Air Room Air 11/28/23 03:27 11/28/23 08:18 Temperature 97.3 F L 97.8 F Pulse Rate [Right Pulse Oximeter] 80 76 Respiratory Rate 18 18 Blood Pressure [Le ft Arm] 139/90 H 144/100 H Blood Pressure [Ri ght Arm] Pulse Oximetry 90 96 Oxygen Delivery Me thod Room Air Room Air Progress Note:A&P Assessment and plan (1) Small bowel obstruction: Status: Acute Plan 63-year-old female was admitted to the hospital with small-bowel obstruction now resolving with conservative treatment. Patient has return of bowel function and her pain has now resolved. I would recommend advancing her diet and possibly discharge home today.
[2023-11-28 11:00] VITALS: BP 122/92; PULSE 86; RESP 18; TEMP 36.9; O2SAT 98
--- NOTE | 2023-11-28 14:44 | PM.DS1 ---
DS: Providers Provider Time Seen by Provider: 14:25 Date Seen: 11/28/23 Date of admission: 11/27/23 07:12 Primary care physician: Laura Curtis APRN, [employer] Admitting Clinician: Ly Roberts MD Consults: 11/27/23 01:20 Consult to Physician [CONS] Routine Comment: Surgery Consulting Provider: Estela Hobbs Has provider been notified: No 11/27/23 10:42 Consult to Physician [CONS] Routine Comment: Consulting Provider: Brittany Hernandez Has provider been notified: Yes Attending Physician on discharge: Megan Chapman MD Date of Discharge: 11/28/23 DS: Diagnosis Discharge Diagnosis (1) Small bowel obstruction: Status: Acute Problem details: - h/o several pelvic surgeries, suspect adhesions are cause - Has h/o hypothyroidism, TSH is wnl. - Resolved. Tolerated regular diet, low residue (2) Hypokalemia: Status: Resolved Problem details: - Patient on HCTZ, which is likely the cause - 2 bags of IV KCl given overnight, resolved (3) Type 2 diabetes mellitus: Status: Chronic Problem details: - diet controlled (4) Hypertension: Status: Chronic Problem details: - continue home doses of amlodipine, triamterene/HCTZ (5) Hypothyroidism: Status: Chronic Problem details: - TSH within normal limits - Continue levothyroxine orally DS: Summary Hospital Course Hospital Course: 63-year-old female with a history of malignant melanoma, intermittent abdominal pain for which she has been seeing a social science instructor recently, and iron deficiency anemia who had worsening abdominal pain, was seen in the emergency department and found to have a small-bowel obstruction with a transition point in the right lower quadrant seen on CT scan. She was admitted to the hospital, NPO, with IV fluids. General surgery was consulted. Patient had already started to improve. She had a small bowel movement overnight and 1 again today. Her diet was advanced today and she has tolerated this well. She has no nausea no abdominal pain today. She is discharged home in improved condition. Time Spent with Patient Time attestation: Total time spent providing and/or coordinating discharge services: Exam Narrative: Exam Narrative: General: No acute distress. Awake, alert, oriented. No pallor. No jaundice. Oropharynx: Clear. Mucous membranes moist. Cardiovascular: Regular rate and rhythm. No murmurs, gallops, or rubs. Respiratory: Clear to auscultation bilaterally. No wheezes or crackles. Abdomen: Bowel sounds present, normoactive. Soft, nondistended, nontender to palpation. Const: Vital Signs, click to edit/add: Vital Signs - 24 hr 11/27/23 15:00 11/27/23 15:00 11/27/23 19:51 Temperature 98.7 F 97.5 F L Pulse Rate [Right Pulse Oximeter] 82 82 82 Respiratory Rate 18 18 18 Blood Pressure [Le ft Arm] 136/89 Blood Pressure [Ri ght Arm] 146/100 H Pulse Oximetry 96 91 Oxygen Delivery Me thod Room Air Room Air 11/27/23 22:58 11/27/23 23:00 11/28/23 03:27 Temperature 98.8 F 97.3 F L Pulse Rate [Right Pulse Oximeter] 75 75 80 Respiratory Rate 20 20 18 Blood Pressure [Le ft Arm] 136/82 139/90 H Blood Pressure [Ri ght Arm] Pulse Oximetry 93 90 Oxygen Delivery Me thod Room Air Room Air 11/28/23 08:18 11/28/23 11:00 Temperature 97.8 F 98.4 F Pulse Rate [Right Pulse Oximeter] 76 86 Respiratory Rate 18 18 Blood Pressure [Le ft Arm] 144/100 H 122/92 H Blood Pressure [Ri ght Arm] Pulse Oximetry 96 98 Oxygen Delivery Me thod Room Air Room Air DS: Data Data Completed and Pending Completed studies during hospitalization: Procedure(s): CT abdomen pelvis w [facility] Accession Number(s): [id number] cc: Laura WILSON CNP; Luiz Perdomo M.D.~ For Patients: As a result of the Century Cures Act, medical imaging exams and procedure reports are released immediately into your electronic medical record. You may view this report before your referring provider. If you have questions, please contact your health care provider. INDICATION: Crampy abdominal pain. Intermittent blood in stools for a few weeks. TECHNIQUE: CT abdomen and pelvis acquired with 100 cc Isovue 370 IV contrast. COMPARISON: 08/27/2023. FINDINGS: Lower chest: Mild dependent and bibasilar atelectasis. Liver: Normal in size and attenuation. Stable anterior left hepatic lobe cyst. Gallbladder and bile ducts: Unremarkable. No stones or inflammation. No biliary ductal dilatation. Spleen: Unremarkable. Normal in size. No masses. Adrenal glands: Unremarkable. No nodules. Pancreas: Unremarkable. No mass or inflammation. Kidneys: Unremarkable. No suspicious masses, stones, or hydronephrosis. GI tract: Multiple fluid-filled distended loops of small bowel with transition point in the right lower quadrant. Colonic diverticulosis without evidence of diverticulitis. Normal appendix. Lymph nodes: No lymphadenopathy. Vasculature: Mild scattered atherosclerotic calcifications. Abdominal aorta is normal in caliber. Omentum/Peritoneum/Abdominal Wall: Trace free fluid. No focal fluid collection. No free air. Pelvis: Status post hysterectomy. Bones: Multiple old pelvic fractures with postsurgical changes. Old posterior right 10th rib fracture. Left hip arthroplasty. IMPRESSION: 1. Small bowel obstruction with transition point in the right lower quadrant. 2. Colonic diverticulosis without evidence of diverticulitis. Please note that all CT scans at this facility use dose modulation, iterative reconstruction, and/or weight-based dosing when appropriate to reduce radiation dose to as low as reasonably achievable. Dictated by Cory Barahona MD @ 11/26/2023 11:53:20 PM (Electronically Signed) Labs on day of discharge: Labs from last 24 hours 11/28/23 06:21 Sodium 139 Potassium 3.8 Chloride 110 Carbon Dioxide 26 Anion Gap 3 L BUN 8 Creatinine 0.6 Estimated Creat Clear 53.21 Estimated GFR 100 Glucose 120 H Calcium 8.6 Discharge Plan Discharge Disposition: Home, Self-Care Date of Admission: 11/27/23 07:12 Attending Provider on Discharge: Megan Chapman Consulting Providers: Estela Hobbs [place] Primary Care Provider: Laura Curtis Condition: Unchanged Anticipated Discharge Date/Time: 11/28/23 14:53 Discharge Medications: Continued ibuprofen [Advil] 200 mg tablet 400 mg PO Q8H PRN amlodipine 5 mg tablet 5 mg PO DAILY triamterene-hydrochlorothiazid 37.5-25 mg capsule 1 cap PO DAILY levothyroxine [Euthyrox] 100 mcg tablet 100 mcg PO DAILY Vitron-C 65 mg iron- 125 mg tablet,delayed release (DR/EC) 1 tab PO DAILY Discharge Orders: Discharge Order (Routine); Ordered 11/28/23 Ordered By: Megan Chapman Activity Level: Activity as Tolerated Discharge Diet: Low Fiber Follow Up Appointments: Laura Curtis APRN, [employer] [Primary Care Provider] - Forms: MyHealth Info Instructions
--- NOTE | 2023-11-28 16:51 | PC.NURSE ---
shift note: vss stable. pt amb ziegler indept. BS active x4. pt had small loose BM x2, Pt tolerated clears, eggs, applesauce and yogurt w/o increased cramping or abd distention. IV dc'd intact. Reviewed dc instructions and copies sent with pt at dc. Belongings set with pt at dc.
== END 2023-11-28 15:30 | disposition home or self-care (01) | DRG 390 ==
LOC: ED 11-27 00:10 → MEDSURG 11-27 00:26
PROVIDERS: Family Medicine; Admitting Provider Family Medicine; Emergency Provider Emergency Medicine Emergency Medical Services; PCP Nurse Practitioner Family; Visit Provider Family Medicine
DX: K56.50 Intestinal adhesions [bands], unspecified as to partial versus complete obstruction (principal); E11.9 Type 2 diabetes mellitus without complications; E87.6 Hypokalemia; I10 Essential (primary) hypertension; D50.9 Iron deficiency anemia, unspecified; M17.0 Bilateral primary osteoarthritis of knee; M19.012 Primary osteoarthritis, left shoulder; E03.9 Hypothyroidism, unspecified
CPT/HCPCS: 36415; 74177; 80048; 82565; 84443; 85025; 99284; A9270; G0378; J3480; J7030; Q9967

== ENCOUNTER 2023-12-25 09:22 | Outpatient (CLI) | payer OTHER, SELFPAY ==
--- OUTSIDE RECORDS SUMMARY | 2023-12-25 09:26 | XMS_ITS | Encounter Summary ---
Author Organization [facility] Address [address] [place] [address] Care Team Providers Care Mold Runner Name Role Phone Elsewhere, Pcp Primary Care Provider Unavailabl e Encounter Details Date Type Department Care Team (Late st Contact Info) Description 09/29/2023 Clinical Communication Department of General Surgery in [place], [place] [address] [id number] [phone] [place] [address] [address] Social History Tobacco Use Types Packs/Day Years [...] How often do you attend chur or temple services? 1 to 4 times per year 07/28/2021 Do you belong to any clubs o r organizations such as alevism groups, unions, fraternal or athletic groups, or [...] Sex Assigned at Female 05/14/2017 2:12 PM CREDIT VERIFICATION CLERK Gender Identity Female 05/14/2017 2:12 PM CREDIT VERIFICATION CLERK Sexual Orientation Straight 05/14/2017 2: 12 PM CREDIT VERIFICATION CLERK documented as of this encounter Plan of Treatment Not on file documented as of this encounter Visit Diagnoses Not on filedocumented in this encounter Additional Health Concerns Assessment Noted Time PHQ-9 Depression Total Score: 1 05/14/20 17 2:12 PM CREDIT VERIFICATION CLERK documented as of this encounter Care Teams Mold Runner Relationship Specialty Start Date End Date Elsewhere, Pcp PCP - General Internal Medicine 09/02/22 documented as of this encounter
--- OUTSIDE RECORDS SUMMARY | 2023-12-25 09:26 | XMS_ITS | Clinical Summary ---
Author Organization [facility] Address [place], [place] [address] Care Team Providers Care Plant Tech Name Role Phone Laura Curtis FLUTE GRINDER Primary Care Provider [phone] Allergies Active Allergy Reactions Criticality Noted Date Comments Lisinopril Cough,*Unknown 07/28/2022 Neomycin *Unknown,Other - French cribe In Comment Field 08/10/2015 Medications Medication Sig Dispensed Refills Start Date End Date Status levothyroxine (SYNTHROID) 100 mcg tablet Take 100 mcg by mouth before breakfast. Active amLODIPine (NORVASC) 5 mg tablet Take 5 mg by mouth once daily. 4 Active prochlorperazine (COMPAZINE) 10 mg tablet Take 10 mg by mouth every 8 hours if needed for Nausea/Vomiting. 4 Active triamterene-hydroc hlorothiazide, 37.5-25 mg, (DYAZIDE) 37.5-25 mg capsule Take 1 Capsule by mouth once daily in the morning. Active polyethylene glycoL (MIRALAX) 17 gram/scoop powderIndications: Abdominal pain, unspecified abdominal location,Intestina l mass Mix 1 scoop (17 g) in liquid then take by mouth once daily. 238 g 4 Active oxyCODONE (ROXICODONE) 5 mg immediate release tabletIndications: Abdominal pain, unspecified abdominal location Take 1 Tablet (5 mg) by mouth every 4 hours if needed for Pain. 12 Tablet 4 Active acetaminophen (TYLENOL EXTRA STRGTH) 500 mg tabletIndications: Abdominal pain, unspecified abdominal location,Intestina l mass Take 2 Tablets (1,000 mg) by mouth every 6 hours. Max acetaminophen dose: 4000mg in 24 hrs. 60 Tablet 4 Active ondansetron (ZOFRAN ODT) 8 mg disintegrating tabletIndications: Abdominal pain, unspecified abdominal location Place 1 Tablet (8 mg) on the tongue every 8 hours if needed for Nausea/Vomiting. 25 Tablet 4 12/15/19 24 Discontinued( Pharmacist change per medication history (E-cancel not sent)) Active Problems Problem Noted Date Diagnosed Date Small bowel obstruction 12/19/2023 Follicular lymphoma 12/19/2023 Lesion of small intestine 12/16/2023 Abdominal pain 12/15/2023 Essential hypertension 07/11/2019 Lichen planus 05/14/2017 Hypothyroidism 02/22/2010 Encounters Date Type Department Care Team Description 12/17/2023 8:03 AM CDT Anesthesia Event [facility] [address] [place] [phone] Jim Gonzalez MD Lee, Hee Won, MD 12/17/2023 7:45 AM CDT - 12/17/2023 10:11 AM CDT Surgery [facility] [address] [place] [id number] George Holt MD EXPLORATORY LAPAROTOMY, 12/16/2023 11:57 AM CDT Anesthesia Event [facility] [address] [place] [phone] Peggy Ceballos MD Cutshall, John P, CRNA 12/16/2023 11:04 AM CDT - 12/16/2023 11:46 AM CDT Surgery [facility] [address] [place] [address] [phone] Shruthi Watson MD ENTEROSCOPY with tatoo 12/15/2023 6:50 AM CDT - 12/23/2023 1:52 PM CDT Hospital Encounter [facility] [address] [place] [phone] Gabrielle Ayala MD Ibrahim, Joseline Decker, FELICITY Ivory, MD Desmond Brooks, Yolie Minro MD [facility], [facility]ists Of Abdominal pain, unspecified abdominal location (Primary Dx); Intestinal mass; Follicular lymphoma grade II, unspecified body region (HC) Discharge Disposition: Home Self Care 12/15/2023 Travel 12/11/2023 Telephone [facility] [address] [place] [phone] Yaya Edmondson MD Referral 12/09/2023 Telephone [facility] [address] [place] [phone] Yaya Edmondson MD Referral 12/08/2023 11:18 AM CDT - 12/08/2023 5:00 PM CDT Emergency [facility] Emergency Department [address], [place] [address] Evan Hubbard, Antoinette Abad, PathowardoPamella, Abdominal pain, unspecified abdominal location (Primary Dx) Discharge Disposition: Home Self Care 12/08/2023 Travel 12/04/2023 Telephone [facility] [address] [place] [address] [phone] Adela Baumann RN Referral 10/26/2023 7:58 AM CDT - 10/26/2023 11:59 PM CDT Hospital Encounter [facility] [address] [place] [address] Xu Pat MD Crohn's disease (HC) 10/26/2023 Travel from Last 3 Months Social History Tobacco Use Types Packs/Day Years Used Date Smoking Tobacco: Never Smokeless Tobacco: Never Alcohol Use Standard Drinks/Week Comments Yes 2 (1 standard drink = 0.6 oz pur e alcohol) social Social Connections Answer Date Recorded Frequency of Communication with Friends and Fami ly 0 12/15/2023 Financial Resource Strain Answer Date R ecorded Difficulty of Paying Living Expenses 3 12/15/2023 Difficulty of Paying Living Expenses Not on file 12/15/2023 Food Insecurity Answer Date Recorded Worried About Running Out of Food in the Last Ye ar 1 12/15/2023 Transportation Needs Answer Date Record ed Lack of Transportation (Medical) 1 12/15/2023 Housing Stability Answer Date Recorded Unable to Pay for Housing in the Last Year 1 12/15/2023 Sex and Gender Information Value Date Recorded Sex Assigned at Not on file Gender Identity Not on file Sexual Orientation Not on file Obstetrics History Last Filed Vital Signs Vital Sign Reading Time Taken Comments Blood Pressure 124/76 12/23/2023 8:20 AM CDT Pulse 88 12/23/2023 8:20 AM CDT Temperature 36.7 ??C (98.1 ??F) 12/23/2023 8:20 AM CD T Respiratory Rate 16 12/23/2023 8:20 AM CDT Oxygen Saturation 95% 12/23/2023 8:20 AM CDT Inhaled Oxygen Concentration - - Weight 83.7 kg (184 lb 9.6 oz) 12/22/2023 6:12 A M CDT Height 167.6 cm (5' 6) 12/15/2023 6:39 AM CDT Body Mass Index 29.8 12/15/2023 6:39 AM CDT Plan of Treatment Upcoming Encounters Date Type Department Care Team (Late st Contact Info) Description 01/01/2024 1:00 PM CDT Office Visit [facility] [address] [place] [address] Rupali Landon PA [address] [address] 01/08/2024 6:50 AM CDT Hospital Encounter [facility] [address] [place] [address] Jacey Myers MBBS [address] [place] [address] 01/08/2024 7:50 AM CDT - 01/08/2024 9:50 AM CDT Surgery [facility] [address] [place] [address] Jacey Myers MBBS [address] [place] [address] RETROGRADE ENTEROSCOPY DOUBLE BALLOON Scheduled Procedures Name Priority Associated Diagnoses Date/Ti me ENTEROSCOPY DOUBLE BALLOON Elective MASS OF ILEUM 01/08/2024 7:50 AM CDT Health Maintenance Due Date Last Done Comments Pneumococcal series for age 6-64 (1 of 2 - PCV) 1965 Tdap 1970 Depression screening for age 12+ 1971 HIV for age 15-65 1974 BMI (ht and wt on same day) for age 18+ 1977 Hepatitis C screening for age 18-79 1977 Zoster (shingles) series for age 50+ (1 of 2) 1978 Tetanus booster 1979 Pap test for age 21-65 02/18/1980 Colonoscopy through age 75 02/18/2004 Lipids for age 45-75 02/18/2004 Mammogram for age 45-75 02/18/2004 COVID-19 vaccine series (2022- season) 2023 05/20/2021, 10/23/2020, 09/26/2020 Influenza for age 50-64 03/06/2024 Procedures Procedure Name Priority Date/Time Associated Diagnosis Comments POTASSIUM Timed 12/22/2023 9:49 PM CDT POTASSIUM Timed 12/22/2023 1:19 PM CDT HEMOGLOBIN Early AM 12/22/2023 6:06 AM CDT POTASSIUM Early AM 12/22/2023 6:05 AM CDT CREATININE Early AM 12/22/2023 6:05 AM CDT SODIUM Early AM 12/22/2023 6:05 AM CDT POTASSIUM Timed 12/21/2023 5:54 PM CDT POTASSIUM Timed 12/21/2023 9:29 AM CDT POTASSIUM Early AM 12/20/2023 5:12 AM CDT LD,TOTAL SOMMER 12/19/2023 7:26 PM CDT POTASSIUM Timed 12/19/2023 7:26 PM CDT BASIC METABOLIC PANEL Early AM 12/19/2023 5:12 AM CDT CBC W PLT NO DIFF Early AM 12/19/2023 5:1 2 AM CDT BASIC METABOLIC PANEL Timed 12/18/2023 8:28 AM CDT PATH TISSUE EXAM Today 12/17/2023 8:53 AM CDT ENDOTRACHEAL TUBE Routine 12/17/2023 8:3 0 AM CDT ENDOTRACHEAL TUBE Routine 12/17/2023 8:3 0 AM CDT ENDOTRACHEAL TUBE Routine 12/17/2023 8:3 0 AM CDT RESECTION COLON SMALL BOWEL Class E Urgent 12/17/2023 7:49 AM CDT SMALL INTESTINE MASS LAPAROTOMY EXPLORATION Class E Urgent 12/17/2023 7:49 AM CDT SMALL INTESTINE MASS POTASSIUM Early AM 12/17/2023 5:07 AM CDT ENTEROSCOPY 12/16/2023 11:52 AM CDT See note ENDOSCOPY 12/16/2023 11:46 AM CDT POTASSIUM Early AM 12/16/2023 5:28 AM CDT POTASSIUM Timed 12/15/2023 10:32 PM CDT EXTRA TUBE BLUE Today 12/15/2023 8:06 AM CDT HEPATIC FUNCTION PANEL STAT 12/15/2023 8:06 AM CDT LIPASE STAT 12/15/2023 8:06 AM CDT CBC W PLT NO DIFF STAT 12/15/2023 8:0 6 AM CDT LACTATE VENOUS STAT 12/15/2023 8:06 AM CDT BASIC METABOLIC PANEL STAT 12/15/2023 8:06 AM CDT SCAN-CARDIAC STRIP 12/15/2023 12 :[address] ABDOMEN PELVIS W STAT 12/08/2023 4 :04 PM CDT CBC WITH AUTO DIFFERENTIAL STAT 12/08/2023 1:39 PM CDT LACTATE VENOUS STAT 12/08/2023 1:39 PM CDT LIPASE STAT 12/08/2023 1:39 PM CDT HEPATIC FUNCTION PANEL STAT 12/08/2023 1:39 PM CDT BASIC METABOLIC PANEL STAT 12/08/2023 1:39 PM CDT CBC WITH AUTO DIFFERENTIAL STAT 12/08/2023 1:[address] ABDOMEN PELVIS ENTEROGRAPHY W Routine 10/26/2023 9:00 AM CDT Crohn's disease (HC) from Last 3 Months Results * POTASSIUM (12/22/2023 9:49 PM CDT) Only the most recent of10 resultswithin the time period is included. POTASSIUM 4.1 3.5 - 5.1 mmol/L 12/22/2023 10:46 PM CDT [facility] Blood BLOOD SPECIMEN / Unknown Butterfly / Unknown 12/22/2023 9:49 PM CDT 12/22/2023 9:54 PM CDT Laurie Quintero RN CHEMISTRY [facility] [address] [place] [address], * Hemoglobin AM (12/22/2023 6:06 AM CDT) HEMOGLOBIN 13.0 12.0 - 16.0 g/dL 12/22/2023 6:25 AM CDT [facility] MCV 83 80 - 100 fL 12/22/2023 6:25 AM CDT [facility] Blood BLOOD SPECIMEN / Unknown Venipuncture / Unknown 12/22/2023 6:06 AM CDT 12/22/2023 6:17 AM CDT Yolie Logan MD HEMATOLOGY Performing Organization Address City/[facility]/ZIP Co de Phone Number [facility] [address] [place] [address], * (ABNORMAL) SODIUM (12/22/2023 6:05 AM CDT) SODIUM 132(L) 136 - 145 mmol/L 12/22/2023 6:45 AM CDT [facility] Blood BLOOD SPECIMEN / Unknown Venipuncture / Unknown 12/22/2023 6:05 AM CDT 12/22/2023 6:18 AM CDT Yolie Logan MD CHEMISTRY Performing Organization Address [facility] de Phone Number [facility] [address] [place] [address], * CREATININE (12/22/2023 6:05 AM CDT) eGFR >90 >90 mL/min/1.7 3m2 12/22/2023 6:45 AM CDT [facility] Comment:As of 2021, eG FR is calculated by the CKD-EPI creatinine equation without race adjustment. ??eGFR can be influenced by muscle mass, exercise, and diet. ??The reported eGFR is an estimation only and is only applicable if the renal function is stable. CREATININE 0.60 0.50 - 0.90 mg/dL 12/22/2023 6:45 AM CDT [facility] Blood BLOOD SPECIMEN / Unknown Venipuncture / Unknown 12/22/2023 6:05 AM CDT 12/22/2023 6:18 AM CDT Yolie Logan MD CHEMISTRY [facility] [address] [place] [address], * LD,TOTAL (12/19/2023 7:26 PM CDT) [facility] LD,TOTAL 144 135 - 214 IU/L 12/21/2023 12:57 PM CDT [facility] Blood BLOOD SPECIMEN / Unknown Venipuncture / Unknown 12/19/2023 7:26 PM CDT 12/19/2023 7:33 PM CDT Edis ESPARZA CHEMISTRY Performing Organization Address City/[facility]/ZIP Co de Phone Number [facility] [address] [place] [address], [place] * CBC W PLT NO DIFF (12/19/2023 5:12 AM CDT) Only the most recent of2 resultswithin the time period is included. [facility] WHITE BLOOD COUNT 7.0 4.5 - 11.0 thou/cu mm 12/19/2023 5:27 AM CDT [facility] RED BLOOD COUNT 4.46 4.00 - 5.20 mil/cu mm 12/19/2023 5:27 AM CDT [facility] HEMOGLOBIN 12.1 12.0 - 16.0 g/dL 12/19/2023 5:27 AM CDT [facility] HEMATOCRIT 37.4 33.0 - 51.0 % 12/19/2023 5:27 AM CDT [facility] MCV 84 80 - 100 fL 12/19/2023 5:27 AM CDT [facility] MCH 27.1 26.0 - 34.0 pg 12/19/2023 5:27 AM CDT [facility] MCHC 32.4 32.0 - 36.0 g/dL 12/19/2023 5:27 AM CDT [facility] RDW 13.5 11.5 - 15.5 % 12/19/2023 5:27 AM CDT [facility] PLATELET COUNT 184 140 - 440 thou/cu mm 12/19/2023 5:27 AM CDT [facility] MPV 9.0 6.5 - 11.0 fL 12/19/2023 5:27 AM CDT [facility] NRBC 0.0 % 12/19/2023 5:27 AM CDT [facility] ABS NRBC 0.0 thou /cu mm 12/19/2023 5:27 AM CDT [facility] Blood BLOOD SPECIMEN / Unknown Venipuncture / Unknown 12/19/2023 5:12 AM CDT 12/19/2023 5:21 AM CDT Lenka Ivory MD HEMATOLOGY [facility] [address] [place] [address], * (ABNORMAL) BASIC METABOLIC PANEL (12/19/2023 5:12 AM CDT) Only the most recent of4 resultswithin the time period is included. SODIUM 137 136 - 145 mmol/L 12/19/2023 5:47 AM CDT [facility] POTASSIUM 3.2(L) 3.5 - 5.1 mmol/L 12/19/2023 5:47 AM CDT [facility] CHLORIDE 98 98 - 107 mmol/L 12/19/2023 5:47 AM CDT [facility] CO2,TOTAL 28 22 - 29 mmol/L 12/19/2023 5:47 AM CDT [facility] ANION GAP 11 5 - 18 12/19/2023 5:47 AM CDT [facility] GLUCOSE 118(H) 70 - 99 mg/dL 12/19/2023 5:47 AM CDT [facility] CALCIUM 9.3 8.8 - 10.2 mg/dL 12/19/2023 5:47 AM CDT [facility] BUN 5(L) 8 - 23 mg/dL 12/19/2023 5:47 AM CDT [facility] CREATININE 0.45(L) 0.50 - 0.90 mg/dL 12/19/2023 5:47 AM CDT [facility] BUN/CREAT RATIO 11 10 - 20 5:47 AM CDT [facility] eGFR >90 >90 mL/min/1.7 3m2 12/19/2023 5:47 AM CDT [facility] Comment:As of 2021, eG FR is calculated by the CKD-EPI creatinine equation without race adjustment. ??eGFR can be influenced by muscle mass, exercise, and diet. ??The reported eGFR is an estimation only and is only applicable if the renal function is stable. Blood BLOOD SPECIMEN / Unknown Venipuncture / Unknown 12/19/2023 5:12 AM CDT 12/19/2023 5:21 AM CDT Lenka Ivory MD CHEMISTRY [facility] [address] [place] [address], * PATH TISSUE EXAM (12/17/2023 8:53 AM CDT) Case Report Pathology Report ?Case: [id number] ? Authorizing Provider: ??George Holt MD ? Collected: ? 12/17/2023 0853 ? Ordering Location: ? [facility] ?Received: ?12/17/2023 0901 ? Hospital ? Pathologist: ? Spencer Reid, ? MD ? Specimen: ?Small Bowel, suture on proximal end, gross exam call with results ? 4 4:42 PM CDT [facility] Final Diagnosis A) SMALL INTESTINE, MASS, SEGMENTAL RESECTION: 1. Follicular lymphoma, grade 1-2 (of 3) (WHO 2016), forming a 4 x 4 x 1 cm mass 2. Resection margins negative for malignancy 3. Seven benign mesenteric lymph nodes 4. See comment 4 4:42 PM CDT [facility] Comment Given the presence o f extensive transmural involvement of the small intestinal wall, this likely represents classic follicular lymphoma rather than the indolent form of duodenal type follicular lymphoma typically found incidentally as small polyps involving the small intestinal mucosa. Clinical evaluation for evidence of follicular lymphoma at other sites is recommended. Dr. Reid discussed the diagnosis with Dr. YASSINE Holt on 12/18/2023. 4 4:42 PM CDT [facility] Clinical Information 63-year-old female with several months of fluctuating abdominal pain, nausea, and vomiting. Has been hospitalized and seen by [facility] as an outpatient. Initially presented with iron deficiency anemia. EGD and colonoscopy performed locally were negative. Subsequent pill camera showed ulcerated mass at 2 hours until 4 hours indicating some obstruction. CT enterography shows distal small bowel circumferential thickening, about 5 cm long. She has lost 25 pounds over the past month. Current differential includes etiologies such as adenocarcinoma, neuroendocrine tumor, GIST, lymphoma, or chronic inflammation from Crohn's disease. Here due to ongoing and worsening symptoms since her most recent hospitalization at [place] 2 weeks ago for the reported obstruction. Hemodynamically stable on arrival. Exam with very mild periumbilical tenderness, no peritoneal signs. Basic labs reassuring without leukocytosis or anemia, electrolyte or metabolic abnormalities, obstructive liver panel, elevated lipase or lactate. 4 4:42 PM CDT [facility] Gross Description A) Received fresh labeled with the patient's name and small bowel suture on proximal and, is a 27 cm long, 3.5 cm diameter segment of small bowel with a suture on the proximal end. ??There is a strictured lesion in the middle third of the specimen (diameter is 2.5 cm). ??The serosa is smooth. ??There is mesenteric fat running the length of the specimen, averaging 4 cm in thickness. The segment is opened revealing a circumferential intramural masslike lesion in the strictured area, measuring 4 x 4 cm. ??On cut section, there is fleshy intramural light woodard cut surfaces extending into adipose tissue, measuring up to 1 cm in depth. ??The lesion is located 4.5 cm from nearest mesenteric margin, 7 cm from distal margin, and 16 cm from the proximal margin. ??Cytologic preparations are made (H&E and Diff-Quik stained). ??4 additional unstained touch preps are made (sent to cytogenetics). ??Portions of fresh tissue are placed in vials of RPMI fixative and sent to flow cytometry, molecular and cytogenetics (all held). ?? There are multiple enlarged fleshy mesenteric nodes. ??Insurance Analyst sections are submitted as follows: 1. ?? Proximal and distal margin, en face (proximal margin inked blue) 2,3. Sections of intramural mass, B-plus fixed tissue 4-6. Sections of intramural mass, formalin fixative (deepest area of invasion in cassette 4, lesion relationship with adjacent uninvolved mucosa in cassette 6) 7. Three possible nodes 8. Four possible nodes TRB 12/17/2023 4 4:42 PM [facility] Intraoperative Consultation A) SMALL BOWEL, RESECTION, INTRAOPERATIVE CONSULTATION WITH CYTOLOGY PREPARATIONS (2 touch preparations): 1. Submucosal mass suspicious for lymphoma 2. Material allocated for lymphoma workup Christo Card MD, 12/17/2023 9:16 AM Intraoperative consultation, which may have included frozen section preparation, gross specimen examination, and/or cytology touch imprints/smears, was performed by a pathologist during the surgical procedure. ??This testing was performed at: [facility] ?? [address] [place] [address] 4:42 PM [facility] Microscopic Description The final diagnosis is based on microscopic examination of appropriate sections of all specimens. The histologic sections of the small bowel mass show a transmural proliferation of predominantly small lymphoid cells arranged in closely packed neoplastic appearing follicles. No diffuse areas or discrete large cell component are seen. The small neoplastic lymphoid cells have centrocytic features with irregular nuclear contours. There are occasional larger lymphoid cells with centroblastic features intermixed throughout. The proximal and distal resection margins are negative for lymphoma. Sections of regional lymph nodes show no apparent morphologic involvement by lymphoma; this interpretation is supported by immunohistochemical stains (see below). Immunohistochemical stains are performed on block A3 with the following results in neoplastic cells: ??CD3: ?? Negative ??CD5: ?? Negative ??CD10: ??Positive ??CD20: ??Positive ??CD21: ??Highlights PRISON meshworks in neoplastic follicles ??CD23: ??Highlights PRISON meshworks in neoplastic follicles ??CD43: ??Negative ??BCL1: ??Negative ??BCL2: ??Positive without germinal center sparing ??BCL6: ??Positive ??Ki67 (by manual morphometry): ??<5% Immunohistochemical stains are performed on blocks A6 and A7 to assess for lymphoma involvement in lymph nodes with the following results: ??CD3: ??Positive in paracortical lymphocytes (T-cells) ??CD10: Positive in germinal center cells ??CD20: Positive in follicular lymphocytes (B-cells) ??BCL2: Positive with normal sparing of germinal centers The immunohistochemical stain results support the final diagnosis of low-grade follicular lymphoma. ?? 4 4:42 PM CDT [facility] Flow Cytometry Summary B Cell Leukemia/Lymphoma panel: Interpretation: Flow cytometry discloses a monotypic kappa B-cell cohort positive for CD19, CD20, CD22, CD79b and CD10(dim). This immunophenotype is consistent with a B-cell lymphoma and suggest follicular center cell origin. Clinical indication for flow cytometry: Evaluate for lymphoma. A monotypic B cell cohort is detected that comprises approximately 33.7% of total viable nucleated events as defined by light scatter criteria. Summary of B cell phenotype Brightly positive markers: CD45/KAPPA/CD20 Moderately positive markers: CD19/CD79b/CD22 Dimly positive markers: CD10/CD38/CD23 Trace positive markers: Negative markers: CD2/CD3/CD103/LAMBDA/ CD5/CD200/CD43 Quality Assessment Viability (7-AAD): 80% Monotypic B cell events: 3339 Nucleated cells analyzed: 9913 Limit of detection (LOD): 0.2% These results and cytograms have been verified by Dr. Reid. This test was developed and its performance characteristics verified by [facility]. It has not been cleared or approved by the [place] Food and Drug Administration. This test is used for clinical purposes and should not be regarded as investigational or for research. Immunostains were used on this case in conjunction with flow cytometry in order to address ambiguous or inconclusive findings and/or to provide prognostic information. The results of both modalities were coordinated with H&E findings during diagnostic evaluation. Analytic Flow Tech: Donovan Lange, 12/18/2023 12:41 PM Verifying Flow Tech: Jazzy Clement, 12/18/2023 12:48 PM 4 4:42 PM CDT [facility] Additional Information Interpreted at [facility], Central Laboratory - [address], [place] [address] 4 4:42 PM CDT [facility] Tissue (Small Bowel) 12/17/2023 8:53 AM CDT 12/17/2023 9:01 AM CDT George Holt MD PATHOLOGY/CYTOLOGY [facility] [address] [place] [address], * HCHG TUBE PR1, HCHG STYLET PR1, HCHG MOUTHPIECE PR1 (12/17/2023 8:30 AM CDT) Narrative Yohana Cueto CRNA - 12/17/2023 8:30 AM CDT Yohana Cueto CRNA ? 12/17/2023 ??8:30 AM Procedure: ETT Patient location during procedure: OR ETT Properties Mask Ventilation: easy and oral airway Final Technique: direct laryngoscopy Type: straight Location: oral Cuffed: yes Tube Size: 7.0 mm Stylet: yes Laryngoscope Blade: Holt Blade Size: 2 Cormack-Lehane Grade View: 1 Insertion Attempts: 1 Placement Verification: auscultation, end tidal CO2, symmetrical chest wall movement and cuff palpation Assessment: pharynx clear, dentition unchanged and atraumatic Secured at: 21 Measured From: teeth Tooth guard used and removed: yes Difficulty: 0 (not difficult) Jim Gonzalez MD ANESTHESIA PX NOTE ORDERABLES * ENDOSCOPY (12/16/2023 11:46 AM CDT) 12/16/2023 11:4 6 AM CDT Narrative Transcriptions Shruthi Watson MD - 12/16/2023 12:50 PM CDT [facility] Patient Name: Ann Edmondson Procedure Date: 12/16/2023 Gender: Female Date of : 1960 Admit Type: Outpatient Procedure: Small bowel enteroscopy Proceduralist: Shruthi Watson MD - [facility] Indications/Pre-Op Diagnosis: Small bowel obstruction Medications: Monitored Anesthesia Care Procedure Description: After obtaining informed consent, the endoscope was passed underdirect vision. Throughout the procedure, the patient's blood pressure,pulse, and oxygen saturations were monitored continuously. The endoscope [id number] was introduced through the mouth and advanced tothe mid-jejunum. The small bowel enteroscopy was accomplished without difficulty. The patient tolerated the procedure well. Estimated Blood Loss & Specimen: Estimated blood loss was minimal. Specimen collected: Yes and sent to Laboratory Findings: A tattoo was placed in the mid-jejunum at distal point of procedure. Mucosa normal. Impressions/Post-Op Diagnosis: - A tattoo was placedin the jejunum. Normal mucosa. Ulcerated obstructing mass in small intestine evident on CT/pill cam notreachable with push enteroscopy. - No specimens collected. Recommendation: - Clear liquid diet. - Surgery consultation for consideration of exploratory operationgiven inability to eat and ongoing weight loss. Shruthi Watson MD 12/16/2023 12:50:34 PM This report has been signed electronically. Note Initiated On: 12/16/2023 11:46 AM Shruthi Watson MD PROCEDURE ORD * EXTRA TUBE BLUE (12/15/2023 8:06 AM CDT) Blood BLOOD SPECIMEN / Unknown Extra Tube / Unknown 12/15/2023 8:06 AM CDT 12/15/2023 8:34 AM CDT Doctor Unknown LABORATORY [facility] [address] [place] [address], [place] * LACTATE VENOUS (12/15/2023 8:06 AM CDT) Only the most recent of2 resultswithin the time period is included. LACTATE,VENOUS 1.0 0.5 - 2.0 mmol/L 12/15/2023 9:08 AM CDT [facility] Blood BLOOD SPECIMEN / Unknown Venipuncture / Unknown 12/15/2023 8:06 AM CDT 12/15/2023 8:32 AM CDT Gabrielle Ayala MD CHEMISTRY Performing Organization Address City/[facility]/ZIP Co de Phone Number [facility] [address] [place] [address], * LIPASE (12/15/2023 8:06 AM CDT) Only the most recent of2 resultswithin the time period is included. Pathologist [facility] LIPASE 39.4 13.0 - 60.0 IU/L 12/15/2023 9:06 AM CDT [facility] Blood BLOOD SPECIMEN / Unknown Venipuncture / Unknown 12/15/2023 8:06 AM CDT 12/15/2023 8:32 AM CDT Gabrielle Ayala MD CHEMISTRY [facility] [address] [place] [address], [place] * HEPATIC FUNCTION PANEL (12/15/2023 8:06 AM CDT) Only the most recent of2 resultswithin the time period is included. ALBUMIN 4.7 4.0 - 4.9 g/dL 12/15/2023 9:06 AM CDT [facility] PROTEIN,TOTAL 7.4 6.0 - 8.0 g/dL 12/15/2023 9:06 AM CDT [facility] BILIRUBIN,TOTAL 0.4 0.0 - 1.2 mg/dL 12/15/2023 9:06 AM CDT [facility] BILIRUBIN,DIRECT <0.2 0.0 - 0.3 mg/dL 12/15/2023 9:06 AM CDT [facility] BILIRUBIN,INDIRE CT 12/15/2023 9:06 AM CDT [facility] Comment:Unable to calculate, Direct Bili <0.2 ALK PHOSPHATASE 89 35 - 104 IU/L 12/15/2023 9:06 AM CDT [facility] ALT (SGPT) 16 10 - 35 IU/L 12/15/2023 9:06 AM CDT [facility] AST (SGOT) 22 10 - 35 IU/L 12/15/2023 9:06 AM CDT [facility] Blood BLOOD SPECIMEN / Unknown Venipuncture / Unknown 12/15/2023 8:06 AM CDT 12/15/2023 8:32 AM CDT Gabrielle Ayala MD CHEMISTRY [facility] [address] [place] [address], * SCAN-CARDIAC STRIP (12/15/2023 12:00 AM CDT) Narrative 12/15/2023 12:00 AM CDT Ordered by an unspecified provider. Other Clinical Staff OTHER * CT Abdomen Pelvis w IV (Oral Contrast NO) (12/08/2023 4:04 PM CDT) Anatomical Region Laterality Modality Abdomen, Pelvis, AORTA, LIVER, SPLEEN Computed Tomography 12/08/2023 4:13 PM CDT Impressions 12/08/2023 4:13 PM CDT 1. No discrete acute process in the abdomen or pelvis. No obstruction. No hydroureteronephrosis. 2. Mild circumferential wall thickening/hyperemia mid small bowel loops. A nonspecific finding however can be seen in the setting of underlying enteritis. Please note that all CT scans at this facility use dose modulation, iterative reconstruction, and/or weight-based dosing when appropriate to reduce radiation dose to as low as reasonably achievable. Dictated by Keyshawn Olvera MD @ 12/08/2023 4:13:37 PM (Electronically Signed) Narrative 12/08/2023 4:13 PM CDT For Patients: ??As a result of the Cures Act, medical imaging exams and procedure reports are released immediately into your electronic medical record. ??You may view this report before your referring provider. ??If you have questions, please contact your health care provider. INDICATION: Abd pain, recurrent SBO TECHNIQUE: CT abdomen and pelvis acquired with 100 cc Omnipaque 350 IV contrast. COMPARISON: None. FINDINGS: Lower chest: Motion. Subsegmental atelectasis. 2 millimeter right lower lobe indeterminate pulmonary nodule. ABDOMEN: Liver: Normal enhancement. Left hepatic lobe cyst. Gallbladder and biliary: Normal gallbladder without radiopaque stone. Normal caliber bile ducts. Spleen: Normal size and enhancement. Pancreas: Normal enhancement without peripancreatic inflammatory changes or ductal dilatation. Adrenal glands: Normal adrenal glands. Kidneys and ureters: Normal enhancement. No radio-opaque calculi. No hydroureteronephrosis. Subcentimeter hypodensities are too small to characterize however statistically represent cysts. GI tract: The stomach is relatively decompressed. Normal caliber small and large bowel loops. Normal appendix. Colonic diverticulosis without diverticulitis. Mild circumferential wall thickening/hyperemia mid small bowel loops. Vascular structures: Normal caliber aorta with atherosclerotic calcifications. Lymph nodes: No lymphadenopathy in the abdomen or pelvis by size criteria. Peritoneum: Trace free fluid in the left pericolic gutter. Mild mid mesenteric ground-glass opacity is likely mesenteric panniculitis. PELVIS: Genitourinary system: Normal urinary bladder. Hysterectomy. SKELETAL STRUCTURES AND SOFT TISSUES: Right-sided SI joint ORIF. Left hip arthroplasty and acetabular ORIF. Old inferior right pubic ramus fracture. Old right-sided rib fracture. Procedure Note Keyshawn Olvera MD - 12/08/2023 For Patients: As a result of the Cures Act, medical imagingexams and procedure reports are released immediately into your electronicmedical record. You may view this report before your referring provider.If you have questions, please contact your health care provider. INDICATION: Abd pain, recurrent SBO TECHNIQUE: CT abdomen and pelvis acquired with 100 cc Omnipaque 350 IV contrast. COMPARISON: None. FINDINGS: Lower chest: Motion. Subsegmental atelectasis. 2 millimeter right lowerlobe indeterminate pulmonary nodule. ABDOMEN: Liver: Normal enhancement. Left hepatic lobe cyst. Gallbladder and biliary: Normal gallbladder without radiopaque stone.Normal caliber bile ducts. Spleen: Normal size and enhancement. Pancreas: Normal enhancement without peripancreatic inflammatory changesor ductal dilatation. Adrenal glands: Normal adrenal glands. Kidneys and ureters: Normal enhancement. No radio-opaque calculi. Nohydroureteronephrosis. Subcentimeter hypodensities are too small tocharacterize however statistically represent cysts. GI tract: The stomach is relatively decompressed. Normal caliber small andlarge bowel loops. Normal appendix. Colonic diverticulosis withoutdiverticulitis. Mild circumferential wall thickening/hyperemia mid smallbowel loops. Vascular structures: Normal caliber aorta with atheroscleroticcalcifications. Lymph nodes: No lymphadenopathy in the abdomen or pelvis by sizecriteria. Peritoneum: Trace free fluid in the left pericolic gutter. Mild midmesenteric ground-glass opacity is likely mesenteric panniculitis. PELVIS: Genitourinary system: Normal urinary bladder. Hysterectomy. SKELETAL STRUCTURES AND SOFT TISSUES: Right-sided SI joint ORIF. Left hiparthroplasty and acetabular ORIF. Old inferior right pubic ramus fracture.Old right-sided rib fracture. IMPRESSION: 1. No discrete acute process in the abdomen or pelvis. No obstruction. Nohydroureteronephrosis. 2. Mild circumferential wall thickening/hyperemia mid small bowel loops. Anonspecific finding however can be seen in the setting of underlyingenteritis. Please note that all CT scans at this facility use dose modulation,iterative reconstruction, and/or weight-based dosing when appropriate toreduce radiation dose to as low as reasonably achievable. Dictated by Keyshawn Olvera MD @ 12/08/2023 4:13:37 PM (Electronically Signed) Antoinette Gordon Plutt DO CT * CBC WITH AUTO DIFFERENTIAL (12/08/2023 1:39 PM CDT) WHITE BLOOD COUNT 8.3 4.5 - 11.0 thou/cu mm 12/08/2023 2:13 PM CDT [facility] RED BLOOD COUNT 5.10 4.00 - 5.20 mil/cu mm 12/08/2023 2:13 PM CDT [facility] HEMOGLOBIN 13.7 12.0 - 16.0 g/dL 12/08/2023 2:13 PM CDT [facility] HEMATOCRIT 42.7 33.0 - 51.0 % 12/08/2023 2:13 PM CDT [facility] MCV 84 80 - 100 fL 12/08/2023 2:13 PM CDT [facility] MCH 26.9 26.0 - 34.0 pg 12/08/2023 2:13 PM CDT [facility] MCHC 32.1 32.0 - 36.0 g/dL 12/08/2023 2:13 PM CDT [facility] RDW 14.0 11.5 - 15.5 % 12/08/2023 2:13 PM CDT [facility] PLATELET COUNT 304 140 - 440 thou/cu mm 12/08/2023 2:13 PM CDT [facility] MPV 9.0 6.5 - 11.0 fL 12/08/2023 2:13 PM CDT [facility] NRBC 0.0 % 12/08/2023 2:13 PM CDT [facility] ABS NRBC 0.0 thou /cu mm 12/08/2023 2:13 PM CDT [facility] % NEUT 79.3 % 12/08/2023 2:13 PM CDT [facility] % LYMPH 14.4 % 12/08/2023 2:13 PM CDT [facility] % MONO 5.5 % 12/08/2023 2:13 PM CDT [facility] % EOS 0.0 % 12/08/2023 2:13 PM CDT [facility] % BASO 0.6 % 12/08/2023 2:13 PM CDT [facility] % IMMATURE GRAN (METAS,MYELOS,OR OS) 0.2 % 12/08/2023 2:13 PM CDT [facility] ABSOLUTE NEUTROPHILS 6.6 1.7 - 7.0 thou/cu mm 12/08/2023 2:13 PM CDT [facility] ABSOLUTE LYMPHOCYTES 1.2 0.9 - 2.9 thou/cu mm 12/08/2023 2:13 PM CDT [facility] ABSOLUTE MONOCYTES 0.5 <0.9 thou/cu mm 12/08/2023 2:13 PM CDT [facility] ABSOLUTE EOSINOPHILS 0.0 <0.5 thou/cu mm 12/08/2023 2:13 PM CDT [facility] ABSOLUTE BASOPHILS 0.1 <0.3 thou/cu mm 12/08/2023 2:13 PM CDT [facility] ABSOLUTE IMMATURE GRANULOCYTES(MET ,MYELOS,PROS) 0.0 <0.3 thou/cu mm 12/08/2023 2:13 PM CDT [facility] Blood BLOOD SPECIMEN / Unknown Non-Lab Venipuncture / Unknown 12/08/2023 1:39 PM CDT 12/08/2023 1:46 PM CDT Antoinette Hubbard DO HEMAT OLOGY [facility] [address] [place] [id number], * CT ABDOMEN PELVIS ENTEROGRAPHY W (10/26/2023 9:00 AM CDT) Anatomical Region Laterality Modality Abdomen, Pelvis, AORTA, LIVER, SPLEEN Computed Tomography Xu Pat MD CT from Last 3 Months Additional Health Concerns Infection Onset Date Last Indicated MRSA Clearance Comment:Infection Control Note: Hx of MRSA, surveillance criteria met, no need for further testing or isolation precautions. Do not delete or resolve the Infection Flag. 12/09/2023 12/09/2023 Advance Directives * Full Code (Latest Code Status on File) Date Activated Date Inactivated Comments 12/18/2023 1:16 PM 12/23/2023 4:02 PM Question Answer Comments Code Status Discussion: Reviewed Preferences * Full Code Date Activated Date Inactivated Comments 12/16/2023 11:25 AM 12/18/2023 1:16 PM Question Answer Comments Code Status Discussion: Unable to Assess Preferences, Provider to review later * Full Code Date Activated Date Inactivated Comments 12/15/2023 1:36 PM 12/16/2023 11:25 AM Question Answer Comments Code Status Discussion: Reviewed Preferences * Full Code Date Activated Date Inactivated Comments 08/16/2015 9:14 AM 08/16/2015 12:48 PM Care Teams Plant Tech Relationship Specialty Start Date End Date Laura Curtis NP [address] [facility] [place] [id number] PCP - General Emergency Medicine 10/23/23
--- OUTSIDE RECORDS SUMMARY | 2023-12-25 09:26 | XMS_ITS | Encounter Summary ---
Author Organization [facility] Address [address] [place] [address] Care Team Providers Care Telephonic Case Manager Name Role Phone Elsewhere, Pcp Primary Care Provider Unavailabl e Reason for Referral * MRI/CAT/PET Scan (Routine) - Denied Specialty Diagnoses / Procedures Referred By Contac t Referred To Contact Radiology Diagnoses Crohn's Disease (HCC) Procedures CT Abdomen Pelvis Enterography with IV Contrast Xu Pat M.D. [address] [address] [place] [address] [facility] Region Referral ID Status Reason Start Date Expiration Date Visits Re quested Visits Authorized [id number] Denied 09/24/2023 09/23/2024 1 1 Reason for Visit * MRI/CAT/PET Scan (Routine) - Denied Specialty Diagnoses / Procedures Referred By Contac t Referred To Contact Radiology Diagnoses Crohn's Disease (HCC) Procedures CT Abdomen Pelvis Enterography with IV Contrast Xu Pat M.D. [address] [address] [place] [address] [facility] Region Referral ID Status Reason Start Date Expiration Date Visits Re quested Visits Authorized [id number] Denied 09/24/2023 09/23/2024 1 1 Encounter Details Date Type Department Care Team (Latest Contact Info) Description 10/26/2023 7:48 AM CDT - 10/26/2023 11:59 PM CDT Hospital Encounter Department of Radiology in [place], [place] [address] [place] [address] Xu Pat M.D. [address] [address] [place] [phone] Crohn's Disease (HCC) Discharge Disposition: Home or [...] often do you attend chur ch or pentecostalism services? 1 to 4 times per year 07/28/2021 Do you belong to any clubs o r organizations such as episcopalian groups, unions, fraternal or athletic groups, or [...] Sex Assigned at Female 05/14/2017 2:12 PM STORE PERSON Gender Identity Female 05/14/2017 2:12 PM STORE PERSON Sexual Orientation Straight 05/14/2017 2: 12 PM STORE PERSON documented as of this encounter Medications at [...] Total Score: 1 05/14/20 17 2:12 PM STORE PERSON documented as of this encounter Care Teams Telephonic Case Manager Relationship Specialty Start Date End Date Elsewhere, Pcp PCP - General Internal Medicine 09/02/22 documented as of this encounter
--- OUTSIDE RECORDS SUMMARY | 2023-12-25 09:26 | XMS_ITS | Referral Summary ---
Author Organization [facility] Address [address] [place] [address] Care Team Providers Care Health Practice Manager Name Role Phone Elsewhere, Pcp Primary Care Provider Unavailabl e Source Comments Patient records contain information from all sites at [facility]. For routine questions regarding patient records, call [phone] during business hours, M-F 8:00 AM - 5:00 PM Central Time. Record requests for emergency care only can be directed to [phone] at any time.[facility] Encounters Date Type Department Care Team Description 10/26/2023 7:48 AM CDT - 10/26/2023 11:59 PM CDT Hospital Encounter Department of Radiology in [place], [place] [address] [place] [phone] Xu Pat M.D. Crohn's Disease (HCC) Discharge Disposition: Home or Self Care 10/05/2023 10:59 AM CDT - 10/05/2023 11:59 PM CDT Hospital Encounter Department of Laboratory Medicine in [place], [place] [address] [phone] Bri Hampton M.D. Anemia Microcytic Hypochromic Discharge Disposition: Home or Self Care 09/29/2023 Clinical Communication Department of General Surgery in [place], [place] [address] [phone] [place] - from Last 3 Months [...] week 07/28/2021 How often do you attend [facility] or yarsanism services? 1 to 4 times per year 07/28/2021 Do you belong to any clubs o r organizations such as worship groups, unions, fraternal or athletic groups, or [...] Answer Date Recorded PHQ-2 Score 0 07/29/2021 [facility] - Occupational Stress Questionnaire Answer [...] Sex Assigned at Female 05/14/2017 2:[address] ENGINEER Gender Identity Female 05/14/2017 2:[address] ENGINEER Sexual Orientation Straight 05/14/2017 2: [address] ENGINEER Last Filed Vital Signs Vital Sign Reading Time Taken Comments Blood Pressure 126/85 07/29/2021 9:[address] ENGINEER Pulse 83 07/29/2021 9:[address] ENGINEER Temperature 36.2 ??C (97.1 ??F) 07/29/2021 9:02 AM CS T Respiratory Rate 18 07/29/2021 9:[address] ENGINEER Oxygen Saturation 93% 06/06/2020 2:[address] ENGINEER Inhaled Oxygen Concentration - - Weight 96.6 kg (212 lb 15.4 oz) 07/29/2021 9:[address] ENGINEER Height 168.6 cm (5' 6.38) 07/29/2021 9:02 AM CS T Body Mass Index 33.98 07/29/2021 9:[address] ENGINEER Plan of Treatment Not on file Medical Devices Implanted Type Area Library Circulation Technician Device Identifier Shelf Expiration Date Model / Serial / Lot Hardware E.G. Pins/Screws/Ro ds Hardware e.g. pins/screws/r ods Foot Hip Implant-03/06/20 10 Implanted:07/2009 (Quantity not on file) Hip Implant Hip Procedures Procedure Name Priority Date/Time Associated Diagnosis Comments EXTI BASIC METABOLIC PANEL, S/P Routine 12/08/2023 1:[address] ABDOMEN PELVIS ENTEROGRAPHY WITH IV CONTRAST RAD - Routine (most inpatients and all outpatients) 10/26/2023 9:02 AM CDT Crohn's Disease (HCC) CREATININE WITH EGFR, S/P Routine 10/05/2023 11:09 AM CDT Anemia Microcytic Hypochromic BUN (BLOOD UREA NITROGEN), S/P Routine 10/05/2023 11:09 AM CDT Anemia Microcytic Hypochromic LIPID PANEL, S Routine 07/29/2021 8:[address] ENGINEER Hypertension Essential Primary Encounter For Screening For [...] CDT Bri Hampton M.D. LAB BLOOD ADD-ON [facility] [address] [place] [address], [place] [employer] [facility] in [place] [address] [place] [address] * Creatinine with Estimated GFR (10/05/2023 11:09 AM CDT) Creatinine 0.68 0.59 - 1.04 mg/dL 10/05/2023 11:35 AM CDT OW[place] Estimated GFR (eGFR) >90 >=60 mL/min/BSA 10/05/2023 11:35 AM CDT [facility] Comment: Estimated GFR calculated using the 2020 CKD_EPI creatinine equation. Blood (Blood, Venous) 10/05/2023 11:09 AM CDT 10/05/2023 11:13 AM CDT Bri Hampton M.D. LAB BLOOD ADD-ON [facility] [address] [place] [address], [place] [employer] [facility] [place] [address] [place] [address] * (ABNORMAL) Lipid Panel (07/29/2021 8:[address] ENGINEER) Cholesterol, Total 207(H) mg/dL 2021 11:[address] ENGINEER [place] Comment: ----REFERENCE VALUE---- Desirable: < 200 Borderline high: 200 - 239 High: > or = 240 Triglycerides 253(H) mg/dL 07/29/2021 11:[address] ENGINEER [employer] Comment: ----REFERENCE VALUE---- Normal: <150 Borderline high: 150-199 High: 200-499 Very high: > or =500 Cholesterol, HDL 52 >=50 mg/dL 07/29/19 11:[address] ENGINEER [employer] Calculated LDL 104 mg/dL 07/29/2021 11:[address] ENGINEER [employer] Comment: ----REFERENCE VALUE---- Desirable: <100 mg/dL Above Desirable: 100-129 mg/dL Borderline High: 130-159 mg/dL High: 160-189 mg/dL Very High: >=190 mg/dL Cholesterol, Non-HDL, Calculated 155 mg/dL 07/29/2021 11:[address] ENGINEER [employer] Comment: ----REFERENCE VALUE---- Desirable: <130 Above Desirable: 130-159 Borderline high: 160-189 High: 190-219 Very high: > or =220 Blood (Blood, Venous) 07/29/2021 8:[address] ENGINEER 07/29/2021 10:[address] ENGINEER Laith Luz P.A.-C., P.A. LAB BLOO D ADD-ON [facility] [address] [place] [address], [place] [facility] [place] [address] [place] [address] * BI Breast Screening Bilateral with Tomosynthesis [...] BI-RADS: 1: Negative. Laith Luz P.A.-C., P.A. [facility] BI P ROCEDURES from Last 3 Months or Most Recently Relevant to Health Maintenance Advance Directives For more information, please contact: [phone] Documents on File Type Date Recorded Patient Sap Bw Bi Developer Expl anation Advance Directives 07/26/2015 12:00 AM Leg acy document. See document viewer. Care Teams Health Practice Manager Relationship Specialty Start Date End Date Elsewhere, Pcp PCP - General Internal Medicine 09/02/22
--- OUTSIDE RECORDS SUMMARY | 2023-12-25 09:26 | XMS_ITS ---
Author Organization [facility] Address [address] [place] [address] Care Team Providers Care Moisture Machine Tender Name Role Phone Unavailable Unavailable Unavailable Surgery Details Not on file Complications Check Surgery Details section. Procedure Estimated Blood Loss Check Surgery Details section. Procedure Findings Check Surgery Details section. Procedure Specimens Taken Check Surgery Details section.
--- OUTSIDE RECORDS SUMMARY | 2023-12-25 09:26 | XMS_ITS | Encounter Summary ---
Author Organization [facility] Address [address] [place] [address] Care Team Providers Care Utility Technician Name Role Phone Elsewhere, Pcp Primary Care Provider Unavailabl e Encounter Details Date Type Department Care Team (Late st Contact Info) Description 10/05/2023 10:59 AM CDT - 10/05/2023 11:59 PM CDT Hospital Encounter Department of Laboratory Medicine in [place], [place] [address] [place] [phone] Bri Hampton M.D. [address] [address], [facility] [address] [place] [address] Anemia Microcytic Hypochromic Discharge Disposition: [...] How often do you attend chur or mosque services? 1 to 4 times per year 07/28/2021 Do you belong to any clubs o r organizations such as temple groups, unions, fraternal or athletic groups, or [...] Answer Date Recorded PHQ-2 Score 0 07/29/2021 [facility] Occupat ional Health - [...] your living situation today? I have a [facility] place to live 05/13/2023 Education Answer Date Recorded What is the highest level of school you have completed or the highest degree you have received? Some college, no degree 07/28/2021 Sex and Gender Information Value Date Recorded Sex Assigned at Female 05/14/2017 2:12 PM CIRCULAR HEAD SAW OPERATOR Gender Identity Female 05/14/2017 2:12 PM CIRCULAR HEAD SAW OPERATOR Sexual Orientation Straight 05/14/2017 2: 12 PM CIRCULAR HEAD SAW OPERATOR documented as of this encounter Medications at [...] 11:09 AM CDT 10/05/2023 11:13 AM CDT rBi Hampton M.D. LAB BLOOD ADD-ON Performing Organization Address [facility]/ZIP Co de Phone Number [facility] [address] [place] [address], [facility] in [place] [address] [place] [address] * BUN (Blood Urea Nitrogen) (10/05/2023 11:09 AM CDT) BUN (Blood Urea Nitrogen), P 15 6 - 21 mg/dL 10/05/2023 11:35 AM CDT OWAT Blood (Blood, Venous) 10/05/2023 11:09 AM CDT 10/05/2023 11:13 AM CDT Bri Hampton M.D. LAB BLOOD ADD-ON Performing Organization Address City/[facility]/ZIP Co de Phone Number [facility] [address] [place] [address], [facility] [place] [address] [place] [address], [place] [address] documented in this encounter Visit Diagnoses Diagnosis Anemia Microcytic Hypochromic documented in this encounter Additional Health Concerns Assessment Noted Time PHQ-9 Depression Total Score: 1 05/14/20 17 2:12 PM CIRCULAR HEAD SAW OPERATOR documented as of this encounter Care Teams Utility Technician Relationship Specialty Start Date End Date Elsewhere, Pcp PCP - General Internal Medicine 09/02/22 documented as of this encounter
--- OUTSIDE RECORDS SUMMARY | 2023-12-25 09:26 | XMS_ITS | Clinical Summary ---
Author Organization [facility] Address [address] [place] [address] Care Team Providers Care Wide Area Network Administrator Name Role Phone Elsewhere, Pcp Primary Care Provider Unavailabl e Source Comments Patient records contain information from all sites at [facility]. For routine questions regarding patient records, call [phone] during business hours, M-F 8:00 AM - 5:00 PM Central Time. Record requests for emergency care only can be directed to [phone] at any time.[facility] Allergies Active Allergy Reactions Criticality Noted [...] CDT Hospital Encounter Department of Radiology in [address] [address] Xu Pat M.D. Crohn's Disease (HCC) Discharge Disposition: Home or Self Care 10/05/2023 10:59 AM CDT - 10/05/2023 11:59 PM CDT Hospital Encounter Department of Laboratory Medicine in [address] [address] Bri Hampton M.D. Anemia Microcytic Hypochromic Discharge Disposition: Home or Self Care 09/29/2023 Clinical Communication Department of General Surgery in [address] [address] [facility] - from Last 3 Months Immunizations Name [...] How often do you attend chur or yarsanism services? 1 to 4 times [...] Sex Assigned at Female 05/14/2017 2:12 PM PROVIDER ENROLLMENT SPECIALIST Gender Identity Female 05/14/2017 2:12 PM PROVIDER ENROLLMENT SPECIALIST Sexual Orientation Straight 05/14/2017 2: 12 PM PROVIDER ENROLLMENT SPECIALIST Last Filed Vital Signs Vital Sign Reading Time Taken Comments Blood Pressure 126/85 07/29/2021 9:02 AM PROVIDER ENROLLMENT SPECIALIST Pulse 83 07/29/2021 9:02 AM PROVIDER ENROLLMENT SPECIALIST Temperature 36.2 ??C (97.1 ??F) 07/29/2021 9:02 AM CS T Respiratory Rate 18 07/29/2021 9:02 AM PROVIDER ENROLLMENT SPECIALIST Oxygen Saturation 93% 06/06/2020 2:58 PM PROVIDER ENROLLMENT SPECIALIST Inhaled Oxygen Concentration - - Weight 96.6 kg (212 lb 15.4 oz) 07/29/2021 9:02 AM PROVIDER ENROLLMENT SPECIALIST Height 168.6 cm (5' 6.38) 07/29/2021 9:02 AM CS T Body Mass Index 33.98 07/29/2021 9:02 AM PROVIDER ENROLLMENT SPECIALIST Plan of Treatment Health Maintenance Due Date Last Done Comments CT Colonography 1959 Cologuard 1959 HIV Screening 1959 Hepatitis C Screening 1959 Office Visit for Blood Pressure Check / Re-check 1959 Zoster Vaccines (1 of 2) 2009 Mammogram 10/14/2019 10/13/2018, 12/0 02/2017, 05/26/2017, Additional history exists Colonoscopy 08/16/2020 08/16/2015 Colorectal Cancer Surveillance 08/16/2020 COVID-19 Vaccine ( season) 2023 05/20/2021, 10/23/2020, 09/26/2020 Influenza Vaccine (#1) 2023 , 04/03/2020, 05/02/2010, Additional history exists Depression Screening (Annual PHQ-2) 07/06/2023 Creatinine Level (Kidney Function Test) 12/07/2024 12/08/2023, 10/05/2023, 07/29/2021, Additional history exists Potassium Level 12/07/2024 12/08/2023, 07/07, 07/23/2020, Additional history exists Sodium Level 12/07/2024 12/08/2023, 07/07, 07/23/2020, Additional history exists Lipid (Cholesterol) Screening 07/29/2026 07/29/2021, 05/12/2019, 04/29/2018, Additional history exists Fasting Glucose for Diabetes Screening 12/07/2026 12/08/2023, 07/29/2021, 07/29/2021, Additional history exists DTaP,Tdap,and Td Vaccines (3 - Td or Tdap) 07/17/2032 07/17/2022, 11/18/2011, 01/04/2002 Pneumococcal vaccine (0-64 years) Aged Out No longer eligible based on patient's age to complete this topic Medical Devices Implanted Type Area Dough Catcher Device Identifier Shelf Expiration Date Model / [...] LIPID PANEL, S Routine 07/29/2021 8:42 AM PROVIDER ENROLLMENT SPECIALIST Hypertension Essential Primary Encounter For Screening For [...] CDT Bri Hampton M.D. LAB BLOOD ADD-ON [facility] [address] [place] [address], [place] OWAT [facility] [place] [address] [place] [address] * Creatinine with Estimated GFR (10/05/2023 11:09 AM CDT) Creatinine 0.68 0.59 - 1.04 mg/dL 10/05/2023 11:35 AM CDT OWAT Estimated GFR (eGFR) >90 >=60 mL/min/BSA 10/05/2023 11:35 AM CDT OWAT Comment: Estimated GFR calculated using the 2020 CKD_EPI creatinine equation. Blood (Blood, Venous) 10/05/2023 11:09 AM CDT 10/05/2023 11:13 AM CDT Bri Hampton M.D. LAB BLOOD ADD-ON Performing Organization Address City/[facility]/ZIP Co de Phone Number [facility] [address] [place] [address], [facility] OWAT [facility] in [place] [address] [place] [address] * (ABNORMAL) Lipid Panel (07/29/2021 8:42 AM PROVIDER ENROLLMENT SPECIALIST) [facility] Signature Cholesterol, Total 207(H) mg/dL 2021 11:45 AM PROVIDER ENROLLMENT SPECIALIST OWAT Comment: ----REFERENCE VALUE---- Desirable: < 200 Borderline high: 200 - 239 High: > or = 240 Triglycerides 253(H) mg/dL 07/29/2021 11:45 AM PROVIDER ENROLLMENT SPECIALIST OWAT Comment: ----REFERENCE VALUE---- Normal: <150 Borderline high: 150-199 High: 200-499 Very high: > or =500 Cholesterol, HDL 52 >=50 mg/dL 07/29/19 11:45 AM PROVIDER ENROLLMENT SPECIALIST OWAT Calculated LDL 104 mg/dL 07/29/2021 11:45 AM PROVIDER ENROLLMENT SPECIALIST OWAT Comment: ----REFERENCE VALUE---- Desirable: <100 mg/dL Above Desirable: 100-129 mg/dL Borderline High: 130-159 mg/dL High: 160-189 mg/dL Very High: >=190 mg/dL Cholesterol, Non-HDL, Calculated 155 mg/dL 07/29/2021 11:45 AM PROVIDER ENROLLMENT SPECIALIST OWAT Comment: ----REFERENCE VALUE---- Desirable: <130 Above Desirable: 130-159 Borderline high: 160-189 High: 190-219 Very high: > or =220 Blood (Blood, Venous) 07/29/2021 8:42 AM PROVIDER ENROLLMENT SPECIALIST 07/29/2021 10:44 AM PROVIDER ENROLLMENT SPECIALIST Laith Luz P.A.-C., P.AJeannie LAB BLOO D ADD-ON [facility] [address] [place] [address], [place] OW[place] [facility] [place] [address] [place] [address] * BI Breast Screening Bilateral with Tomosynthesis [...] BI-RADS: 1: Negative. Laith Luz P.A.-C., P.A. LUCYG ELIOT P ROCEDURES from Last 3 Months or Most Recently Relevant to Health Maintenance Advance Directives For more information, please contact: [phone] Documents on File Type Date Recorded Patient Golf Cart Attendant Expl anation Advance Directives 07/26/2015 12:00 AM Leg acy document. See document viewer. Care Teams Wide Area Network Administrator Relationship Specialty Start Date End Date Elsewhere, Pcp PCP - General Internal Medicine 09/02/22
--- NOTE | 2024-01-05 15:28 | ONC.NURNOTE ---
Patient was called about upcoming oncology appt with Dr Franks on 01/25/24 with 9 am arrival for 9:30 appt patient has our direct phone number and understands arrival location
== END 2023-12-25 09:23 | disposition home or self-care (01) ==
PROVIDERS: PCP Nurse Practitioner Family; Visit Provider Nurse Practitioner Family
DX: C82.90 Follicular lymphoma, unspecified, unspecified site (principal); I10 Essential (primary) hypertension
CPT/HCPCS: 80048; 85025

== ENCOUNTER 2024-01-08 08:12 | Outpatient (CLI) | payer OTHER, SELFPAY ==
--- OUTSIDE RECORDS SUMMARY | 2024-01-08 08:15 | XMS_ITS | Encounter Summary ---
Author Organization [facility] Address [address] [place] [address] Care Team Providers Care Lab Pack Chemist Name Role Phone Elsewhere, Pcp Primary Care Provider Unavailabl e Encounter Details Date Type Department Care Team (Late st Contact Info) Description 09/29/2023 Clinical Communication Department of General Surgery in [place], [place] [address] [address] [phone] [place] [address] [address] Social History Tobacco Use Types Packs/Day Years [...] How often do you attend chur or uatsdin services? 1 to 4 times per year 07/28/2021 Do you belong to any clubs o r organizations such as christianity groups, unions, fraternal or athletic groups, or [...] Answer Date Recorded PHQ-2 Score 0 07/29/2021 [facility] Occupat ional Health - Occupational [...] your living situation today? I have a [facility] place to live 05/13/2023 Education Answer Date Recorded What is the highest level of school you have completed or the highest degree you have received? Some college, no degree 07/28/2021 Sex and Gender Information Value Date Recorded Sex Assigned at Female 05/14/2017 2:12 PM DETAILER PHARMACEUTICALS Gender Identity Female 05/14/2017 2:12 PM DETAILER PHARMACEUTICALS Sexual Orientation Straight 05/14/2017 2: 12 PM DETAILER PHARMACEUTICALS documented as of this encounter Plan of Treatment Not on file documented as of this encounter Visit Diagnoses Not on filedocumented in this encounter Additional Health Concerns Assessment Noted Time PHQ-9 Depression Total Score: 1 05/14/20 17 2:12 PM DETAILER PHARMACEUTICALS documented as of this encounter Care Teams Lab Pack Chemist Relationship Specialty Start Date End Date Elsewhere, Pcp PCP - General Internal Medicine 09/02/22 documented as of this encounter
--- OUTSIDE RECORDS SUMMARY | 2024-01-08 08:15 | XMS_ITS | Referral Summary ---
Author Organization [facility] Address [address] [place] [address] Care Team Providers Care Yard Loader Operator Name Role Phone Elsewhere, Pcp Primary Care Provider Unavailabl e Source Comments Patient records contain information from all sites at [facility]. For routine questions regarding patient records, call [phone] during business hours, M-F 8:00 AM - 5:00 PM Central Time. Record requests for emergency care only can be directed to [phone] at any time.[facility] Encounters Date Type Department Care Team Description 10/26/2023 7:48 AM CDT - 10/26/2023 11:59 PM CDT Hospital Encounter Department of Radiology in [place], [place] [address], [place] [address] Xu Pat M.D. Crohn's Disease (HCC) Discharge Disposition: Home or Self Care from Last 3 Months Allergies Active Allergy [...] How often do you attend chur or mu-ism services? 1 to 4 times per year [...] Answer Date Recorded PHQ-2 Score 0 07/29/2021 [facility] Questionnaire Answer Date [...] your living situation today? I have a [facility] place to live 05/13/2023 Education Answer Date Recorded What is the highest level of school you have completed or the highest degree you have received? Some college, no degree 07/28/2021 Sex and Gender Information Value Date Recorded Sex Assigned at Female 05/14/2017 2:12 PM REGIONAL MANAGER Gender Identity Female 05/14/2017 2:12 PM REGIONAL MANAGER Sexual Orientation Straight 05/14/2017 2: 12 PM REGIONAL MANAGER Last Filed Vital Signs Vital Sign Reading Time Taken Comments Blood Pressure 126/85 07/29/2021 9:02 AM REGIONAL MANAGER Pulse 83 07/29/2021 9:02 AM REGIONAL MANAGER Temperature 36.2 ??C (97.1 ??F) 07/29/2021 9:02 AM CS T Respiratory Rate 18 07/29/2021 9:02 AM REGIONAL MANAGER Oxygen Saturation 93% 06/06/2020 2:58 PM REGIONAL MANAGER Inhaled Oxygen Concentration - - Weight 96.6 kg (212 lb 15.4 oz) 07/29/2021 9:02 AM REGIONAL MANAGER Height 168.6 cm (5' 6.38) 07/29/2021 9:02 AM CS T Body Mass Index 33.98 07/29/2021 9:02 AM REGIONAL MANAGER Plan of Treatment Not on file Medical Devices Implanted Type Area Jewel Waxer Device Identifier Shelf Expiration Date Model / [...] 10/26/2023 9:02 AM CDT Crohn's Disease (HCC) LIPID PANEL, S Routine 07/29/2021 8:42 AM REGIONAL MANAGER Hypertension Essential Primary Encounter For Screening [...] seen with mesenteric panniculitis. Xu Pat M.D. [facility] PROCEDURES * (ABNORMAL) Lipid Panel (07/29/2021 8:42 AM REGIONAL MANAGER) Cholesterol, Total 207(H) mg/dL 2021 11:45 AM REGIONAL MANAGER OWAT Comment: ----REFERENCE VALUE---- Desirable: < 200 Borderline high: 200 - 239 High: > or = 240 Triglycerides 253(H) mg/dL 07/29/2021 11:45 AM REGIONAL MANAGER OWAT Comment: ----REFERENCE VALUE---- Normal: <150 Borderline high: 150-199 High: 200-499 Very high: > or =500 Cholesterol, HDL 52 >=50 mg/dL 07/29/19 11:45 AM REGIONAL MANAGER OWAT Calculated LDL 104 mg/dL 07/29/2021 11:45 AM REGIONAL MANAGER OWAT Comment: ----REFERENCE VALUE---- Desirable: <100 mg/dL Above Desirable: 100-129 mg/dL Borderline High: 130-159 mg/dL High: 160-189 mg/dL Very High: >=190 mg/dL Cholesterol, Non-HDL, Calculated 155 mg/dL 07/29/2021 11:45 AM REGIONAL MANAGER OWAT Comment: ----REFERENCE VALUE---- Desirable: <130 Above Desirable: 130-159 Borderline high: 160-189 High: 190-219 Very high: > or =220 Blood (Blood, Venous) 07/29/2021 8:42 AM REGIONAL MANAGER 07/29/2021 10:44 AM REGIONAL MANAGER Laith Luz P.A.-C., P.A. LAB BLOO D ADD-ON [facility] [address] [place] [address], [facility] OWAT [facility] [place] [address] [place] [address] * BI Breast Screening Bilateral with Tomosynthesis [...] BI-RADS: 1: Negative. Laith Luz P.A.-C., P.A. IMG BI P ROCEDURES from Last 3 Months or Most Recently Relevant to Health Maintenance Advance Directives For more information, please contact: [phone] Documents on File Type Date Recorded Patient Planning Technician Expl anation Advance Directives 07/26/2015 12:00 AM Leg acy document. See document viewer. Care Teams Yard Loader Operator Relationship Specialty Start Date End Date Elsewhere, Pcp PCP - General Internal Medicine 09/02/22
--- OUTSIDE RECORDS SUMMARY | 2024-01-08 08:15 | XMS_ITS ---
Author Organization [facility] Address [address] [place] [address] Care Team Providers Care Pillow Agent Name Role Phone Unavailable Unavailable Unavailable Surgery Details Not on file Complications Check Surgery Details section. Procedure Estimated Blood Loss Check Surgery Details section. Procedure Findings Check Surgery Details section. Procedure Specimens Taken Check Surgery Details section.
--- OUTSIDE RECORDS SUMMARY | 2024-01-08 08:15 | XMS_ITS | Encounter Summary ---
Author Organization [facility] Address [address] [place] [address] Care Team Providers Care Zipper Joiner Name Role Phone Elsewhere, Pcp Primary Care Provider Unavailabl e Encounter Details Date Type Department Care Team (Late st Contact Info) Description 10/05/2023 10:59 AM CDT - 10/05/2023 11:59 PM CDT Hospital Encounter Department of Laboratory Medicine in [place], [place] [address] [place] [phone] Bri Hampton M.D. [address] [address], [facility] [address] [place] [address] Anemia Microcytic Hypochromic Discharge Disposition: [...] How often do you attend chur or presybeterian services? 1 to 4 times per year 07/28/2021 Do you belong to any clubs o r organizations such as restoration groups, unions, fraternal or athletic groups, or [...] Answer Date Recorded PHQ-2 Score 0 07/29/2021 [facility] of Occupat ional Health - Occupational [...] your living situation today? I have a [facility] place to live 05/13/2023 Education Answer Date Recorded What is the highest level of school you have completed or the highest degree you have received? Some college, no degree 07/28/2021 Sex and Gender Information Value Date Recorded Sex Assigned at Female 05/14/2017 2:12 PM SALES CLERK FOOD Gender Identity Female 05/14/2017 2:12 PM SALES CLERK FOOD Sexual Orientation Straight 05/14/2017 2: 12 PM SALES CLERK FOOD documented as of this encounter Medications at [...] M.D. LAB BLOOD ADD-ON Performing Organization Address [facility]/ZIP Co de Phone Number [facility] [address] [place] [address], [facility] in [place] [address] [place] [address] * BUN (Blood Urea Nitrogen) (10/05/2023 11:09 AM CDT) BUN (Blood Urea Nitrogen), P 15 6 - 21 mg/dL 10/05/2023 11:35 AM CDT OWAT Blood (Blood, Venous) 10/05/2023 11:09 AM CDT 10/05/2023 11:13 AM CDT Bri Hampton M.D. LAB BLOOD ADD-ON Performing Organization Address City/[facility]/ZIP Co de Phone Number [facility] [address] [place] [address], [facility] in [place] [address] [place] [address], [place] [address] documented in this encounter Visit Diagnoses Diagnosis Anemia Microcytic Hypochromic documented in this encounter Additional Health Concerns Assessment Noted Time PHQ-9 Depression Total Score: 1 05/14/20 17 2:12 PM SALES CLERK FOOD documented as of this encounter Care Teams Zipper Joiner Relationship Specialty Start Date End Date Elsewhere, Pcp PCP - General Internal Medicine 09/02/22 documented as of this encounter
--- OUTSIDE RECORDS SUMMARY | 2024-01-08 08:15 | XMS_ITS | Clinical Summary ---
Author Organization [facility] Address [address] [place] [address] Care Team Providers Care Laboratory Secretary Name Role Phone Elsewhere, Pcp Primary Care Provider Unavailabl e Source Comments Patient records contain information from all sites at [facility]. For routine questions regarding patient records, call [phone] during business hours, M-F 8:00 AM - 5:00 PM Central Time. Record requests for emergency care only can be directed to [phone] at any time.[facility] Allergies Active Allergy Reactions Criticality Noted [...] CDT Hospital Encounter Department of Radiology in [place], [place] [address] [place] [phone] Xu Pat M.D. Crohn's Disease (HCC) Discharge Disposition: Home or Self Care from Last 3 Months Immunizations Name Administration [...] How often do you attend chur or judaism services? 1 to 4 times per year 07/28/2021 Do you belong to any clubs o r organizations such as oriental orthodox groups, unions, fraternal or athletic groups, or [...] Answer Date Recorded PHQ-2 Score 0 07/29/2021 [facility] Occupat ional Health - Occupational Stress [...] Sex Assigned at Female 05/14/2017 2:12 PM SURVEYOR HELPER Gender Identity Female 05/14/2017 2:12 PM SURVEYOR HELPER Sexual Orientation Straight 05/14/2017 2: 12 PM SURVEYOR HELPER Last Filed Vital Signs Vital Sign Reading Time Taken Comments Blood Pressure 126/85 07/29/2021 9:02 AM SURVEYOR HELPER Pulse 83 07/29/2021 9:02 AM SURVEYOR HELPER Temperature 36.2 ??C (97.1 ??F) 07/29/2021 9:02 AM CS T Respiratory Rate 18 07/29/2021 9:02 AM SURVEYOR HELPER Oxygen Saturation 93% 06/06/2020 2:58 PM SURVEYOR HELPER Inhaled Oxygen Concentration - - Weight 96.6 kg (212 lb 15.4 oz) 07/29/2021 9:02 AM SURVEYOR HELPER Height 168.6 cm (5' 6.38) 07/29/2021 9:02 AM CS T Body Mass Index 33.98 07/29/2021 9:02 AM SURVEYOR HELPER Plan of Treatment Health Maintenance Due Date Last Done Comments CT Colonography 1959 Cologuard 1959 HIV Screening 1960 Hepatitis C Screening 1959 Office Visit for Blood Pressure Check / Re-check 1959 Zoster Vaccines (1 of 2) 2009 Mammogram 10/14/2019 10/13/2018, 02/2017, 05/26/2017, Additional history exists Colonoscopy 08/16/2020 08/16/2015 Colorectal Cancer Surveillance 08/16/2020 COVID-19 Vaccine ( season) 2023 05/20/2021, 10/23/2020, 09/26/2020 Depression Screening (Annual PHQ-2) 07/06/2023 Influenza Vaccine (#1) 2024 , 04/03/2020, 05/02/2010, Additional history exists Creatinine Level (Kidney Function Test) 12/07/2024 12/08/2023, [...] this topic Medical Devices Implanted Type Area Postdoctoral Scholar Device Identifier Shelf Expiration Date Model / [...] LIPID PANEL, S Routine 07/29/2021 8:42 AM SURVEYOR HELPER Hypertension Essential Primary Encounter For Screening For [...] seen with mesenteric panniculitis. Xu Pat M.D. [facility] CT PROCEDURES * (ABNORMAL) Lipid Panel (07/29/2021 8:42 AM SURVEYOR HELPER) Cholesterol, Total 207(H) mg/dL 2021 11:45 AM SURVEYOR HELPER OWAT Comment: ----REFERENCE VALUE---- Desirable: < 200 Borderline high: 200 - 239 High: > or = 240 Triglycerides 253(H) mg/dL 07/29/2021 11:45 AM SURVEYOR HELPER OWAT Comment: ----REFERENCE VALUE---- Normal: <150 Borderline high: 150-199 High: 200-499 Very high: > or =500 Cholesterol, HDL 52 >=50 mg/dL 07/29/19 11:45 AM SURVEYOR HELPER OWAT Calculated LDL 104 mg/dL 07/29/2021 11:45 AM SURVEYOR HELPER OWAT Comment: ----REFERENCE VALUE---- Desirable: <100 mg/dL Above Desirable: 100-129 mg/dL Borderline High: 130-159 mg/dL High: 160-189 mg/dL Very High: >=190 mg/dL Cholesterol, Non-HDL, Calculated 155 mg/dL 07/29/2021 11:45 AM SURVEYOR HELPER OWAT Comment: ----REFERENCE VALUE---- Desirable: <130 Above Desirable: 130-159 Borderline high: 160-189 High: 190-219 Very high: > or =220 Blood (Blood, Venous) 07/29/2021 8:42 AM SURVEYOR HELPER 07/29/2021 10:44 AM SURVEYOR HELPER Laith Luz P.A.-C., P.A. LAB BLOO D ADD-ON - [facility] [address] [place] [address], [facility] OWAT [facility] [place] [address] [place] [address] * BI Breast Screening Bilateral with Tomosynthesis [...] Advance Directives For more information, please contact: [phone] Documents on File Type Date Recorded Patient Stain Maker Expl anation Advance Directives 07/26/2015 12:00 AM Leg acy document. See document viewer. Care Teams Laboratory Secretary Relationship Specialty Start Date End Date Elsewhere, Pcp PCP - General Internal Medicine 09/02/22
--- OUTSIDE RECORDS SUMMARY | 2024-01-08 08:15 | XMS_ITS | Clinical Summary ---
Author Organization [employer] Address [place], [place] [address] Care Team Providers Care Director Of Finance Name Role Phone Laura Curtis NP Primary Care Provider [phone] Allergies Active Allergy Reactions Criticality Noted Date [...] Description 12/17/2023 8:03 AM CDT Anesthesia Event [facility] [address] [place] [address] Jim Gonzalez MD Lee, Hee Won, MD 12/17/2023 7:45 AM CDT - 12/17/2023 10:11 AM CDT Surgery [facility] [address] [place] [address] George Holt MD EXPLORATORY LAPAROTOMY, 12/16/2023 11:57 AM CDT Anesthesia Event [facility] [address], [place] [address] Peggy Ceballos MD [facility] mixon CRNA 12/16/2023 11:04 AM CDT - 12/16/2023 11:46 AM CDT Surgery [facility] [address], [place] [address] Shruthi Watson MD ENTEROSCOPY with tatoo 12/15/2023 6:50 AM CDT - 12/23/2023 1:52 PM CDT Hospital Encounter [facility] [address] [place] [address] Gabrielle Ayala MD Ibrahim, Joseline Decker, FELICITY Ivory, MD Desmond Brooks, Yolie Minor MD [facility], [facility] Hospitalists Of Abdominal pain, unspecified abdominal location (Primary Dx); Intestinal mass; Follicular lymphoma grade II, unspecified body region (HC) Discharge Disposition: Home Self Care 12/15/2023 Travel 12/11/2023 Telephone [facility] [address] [place] [address] Yaya Edmondson MD Referral 12/09/2023 Telephone [facility] [address] [place] [address] Yaya Edmondson MD Referral 12/08/2023 11:18 AM CDT - 12/08/2023 5:00 PM CDT Emergency [facility] Emergency Department [address] [place] [address] Evan Hubbard, Antoinette Abad, Patullo, Pamella Lam, DO Abdominal pain, unspecified abdominal location (Primary Dx) Discharge Disposition: Home Self Care 12/08/2023 Travel 12/04/2023 Telephone [facility] [address] [place] [address] Adela Baumann RN Referral 10/26/2023 7:58 AM CDT - 10/26/2023 11:59 PM CDT Hospital Encounter [facility] [address] [place] [address] Xu Pat MD Crohn's disease (HC) 10/26/2023 [...] 12/15/2023 6:39 AM CDT Plan of Treatment Health Maintenance Due [...] CDT ENTEROSCOPY 12/16/2023 11:52 AM CDT See MD ortiz ENDOSCOPY 12/16/2023 11:46 AM CDT POTASSIUM Early [...] - 5.1 mmol/L 12/22/2023 10:46 PM CDT [facility] Blood BLOOD SPECIMEN / Unknown Butterfly / Unknown 12/22/2023 9:49 PM CDT 12/22/2023 9:54 PM CDT Laurie Quintero RN CHEMISTRY Performing Organization Address [facility]/ZIP Co de Phone Number [facility] [address] [place] [address] [address], [place] * Hemoglobin AM (12/22/2023 6:06 AM CDT) HEMOGLOBIN 13.0 12.0 - 16.0 g/dL 12/22/2023 6:25 AM CDT [facility] MCV 83 80 - 100 fL 12/22/2023 6:25 AM CDT [facility] Blood BLOOD SPECIMEN / Unknown Venipuncture / Unknown 12/22/2023 6:06 AM CDT 12/22/2023 6:17 AM CDT Yolie Logan MD HEMATOLOGY Performing Organization Address [facility]/ZIP Co de Phone Number [facility] [address] [place] [address] [address], [place] * (ABNORMAL) SODIUM (12/22/2023 6:05 AM CDT) SODIUM 132(L) 136 - 145 mmol/L 12/22/2023 6:45 AM CDT [facility] Blood BLOOD SPECIMEN / Unknown Venipuncture / Unknown 12/22/2023 6:05 AM CDT 12/22/2023 6:18 AM CDT Yolie Logan MD CHEMISTRY Performing Organization Address City/[facility]/ZIP Co de Phone Number [facility] [address] [place] [address], [place] * CREATININE (12/22/2023 6:05 AM CDT) [facility] eGFR >90 >90 mL/min/1.7 3m2 12/22/2023 6:45 AM CDT [facility] Comment:As of 2021, eG FR is calculated by the CKD-EPI creatinine equation without race adjustment. ??eGFR can be influenced by muscle mass, exercise, and diet. ??The reported eGFR is an estimation only and is only applicable if the renal function is stable. CREATININE 0.60 0.50 - 0.90 mg/dL 12/22/2023 6:45 AM CDT [facility] Blood BLOOD SPECIMEN / Unknown Venipuncture / Unknown 12/22/2023 6:05 AM CDT 12/22/2023 6:18 AM CDT Yolie Logan MD CHEMISTRY Performing Organization Address City/[facility]/ZIP Co de Phone Number [facility] [address] [place] [address], [place] * LD,TOTAL (12/19/2023 7:26 PM CDT) [facility] LD,TOTAL 144 135 - 214 IU/L 12/21/2023 12:57 PM CDT [facility] Blood BLOOD SPECIMEN / Unknown Venipuncture / Unknown 12/19/2023 7:26 PM CDT 12/19/2023 7:33 PM CDT Edis ESPARZA CHEMISTRY Performing Organization Address City/[facility]/ZIP Co de Phone Number [facility] [address] [place] [address] [address], [place] * CBC W PLT NO DIFF (12/19/2023 5:12 AM CDT) Only the most recent of2 resultswithin the time period is included. [facility] WHITE BLOOD COUNT 7.0 4.5 - 11.0 thou/cu mm 12/19/2023 5:27 AM CDT [facility] RED BLOOD COUNT 4.46 4.00 - 5.20 mil/cu mm 12/19/2023 5:27 AM CDT [facility] HEMOGLOBIN 12.1 12.0 - 16.0 g/dL 12/19/2023 5:27 AM CDT [facility] HEMATOCRIT 37.4 33.0 - 51.0 % 12/19/2023 5:27 AM CDT [facility] MCV 84 80 - 100 fL 12/19/2023 5:27 AM CDT [facility] MCH 27.1 26.0 - 34.0 pg 12/19/2023 5:27 AM CDT [facility] MCHC 32.4 32.0 - 36.0 g/dL 12/19/2023 5:27 AM CDT [facility] RDW 13.5 11.5 - 15.5 % 12/19/2023 5:27 AM CDT [facility] PLATELET COUNT 184 140 - 440 thou/cu mm 12/19/2023 5:27 AM CDT [facility] MPV 9.0 6.5 - 11.0 fL 12/19/2023 5:27 AM CDT [facility] NRBC 0.0 % 12/19/2023 5:27 AM CDT [facility] ABS NRBC 0.0 thou /cu mm 12/19/2023 5:27 AM CDT [facility] Blood BLOOD SPECIMEN / Unknown Venipuncture / Unknown 12/19/2023 5:12 AM CDT 12/19/2023 5:21 AM CDT Lenka Ivory MD HEMATOLOGY [facility] [address] [place] [address], * (ABNORMAL) BASIC METABOLIC PANEL (12/19/2023 5:12 AM CDT) Only the most recent of4 resultswithin the time period is included. SODIUM 137 136 - 145 mmol/L 12/19/2023 5:47 AM CDT [facility] POTASSIUM 3.2(L) 3.5 - 5.1 mmol/L 12/19/2023 5:47 AM CDT [facility] CHLORIDE 98 98 - 107 mmol/L 12/19/2023 5:47 AM CDT [facility] CO2,TOTAL 28 22 - 29 mmol/L 12/19/2023 5:47 AM CDT [facility] ANION GAP 11 5 - 18 12/19/2023 5:47 AM CDT [facility] GLUCOSE 118(H) 70 - 99 mg/dL 12/19/2023 5:47 AM CDT [facility] CALCIUM 9.3 8.8 - 10.2 mg/dL 12/19/2023 5:47 AM CDT [facility] BUN 5(L) 8 - 23 mg/dL 12/19/2023 5:47 AM CDT [facility] CREATININE 0.45(L) 0.50 - 0.90 mg/dL 12/19/2023 5:47 AM CDT [facility] BUN/CREAT RATIO 11 10 - 20 5:47 AM CDT [facility] eGFR >90 >90 mL/min/1.7 3m2 12/19/2023 5:47 AM CDT [facility] Comment:As of 2021, eG FR [...] 5:21 AM CDT Lenka Ivory MD [facility]STRY [facility] [address] [place] [address], * PATH TISSUE EXAM (12/17/2023 8:53 AM CDT) Case Report Pathology Report ?Case: [id number] ? Authorizing Provider: ??George Holt MD ? Collected: ? 12/17/2023 0853 ? Ordering Location: ? [facility] ?Received: ?12/17/2023 0901 ? Hospital ? Pathologist: ? Spencer Reid, ? MD ? Specimen: ?Small Bowel, suture on proximal end, gross exam call with results ? 4 4:42 PM CDT [facility] Final Diagnosis A) SMALL INTESTINE, MASS, SEGMENTAL RESECTION: 1. Follicular lymphoma, grade 1-2 (of 3) (WHO 2016), forming a 4 x 4 x 1 cm mass 2. Resection margins negative for malignancy 3. Seven benign mesenteric lymph nodes 4. See comment 4 4:42 PM CDT [facility] Comment Given the [...] Holt on 12/18/2023. 4 4:42 PM CDT [facility] Clinical Information 63-year-old female with several months of fluctuating abdominal pain, nausea, and vomiting. Has been hospitalized and seen by [facility] as an outpatient. Initially presented with iron [...] symptoms since her most recent hospitalization at [facility] 2 weeks ago for the reported obstruction. Hemodynamically stable on arrival. Exam with very mild periumbilical tenderness, no peritoneal signs. Basic labs reassuring without leukocytosis or anemia, electrolyte or metabolic abnormalities, obstructive liver panel, elevated lipase or lactate. 4 4:42 PM CDT [facility] Gross Description A) [...] There are multiple enlarged fleshy mesenteric nodes. ??Setup Operator sections are submitted as follows: 1. ?? Proximal and distal margin, en face (proximal margin inked blue) 2,3. Sections of intramural mass, B-plus fixed tissue 4-6. Sections of intramural mass, formalin fixative (deepest area of invasion in cassette 4, lesion relationship with adjacent uninvolved mucosa in cassette 6) 7. Three possible nodes 8. Four possible nodes TRB 12/17/2023 4 4:42 PM T [facility] Intraoperative Consultation A) SMALL BOWEL, [...] surgical procedure. ??This testing was performed at: [facility] ?? [address] [place] [address] 4 4:42 PM [facility] Microscopic Description The final diagnosis [...] Negative ??CD10: ??Positive ??CD20: ??Positive ??CD21: ??Highlights MCC meshworks in neoplastic follicles ??CD23: ??Highlights MCC meshworks in neoplastic follicles ??CD43: ??Negative ??BCL1: [...] follicular lymphoma. ?? 4 4:42 PM CDT [facility] Flow Cytometry Summary B Cell [...] developed and its performance characteristics verified [facility]. It has not been cleared or approved [...] 12/18/2023 12:48 PM 4 4:42 PM CDT [facility] Additional Information Interpreted at [facility] - [address], [place] [address] 4 4:42 PM CDT [facility] Tissue (Small Bowel) 12/17/2023 8:53 AM CDT 12/17/2023 9:01 AM CDT George Holt MD PATHOLOGY/CYTOLOGY Performing Organization Address City/State/[facility] Co de Phone Number [facility] [address] [place] [address], * HCHG TUBE PR1, HCHG STYLET PR1, [...] Watson MD - 12/16/2023 12:50 PM CDT [facility] Patient Name: Ann Edmondson Procedure Date: 12/16/2023 Gender: Female Date of : 1960 Admit Type: Outpatient Procedure: Small bowel enteroscopy Proceduralist: Shruthi Watson MD - [facility] Indications/Pre-Op Diagnosis: Small bowel obstruction Medications: Monitored Anesthesia Care Procedure Description: After obtaining informed consent, the endoscope was passed underdirect vision. Throughout the procedure, the patient's blood pressure,pulse, and oxygen saturations were monitored continuously. The endoscope [id number] was introduced through the mouth and advanced [...] 12/15/2023 8:34 AM CDT Doctor Unknown LABORATORY Performing Organization Address City/[facility] Co de Phone Number [facility] [address] [place] [address], * LACTATE VENOUS (12/15/2023 8:06 AM CDT) Only the most recent of2 resultswithin the time period is included. LACTATE,VENOUS 1.0 0.5 - 2.0 mmol/L 12/15/2023 9:08 AM CDT [facility] Blood BLOOD SPECIMEN / Unknown Venipuncture / Unknown 12/15/2023 8:06 AM CDT 12/15/2023 8:32 AM CDT Gabrielle Ayala MD CHEMISTRY [facility] [address] [place] [address], * LIPASE (12/15/2023 8:06 AM CDT) Only the most recent of2 resultswithin the time period is included. LIPASE 39.4 13.0 - 60.0 IU/L 12/15/2023 9:06 AM CDT [facility] Blood BLOOD SPECIMEN / Unknown Venipuncture / Unknown 12/15/2023 8:06 AM CDT 12/15/2023 8:32 AM CDT Gabrielle Ayala MD CHEMISTRY [facility] [address] [place] [address], [place] * HEPATIC FUNCTION PANEL (12/15/2023 8:06 AM CDT) Only the most recent of2 resultswithin the time period is included. ALBUMIN 4.7 4.0 - 4.9 g/dL 12/15/2023 9:06 AM CDT [facility] PROTEIN,TOTAL 7.4 6.0 - 8.0 g/dL 12/15/2023 9:06 AM CDT [facility] BILIRUBIN,TOTAL 0.4 0.0 - 1.2 mg/dL 12/15/2023 9:06 AM CDT [facility] BILIRUBIN,DIRECT <0.2 0.0 - 0.3 mg/dL 12/15/2023 9:06 AM CDT [facility] BILIRUBIN,INDIRE CT 12/15/2023 9:06 AM CDT [facility] Comment:Unable to calculate, Direct Bili <0.2 ALK PHOSPHATASE 89 35 - 104 IU/L 12/15/2023 9:06 AM CDT [facility] ALT (SGPT) 16 10 - 35 IU/L 12/15/2023 9:06 AM CDT [facility] AST (SGOT) 22 10 - 35 IU/L 12/15/2023 9:06 AM CDT [facility] Blood BLOOD SPECIMEN / Unknown Venipuncture / Unknown 12/15/2023 8:06 AM CDT 12/15/2023 8:32 AM CDT Gabrielle Ayala MD CHEMISTRY [facility] [address] [place] [address], [place] * SCAN-CARDIAC STRIP (12/15/2023 12:00 AM CDT) [...] For Patients: ??As a result of the Century Cures Act, medical imaging exams and procedure [...] 11.0 thou/cu mm 12/08/2023 2:13 PM CDT [facility] RED BLOOD COUNT 5.10 4.00 - 5.20 mil/cu mm 12/08/2023 2:13 PM CDT [facility] HEMOGLOBIN 13.7 12.0 - 16.0 g/dL 12/08/2023 2:13 PM CDT [facility] HEMATOCRIT 42.7 33.0 - 51.0 % 12/08/2023 2:13 PM CDT [facility] MCV 84 80 - 100 fL 12/08/2023 2:13 PM CDT [facility] MCH 26.9 26.0 - 34.0 pg 12/08/2023 2:13 PM CDT [facility] MCHC 32.1 32.0 - 36.0 g/dL 12/08/2023 2:13 PM CDT [facility] RDW 14.0 11.5 - 15.5 % 12/08/2023 2:13 PM CDT [facility] PLATELET COUNT 304 140 - 440 thou/cu mm 12/08/2023 2:13 PM CDT [facility] MPV 9.0 6.5 - 11.0 fL 12/08/2023 2:13 PM CDT [facility] NRBC 0.0 % 12/08/2023 2:13 PM CDT [facility] ABS NRBC 0.0 thou /cu mm 12/08/2023 2:13 PM CDT [facility] % NEUT 79.3 % 12/08/2023 2:13 PM CDT [facility] % LYMPH 14.4 % 12/08/2023 2:13 PM CDT [facility] % MONO 5.5 % 12/08/2023 2:13 PM CDT [facility] % EOS 0.0 % 12/08/2023 2:13 PM CDT [facility] % BASO 0.6 % 12/08/2023 2:13 PM CDT [facility] % IMMATURE GRAN (METAS,MYELOS,N[place] OS) 0.2 % 12/08/2023 2:13 PM CDT [facility] ABSOLUTE NEUTROPHILS 6.6 1.7 - 7.0 thou/cu mm 12/08/2023 2:13 PM CDT [facility] ABSOLUTE LYMPHOCYTES 1.2 0.9 - 2.9 thou/cu mm 12/08/2023 2:13 PM CDT [facility] ABSOLUTE MONOCYTES 0.5 <0.9 thou/cu mm 12/08/2023 2:13 PM CDT [facility] ABSOLUTE EOSINOPHILS 0.0 <0.5 thou/cu mm 12/08/2023 2:13 PM CDT [facility] ABSOLUTE BASOPHILS 0.1 <0.3 thou/cu mm 12/08/2023 2:13 PM CDT [facility] ABSOLUTE IMMATURE GRANULOCYTES(MET ,MYELOS,PROS) 0.0 <0.3 thou/cu mm 12/08/2023 2:13 PM CDT [facility] Blood BLOOD SPECIMEN / Unknown Non-Lab Venipuncture / Unknown 12/08/2023 1:39 PM CDT 12/08/2023 1:46 PM CDT Antoinette Hubbard DO [facility] O[facility] [address] [place] [address], [place] * CT ABDOMEN PELVIS ENTEROGRAPHY W (10/26/2023 [...] 9:14 AM 08/16/2015 12:48 PM Care Teams Director Of Finance Relationship Specialty Start Date End Date Laura Curtis NP [address] [place] [id number] PCP - General Emergency Medicine 10/23/23
--- OUTSIDE RECORDS SUMMARY | 2024-01-08 08:15 | XMS_ITS | Encounter Summary ---
Author Organization [facility] Address [address] [place] [address] Care Team Providers Care Dust Sampler Name Role Phone Elsewhere, Pcp Primary Care Provider Unavailabl e Reason for Referral * MRI/CAT/PET Scan (Routine) - Denied Specialty Diagnoses / Procedures Referred By Contac t Referred To Contact Radiology Diagnoses Crohn's Disease (HCC) Procedures CT Abdomen Pelvis Enterography with IV Contrast Xu Pat M.D. [address] [address] [place] [address] [facility] Region Referral ID Status Reason Start Date Expiration Date Visits Re quested Visits Authorized [id number] Denied 09/24/2023 09/23/2024 1 1 Reason for Visit * MRI/CAT/PET Scan (Routine) - Denied Specialty Diagnoses / Procedures Referred By Contac t Referred To Contact Radiology Diagnoses Crohn's Disease (HCC) Procedures CT Abdomen Pelvis Enterography with IV Contrast Xu Pat M.D. [address] [address] [place] [address] [facility] Region Referral ID Status Reason Start Date Expiration Date Visits Re quested Visits Authorized [id number] Denied 09/24/2023 09/23/2024 1 1 Encounter Details Date Type Department Care Team (Latest Contact Info) Description 10/26/2023 7:48 AM CDT - 10/26/2023 11:59 PM CDT Hospital Encounter Department of Radiology in [place], [place] [address] [place] [address] Xu Pat M.D. [address] [address] [place] [id number] Crohn's Disease (HCC) Discharge Disposition: Home or [...] often do you attend chur ch or evangelical services? 1 to 4 times per year [...] Sex Assigned at Female 05/14/2017 2:12 PM SUCKER MACHINE OPERATOR Gender Identity Female 05/14/2017 2:12 PM SUCKER MACHINE OPERATOR Sexual Orientation Straight 05/14/2017 2: 12 PM SUCKER MACHINE OPERATOR documented as of this encounter Medications [...] Total Score: 1 05/14/20 17 2:12 PM SUCKER MACHINE OPERATOR documented as of this encounter Care Teams Dust Sampler Relationship Specialty Start Date End Date Elsewhere, Pcp PCP - General Internal Medicine 09/02/22 documented as of this encounter
--- NOTE | 2024-01-08 08:30 | PE_ITS ---
[facility] [address] [facility] [address] Phone:?[phone] Fax:?[phone] Referring Physician Information: Nisa Escobar [address] [facility] [address] Phone:?[phone] Fax:?[phone] Patient:Elio Edmondson D.O.B:?1960 Sex:?Female Phone:?[phone] [facility] MRN:?[id number] Exam Date:?01/08/2024 EXAM: PET/CT EYES TO THIGHS, CANCER INITIAL STAGING CLINICAL INFORMATION: Follicular lymphoma. TECHNICAL INFORMATION: Helical acquisition of data was obtained from the orbits to the upper thighs with reconstruction of 3.75 mm thick images at 3.[address] data was used for attenuation correction. PET scanning was performed through the same anatomic range 55 minutes following administration of 12.42 mCi of 18-FDG delivered intravenously. The patient's glucose at the time of the injection was 110 mg/dL. PET, CT and PET/CT fusion images are interpreted using a computer viewing workstation. PET, CT and PET/CT fusion images were archived and saved in the patient's permanent medical record. COMPARISON: Abdominopelvic CT from 12/08/2023. INTERPRETATION: Head and Neck: There are no abnormal hypermetabolic foci within the head or neck. There is physiologic uptake in the intracranial soft tissues. Chest: There are no abnormal hypermetabolic foci within the chest. Background mediastinal blood pool uptake has a maximum SUV of 3.56. No lung nodules or masses detected on this free-breathing exam. No lymphadenopathy detected. Abdomen and Pelvis: There are no abnormal hypermetabolic foci within the abdomen or pelvis. Background hepatic parenchymal uptake has a maximum SUV of 3.76. There is physiologic excretion of radiotracer in the urine and bowel. No active intestinal disease. No abdominopelvic lymphadenopathy (size, morphology, or metabolic rate. No splenomegaly or extranodal disease. Prior laparotomy and small bowel anastomosis noted. Skeleton, Musculature, and Integument: No abnormal hypermetabolic foci within the skeleton. No hiro osteoblastic or osteolytic disease. CONCLUSION: No abnormal FDG uptake to indicate active malignancy. No active intestinal disease. No lymphadenopathy in terms of size, morphology, or metabolic rate. No splenomegaly, skeletal disease, or extranodal disease. Deauville score is 1. Electronically signed on 01/11/2024 12:23:00 PM by Jim Anderson M.D.
== END 2024-01-08 08:13 | disposition home or self-care (01) ==
PROVIDERS: PCP Nurse Practitioner Family; Visit Provider Nurse Practitioner Family
DX: C82.90 Follicular lymphoma, unspecified, unspecified site (principal)
CPT/HCPCS: 78815; A9552

== ENCOUNTER 2024-02-01 09:47 | Outpatient (CLI) | payer OTHER, SELFPAY ==
--- OUTSIDE RECORDS SUMMARY | 2024-02-01 09:50 | XMS_ITS | Referral Summary ---
Author Organization [facility] Address [address] [place] [address] Care Team Providers Care Manager Installation Name Role Phone Elsewhere, Pcp Primary Care Provider Unavailabl e Source Comments Patient records contain information from all sites at [facility]. For routine questions regarding patient records, call [phone] during business hours, M-F 8:00 AM - 5:00 PM Central Time. Record requests for emergency care only can be directed to [phone] at any time.[facility] Allergies Active Allergy Reactions Criticality Noted Date [...] Of Left Artificial Hip Joint 05/14/2015 05/14/2017 Overview (05/14/2017): Last Assessment & Plan: 56yoF 17 months [...] any clubs o r organizations such as latter day groups, unions, fraternal or athletic groups, or [...] Answer Date Recorded PHQ-2 Score 0 07/29/2021 [facility] [place] [facility] - Occupational Stress [...] your living situation today? I have a [facility] place to live 05/13/2023 Education Answer Date Recorded What is the highest level of school you have completed or the highest degree you have received? Some college, no degree 07/28/2021 Sex and Gender Information Value Date Recorded Sex Assigned at Female 05/14/2017 2:12 PM HULL SORTER Gender Identity Female 05/14/2017 2:12 PM HULL SORTER Sexual Orientation Straight 05/14/2017 2: 12 PM HULL SORTER Last Filed Vital Signs Vital Sign Reading Time Taken Comments Blood Pressure 126/85 07/29/2021 9:02 AM HULL SORTER Pulse 83 07/29/2021 9:02 AM HULL SORTER Temperature 36.2 ??C (97.1 ??F) 07/29/2021 9:02 AM CS T Respiratory Rate 18 07/29/2021 9:02 AM HULL SORTER Oxygen Saturation 93% 06/06/2020 2:58 PM HULL SORTER Inhaled Oxygen Concentration - - Weight 96.6 kg (212 lb 15.4 oz) 07/29/2021 9:02 AM HULL SORTER Height 168.6 cm (5' 6.38) 07/29/2021 9:02 AM CS T Body Mass Index 33.98 07/29/2021 9:02 AM HULL SORTER Plan of Treatment Not on file Medical Devices Implanted Type Area Enterprise Systems Architect Device Identifier Shelf Expiration Date Model / Serial / Lot Hardware E.G. Pins/Screws/Ro ds Hardware e.g. pins/screws/r ods Foot Hip Implant-03/06/20 10 Implanted:09/0 07/2009 (Quantity not on file) Hip Implant Hip Procedures Procedure Name Priority Date/Time Associated Diagnosis Comments OUTSIDE NM PET Routine 01/08/2024 9:35 AM CDT CREATININE WITH EGFR, S/P Routine 10/05/2023 11:09 AM CDT Anemia Microcytic Hypochromic LIPID PANEL, S Routine 07/29/2021 8:42 AM HULL SORTER Hypertension Essential Primary Encounter For Screening For Cardiovascular Disorders Hypothyroidism Screening Examination Diabetes Mellitus COMPREHENSIVE METABOLIC PANEL, S/P Routine 07/29/2021 8:42 AM HULL SORTER Hypertension Essential Primary Encounter For Screening For Cardiovascular Disorders Hypothyroidism Screening Examination Diabetes Mellitus BI BREAST SCREENING BILATERAL WITH TOMOSYNTHESIS RAD - Routine (most inpatients and all outpatients) 10/13/2018 11:47 AM CDT Screening Mammogram Average Risk Patient from Last 3 Months or Most Recently Relevant to Health Maintenance Results * PET skull to mid thigh-Outside NM Pet (01/08/2024 9:35 AM CDT) 01/08/2024 9:34 AM CDT Narrative IIMS - 01/08/2024 1:21 PM CDT This order has been created and auto-finalized to support the import of outside images. If available, original interpretation can be found on the Media Tab in Chart Review, in Document Viewer, as an image in QREADS or as an Addendum. If a re-interpretation or overread is required please follow defined workflow.?? Provider Not In System IMG NM PROCEDURES IIMS NA * (ABNORMAL) Lipid Panel (07/29/2021 8:42 AM HULL SORTER) Cholesterol, Total 207(H) mg/dL 2021 11:45 AM HULL SORTER OWAT Comment: ----REFERENCE VALUE---- Desirable: < 200 Borderline high: 200 - 239 High: > or = 240 Triglycerides 253(H) mg/dL 07/29/2021 11:45 AM HULL SORTER OWAT Comment: ----REFERENCE VALUE---- Normal: <150 Borderline high: 150-199 High: 200-499 Very high: > or =500 Cholesterol, HDL 52 >=50 mg/dL 07/29/19 11:45 AM HULL SORTER OWAT Calculated LDL 104 mg/dL 07/29/2021 11:45 AM HULL SORTER OWAT Comment: ----REFERENCE VALUE---- Desirable: <100 mg/dL Above Desirable: 100-129 mg/dL Borderline High: 130-159 mg/dL High: 160-189 mg/dL Very High: >=190 mg/dL Cholesterol, Non-HDL, Calculated 155 mg/dL 07/29/2021 11:45 AM HULL SORTER OWAT Comment: ----REFERENCE VALUE---- Desirable: <130 Above Desirable: 130-159 Borderline high: 160-189 High: 190-219 Very high: > or =220 Blood (Blood, Venous) 07/29/2021 8:42 AM HULL SORTER 07/29/2021 10:44 AM HULL SORTER Laith Luz P.A.-C. LAB BLOOD ADD- ON [facility] [address] [place] [address], [facility] [place] [address] [place] [address] * BI Breast Screening Bilateral with Tomosynthesis [...] Mammogram ASSESSMENT: BI-RADS: 1: Negative. Laith Luz P.A.-C. IMG BI PROCEDU RES from Last 3 Months or Most Recently Relevant to Health Maintenance Advance Directives For more information, please contact: [phone] Documents on File Type Date Recorded Patient Management Trainee Expl anation Advance Directives 07/26/2015 12:00 AM Leg acy document. See document viewer. Care Teams Manager Installation Relationship Specialty Start Date End Date Elsewhere, Pcp PCP - General Internal Medicine 09/02/22
--- OUTSIDE RECORDS SUMMARY | 2024-02-01 09:50 | XMS_ITS | Encounter Summary ---
Author Organization [facility] Address [address] [place] [address] Care Team Providers Care Director For Beauty School Name Role Phone Elsewhere, Pcp Primary Care Provider Unavailabl e Reason for Referral * MRI/CAT/PET Scan (Routine) - Denied Specialty Diagnoses / Procedures Referred By Contac t Referred To Contact Radiology Diagnoses Crohn's Disease (HCC) Procedures CT Abdomen Pelvis Enterography with IV Contrast Xu Pat M.D. [address] [address] [place] [address] [facility] Region Referral ID Status Reason Start Date Expiration Date Visits Re quested Visits Authorized [id number] Denied 09/24/2023 09/23/2024 1 1 Reason for Visit * MRI/CAT/PET Scan (Routine) - Denied Specialty Diagnoses / Procedures Referred By Contac t Referred To Contact Radiology Diagnoses Crohn's Disease (HCC) Procedures CT Abdomen Pelvis Enterography with IV Contrast Xu Pat M.D. [address] [address] [place] [address] [facility] Region Referral ID Status Reason Start Date Expiration Date Visits Re quested Visits Authorized [id number] Denied 09/24/2023 09/23/2024 1 1 Encounter Details Date Type Department Care Team (Latest Contact Info) Description 10/26/2023 7:48 AM CDT - 10/26/2023 11:59 PM CDT Hospital Encounter Department of Radiology in [place], [place] [address] [place] [address] Xu Pat M.D. [address] [address] [place] [id number] Crohn's Disease (HCC) Discharge Disposition: Home or [...] often do you attend chur ch or yazidi services? 1 to 4 times per year 07/28/2021 Do you belong to any clubs o r organizations such as mandaeism groups, unions, fraternal or athletic groups, or [...] Answer Date Recorded PHQ-2 Score 0 07/29/2021 [facility] Occupat ional Health - Occupational [...] Sex Assigned at Female 05/14/2017 2:12 PM LAB ASSOCIATE Gender Identity Female 05/14/2017 2:12 PM LAB ASSOCIATE Sexual Orientation Straight 05/14/2017 2: 12 PM LAB ASSOCIATE documented as of this encounter Medications at [...] Total Score: 1 05/14/20 17 2:12 PM LAB ASSOCIATE documented as of this encounter Care Teams Director For Beauty School Relationship Specialty Start Date End Date Elsewhere, Pcp PCP - General Internal Medicine 09/02/22 documented as of this encounter
--- OUTSIDE RECORDS SUMMARY | 2024-02-01 09:50 | XMS_ITS ---
Author Organization [facility] Address [address] [place] [address] Care Team Providers Care System Trainer Name Role Phone Unavailable Unavailable Unavailable Surgery Details Not on file Complications Check Surgery Details section. Procedure Estimated Blood Loss Check Surgery Details section. Procedure Findings Check Surgery Details section. Procedure Specimens Taken Check Surgery Details section.
--- OUTSIDE RECORDS SUMMARY | 2024-02-01 09:50 | XMS_ITS | Encounter Summary ---
Author Organization [facility] Address [address] [place] [address] Care Team Providers Care Supervisor Lens Generating Name Role Phone Elsewhere, Pcp Primary Care Provider Unavailabl e Encounter Details Date Type Department Care Team (Late st Contact Info) Description 09/29/2023 Clinical Communication Department of General Surgery in [place], [place] [address] [phone] [place] [address] [address] Social History Tobacco Use Types Packs/Day Years [...] How often do you attend chur or mandaen services? 1 to 4 times per year [...] Recorded PHQ-2 Score 0 07/29/2021 [facility] of Occupat ional Health - Occupational [...] your living situation today? I have a [facility] place to live 05/13/2023 Education Answer Date Recorded What is the highest level of school you have completed or the highest degree you have received? Some college, no degree 07/28/2021 Sex and Gender Information Value Date Recorded Sex Assigned at Female 05/14/2017 2:12 PM NEUROPHYSIOLOGICAL TECHNICIAN Gender Identity Female 05/14/2017 2:12 PM NEUROPHYSIOLOGICAL TECHNICIAN Sexual Orientation Straight 05/14/2017 2: 12 PM NEUROPHYSIOLOGICAL TECHNICIAN documented as of this encounter Plan of Treatment Not on file documented as of this encounter Visit Diagnoses Not on filedocumented in this encounter Additional Health Concerns Assessment Noted Time PHQ-9 Depression Total Score: 1 05/14/20 17 2:12 PM NEUROPHYSIOLOGICAL TECHNICIAN documented as of this encounter Care Teams Supervisor Lens Generating Relationship Specialty Start Date End Date Elsewhere, Pcp PCP - General Internal Medicine 09/02/22 documented as of this encounter
--- OUTSIDE RECORDS SUMMARY | 2024-02-01 09:50 | XMS_ITS | Clinical Summary ---
Author Organization [facility] Address [place], [place] [address] Care Team Providers Care Extension Supervisor Name Role Phone Laura Curtis NP Primary Care Provider [phone] Allergies Active Allergy Reactions Criticality Noted Date Comments Lisinopril Cough,*Unknown 07/28/2022 Neomycin *Unknown,Other - French cribe In Comment Field 08/10/2015 Medications Medication Sig Dispensed Refills Start Date End Date Status levothyroxine (SYNTHROID) 100 mcg tablet Take 100 mcg by mouth before breakfast. Active amLODIPine (NORVASC) 5 mg tablet Take 5 mg by mouth once daily. 12/11/2023 Active prochlorperazine (COMPAZINE) 10 mg tablet Take 10 mg by mouth every 8 hours if needed for Nausea/Vomiting. 12/07/2023 Active triamterene-hydroc hlorothiazide, 37.5-25 mg, (DYAZIDE) 37.5-25 mg capsule Take 1 Capsule by mouth once daily in the morning. Active polyethylene glycoL (MIRALAX) 17 gram/scoop powderIndications: Abdominal pain, unspecified abdominal location,Intestina l mass Mix 1 scoop (17 g) in liquid then take by mouth once daily. 238 g 12/23/2023 Active oxyCODONE (ROXICODONE) 5 mg immediate release tabletIndications: Abdominal pain, unspecified abdominal location Take 1 Tablet (5 mg) by mouth every 4 hours if needed for Pain. 12 Tablet 12/23/2023 Active acetaminophen (TYLENOL EXTRA STRGTH) 500 mg tabletIndications: Abdominal pain, unspecified abdominal location,Intestina l mass Take 2 Tablets (1,000 mg) by mouth every 6 hours. Max acetaminophen dose: 4000mg in 24 hrs. 60 Tablet 12/23/2023 Active Active Problems Problem Noted Date Diagnosed Date Small bowel obstruction 12/19/2023 Follicular lymphoma 12/19/2023 Lesion of small intestine 12/16/2023 Abdominal pain 12/15/2023 Essential hypertension 07/11/2019 Lichen planus 05/14/2017 Hypothyroidism 02/22/2010 Encounters Date Type Department Care Team Description 12/17/2023 8:03 AM CDT Anesthesia Event [facility] [address] [place] [phone] Jim Gonzalez MD Lee, Hee Won, MD 12/17/2023 7:45 AM CDT - 12/17/2023 10:11 AM CDT Surgery [facility] [address] [place] [address] George Holt MD EXPLORATORY LAPAROTOMY, 12/16/2023 11:57 AM CDT Anesthesia Event [facility] [address] [place] [address] Peggy Ceballos MD Cutshall, John P, CRNA 12/16/2023 11:04 AM CDT - 12/16/2023 11:46 AM CDT Surgery [facility] [address] [place] [address] Shruthi Watson MD ENTEROSCOPY with tatoo 12/15/2023 6:50 AM CDT - 12/23/2023 1:52 PM CDT Hospital Encounter [facility] [address] [place] [address] Gabrielle Ayala MD Ibrahim, FELICITY Latham, MD Desmond Brooks Traci Arnette, MD [facility]ists Of Abdominal pain, unspecified abdominal location (Primary Dx); Intestinal mass; Follicular lymphoma grade II, unspecified body region (HC) Discharge Disposition: Home Self Care 12/15/2023 Travel 12/11/2023 Telephone [facility] [address] [place] [address] Yaya Edmondson MD Referral 12/09/2023 Telephone [facility] [address] [place] [address] Yaya Edmondson MD Referral 12/08/2023 11:18 AM CDT - 12/08/2023 5:00 PM CDT Emergency [facility] [address] [place] [address] Evan Hubbard, Antoinette Abad, DO Ahno, Pamella Lam, Abdominal pain, unspecified abdominal location (Primary Dx) Discharge Disposition: Home Self Care 12/08/2023 Travel 12/04/2023 Telephone [facility] [address] [place] [address] Adela Baumann, hot plate plywood press offbearer from Last 3 Months Social History Tobacco [...] Care Team (Late st Contact Info) Description 02/08/2024 1:00 PM CDT Office Visit [facility] [address] [place] [address] Rupali Landon PA [address] [place], [place] [phone] Health Maintenance Due Date Last Done Comments [...] AUTO DIFFERENTIAL STAT 12/08/2023 1:39 PM CDT from Last 3 Months Results * POTASSIUM (12/22/2023 9:49 PM CDT) Only the most recent of10 resultswithin the time period is included. POTASSIUM 4.1 3.5 - 5.1 mmol/L 12/22/2023 10:46 PM CDT [facility] Blood BLOOD SPECIMEN / Unknown Butterfly / Unknown 12/22/2023 9:49 PM CDT 12/22/2023 9:54 PM CDT Laurie Quintero RN CHEMISTRY Performing Organization Address [facility] de Phone Number [facility] [address] [place] [address], [place] * Hemoglobin AM (12/22/2023 6:06 AM CDT) HEMOGLOBIN 13.0 12.0 - 16.0 g/dL 12/22/2023 6:25 AM CDT [facility] MCV 83 80 - 100 fL 12/22/2023 6:25 AM CDT [facility] Blood BLOOD SPECIMEN / Unknown Venipuncture / Unknown 12/22/2023 6:06 AM CDT 12/22/2023 6:17 AM CDT Yolie Logan MD HEMATOLOGY Performing Organization Address [facility] de Phone Number [facility] [address] [place] [address], [place] * (ABNORMAL) SODIUM (12/22/2023 6:05 AM CDT) SODIUM 132(L) 136 - 145 mmol/L 12/22/2023 6:45 AM CDT [facility] Blood BLOOD SPECIMEN / Unknown Venipuncture / Unknown 12/22/2023 6:05 AM CDT 12/22/2023 6:18 AM CDT Yolie Logan MD CHEMISTRY Performing Organization Address [facility] de Phone Number [facility] [address] [place] [place] [phone], [place] * CREATININE (12/22/2023 6:05 AM CDT) eGFR >90 >90 mL/min/1.7 3m2 12/22/2023 6:45 AM CDT [facility] Comment:As of 2021, eG FR is calculated by the CKD-EPI creatinine equation without race adjustment. ??eGFR can be influenced by muscle mass, exercise, and diet. ??The reported eGFR is an estimation only and is only applicable if the renal function is stable. CREATININE 0.60 0.50 - 0.90 mg/dL 12/22/2023 6:45 AM CDT [facility] Blood BLOOD SPECIMEN / Unknown Venipuncture / Unknown 12/22/2023 6:05 AM CDT 12/22/2023 6:18 AM CDT Yolie Logan MD CHEMISTRY Performing Organization Address City/[facility]/ZIP Co de Phone Number [facility] [address] [place] [address], * LD,TOTAL (12/19/2023 7:26 PM CDT) [facility] LD,TOTAL 144 135 - 214 IU/L 12/21/2023 12:57 PM CDT [facility] Blood BLOOD SPECIMEN / Unknown Venipuncture / Unknown 12/19/2023 7:26 PM CDT 12/19/2023 7:33 PM CDT Edis ESPARZA CHEMISTRY Performing Organization Address City/[facility] Co de Phone Number [facility] [address] [place] [address], * CBC W PLT NO DIFF (12/19/2023 5:12 AM CDT) Only the most recent of2 resultswithin the time period is included. [facility] WHITE BLOOD COUNT 7.0 4.5 - 11.0 thou/cu mm 12/19/2023 5:27 AM CDT [facility] RED BLOOD COUNT 4.46 4.00 - 5.20 mil/cu mm 12/19/2023 5:27 AM CDT [facility] HEMOGLOBIN 12.1 12.0 - 16.0 g/dL 12/19/2023 5:27 AM CDT [facility] HEMATOCRIT 37.4 33.0 - 51.0 % 12/19/2023 5:27 AM CDT [facility] MCV 84 80 - 100 fL 12/19/2023 5:27 AM CDT [facility] MCH 27.1 26.0 - 34.0 pg 12/19/2023 5:27 AM CDT [facility] MCHC 32.4 32.0 - 36.0 g/dL 12/19/2023 5:27 AM CDT [facility] RDW 13.5 11.5 - 15.5 % 12/19/2023 5:27 AM CDT [facility] PLATELET COUNT 184 140 - 440 thou/cu mm 12/19/2023 5:27 AM CDT [facility] MPV 9.0 6.5 - 11.0 fL 12/19/2023 5:27 AM CDT [facility] NRBC 0.0 % 12/19/2023 5:27 AM CDT [facility] ABS NRBC 0.0 thou /cu mm 12/19/2023 5:27 AM CDT [facility] Blood BLOOD SPECIMEN / Unknown Venipuncture / Unknown 12/19/2023 5:12 AM CDT 12/19/2023 5:21 AM CDT Lenka Ivory MD HEMATOLOGY [facility] [address] [place] [address], * (ABNORMAL) BASIC METABOLIC PANEL (12/19/2023 5:12 AM CDT) Only the most recent of4 resultswithin the time period is included. SODIUM 137 136 - 145 mmol/L 12/19/2023 5:47 AM CDT [facility] POTASSIUM 3.2(L) 3.5 - 5.1 mmol/L 12/19/2023 5:47 AM CDT [facility] CHLORIDE 98 98 - 107 mmol/L 12/19/2023 5:47 AM CDT [facility] CO2,TOTAL 28 22 - 29 mmol/L 12/19/2023 5:47 AM CDT [facility] ANION GAP 11 5 - 18 12/19/2023 5:47 AM CDT [facility] GLUCOSE 118(H) 70 - 99 mg/dL 12/19/2023 5:47 AM CDT [facility] CALCIUM 9.3 8.8 - 10.2 mg/dL 12/19/2023 5:47 AM CDT [facility] BUN 5(L) 8 - 23 mg/dL 12/19/2023 5:47 AM CDT [facility] CREATININE 0.45(L) 0.50 - 0.90 mg/dL 12/19/2023 5:47 AM CDT [facility] BUN/CREAT RATIO 11 10 - 20 5:47 AM CDT [facility] eGFR >90 >90 mL/min/1.7 3m2 12/19/2023 5:47 AM CDT [facility] Comment:As of 2021, [...] 5:21 AM CDT Lenka Ivory MD CHEMISTRY [facility] [address] [place] [address], * PATH TISSUE EXAM (12/17/2023 8:53 AM CDT) Case Report Pathology Report ?Case: [id number] ? Authorizing Provider: ??George Holt MD ? Collected: ? 12/17/2023 0853 ? Ordering Location: ? [facility] ?Received: ?12/17/2023 0901 ? Hospital ? Pathologist: ? Spencer Reid, ? MD ? Specimen: ?Small Bowel, suture on proximal end, gross exam call with results ? 4 4:42 PM CDT [facility]- CENTRAL LABORATORY Final Diagnosis A) SMALL INTESTINE, MASS, SEGMENTAL RESECTION: 1. Follicular lymphoma, grade 1-2 (of 3) (WHO 2016), forming a 4 x 4 x 1 cm mass 2. Resection margins negative for malignancy 3. Seven benign mesenteric lymph nodes 4. See comment 4 4:42 PM CDT [facility]AL [facility] Comment Given the presence o [...] YASSINE Holt on 12/18/2023. 4 4:42 PM T [facility] Clinical Information 63-year-old female with several months of fluctuating abdominal pain, nausea, and vomiting. Has been hospitalized and seen by [facility] as an outpatient. Initially presented with [...] symptoms since her most recent hospitalization at [place] 2 weeks ago for the reported obstruction. Hemodynamically stable on arrival. Exam with very mild periumbilical tenderness, no peritoneal signs. Basic labs reassuring without leukocytosis or anemia, electrolyte or metabolic abnormalities, obstructive liver panel, elevated lipase or lactate. 4 4:42 PM T [facility] Gross Description A) Received fresh [...] There are multiple enlarged fleshy mesenteric nodes. ??Collection Administrator sections are submitted as follows: 1. ?? Proximal and distal margin, en face (proximal margin inked blue) 2,3. Sections of intramural mass, B-plus fixed tissue 4-6. Sections of intramural mass, formalin fixative (deepest area of invasion in cassette 4, lesion relationship with adjacent uninvolved mucosa in cassette 6) 7. Three possible nodes 8. Four possible nodes TRB 12/17/2023 4 4:42 PM [facility] Intraoperative Consultation A) SMALL BOWEL, RESECTION, INTRAOPERATIVE CONSULTATION WITH CYTOLOGY PREPARATIONS (2 touch preparations): 1. Submucosal mass suspicious for lymphoma 2. Material allocated for lymphoma workup Christo Card MD, 12/17/2023 9:16 AM Intraoperative consultation, which may have included frozen section preparation, gross specimen examination, and/or cytology touch imprints/smears, was performed by a pathologist during the surgical procedure. ??This testing was performed at: [facility] ?? [address] [place] [address] 4 4:42 PM [facility]AL LAB[facility] Microscopic Description The final diagnosis [...] follicular lymphoma. ?? 4 4:42 PM CDT [facility]- CENTRAL LABORATORY Flow Cytometry Summary B Cell [...] developed and its performance characteristics verified by [facility]. It has not been cleared or [...] Flow Tech: Jazzy Clement, 12/18/2023 12:48 PM 4:42 PM CDT [facility]- CENTRAL LABORATORY Additional Information Interpreted at [facility] - [address] [address] 4 4:42 PM CDT [facility] Tissue (Small Bowel) 12/17/2023 8:53 AM CDT 12/17/2023 9:01 AM CDT George Holt MD PATHOLOGY/CYTOLOGY [facility]-CENTRAL LAB[facility]ATORY [address] [place] [address], * HCHG TUBE PR1, HCHG STYLET PR1, [...] bowel enteroscopy Proceduralist: Shruthi Watson MD - [facility] Indications/Pre-Op Diagnosis: Small bowel obstruction Medications: Monitored Anesthesia Care Procedure Description: After obtaining informed consent, the endoscope was passed underdirect vision. Throughout the procedure, the patient's blood pressure,pulse, and oxygen saturations were monitored continuously. The endoscope [id number] was introduced through the mouth and advanced [...] CDT Doctor Unknown LABORATORY Performing Organization Address City/[facility]/ZIP Co de Phone Number [facility] [address] [place] [address], * LACTATE VENOUS (12/15/2023 8:06 AM CDT) Only the most recent of2 resultswithin the time period is included. LACTATE,VENOUS 1.0 0.5 - 2.0 mmol/L 12/15/2023 9:08 AM CDT [facility] Blood BLOOD SPECIMEN / Unknown Venipuncture / Unknown 12/15/2023 8:06 AM CDT 12/15/2023 8:32 AM CDT Gabrielle Ayala MD CHEMISTRY Performing Organization Address [facility] Co de Phone Number [facility] [address] [place] [address], * LIPASE (12/15/2023 8:06 AM CDT) Only the most recent of2 resultswithin the time period is included. LIPASE 39.4 13.0 - 60.0 IU/L 12/15/2023 9:06 AM CDT [facility] Blood BLOOD SPECIMEN / Unknown Venipuncture / Unknown 12/15/2023 8:06 AM CDT 12/15/2023 8:32 AM CDT Gabrielle Ayala MD CHEMISTRY Performing Organization Address City/[facility] Co de Phone Number [facility] [address] [place] [address], [place] * HEPATIC FUNCTION PANEL (12/15/2023 8:06 AM CDT) Only the most recent of2 resultswithin the time period is included. ALBUMIN 4.7 4.0 - 4.9 g/dL 12/15/2023 9:06 AM CDT [facility] PROTEIN,TOTAL 7.4 6.0 - 8.0 g/dL 12/15/2023 9:06 AM CDT [facility] BILIRUBIN,TOTAL 0.4 0.0 - 1.2 mg/dL 12/15/2023 9:06 AM CDT [facility] BILIRUBIN,DIRECT <0.2 0.0 - 0.3 mg/dL 12/15/2023 9:06 AM CDT [facility] BILIRUBIN,INDIRE CT 12/15/2023 9:06 AM CDT [facility] Comment:Unable to calculate, Direct Bili <0.2 ALK PHOSPHATASE 89 35 - 104 IU/L 12/15/2023 9:06 AM CDT [facility] ALT (SGPT) 16 10 - 35 IU/L 12/15/2023 9:06 AM CDT [facility] AST (SGOT) 22 10 - 35 IU/L 12/15/2023 9:06 AM CDT [facility] Blood BLOOD SPECIMEN / Unknown Venipuncture / Unknown 12/15/2023 8:06 AM CDT 12/15/2023 8:32 AM CDT Gabrielle Ayala MD CHEMISTRY [facility] [address] [place] [address], * SCAN-CARDIAC STRIP (12/15/2023 12:00 AM CDT) [...] For Patients: As a result of the Century Cures Act, medical imagingexams and procedure reports [...] 12/08/2023 4:13:37 PM (Electronically Signed) Antoinette Gordon Graceutt DO CT * CBC WITH AUTO DIFFERENTIAL (12/08/2023 1:39 PM CDT) [facility] WHITE BLOOD COUNT 8.3 4.5 - 11.0 thou/cu mm 12/08/2023 2:13 PM CDT [facility] RED BLOOD COUNT 5.10 4.00 - 5.20 mil/cu mm 12/08/2023 2:13 PM CDT [facility] HEMOGLOBIN 13.7 12.0 - 16.0 g/dL 12/08/2023 2:13 PM CDT [facility] HEMATOCRIT 42.7 33.0 - 51.0 % 12/08/2023 2:13 PM CDT [facility] MCV 84 80 - 100 fL 12/08/2023 2:13 PM CDT [facility] MCH 26.9 26.0 - 34.0 pg 12/08/2023 2:13 PM CDT [facility] MCHC 32.1 32.0 - 36.0 g/dL 12/08/2023 2:13 PM CDT [facility] RDW 14.0 11.5 - 15.5 % 12/08/2023 2:13 PM CDT [facility] PLATELET COUNT 304 140 - 440 thou/cu mm 12/08/2023 2:13 PM CDT [facility] MPV 9.0 6.5 - 11.0 fL 12/08/2023 2:13 PM CDT [facility] NRBC 0.0 % 12/08/2023 2:13 PM CDT [facility] ABS NRBC 0.0 thou /cu mm 12/08/2023 2:13 PM CDT [facility] % NEUT 79.3 % 12/08/2023 2:13 PM CDT [facility] % LYMPH 14.4 % 12/08/2023 2:13 PM CDT [facility] % MONO 5.5 % 12/08/2023 2:13 PM CDT [facility] % EOS 0.0 % 12/08/2023 2:13 PM CDT [facility] % BASO 0.6 % 12/08/2023 2:13 PM CDT [facility] % IMMATURE GRAN (METAS,MYELOS,IL OS) 0.2 % 12/08/2023 2:13 PM CDT [facility] ABSOLUTE NEUTROPHILS 6.6 1.7 - 7.0 thou/cu mm 12/08/2023 2:13 PM CDT [facility] ABSOLUTE LYMPHOCYTES 1.2 0.9 - 2.9 thou/cu mm 12/08/2023 2:13 PM CDT [facility] ABSOLUTE MONOCYTES 0.5 <0.9 thou/cu mm 12/08/2023 2:13 PM CDT [facility] ABSOLUTE EOSINOPHILS 0.0 <0.5 thou/cu mm 12/08/2023 2:13 PM CDT [facility] ABSOLUTE BASOPHILS 0.1 <0.3 thou/cu mm 12/08/2023 2:13 PM CDT [facility] ABSOLUTE IMMATURE GRANULOCYTES(MET ,MYELOS,PROS) 0.0 <0.3 thou/cu mm 12/08/2023 2:13 PM CDT [facility] Blood BLOOD SPECIMEN / Unknown Non-Lab Venipuncture / Unknown 12/08/2023 1:39 PM CDT 12/08/2023 1:46 PM CDT Antoinette Hubbard DO HEMAT OLOGY [facility] [address] [place] [address], from Last 3 Months Additional Health Concerns [...] 9:14 AM 08/16/2015 12:48 PM Care Teams Extension Supervisor Relationship Specialty Start Date End Date Laura Curtis NP [address] [facility] [place] [id number] PCP - General Emergency Medicine 10/23/23
--- OUTSIDE RECORDS SUMMARY | 2024-02-01 09:50 | XMS_ITS | Clinical Summary ---
Author Organization [facility] Address [address] [place] [address] Care Team Providers Care Mat Linker Name Role Phone Elsewhere, Pcp Primary Care Provider Unavailabl e Source Comments Patient records contain information from all sites at [facility]. For routine questions regarding patient records, call [phone] during business hours, M-F 8:00 AM - 5:00 PM Central Time. Record requests for emergency care only can be directed to [phone] at any time.[facility] Allergies Active Allergy Reactions Criticality Noted [...] often do you attend chur ch or gnosticism services? 1 to 4 times per year [...] Answer Date Recorded PHQ-2 Score 0 07/29/2021 [facility] [place] of Occupat ional Health - Occupational Stress [...] your living situation today? I have a [facility] place to live 05/13/2023 Education Answer Date Recorded What is the highest level of school you have completed or the highest degree you have received? Some college, no degree 07/28/2021 Sex and Gender Information Value Date Recorded Sex Assigned at Female 05/14/2017 2:12 PM FIRE RANGE TECHNICIAN Gender Identity Female 05/14/2017 2:12 PM FIRE RANGE TECHNICIAN Sexual Orientation Straight 05/14/2017 2: 12 PM FIRE RANGE TECHNICIAN Last Filed Vital Signs Vital Sign Reading Time Taken Comments Blood Pressure 126/85 07/29/2021 9:02 AM FIRE RANGE TECHNICIAN Pulse 83 07/29/2021 9:02 AM FIRE RANGE TECHNICIAN Temperature 36.2 ??C (97.1 ??F) 07/29/2021 9:02 AM CS T Respiratory Rate 18 07/29/2021 9:02 AM FIRE RANGE TECHNICIAN Oxygen Saturation 93% 06/06/2020 2:58 PM FIRE RANGE TECHNICIAN Inhaled Oxygen Concentration - - Weight 96.6 kg (212 lb 15.4 oz) 07/29/2021 9:02 AM FIRE RANGE TECHNICIAN Height 168.6 cm (5' 6.38) 07/29/2021 9:02 AM CS T Body Mass Index 33.98 07/29/2021 9:02 AM FIRE RANGE TECHNICIAN Plan of Treatment Health Maintenance Due Date Last Done Comments CT Colonography 1959 Cologuard 1959 HIV Screening 1960 Hepatitis C Screening 1960 Office Visit for Blood Pressure Check / Re-check 1959 Zoster Vaccines (1 of 2) 2009 Mammogram 10/14/2019 10/13/2018, 1202/2017, 05/26/2017, Additional history exists Colonoscopy 08/16/2020 08/16/2015 Colorectal Cancer Surveillance 08/16/2020 COVID-19 Vaccine ( season) 2023 05/20/2021, 10/23/2020, 09/26/2020 Depression Screening (Annual PHQ-2) 07/06/2023 Influenza Vaccine (#1) 2024 , 04/03/2020, 05/02/2010, Additional history exists Creatinine Level (Kidney Function Test) 12/21/2024 12/22/2023, 12/19/2023, 12/18/2023, Additional history exists Potassium Level 12/21/2024 12/22/2023, 12/04, 12/22/2023, Additional history exists Sodium Level 12/21/2024 12/22/2023, 12/04, 12/18/2023, Additional history exists Lipid (Cholesterol) Screening 07/29/2026 07/29/2021, 05/12/2019, 04/29/2018, Additional history exists Fasting Glucose for Diabetes Screening 12/18/2026 12/19/2023, 12/18/2023, 12/15/2023, Additional history exists DTaP,Tdap,and Td Vaccines (3 - Td or Tdap) 07/17/2032 07/17/2022, 11/18/2011, 01/04/2002 Pneumococcal vaccine (0-64 years) Aged Out No longer eligible based on patient's age to complete this topic Medical Devices Implanted Type Area Development Scientist Device Identifier Shelf Expiration Date Model / Serial / Lot Hardware E.G. Pins/Screws/Ro ds Hardware e.g. pins/screws/r ods Foot Hip Implant-03/06/20 10 Implanted:/07/2009 (Quantity not on file) Hip Implant Hip Procedures Procedure Name Priority Date/Time Associated Diagnosis Comments OUTSIDE NM PET Routine 01/08/2024 9:35 AM CDT CREATININE WITH EGFR, S/P Routine 10/05/2023 11:09 AM CDT Anemia Microcytic Hypochromic LIPID PANEL, S Routine 07/29/2021 8:42 AM FIRE RANGE TECHNICIAN Hypertension Essential Primary Encounter For Screening For Cardiovascular Disorders Hypothyroidism Screening Examination Diabetes Mellitus COMPREHENSIVE METABOLIC PANEL, S/P Routine 07/29/2021 8:42 AM FIRE RANGE TECHNICIAN Hypertension Essential Primary Encounter For Screening For [...] follow defined workflow.?? Provider Not In System IM NM PROCEDURES IIMS NA * (ABNORMAL) Lipid Panel (07/29/2021 8:42 AM FIRE RANGE TECHNICIAN) Cholesterol, Total 207(H) mg/dL 2021 11:45 AM FIRE RANGE TECHNICIAN OWAT Comment: ----REFERENCE VALUE---- Desirable: < 200 Borderline high: 200 - 239 High: > or = 240 Triglycerides 253(H) mg/dL 07/29/2021 11:45 AM FIRE RANGE TECHNICIAN OWAT Comment: ----REFERENCE VALUE---- Normal: <150 Borderline high: 150-199 High: 200-499 Very high: > or =500 Cholesterol, HDL 52 >=50 mg/dL 07/29/19 11:45 AM FIRE RANGE TECHNICIAN OWAT Calculated LDL 104 mg/dL 07/29/2021 11:45 AM FIRE RANGE TECHNICIAN OWAT Comment: ----REFERENCE VALUE---- Desirable: <100 mg/dL Above Desirable: 100-129 mg/dL Borderline High: 130-159 mg/dL High: 160-189 mg/dL Very High: >=190 mg/dL Cholesterol, Non-HDL, Calculated 155 mg/dL 07/29/2021 11:45 AM FIRE RANGE TECHNICIAN OWAT Comment: ----REFERENCE VALUE---- Desirable: <130 Above Desirable: 130-159 Borderline high: 160-189 High: 190-219 Very high: > or =220 Blood (Blood, Venous) 07/29/2021 8:42 AM FIRE RANGE TECHNICIAN 07/29/2021 10:44 AM FIRE RANGE TECHNICIAN Laith Luz P.A.-C. LAB BLOOD ADD- ON [facility] [address] [place] [address], [facility] OWAT [facility] [place] [address] [place] [address] * BI Breast Screening Bilateral with Tomosynthesis [...] ASSESSMENT: BI-RADS: 1: Negative. Laith Luz P.A.-C. IM BI PROCEDU RES from Last 3 Months or Most Recently Relevant to Health Maintenance Advance Directives For more information, please contact: [phone] Documents on File Type Date Recorded Patient Scoop Filler Expl anation Advance Directives 07/26/2015 12:00 AM Leg acy document. See document viewer. Care Teams Mat Linker Relationship Specialty Start Date End Date Elsewhere, Pcp PCP - General Internal Medicine 09/02/22
[2024-02-01 09:59] VITALS: BMI 31.2
[2024-02-01 10:15] VITALS: BP 133/94; PULSE 83; RESP 16; TEMP 36.4; O2SAT 98
--- NOTE | 2024-02-01 10:48 | W.ANESCHARGE ---
Anesthesia Charges Start Date/Time Anesthesia Start Date: 02/01/24 Anesthesia Start Time: 10:23 Stop Date/Time Anesthesia Stop Date: 02/01/24 Anesthesia Stop Time: 10:45
[2024-02-01 10:53] VITALS: BP 125/85; RESP 16; O2SAT 96
[2024-02-01 11:02] VITALS: BP 122/81; PULSE 81; RESP 16; O2SAT 98
[2024-02-01 11:10] LABS: Basophils Absolute Auto 0.04 K/uL (0.00-0.30); Basophils Percent Auto 0.7 % (0.0-3.0); Eosinophils Absolute Auto 0.29 K/uL (0.00-0.50); Eosinophils Percent Auto 5.2 % (0.0-7.0); Hematocrit 37.3 % (33.0-51.0); Hemoglobin* 11.7 gm/dL (12.0-16.0); Immature Granulocytes Abs Auto 0.02 K/uL (0.00-0.30); Immature Granulocytes Pct Auto 0.4 %; Immature Reticulocyte Fraction 12.5 % (3.0-15.9); Lymphocytes Absolute Auto 1.12 K/uL (0.90-2.90); Lymphocytes Percent Auto 20.2 % (20-44); Mean Corpuscular HGB Conc 31 gm/dL (32-36); Mean Corpuscular Hemoglobin 27 pg (26-34); Mean Corpuscular Volume 86 fL (80-100); Monocytes Percent Auto 6.9 % (0.0-11.0); Neutrophils Absolute Auto 3.69 K/uL (1.7-7.0); Neutrophils Percent Auto 66.6 % (42.0-72.0); Platelet Count* 195 K/uL (140-440); RDW Coefficient of Variation % 14.4 % (11.5-15.5); Red Blood Count 4.32 m/uL (4.00-5.20); Reticulocyte Hemoglobin Equivi 27.8 pg (29.0-35.0); Reticulocyte Percent 1.2 % (0.5-2.0); Reticulocytes Absolute 0.05 # (0.03-0.08); White Blood Count* 5.54 K/uL (4.50-11.00)
[2024-02-01 11:11] VITALS: BP 129/84; PULSE 74; RESP 16; O2SAT 98
[2024-02-01 11:12] LABS: Slide Review Reflex No
[2024-02-01 11:15] LABS: Albumin* 4.1 g/dL (3.3-5.0); Chloride* 105 mmol/L (96-114); Sodium* 136 mmol/L (135-149)
[2024-02-01 11:16] LABS: Potassium* 3.7 mmol/L (3.6-5.1)
[2024-02-01 11:18] LABS: Alanine Aminotransferase* 19 U/L (4-35); Alkaline Phosphatase* 86 U/L (40-150); Anion Gap 7 mEq/L (7-15); Aspartate Amino Transferase* 21 U/L (12-35); Bilirubin Total* 0.6 mg/dL (0.1-1.5); Blood Urea Nitrogen* 15 mg/dL (7-30); Carbon Dioxide* 24 mmol/L (20-32); Creatinine* 0.6 mg/dL (0.5-1.5); Est. Creatinine Clearance* 53.21; Estimated Glomerular Filt Rate 100 ml/min; Glucose* 114 mg/dL (60-115); Lactate Dehydrogenase* 141 U/L (120-246); Total Protein* 6.5 g/dL (6.0-8.3)
[2024-02-01 11:19] LABS: Calcium* 9.4 mg/dL (8.4-10.6)
[2024-02-01 11:21] VITALS: BP 137/88; PULSE 81; RESP 16; O2SAT 96
== END 2024-02-01 11:31 | disposition home or self-care (01) ==
PROVIDERS: PCP Nurse Practitioner Family; Visit Provider Internal Medicine Hematology & Oncology
DX: C82.90 Follicular lymphoma, unspecified, unspecified site (principal)
CPT/HCPCS: 01112; 36415; 38222; 80053; 83615; 85025; 85045; 88184; 88185; 88305; 88311; 88313; 88341; 88342; J1644; J2001; J2704

== ENCOUNTER 2024-02-09 06:57 | Outpatient (CLI) | payer OTHER, SELFPAY ==
--- OUTSIDE RECORDS SUMMARY | 2024-02-09 07:00 | XMS_ITS | Clinical Summary ---
Author Organization [facility] Address [address] [place] [address] Care Team Providers Care Case Worker Name Role Phone Elsewhere, Pcp Primary Care Provider Unavailabl e Source Comments Patient records contain information from all sites at [facility]. For routine questions regarding patient records, call [phone] during business hours, M-F 8:00 AM - 5:00 PM Central Time. Record requests for emergency care only can be directed to [phone] at any time.[facility] Allergies Active Allergy Reactions Criticality Noted [...] often do you attend chur ch or anabaptism services? 1 to 4 times per year 07/28/2021 Do you belong to any clubs o r organizations such as latter-day groups, unions, fraternal or athletic groups, or [...] Answer Date Recorded PHQ-2 Score 0 07/29/2021 [facility] [place] of Occupat ional Health - Occupational Stress [...] your living situation today? I have a [facility] place to live 05/13/2023 Education Answer Date Recorded What is the highest level of school you have completed or the highest degree you have received? Some college, no degree 07/28/2021 Sex and Gender Information Value Date Recorded Sex Assigned at Female 05/14/2017 2:12 PM DANCE HALL HOST/HOSTESS Gender Identity Female 05/14/2017 2:12 PM DANCE HALL HOST/HOSTESS Sexual Orientation Straight 05/14/2017 2: 12 PM DANCE HALL HOST/HOSTESS Last Filed Vital Signs Vital Sign Reading Time Taken Comments Blood Pressure 126/85 07/29/2021 9:02 AM DANCE HALL HOST/HOSTESS Pulse 83 07/29/2021 9:02 AM DANCE HALL HOST/HOSTESS Temperature 36.2 ??C (97.1 ??F) 07/29/2021 9:02 AM CS T Respiratory Rate 18 07/29/2021 9:02 AM DANCE HALL HOST/HOSTESS Oxygen Saturation 93% 06/06/2020 2:58 PM DANCE HALL HOST/HOSTESS Inhaled Oxygen Concentration - - Weight 96.6 kg (212 lb 15.4 oz) 07/29/2021 9:02 AM DANCE HALL HOST/HOSTESS Height 168.6 cm (5' 6.38) 07/29/2021 9:02 AM CS T Body Mass Index 33.98 07/29/2021 9:02 AM DANCE HALL HOST/HOSTESS Plan of Treatment Health Maintenance Due Date [...] this topic Medical Devices Implanted Type Area Carpet Journeyman Device Identifier Shelf Expiration Date Model / [...] LIPID PANEL, S Routine 07/29/2021 8:42 AM DANCE HALL HOST/HOSTESS Hypertension Essential Primary Encounter For Screening For Cardiovascular Disorders Hypothyroidism Screening Examination Diabetes Mellitus COMPREHENSIVE METABOLIC PANEL, S/P Routine 07/29/2021 8:42 AM DANCE HALL HOST/HOSTESS Hypertension Essential Primary Encounter For Screening For [...] * (ABNORMAL) Lipid Panel (07/29/2021 8:42 AM DANCE HALL HOST/HOSTESS) Cholesterol, Total 207(H) mg/dL 2021 11:45 AM DANCE HALL HOST/HOSTESS OWAT Comment: ----REFERENCE VALUE---- Desirable: < 200 Borderline high: 200 - 239 High: > or = 240 Triglycerides 253(H) mg/dL 07/29/2021 11:45 AM DANCE HALL HOST/HOSTESS OWAT Comment: ----REFERENCE VALUE---- Normal: <150 Borderline high: 150-199 High: 200-499 Very high: > or =500 Cholesterol, HDL 52 >=50 mg/dL 07/29/19 11:45 AM DANCE HALL HOST/HOSTESS OWAT Calculated LDL 104 mg/dL 07/29/2021 11:45 AM DANCE HALL HOST/HOSTESS OWAT Comment: ----REFERENCE VALUE---- Desirable: <100 mg/dL Above Desirable: 100-129 mg/dL Borderline High: 130-159 mg/dL High: 160-189 mg/dL Very High: >=190 mg/dL Cholesterol, Non-HDL, Calculated 155 mg/dL 07/29/2021 11:45 AM DANCE HALL HOST/HOSTESS OWAT Comment: ----REFERENCE VALUE---- Desirable: <130 Above Desirable: 130-159 Borderline high: 160-189 High: 190-219 Very high: > or =220 Blood (Blood, Venous) 07/29/2021 8:42 AM DANCE HALL HOST/HOSTESS 07/29/2021 10:44 AM DANCE HALL HOST/HOSTESS Laith Luz P.A.-C. LAB BLOOD ADD- ON [facility] [address] [place] [address], [facility] [place] [address] [place] [address] * BI Breast Screening Bilateral with Tomosynthesis [...] Advance Directives For more information, please contact: [phone] Documents on File Type Date Recorded Patient Foreclosure Specialist Expl anation Advance Directives 07/26/2015 12:00 AM Leg acy document. See document viewer. Care Teams Case Worker Relationship Specialty Start Date End Date Elsewhere, Pcp PCP - General Internal Medicine 09/02/22
--- OUTSIDE RECORDS SUMMARY | 2024-02-09 07:00 | XMS_ITS | Clinical Summary ---
Author Organization [facility] Address [place], [place] [address] Care Team Providers Care Service Electrician Name Role Phone Laura Curtis NP Primary Care Provider [phone]- [phone] Allergies Active Allergy Reactions Criticality Noted Date [...] hours if needed for Nausea/Vomiting. 12/07/2023 Active triamterene-hydro chlorothiazide, 37.5-25 mg, (DYAZIDE) 37.5-25 mg capsule Take 1 Capsule by mouth once daily in the morning. Active acetaminophen (TYLENOL EXTRA STRGTH) 500 mg tabletIndications :Abdominal pain, unspecified abdominal location,Intestin al mass Take 2 Tablets (1,000 mg) by mouth every 6 hours. Max acetaminophen dose: 4000mg in 24 hrs. 60 Tablet 12/23/2023 Active polyethylene glycoL (MIRALAX) 17 gram/scoop powderIndications :Abdominal pain, unspecified abdominal location,Intestin al mass Mix 1 scoop (17 g) in liquid then take by mouth once daily. 238 g 12/23/2023 Discontinue d(*Patient states no longer taking) oxyCODONE (ROXICODONE) 5 mg immediate release tabletIndications :Abdominal pain, unspecified abdominal location Take 1 Tablet (5 mg) by mouth every 4 hours if needed for Pain. 12 Tablet 12/23/2023 Discontinue d(*Patient states no longer taking) Active Problems Problem Noted Date Diagnosed Date Small bowel obstruction 12/19/2023 Follicular lymphoma 12/19/2023 Lesion of small intestine 12/16/2023 Abdominal pain 12/15/2023 Essential hypertension 07/11/2019 Lichen planus 05/14/2017 Hypothyroidism 02/22/2010 Encounters Date Type Department Care Team Description 02/08/2024 1:00 PM CDT Office Visit [facility] [address] [place] [address] Rupali Landon PA Surgical Followup 02/08/2024 Travel 02/01/2024 Lab Requisition [facility] [phone] Holly Mosqueda MD 12/17/2023 8:03 AM CDT Anesthesia Event [facility] [address] [place] [address] Jim Gonzalez MD Lee, Hee Won, MD 12/17/2023 7:45 AM CDT - 12/17/2023 10:11 AM CDT Surgery [facility] [address], [place] [address] George Holt MD EXPLORATORY LAPAROTOMY, 12/16/2023 11:57 AM CDT Anesthesia Event [facility] [address] [place] [address] Peggy Ceballos MD Cutshall, John P, CRNA 12/16/2023 11:04 AM CDT - 12/16/2023 11:46 AM CDT Surgery [facility] [address] [place] [address] Shruthi Watson MD ENTEROSCOPY with tatoo 12/15/2023 6:50 AM CDT - 12/23/2023 1:52 PM CDT Hospital Encounter [facility] [address] [place] [address] Gabrielle Ayala MD Ibrahim, Joseline Decker, [place] ADMINISTRATOR Lonny, MD Desmond Brooks, Yolie Minor MD [facility] Abdominal pain, unspecified abdominal location (Primary Dx); Intestinal mass; Follicular lymphoma grade II, unspecified body region (HC) Discharge Disposition: Home Self Care 12/15/2023 Travel 12/11/2023 Telephone [facility] [address] [place] [phone] Yaya Edmondson MD Referral 12/09/2023 Telephone [facility] [address] [place] [phone] Yaya Edmondson MD Referral 12/08/2023 11:18 AM CDT - 12/08/2023 5:00 PM CDT Emergency [facility] Emergency Department [address] [place] [address] Evan Hubbard, Antoinette Abad, Pamella Mcdonald, Abdominal pain, unspecified abdominal location (Primary Dx) Discharge Disposition: Home Self Care 12/08/2023 Travel 12/04/2023 Telephone [facility] [address] [place] [phone] Adela Baumann, rotoprinter from Last 3 Months Social History Tobacco [...] Sign Reading Time Taken Comments Blood Pressure 124/74 02/08/2024 1:08 PM CDT Pulse 107 02/08/2024 1:08 PM CDT Temperature 36.7 ??C (98.1 ??F) 12/23/2023 8:20 AM CD T Respiratory Rate 16 12/23/2023 8:20 AM CDT Oxygen Saturation 93% 02/08/2024 1:08 PM CDT Inhaled Oxygen Concentration - - Weight 87.5 kg (193 lb) 02/08/2024 1:08 PM CDT Height 167.6 cm (5' 6) 02/08/2024 1:08 PM CDT Body Mass Index 31.15 02/08/2024 1:08 PM CDT Plan of Treatment Health Maintenance Due Date Last Done Comments Pneumococcal series for age 6-64 (1 of 2 - PCV) 1965 Tdap 1970 Depression screening for age 12+ 1971 HIV for age 15-65 1974 Hepatitis C screening for age 18-79 1977 Zoster (shingles) series for age 50+ (1 of 2) 1978 Tetanus booster 1979 Pap test for age 21-65 02/18/1980 Colonoscopy through age 75 02/18/2004 Lipids for age 45-75 02/18/2004 Mammogram for age 45-75 02/18/2004 COVID-19 vaccine series (2022-24 season) 2023 05/20/2021, 10/23/2020, 09/26/2020 Influenza for age 50-64 03/06/2024 BMI (ht and wt on same day) for age 18+ 02/07/2025 02/08/2024 Procedures Procedure Name Priority Date/Time Associated Diagnosis Comments LAB TRACKING EVENT Routine 02/01/2024 10 :45 AM CDT BONE MARROW STUDY Routine 02/01/2024 10: 45 AM CDT BONE MARROW DIFFERENTIAL Routine 02/01/2024 10:45 AM CDT POTASSIUM Timed 12/22/2023 9:49 PM CDT POTASSIUM [...] CDT from Last 3 Months Results * BONE MARROW DIFFERENTIAL (02/01/2024 10:45 AM CDT) Bone Marrow (Bone Marrow Aspirate) 02/01/2024 10:45 AM CDT 02/03/2024 6:18 AM CDT Holly Mosqueda MD LABORATORY Performing Organization Address [facility] de Phone Number [facility] [address] [place] [address], * LAB TRACKING EVENT (02/01/2024 10:45 AM CDT) Other (Other) Client Collect / Unknown 02/01/2024 10:45 AM CDT 02/01/2024 9:55 PM CDT Holly Mosqueda MD LAB BILL ONLY Performing Organization Address [facility] Co de Phone Number [facility] [address] [place] [address], * BONE MARROW STUDY (02/01/2024 10:45 AM CDT) Case Report Bone Marrow Pathology Report ?Case: [id number] ? Authorizing Provider: ??Holly Mosqueda MD ?Collected: ? 02/01/2024 1045 ? Ordering Location: ? [facility] ?Received: ?02/02/2024 0624 ? Pathologist: ? Spencer Reid, ? MD ? Specimens: ?? A) - Bone Marrow Aspirate, Right ? B) - Bone Marrow Aspirate (Heparinized), Right ? C) - Bone Marrow Core Biopsy, Right ? D) - Peripheral Blood ? 02/03/2024 10:00 AM [facility] [employer]C ENTRAL LABORATORY Final Diagnosis BONE MARROW: 1. Negative for lymphoma 2. Normocellular bone marrow for age (40% cellularity) with trilineage hematopoiesis 3. Low-normal/decrea sed storage iron; essentially absent sideroblastic iron 4. Ancillary studies: ?? a. Cytogenetics: ??Not performed ? b. Molecular: ??Not performed 5. See comment PERIPHERAL BLOOD: Mild normocytic, hypochromic anemia 02/03/2024 10:00 AM [facility] [employer] LABORATORY-C ENTRAL LABORATORY Comment The iron stain results suggest a component of iron deficiency, which could be contributing to the mild anemia. Clinical correlation with results of serum iron studies (including ferritin level) may be helpful in this evaluation, as clinically indicated. 02/03/2024 10:00 AM T [facility] LABORATORY-C 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 Per Oncology notes, PET scan on 01/08/2024 is otherwise unremarkable. A staging bone marrow biopsy is performed. 02/03/2024 10:00 AM T [facility] LABORAT[facility]-C ENTRNH LABORATORY PROCEDURE A RIGHT unilateral bone marrow biopsy and unilateral aspiration procedure was performed at [facility] on 02/01/24. ISAIAS Gonzalez performed the procedure using an 8 gauge manual needle. The ordering physician is Dr. Holly Mosqueda. The specimen is inked yellow. TLF 02/02/2024 ? 02/03/2024 10:00 AM T [facility] LAB[facility]ORY CBC and Differential HEMATOLOGY PARAMETERS Tested at: ??Central Laboratory ? RESULTS ??EXPECTED VALUES WBC: ? 5.9 ?4.5-18t2785/cum m ? RBC: ? 4.36 ? 4.00-5.20 mil/cumm HGB: ? 11.7 ? 12-16 gm/dl ? DECREASED HCT: ? 39.3 ? 33-51% ? MCV: ? 90.1 ? 80-100 fl ? NORMOCYTIC MCH: ? 26.8 ? 26-34 pg ? MCHC: ?29.8 ? 32-36 gm/dl ? HYPOCHROMIC RDW: ? 14.9 ? 11.5-15.5% ? PLT: ? 211 ?[id number]/uL ? MPV: ? 10.4 ? 6.5-11 fl ? Retic: ?? 1.46 ? 0.5-1.5% ? Differential ?Tested at: ??Central ?Absolute (%) ?Expected (%) ?(x10*9/L) ? (x10*9/L) Neutrophils: ?4.0 (68.0) ?1.7-7.0 (42-72%) ? Lymphocytes: ?1.2 (20.4) ?0.9-2.9 (20-44%) ?? Monocytes: ?0.4 (6.6) ?<0.9 (0-11%) ? Eosinophils: ?0.2 (3.6) ?<0.5 (0-2%) ? Basophils: ?0.1 (0.9) ?<0.3 (<3.0%) ? Imm Grans: ?0.0 (0.5) ?<0.3 (0-3%) ? (Metas, Myelos,Pros) 02/03/2024 10:00 AM CDT [facility] [employer] LABORATORY-C ENTRAL LABORATORY Bone Marrow Differential Blasts: ? 0.6 ? 0.2-1.5% ? Neutrophils & precursors: ??65.0 ? 58.0-65.0% ? Eosinophils & precursors: ?? 2.8 ? 0.2-5.3% ? Basophils & precursors: ? 0.6 ? 0.0-1.0% ? Erythroid precursors: ?24.0 ? 18.0-24.0% ? Lymphocytes: ?5.6 ?3.0-24.0% ? Monocytes: ?1.2 ? 0.7-2.8% ? Plasma cells: ? 0.2 ? 0.1-1.5% ? 02/03/2024 10:00 AM [facility] [employer] LABORATORY Microscopic Description SPECIMENS EXAMINED: Peripheral blood Aspirate direct and concentrate smears: ??Adequate Particle crush smears Touch imprints Clot section Bone core trephine sample (decalcified): ??Adequate, 1.1 cm Bone core and clot section color: Yellow PERIPHERAL BLOOD: The microscopic findings support the final diagnosis. BONE MARROW ASPIRATE AND TREPHINE IMPRINTS. Hematopoiesis: Trilineage hematopoiesis with progressive maturation. Blasts are normal in number and morphology Lymphocytes: Predominantly small and mature with normal heteromorphous features. Plasma cells: ??Normal BONE MARROW CORE AND CLOT SECTION: The histologic sections show normocellular bone marrow for age with an overall cellularity of approximately 40%. The aspirate smear differential is confirmed. Megakaryocytes are normal in number and morphology. No atypical lymphoid cell infiltrate is seen. IRON STAINS (performed on clot sections, particle crush smears, concentrate smears, and F-PV slides): Storage iron, sideroblastic iron and ring sideroblasts evaluated; results included in diagnosis. 02/03/2024 10:00 AM [facility] [employer]C ENTRAL LABORATORY Flow Cytometry Summary B Cell Leukemia/Lymphoma panel: Interpretation: No monotypic B lymphocytes are detected. Clinical indication for flow cytometry: Evaluate for B-cell lymphoma. Percent of Lymphs B cells: 27.6% T cells: 58.8% CD19+/Warden: 14.8% CD19+/Lambda: 12.3% Warden:Lambda ratio: 1.2 B lymphocytes in this analysis demonstrate normal qualitative expression of the following antigens: CD2, CD3, CD5, CD10, CD19, CD20, CD22, CD23, CD38, CD43, CD45, CD79b, CD103, CD200, Warden and Lambda surface light chains. Quality Assessment Viability (7-AAD): 87% Polytypic B cell events: 122 Nucleated cells analyzed: 9965 Limit of detection (LOD): 0.2% These results and cytograms have been verified by Dr. Reid. This test was developed and its performance characteristics verified by [facility] [email or web address] [facility]. It has not been cleared or approved [...] findings during diagnostic evaluation. Analytic Flow Tech: Amy Barton, 02/02/2024 1:31 PM Verifying Flow Tech: Nany Bah, 02/02/2024 2:28 PM 02/03/2024 10:00 AM [facility] Cytogenetics Summary Not performed. 02/03/2024 10:00 AM [facility] Molecular Diagnostics Summary Not performed. 02/03/2024 10:00 AM [facility] Other Testing Immunostains were performed on the bone core biopsy: ??CD3: Positive in scattered lymphocytes (T-cells) in normal number and distribution ??CD20: Positive in scattered lymphocytes (B-cells) in normal number and distribution 02/03/2024 10:00 AM [facility] LABORATORY Additional Information Interpreted at [facility], Central Laboratory - [address], [place] [address] Immunohistochemis try controls were reviewed and approved by the pathologist during this examination. 02/03/2024 10:00 AM CDT [facility] ENTRAL LABORATORY Bone Marrow (Bone Marrow Aspirate) 02/01/2024 10:45 AM CDT 02/02/2024 6:24 AM CDT Bone marrow specimen (specimen) (Bone Marrow Aspirate (Heparinized)) 02/01/2024 10:45 AM CDT 02/02/2024 6:24 AM CDT Bone marrow specimen (specimen) (Bone Marrow Core Biopsy) 02/01/2024 10:45 AM CDT 02/02/2024 6:24 AM CDT Bone marrow specimen (specimen) (Peripheral Blood) 02/01/2024 10:45 AM CDT 02/02/2024 6:24 AM CDT Holly Mosqueda MD LABORATORY Performing Organization Address City/[facility]/ZIP Co de Phone Number [facility] [address] [address], [place] * POTASSIUM (12/22/2023 9:49 PM CDT) Only the most recent of10 resultswithin the time period is included. POTASSIUM 4.1 3.5 - 5.1 mmol/L 12/22/2023 10:46 PM CDT [facility] LAB[facility]AT[facility] Blood BLOOD SPECIMEN / Unknown Butterfly / Unknown 12/22/2023 9:49 PM CDT 12/22/2023 9:54 PM CDT Laurie Quintero RN CHEMISTRY [facility] [address] [address], [place] * Hemoglobin AM (12/22/2023 6:06 AM CDT) HEMOGLOBIN 13.0 12.0 - 16.0 g/dL 12/22/2023 6:25 AM CDT [facility] MCV 83 80 - 100 fL 12/22/2023 6:25 AM CDT [facility] Blood BLOOD SPECIMEN / Unknown Venipuncture / Unknown 12/22/2023 6:06 AM CDT 12/22/2023 6:17 AM CDT Yolie Logan MD HEMATOLOGY Performing Organization Address City/[facility]/ZIP Co de Phone Number [facility] [address] [place] [address], [place] * (ABNORMAL) SODIUM (12/22/2023 6:05 AM CDT) SODIUM 132(L) 136 - 145 mmol/L 12/22/2023 6:45 AM CDT [facility] LAB[facility] Blood BLOOD SPECIMEN / Unknown Venipuncture / Unknown 12/22/2023 6:05 AM CDT 12/22/2023 6:18 AM CDT Yolie Logan MD CHEMISTRY Performing Organization Address [facility] Phone Number [facility] [address] [place] [address], [place] * CREATININE (12/22/2023 6:05 AM CDT) eGFR >90 >90 mL/min/1.7 3m2 12/22/2023 6:45 AM CDT [facility] Comment:As of 2021, eG FR is calculated by the CKD-EPI creatinine equation without race adjustment. ??eGFR can be influenced by muscle mass, exercise, and diet. ??The reported eGFR is an estimation only and is only applicable if the renal function is stable. CREATININE 0.60 0.50 - 0.90 mg/dL 12/22/2023 6:45 AM CDT [facility] Blood BLOOD SPECIMEN / Unknown Venipuncture / Unknown 12/22/2023 6:05 AM CDT 12/22/2023 6:18 AM CDT Yolie Logan MD CHEMISTRY Performing Organization Address City/[facility] Co de Phone Number [facility] [address] [place] [phone], [place] * LD,TOTAL (12/19/2023 7:26 PM CDT) Pathologist [facility] LD,TOTAL 144 135 - 214 IU/L 12/21/2023 12:57 PM CDT [facility] Blood BLOOD SPECIMEN / Unknown Venipuncture / Unknown 12/19/2023 7:26 PM CDT 12/19/2023 7:33 PM CDT Edis ESPARZA CHEMISTRY [facility] [address] [place] [address], * CBC W PLT NO DIFF (12/19/2023 5:12 AM CDT) Only the most recent of2 resultswithin the time period is included. [facility] WHITE BLOOD COUNT 7.0 4.5 - 11.0 thou/cu mm 12/19/2023 5:27 AM CDT [facility] RED BLOOD COUNT 4.46 4.00 - 5.20 mil/cu mm 12/19/2023 5:27 AM CDT [facility] HEMOGLOBIN 12.1 12.0 - 16.0 g/dL 12/19/2023 5:27 AM CDT [facility] HEMATOCRIT 37.4 33.0 - 51.0 % 12/19/2023 5:27 AM CDT [facility] MCV 84 80 - 100 fL 12/19/2023 5:27 AM CDT [facility] MCH 27.1 26.0 - 34.0 pg 12/19/2023 5:27 AM CDT [facility] MCHC 32.4 32.0 - 36.0 g/dL 12/19/2023 5:27 AM CDT [facility] RDW 13.5 11.5 - 15.5 % 12/19/2023 5:27 AM CDT [facility] PLATELET COUNT 184 140 - 440 thou/cu mm 12/19/2023 5:27 AM CDT [facility] MPV 9.0 6.5 - 11.0 fL 12/19/2023 5:27 AM CDT [facility] NRBC 0.0 % 12/19/2023 5:27 AM CDT [facility] ABS NRBC 0.0 thou /cu mm 12/19/2023 5:27 AM CDT [facility] Blood BLOOD SPECIMEN / Unknown Venipuncture / Unknown 12/19/2023 5:12 AM CDT 12/19/2023 5:21 AM CDT Lenka Mukherjee MD HEMATOLOGY [facility] [address] [place] [address], * (ABNORMAL) BASIC METABOLIC PANEL (12/19/2023 5:12 AM CDT) Only the most recent of4 resultswithin the time period is included. SODIUM 137 136 - 145 mmol/L 12/19/2023 5:47 AM CDT [facility] TRAL LABORATORY POTASSIUM 3.2(L) 3.5 - 5.1 mmol/L 12/19/2023 5:47 AM T [facility] TR[facility] LABORATORY CHLORIDE 98 98 - 107 mmol/L 12/19/2023 5:47 AM T [facility] CO2,TOTAL 28 22 - 29 mmol/L 12/19/2023 5:47 AM T [facility] ANION GAP 11 5 - 18 12/19/2023 5:47 AM CDT [facility] GLUCOSE 118(H) 70 - 99 mg/dL 12/19/2023 5:47 AM T [facility] CALCIUM 9.3 8.8 - 10.2 mg/dL 12/19/2023 5:47 AM CDT [facility] BUN 5(L) 8 - 23 mg/dL 12/19/2023 5:47 AM T [facility] CREATININE 0.45(L) 0.50 - 0.90 mg/dL 12/19/2023 5:47 AM CDT [facility] TRAL LABORATORY BUN/CREAT RATIO 11 10 - 20 5:47 AM CDT [facility] TRAL LABORATORY eGFR >90 >90 mL/min/1.7 3m2 12/19/2023 5:47 AM CDT [facility] TRAL LABORATORY Comment:As of 2021, eG FR is calculated by the CKD-EPI creatinine equation without race adjustment. ??eGFR can be influenced by muscle mass, exercise, and diet. ??The reported eGFR is an estimation only and is only applicable if the renal function is stable. Blood BLOOD SPECIMEN / Unknown Venipuncture / Unknown 12/19/2023 5:12 AM CDT 12/19/2023 5:21 AM CDT Lenka Mukherjee MD CHEMISTRY [facility] [address] [place] [address], * PATH TISSUE EXAM (12/17/2023 8:53 AM CDT) Case Report Pathology Report ?Case: [id number] ? Authorizing Provider: ??George Holt MD ? Collected: ? 12/17/2023 0853 ? Ordering Location: ? [facility] ?Received: ?12/17/2023 0901 ? Hospital ? Pathologist: ? Spencer Reid, ? MD ? Specimen: ?Small Bowel, suture on proximal end, gross exam call with results ? 4 4:42 PM CDT [facility] Final Diagnosis A) SMALL INTESTINE, MASS, SEGMENTAL RESECTION: 1. Follicular lymphoma, grade 1-2 (of 3) (WHO 2016), forming a 4 x 4 x 1 cm mass 2. Resection margins negative for malignancy 3. Seven benign mesenteric lymph nodes 4. See comment 4 4:42 PM CDT [facility] Comment Given the [...] Holt on 12/18/2023. 4 4:42 PM CDT [facility] Clinical Information 63-year-old female with [...] symptoms since her most recent hospitalization at [place] 2 weeks ago for the reported obstruction. Hemodynamically stable on arrival. Exam with very mild periumbilical tenderness, no peritoneal signs. Basic labs reassuring without leukocytosis or anemia, electrolyte or metabolic abnormalities, obstructive liver panel, elevated lipase or lactate. 4 4:42 PM T [facility] LABOR[facility]- CENTRAL LABORATORY Gross Description A) Received fresh [...] There are multiple enlarged fleshy mesenteric nodes. ??Wood Machine Carver sections are submitted as follows: 1. ?? Proximal and distal margin, en face (proximal margin inked blue) 2,3. Sections of intramural mass, B-plus fixed tissue 4-6. Sections of intramural mass, formalin fixative (deepest area of invasion in cassette 4, lesion relationship with adjacent uninvolved mucosa in cassette 6) 7. Three possible nodes 8. Four possible nodes TRB 12/17/2023 4 4:42 PM [facility] Intraoperative Consultation A) SMALL BOWEL, RESECTION, INTRAOPERATIVE CONSULTATION WITH CYTOLOGY PREPARATIONS (2 touch preparations): 1. Submucosal mass suspicious for lymphoma 2. Material allocated for lymphoma workup Christo Card MD, 12/17/2023 9:16 AM Intraoperative consultation, which may have included frozen section preparation, gross specimen examination, and/or cytology touch imprints/smears, was performed by a pathologist during the surgical procedure. ??This testing was performed at: [facility] ?? [address] [place] [address] 4 4:42 PM [facility] Microscopic Description The final diagnosis is [...] Negative ??CD10: ??Positive ??CD20: ??Positive ??CD21: ??Highlights PENITENTIARY meshworks in neoplastic follicles ??CD23: ??Highlights PENITENTIARY meshworks in neoplastic follicles ??CD43: ??Negative ??BCL1: [...] follicular lymphoma. ?? 4 4:42 PM CDT [facility] CENTRAL LABORATORY Flow Cytometry Summary B Cell [...] developed and its performance characteristics verified by [facility]. It has not been cleared or [...] 12/18/2023 12:48 PM 4 4:42 PM CDT [facility] C[facility] LABORATORY Additional Information Interpreted at [facility] Central Laboratory - [address], [place] [address] 4 4:42 PM CDT [facility] C[facility]TRAL LABORATORY Tissue (Small Bowel) 12/17/2023 8:53 AM CDT 12/17/2023 9:01 AM CDT George Holt MD PATHOLOGY/CYTOLOGY [facility] [address] [address], * HCHG TUBE PR1, HCHG STYLET PR1, [...] 11:4 6 AM CDT Narrative Transcriptions Shruthi Watsno MD - 12/16/2023 12:50 PM CDT [facility] Patient Name: Ann Edmondson Procedure Date: 12/16/2023 Gender: Female Date of : 1960 Admit Type: Outpatient Procedure: Small bowel enteroscopy Proceduralist: Shruthi Watson MD - [facility] Indications/Pre-Op Diagnosis: Small bowel obstruction Medications: Monitored Anesthesia Care Procedure Description: After obtaining informed consent, the endoscope was passed underdirect vision. Throughout the procedure, the patient's blood pressure,pulse, and oxygen saturations were monitored continuously. The endoscope [id number] was introduced through the mouth and advanced [...] 12/15/2023 8:34 AM CDT Doctor Unknown LABORATORY [facility]ATORY-CENTRAL LABORATORY [address] [place] [address], * LACTATE VENOUS (12/15/2023 8:06 AM CDT) Only the most recent of2 resultswithin the time period is included. Pathologist [facility] LACTATE,VENOUS 1.0 0.5 - 2.0 mmol/L 12/15/2023 9:08 AM CDT [facility] Blood BLOOD SPECIMEN / Unknown Venipuncture / Unknown 12/15/2023 8:06 AM CDT 12/15/2023 8:32 AM CDT Gabrielle Ayala MD CHEMISTRY Performing Organization Address [facility] Co de Phone Number [facility] [address] [place] [address], * LIPASE (12/15/2023 8:06 AM CDT) Only the most recent of2 resultswithin the time period is included. [facility] LIPASE 39.4 13.0 - 60.0 IU/L 12/15/2023 9:06 AM CDT [facility] Blood BLOOD SPECIMEN / Unknown Venipuncture / Unknown 12/15/2023 8:06 AM CDT 12/15/2023 8:32 AM CDT Gabrielle Ayala MD CHEMISTRY Performing Organization Address [facility] Co de Phone Number [facility] LABORATORY [address] [place] [address], * HEPATIC FUNCTION PANEL (12/15/2023 8:06 AM CDT) Only the most recent of2 resultswithin the time period is included. Pathologist [facility] ALBUMIN 4.7 4.0 - 4.9 g/dL 12/15/2023 9:06 AM CDT [facility] PROTEIN,TOTAL 7.4 6.0 - 8.0 g/dL 12/15/2023 9:06 AM CDT [facility] BILIRUBIN,TOTAL 0.4 0.0 - 1.2 mg/dL 12/15/2023 9:06 AM CDT [facility] BILIRUBIN,DIRECT <0.2 0.0 - 0.3 mg/dL 12/15/2023 9:06 AM CDT [facility] BILIRUBIN,INDIRE CT 12/15/2023 9:06 AM CDT [facility] Comment:Unable to calculate, Direct Bili <0.2 ALK PHOSPHATASE 89 35 - 104 IU/L 12/15/2023 9:06 AM CDT [facility] ALT (SGPT) 16 10 - 35 IU/L 12/15/2023 9:06 AM CDT [facility] AST (SGOT) 22 10 - 35 IU/L 12/15/2023 9:06 AM CDT [facility] Blood BLOOD SPECIMEN / Unknown Venipuncture / Unknown 12/15/2023 8:06 AM CDT 12/15/2023 8:32 AM CDT Gabrielle Ayala MD CHEMISTRY [facility] [address] [place] [address], * SCAN-CARDIAC STRIP (12/15/2023 12:00 AM CDT) [...] 11.0 thou/cu mm 12/08/2023 2:13 PM CDT [facility] RED BLOOD COUNT 5.10 4.00 - 5.20 mil/cu mm 12/08/2023 2:13 PM CDT [facility] HEMOGLOBIN 13.7 12.0 - 16.0 g/dL 12/08/2023 2:13 PM CDT [facility] HEMATOCRIT 42.7 33.0 - 51.0 % 12/08/2023 2:13 PM T [facility] MCV 84 80 - 100 fL 12/08/2023 2:13 PM CDT [facility] MCH 26.9 26.0 - 34.0 pg 12/08/2023 2:13 PM CDT [facility] MCHC 32.1 32.0 - 36.0 g/dL 12/08/2023 2:13 PM CDT [facility] RDW 14.0 11.5 - 15.5 % 12/08/2023 2:[facility] PLATELET COUNT 304 140 - 440 thou/cu mm 12/08/2023 2:13 PM CDT [facility] MPV 9.0 6.5 - 11.0 fL 12/08/2023 2:13 PM T [facility] NRBC 0.0 % 12/08/2023 2:13 PM CDT [facility] ABS NRBC 0.0 thou /cu mm 12/08/2023 2:13 PM T [facility] % NEUT 79.3 % 12/08/2023 2:13 PM CDT [facility] % LYMPH 14.4 % 12/08/2023 2:13 PM CDT [facility] % MONO 5.5 % 12/08/2023 2:13 PM CDT [facility] % EOS 0.0 % 12/08/2023 2:13 PM CDT [facility] % BASO 0.6 % 12/08/2023 2:13 PM CDT [facility] % IMMATURE GRAN (METAS,MYELOS,SD OS) 0.2 % 12/08/2023 2:13 PM CDT [facility] ABSOLUTE NEUTROPHILS 6.6 1.7 - 7.0 thou/cu mm 12/08/2023 2:13 PM CDT [facility] ABSOLUTE LYMPHOCYTES 1.2 0.9 - 2.9 thou/cu mm 12/08/2023 2:13 PM CDT [facility] ABSOLUTE MONOCYTES 0.5 <0.9 thou/cu mm 12/08/2023 2:13 PM CDT [facility] ABSOLUTE EOSINOPHILS 0.0 <0.5 thou/cu mm 12/08/2023 2:13 PM CDT [facility] ABSOLUTE BASOPHILS 0.1 <0.3 thou/cu mm 12/08/2023 2:13 PM CDT [facility] ABSOLUTE IMMATURE GRANULOCYTES(MET ,MYELOS,PROS) 0.0 <0.3 thou/cu mm 12/08/2023 2:13 PM CDT [facility] Blood BLOOD SPECIMEN / Unknown Non-Lab Venipuncture / Unknown 12/08/2023 1:39 PM CDT 12/08/2023 1:46 PM CDT Antoinette Hubbard DO HEMAT OLOGY [facility] [address] [place] [address], from Last 3 Months Additional Health Concerns [...] 9:14 AM 08/16/2015 12:48 PM Care Teams Service Electrician Relationship Specialty Start Date End Date Laura Curtis NP [address] [facility] [place] [address] PCP - General Emergency Medicine 10/23/23
--- OUTSIDE RECORDS SUMMARY | 2024-02-09 07:01 | XMS_ITS | Encounter Summary ---
Author Organization [facility] Address [address] [place] [address] Care Team Providers Care Forms Analyst Name Role Phone Elsewhere, Pcp Primary Care Provider Unavailabl e Encounter Details Date Type Department Care Team (Late st Contact Info) Description 09/29/2023 Clinical Communication Department of General Surgery in [place], [place] [address] [id number] [phone] [place] [address] [address] Social History Tobacco Use Types Packs/Day Years [...] How often do you attend chur or voodoo services? 1 to 4 times per year 07/28/2021 Do you belong to any clubs o r organizations such as catholic groups, unions, fraternal or athletic groups, or [...] living situation today? I have a [facility] place to live 05/13/2023 Education Answer Date Recorded What is the highest level of school you have completed or the highest degree you have received? Some college, no degree 07/28/2021 Sex and Gender Information Value Date Recorded Sex Assigned at Female 05/14/2017 2:12 PM SWEATBAND DECORATING MACHINE OPERATOR Gender Identity Female 05/14/2017 2:12 PM SWEATBAND DECORATING MACHINE OPERATOR Sexual Orientation Straight 05/14/2017 2: 12 PM SWEATBAND DECORATING MACHINE OPERATOR documented as of this encounter Plan of Treatment Not on file documented as of this encounter Visit Diagnoses Not on filedocumented in this encounter Additional Health Concerns Assessment Noted Time PHQ-9 Depression Total Score: 1 05/14/20 17 2:12 PM SWEATBAND DECORATING MACHINE OPERATOR documented as of this encounter Care Teams Forms Analyst Relationship Specialty Start Date End Date Elsewhere, Pcp PCP - General Internal Medicine 09/02/22 documented as of this encounter
--- OUTSIDE RECORDS SUMMARY | 2024-02-09 07:01 | XMS_ITS ---
Author Organization [facility] Address [address] [place] [address] Care Team Providers Care Finance Teacher Name Role Phone Unavailable Unavailable Unavailable Surgery Details Not on file Complications Check Surgery Details section. Procedure Estimated Blood Loss Check Surgery Details section. Procedure Findings Check Surgery Details section. Procedure Specimens Taken Check Surgery Details section.
--- OUTSIDE RECORDS SUMMARY | 2024-02-09 07:01 | XMS_ITS | Referral Summary ---
Author Organization [facility] Address [address] [place] [address] Care Team Providers Care Bisque Finisher Name Role Phone Elsewhere, Pcp Primary Care Provider Unavailabl e Source Comments Patient records contain information from all sites at [facility]. For routine questions regarding patient records, call [phone] during business hours, M-F 8:00 AM - 5:00 PM Central Time. Record requests for emergency care only can be directed to [phone] at any time.[facility] Allergies Active Allergy Reactions Criticality [...] How often do you attend chur or mormonism services? 1 to 4 times per year 07/28/2021 Do you belong to any clubs o r organizations such as roman catholic groups, unions, fraternal or athletic groups, [...] Answer Date Recorded PHQ-2 Score 0 07/29/2021 [facility] of Occupat ional Health [...] your living situation today? I have a [facility] place to live 05/13/2023 Education Answer Date Recorded What is the highest level of school you have completed or the highest degree you have received? Some college, no degree 07/28/2021 Sex and Gender Information Value Date Recorded Sex Assigned at Female 05/14/2017 2:12 PM SUPERVISOR STONE Gender Identity Female 05/14/2017 2:12 PM SUPERVISOR STONE Sexual Orientation Straight 05/14/2017 2: 12 PM SUPERVISOR STONE Last Filed Vital Signs Vital Sign Reading Time Taken Comments Blood Pressure 126/85 07/29/2021 9:02 AM SUPERVISOR STONE Pulse 83 07/29/2021 9:02 AM SUPERVISOR STONE Temperature 36.2 ??C (97.1 ??F) 07/29/2021 9:02 AM CS T Respiratory Rate 18 07/29/2021 9:02 AM SUPERVISOR STONE Oxygen Saturation 93% 06/06/2020 2:58 PM SUPERVISOR STONE Inhaled Oxygen Concentration - - Weight 96.6 kg (212 lb 15.4 oz) 07/29/2021 9:02 AM SUPERVISOR STONE Height 168.6 cm (5' 6.38) 07/29/2021 9:02 AM CS T Body Mass Index 33.98 07/29/2021 9:02 AM SUPERVISOR STONE Plan of Treatment Not on file Medical Devices Implanted Type Area Perfect Binder Operator Device Identifier Shelf Expiration Date Model / [...] LIPID PANEL, S Routine 07/29/2021 8:42 AM SUPERVISOR STONE Hypertension Essential Primary Encounter For Screening For Cardiovascular Disorders Hypothyroidism Screening Examination Diabetes Mellitus COMPREHENSIVE METABOLIC PANEL, S/P Routine 07/29/2021 8:42 AM SUPERVISOR STONE Hypertension Essential Primary Encounter For Screening For [...] * (ABNORMAL) Lipid Panel (07/29/2021 8:42 AM SUPERVISOR STONE) Cholesterol, Total 207(H) mg/dL 2021 11:45 AM SUPERVISOR STONE [facility] Comment: ----REFERENCE VALUE---- Desirable: < 200 Borderline high: 200 - 239 High: > or = 240 Triglycerides 253(H) mg/dL 07/29/2021 11:45 AM SUPERVISOR STONE [facility] Comment: ----REFERENCE VALUE---- Normal: <150 Borderline high: 150-199 High: 200-499 Very high: > or =500 Cholesterol, HDL 52 >=50 mg/dL 07/29/19 11:45 AM SUPERVISOR STONE OWAT Calculated LDL 104 mg/dL 07/29/2021 11:45 AM SUPERVISOR STONE [facility] Comment: ----REFERENCE VALUE---- Desirable: <100 mg/dL Above Desirable: 100-129 mg/dL Borderline High: 130-159 mg/dL High: 160-189 mg/dL Very High: >=190 mg/dL Cholesterol, Non-HDL, Calculated 155 mg/dL 07/29/2021 11:45 AM SUPERVISOR STONE [facility] Comment: ----REFERENCE VALUE---- Desirable: <130 Above Desirable: 130-159 Borderline high: 160-189 High: 190-219 Very high: > or =220 Blood (Blood, Venous) 07/29/2021 8:42 AM SUPERVISOR STONE 07/29/2021 10:44 AM SUPERVISOR STONE Laith Luz P.A.-C. LAB BLOOD ADD- ON [facility] [address] [place] [address], [facility] [place] [address] [place] [address] * BI Breast Screening Bilateral with Tomosynthesis [...] Advance Directives For more information, please contact: [phone] Documents on File Type Date Recorded Patient Crude Tester Expl anation Advance Directives 07/26/2015 12:00 AM Leg acy document. See document viewer. Care Teams Bisque Finisher Relationship Specialty Start Date End Date Elsewhere, Pcp PCP - General Internal Medicine 09/02/22
--- NOTE | 2024-02-09 07:15 | CRLHL7_ITS ---
For Patients: As a result of the Cures Act, medical imaging exams and procedure reports are released immediately into your electronic medical record. You may view this report before your referring provider. If you have questions, please contact your health care provider. Indication: Headaches. Technique: Multisequence multiplanar MRI of the brain without the use of intravenous contrast. Comparison: None available. Findings: No evidence of acute ischemia. Scattered foci of T2 prolongation within the white matter of both cerebral hemispheres as well as the central valarie. Old lacunar type infarcts within the basal ganglia and right cerebellar hemisphere. No abnormal susceptibility artifact. The ventricles are normal in size. Flow voids of the larger intracranial arteries are preserved. Normal calvarial bone marrow signal intensity. Unremarkable orbits. Ostiomeatal unit pattern of yangd-ypptdke-dadi-left paranasal sinus mucosal thickening with trace right mastoid effusion. Impression: 1. No acute intracranial abnormality. 2. Scattered foci of T2 prolongation within the supratentorial white matter typical of mild chronic small vessel ischemic changes. 3. Old lacunar type infarcts within the basal ganglia bilaterally and right cerebellar hemisphere. 4. Ostiomeatal unit pattern of pfmqv-icobpnq-erhs-left paranasal sinus mucosal thickening with trace right mastoid effusion. Dictated by Salbador Kam MD @ 02/09/2024 4:30:53 PM (Electronically Signed)
== END 2024-02-09 06:58 | disposition home or self-care (01) ==
LOC: MRI 06:58
PROVIDERS: PCP Nurse Practitioner Family; Visit Provider Nurse Practitioner Family
DX: R51.9 Headache, unspecified (principal); I67.82 Cerebral ischemia
CPT/HCPCS: 70551

== ENCOUNTER 2024-05-10 13:33 | Outpatient (CLI) | payer OTHER, SELFPAY ==
--- OUTSIDE RECORDS SUMMARY | 2024-05-10 13:36 | XMS_ITS ---
Author Organization [facility] Address [address] [place] [address] Care Team Providers Care Drywall Finisher Name Role Phone Unavailable Unavailable Unavailable Surgery Details Not on file Complications Check Surgery Details section. Procedure Estimated Blood Loss Check Surgery Details section. Procedure Findings Check Surgery Details section. Procedure Specimens Taken Check Surgery Details section.
--- OUTSIDE RECORDS SUMMARY | 2024-05-10 13:36 | XMS_ITS | Referral Summary ---
Author Organization [facility] Address [address] [place] [address] Care Team Providers Care Tank Erector Name Role Phone Elsewhere, Pcp Primary Care Provider Unavailabl e Source Comments Patient records contain information from all sites at [facility]. For routine questions regarding patient records, call [phone] during business hours, M-F 8:00 AM - 5:00 PM Central Time. Record requests for emergency care only can be directed to [phone] at any time.[facility] Allergies Active Allergy Reactions Criticality Noted Date Comments Lisinopril Other (see comments) 07/28/2022 Neomycin Other (see comments) 08/10/2015 Medications acetaminophen (TYLENOL 8 HOUR ORAL) Take 1-3 tablets by mouth daily. 8 Active diclofenac sodium (VOLTAREN) 1 % gel Apply 4 g topically 4 (four) times a day as needed (Pain). 300 g 2 0 Active Additional Information Patient taking differently:4 g topical2 times daily, Informant: Self, Reported on 05/14/2023 amLODIPine (NORVASC) 5 mg tablet Take 1 tablet (5 mg total) by mouth daily. 90 tablet 3 2 Active levothyroxine (Euthyrox) 100 mcg tablet Take 1 tablet (100 mcg total) by mouth every morning before breakfast. 90 tablet 3 2 Active triamterene-hyd roCHLOROthiazid e (DYAZIDE) 37.5-25 mg per capsule Take 1 [...] 05/12/2019 Immunizations Name Administration Dates Next Due Influenza, Seasonal, Injectable 05/02/2010,04/28,04/28/2005 Influenza, Unspecified 04/14/2010,05/12/2007 Rubella 08/31/1969 SARS-COV-2 (COVID-19) - PFIZ ER (Discontinued)(12 years or older) 10/23/2020,09/26/2020 Td (Adult), adsorbed 01/04/2002 Tdap 11/18/2011 Tetanus Toxoid, Adsorbed (discontinued) 04/26/19 85 influenza trivalent vaccine (6 months and older)(PF) 04/24/2008,04/24/2008,05/12/2007 influenza vaccine QV(FLUBLOK ) (18 years or [...] How often do you attend chur or anabaptism services? 1 to 4 times per year 07/28/2021 Do you belong to any clubs o r organizations such as buddhism groups, unions, fraternal or athletic groups, or [...] Answer Date Recorded PHQ-2 Score 0 07/29/2021 [facility] of Occupat ional Health - Occupational [...] money to buy more. Never true 05/13/20 23 Within the past 12 months, t he [...] your living situation today? I have a [facility] place to live 05/13/2023 Education Answer Date Recorded What is the highest level of school you have completed or the highest degree you have received? 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 Not on file Last Filed Vital Signs Vital Sign Reading Time Taken Comments Blood Pressure 126/85 07/29/2021 9:02 AM OCEANIC SCIENCES PROFESSOR Pulse 83 07/29/2021 9:02 AM OCEANIC SCIENCES PROFESSOR Temperature 36.2 ??C (97.1 ??F) 07/29/2021 9:02 AM CS T Respiratory Rate 18 07/29/2021 9:02 AM OCEANIC SCIENCES PROFESSOR Oxygen Saturation 93% 06/06/2020 2:58 PM OCEANIC SCIENCES PROFESSOR Inhaled Oxygen Concentration - - Weight 96.6 kg (212 lb 15.4 oz) 07/29/2021 9:02 AM OCEANIC SCIENCES PROFESSOR Height 168.6 cm (5' 6.38) 07/29/2021 9:02 AM CS T Body Mass Index 33.98 07/29/2021 9:02 AM OCEANIC SCIENCES PROFESSOR Plan of Treatment Not on file Medical Devices Implanted Type Area Assistant Boiler Operator Device Identifier Shelf Expiration Date Model / Serial / Lot Hardware E.G. Pins/Screws/Ro ds Hardware e.g. pins/screws/r ods Foot Hip Implant-03/06/20 10 Implanted:07/2009 (Quantity not on file) Hip Implant Hip Procedures Procedure Name Priority Date/Time Associated Diagnosis Comments CREATININE WITH EGFR, S/P Routine 10/05/2023 11:09 AM CDT Anemia Microcytic Hypochromic COMPREHENSIVE METABOLIC PANEL, S/P Routine 07/29/2021 8:42 AM OCEANIC SCIENCES PROFESSOR Hypertension Essential Primary Encounter For Screening For Cardiovascular Disorders Hypothyroidism Screening Examination Diabetes Mellitus BI BREAST SCREENING BILATERAL WITH TOMOSYNTHESIS RAD - Routine (most inpatients and all outpatients) 10/13/2018 11:47 AM CDT Screening Mammogram Average Risk Patient from Last 3 Months or Most Recently Relevant to Health Maintenance Results * Creatinine with Estimated GFR (10/05/2023 11:09 AM CDT) Creatinine 0.68 0.59 - 1.04 mg/dL 10/05/2023 11:35 AM CDT OWAT Estimated GFR (eGFR) >90 >=60 mL/min/BSA 10/05/2023 11:35 AM CDT [facility] Comment: Estimated GFR calculated using the 2020 CKD_EPI creatinine equation. Blood (Blood, Venous) 10/05/2023 11:09 AM CDT 10/05/2023 11:13 AM CDT us Bri Hampton M.D. LAB BLOOD ADD-ON Final R esult [facility] [address] [place] [address], [facility] OW[facility] [place] [address] [place] [address] * Comprehensive Metabolic Panel (07/29/2021 8:42 AM OCEANIC SCIENCES PROFESSOR) Potassium, P 4.4 3.6 - 5.2 mmol/L 07/29/2021 11:45 AM OCEANIC SCIENCES PROFESSOR [facility] Sodium, P 141 135 - 145 mmol/L 07/29/2021 11:45 AM OCEANIC SCIENCES PROFESSOR OW[facility] Chloride, P 102 98 - 107 mmol/L 07/29/2021 11:45 AM OCEANIC SCIENCES PROFESSOR OWAT Bicarbonate, P 28 22 - 29 mmol/L 07/29/2021 11:45 AM OCEANIC SCIENCES PROFESSOR [facility] Anion Gap, P 11 7 - 15 07/29/2021 11:45 AM OCEANIC SCIENCES PROFESSOR OW[facility] BUN (Blood Urea Nitrogen), P 18 6 - 21 mg/dL 07/29/2021 11:45 AM OCEANIC SCIENCES PROFESSOR OWAT Creatinine 0.67 0.59 - 1.04 mg/dL 07/29/2021 11:45 AM OCEANIC SCIENCES PROFESSOR OWAT eGFR-Black/ >90 >=60 mL/min/BS A 07/29/2021 11:45 AM OCEANIC SCIENCES PROFESSOR [facility] Comment: ----ADDITIONAL INFORMATION---- Estimated GFR calculated using the 2009 CKD_EPI creatinine equation. eGFR Non-Black/ >90 >=60 mL/min/BS A 07/29/2021 11:45 AM OCEANIC SCIENCES PROFESSOR [facility] Comment: ----ADDITIONAL INFORMATION---- Estimated GFR calculated using the 2009 CKD_EPI creatinine equation. Calcium, Total, P 10.1 8.8 - 10.2 mg/dL 07/29/2021 11:45 AM OCEANIC SCIENCES PROFESSOR OWAT Glucose, P 129 70 - 140 mg/dL 07/29/2021 11:45 AM OCEANIC SCIENCES PROFESSOR [facility]AT Protein, Total, P 7.2 6.3 - 7.9 g/dL 07/29/2021 11:45 AM OCEANIC SCIENCES PROFESSOR OWAT Albumin, P 4.7 3.5 - 5.0 g/dL 07/29/2021 11:45 AM OCEANIC SCIENCES PROFESSOR OWAT Aspartate Aminotransferase (AST), P 16 8 - 43 U/L 07/29/2021 11:45 AM OCEANIC SCIENCES PROFESSOR OWAT Alkaline Phosphatase, P 79 35 - 104 U/L 07/29/2021 11:45 AM OCEANIC SCIENCES PROFESSOR OWAT Alanine Aminotransferase (ALT), P 16 7 - 45 U/L 07/29/2021 11:45 AM OCEANIC SCIENCES PROFESSOR OWAT Bilirubin, Total, P 0.3 <=1.2 mg/dL 07/29/2021 11:45 AM OCEANIC SCIENCES PROFESSOR OWAT Blood (Blood, Venous) 07/29/2021 8:42 AM OCEANIC SCIENCES PROFESSOR 07/29/2021 10:44 AM OCEANIC SCIENCES PROFESSOR us Laith Luz P.A.-C. LAB BLOOD ADD-ON Final Result [facility] [address] [place] [address], [place] OWAT [facility] [place] [address] [place] [address] * BI Breast Screening Bilateral with Tomosynthesis [...] 1: Negative. Laith Luz P.A.-C. IMG BI PROCEDURES Annamaria l Result from Last 3 Months or Most Recently Relevant to Health Maintenance Insurance OFFICE COORDINATOR BENEFIT PLAN Advance Directives For more information, please contact: [phone] Documents on File Type Date Recorded Patient Technician Automatic Expl anation Advance Directives 07/26/2015 12:00 AM Leg acy document. See document viewer. Care Teams Tank Erector Relationship Specialty Start Date End Date Elsewhere, Pcp PCP - General Internal Medicine 09/02/22
--- OUTSIDE RECORDS SUMMARY | 2024-05-10 13:36 | XMS_ITS | Clinical Summary ---
Author Organization [facility] Address [address] [place] [address] Care Team Providers Care Spot Man Name Role Phone Elsewhere, Pcp Primary Care Provider Unavailabl e Source Comments Patient records contain information from all sites at [facility]. For routine questions regarding patient records, call [phone] during business hours, M-F 8:00 AM - 5:00 PM Central Time. Record requests for emergency care only can be directed to [phone] at any time.[facility] Allergies Active Allergy Reactions Criticality Noted [...] How often do you attend chur or hinduism services? 1 to 4 times per year 07/28/2021 Do you belong to any clubs o r organizations such as jew groups, unions, fraternal or athletic groups, or [...] Answer Date Recorded PHQ-2 Score 0 07/29/2021 [facility] [place] of Occupat ional Health - Occupational Stress [...] your living situation today? I have a [facility] place to live 05/13/2023 Education Answer Date Recorded What is the highest level of school you have completed or the highest degree you have received? 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 Filed Vital Signs Vital Sign Reading Time Taken Comments Blood Pressure 126/85 07/29/2021 9:02 AM CAR BUILDER Pulse 83 07/29/2021 9:02 AM CAR BUILDER Temperature 36.2 ??C (97.1 ??F) 07/29/2021 9:02 AM CS T Respiratory Rate 18 07/29/2021 9:02 AM CAR BUILDER Oxygen Saturation 93% 06/06/2020 2:58 PM CAR BUILDER Inhaled Oxygen Concentration - - Weight 96.6 kg (212 lb 15.4 oz) 07/29/2021 9:02 AM CAR BUILDER Height 168.6 cm (5' 6.38) 07/29/2021 9:02 AM CS T Body Mass Index 33.98 07/29/2021 9:02 AM CAR BUILDER Plan of Treatment Health Maintenance Due Date Last Done Comments Bone Density Scan (Osteoporosis Screen) 1959 CT Colonography 1959 Cologuard 1959 HIV Screening 1959 Hepatitis C Screening 1960 Office Visit for Blood Pressure Check / Re-check 1959 Zoster Vaccines (1 of 2) 2009 Mammogram 10/14/2019 10/13/2018, 1202/2017, 05/26/2017, Additional history exists Colonoscopy 08/16/2020 08/16/2015 Colorectal Cancer Surveillance 08/16/2020 Depression Screening (Annual PHQ-2) 07/06/2023 Fall Risk Screen (Annual) 02/18/2024 Pneumococcal vaccine (65+ years) (1 of 1 - PCV) 02/18/2024 COVID-19 Vaccine (4 - season) 2024 05/20/2021, 10/23/2020, 09/26/2020 Influenza Vaccine (#1) 2024 , 04/03/2020, 05/02/2010, Additional history exists Creatinine Level (Kidney Function Test) 12/21/2024 12/22/2023, 12/19/2023, 12/18/2023, Additional history exists Potassium Level 12/21/2024 12/22/2023, 12/04, 12/22/2023, Additional history exists Sodium Level 12/21/2024 12/22/2023, 12/04, 12/18/2023, Additional history exists Fasting Glucose for Diabetes Screening 12/18/2026 12/19/2023, 12/18/2023, 12/15/2023, Additional history exists DTaP,Tdap,and Td Vaccines (3 - Td or Tdap) 07/17/2032 07/17/2022, 11/18/2011, 01/04/2002 IPV Vaccines Aged Out No longer eligi ble based on patient's age to complete this topic Medical Devices Implanted Type Area Olive Grower Device Identifier Shelf Expiration Date Model / Serial / Lot Hardware E.G. Pins/Screws/Ro ds Hardware e.g. pins/screws/r ods Foot Hip Implant-03/06/20 10 Implanted:07/2009 (Quantity not on file) Hip Implant Hip Procedures Procedure Name Priority Date/Time Associated Diagnosis Comments CREATININE WITH EGFR, S/P Routine 10/05/2023 11:09 AM CDT Anemia Microcytic Hypochromic COMPREHENSIVE METABOLIC PANEL, S/P Routine 07/29/2021 8:42 AM CAR BUILDER Hypertension Essential Primary Encounter For Screening For [...] M.D. LAB BLOOD ADD-ON Final R esult [facility] [address] [place] [address], [facility] [place] [address] [place] [address] * Comprehensive Metabolic Panel (07/29/2021 8:42 AM CAR BUILDER) Potassium, P 4.4 3.6 - 5.2 mmol/L 07/29/2021 11:45 AM CAR BUILDER OWAT Sodium, P 141 135 - 145 mmol/L 07/29/2021 11:45 AM CAR BUILDER OWAT Chloride, P 102 98 - 107 mmol/L 07/29/2021 11:45 AM CAR BUILDER OWAT Bicarbonate, P 28 22 - 29 mmol/L 07/29/2021 11:45 AM CAR BUILDER OWAT Anion Gap, P 11 7 - 15 07/29/2021 11:45 AM CAR BUILDER OWAT BUN (Blood Urea Nitrogen), P 18 6 - 21 mg/dL 07/29/2021 11:45 AM CAR BUILDER OWAT Creatinine 0.67 0.59 - 1.04 mg/dL 07/29/2021 11:45 AM CAR BUILDER OWAT eGFR-Black/ >90 >=60 mL/min/BS A 07/29/2021 11:45 AM CAR BUILDER OWAT Comment: ----ADDITIONAL INFORMATION---- Estimated GFR calculated using the 2009 CKD_EPI creatinine equation. eGFR Non-Black/ >90 >=60 mL/min/BS A 07/29/2021 11:45 AM CAR BUILDER OWAT Comment: ----ADDITIONAL INFORMATION---- Estimated GFR calculated using the 2009 CKD_EPI creatinine equation. Calcium, Total, P 10.1 8.8 - 10.2 mg/dL 07/29/2021 11:45 AM CAR BUILDER OWAT Glucose, P 129 70 - 140 mg/dL 07/29/2021 11:45 AM CAR BUILDER OWAT Protein, Total, P 7.2 6.3 - 7.9 g/dL 07/29/2021 11:45 AM CAR BUILDER OWAT Albumin, P 4.7 3.5 - 5.0 g/dL 07/29/2021 11:45 AM CAR BUILDER OWAT Aspartate Aminotransferase (AST), P 16 8 - 43 U/L 07/29/2021 11:45 AM CAR BUILDER OWAT Alkaline Phosphatase, P 79 35 - 104 U/L 07/29/2021 11:45 AM CAR BUILDER OWAT Alanine Aminotransferase (ALT), P 16 7 - 45 U/L 07/29/2021 11:45 AM CAR BUILDER OWAT Bilirubin, Total, P 0.3 <=1.2 mg/dL 07/29/2021 11:45 AM CAR BUILDER OWAT Blood (Blood, Venous) 07/29/2021 8:42 AM CAR BUILDER 07/29/2021 10:44 AM CAR BUILDER us Laith Luz P.A.-C. LAB BLOOD ADD-ON Final Result [facility] [address] [place] [address], [facility] [place] [address] [place] [address] * BI Breast Screening Bilateral with Tomosynthesis [...] Annual Screening Mammogram ASSESSMENT: BI-RADS: 1: Negative. us Laith Luz P.A.-C. IMG BI PROCEDURES Annamaria l Result from Last 3 Months or Most Recently Relevant to Health Maintenance Insurance [employer] Advance Directives For more information, please contact: [phone] Documents on File Type Date Recorded Patient Building Construction Estimator Expl anation Advance Directives 07/26/2015 12:00 AM Leg acy document. See document viewer. Care Teams Spot Man Relationship Specialty Start Date End Date Elsewhere, Pcp PCP - General Internal Medicine 09/02/22
--- OUTSIDE RECORDS SUMMARY | 2024-05-10 13:36 | XMS_ITS | Clinical Summary ---
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 Care Provider [phone] Allergies Active Allergy Reactions Criticality Noted Date [...] Description 02/08/2024 1:00 PM CDT Office Visit [facility] [address] [place] [address] Rupali Landon PA Surgical Followup 02/08/2024 Travel from Last 3 Months Social History Tobacco Use Types Packs/Day Years Used Date Smoking Tobacco: Never Smokeless Tobacco: Never Alcohol Use Standard Drinks/Week Comments Yes 2 (1 standard drink = 0.6 oz pur e alcohol) social Social Connections Answer Date Recorded Do you often feel lonely or isolated from those around you? 0 12/15/2023 Financial Resource Strain Answer Date R ecorded Difficulty of Paying Living Expenses 3 12/15/2023 Difficulty of Paying Living Expenses Not on file 12/15/2023 Food Insecurity Answer Date Recorded Do you worry your food will run out before you are able to buy more? 1 12/15/2023 Transportation Needs Answer Date Record ed Does lack of transportation keep you from medica l appointments? 1 12/15/2023 Does lack of transportation keep you from work, meetings or getting things that you need? 1 12/15/2023 Housing Stability Answer Date Recorded What is your housing situation today? 1 12/15/2023 Sex and Gender Information Value [...] Last Done Comments Pneumococcal series for age 65+ (1 of 2 - PCV) 1965 Tdap 1970 Depression screening for age 12+ 1971 HIV for age 15-65 1974 Hepatitis C screening for age 18-79 1977 Zoster (shingles) series for age 50+ (1 of 2) 1978 Tetanus booster 1979 Pap test for age 21-65 02/18/1980 Colonoscopy through age 75 02/18/2004 Lipids for age 45-75 02/18/2004 Mammogram for age 45-75 02/18/2004 DEXA/DXA scan for age 65+ 02/18/2024 COVID-19 vaccine series ( season) 2024 05/20/2021, 10/23/2020, 09/26/2020 Influenza for age 65+ 03/06/2024 BMI (ht and wt on same day) for age 18+ 02/07/2025 02/08/2024 Additional Health Concerns Infection Onset Date Last [...] 9:14 AM 08/16/2015 12:48 PM Care Teams Braided Rug Maker Relationship Specialty Start Date End Date Laura Curtis NP [address] [place] [id number] PCP - General Emergency Medicine 10/23/23
[2024-05-10 15:27] LABS: Cholesterol* 196 mg/dL (90-199); HDL Cholesterol* 58 mg/dL (>=50); LDL Cholesterol Calculated 82 mg/dL (<100); Triglycerides* 279 mg/dL (40-149)
== END 2024-05-10 13:34 | disposition home or self-care (01) ==
LOC: LAB 13:33
PROVIDERS: PCP Nurse Practitioner Family; Visit Provider Psychiatry & Neurology Neurology
DX: I63.9 Cerebral infarction, unspecified (principal); G44.209 Tension-type headache, unspecified, not intractable
CPT/HCPCS: 36415; 80053; 80061; 83615; 85025

== ENCOUNTER 2024-05-16 11:00 | Outpatient (RCR) | payer OTHER, SELFPAY | END 2024-07-23 23:59 | disposition home or self-care (01) | LOC: CCIC 11:00 | PROVIDERS: PCP Nurse Practitioner Family; Referring Provider Nurse Practitioner Family; Visit Provider Internal Medicine Hematology & Oncology | DX: C82.90 Follicular lymphoma, unspecified, unspecified site (principal); I10 Essential (primary) hypertension; E03.9 Hypothyroidism, unspecified | CPT/HCPCS: 99202; 99205; 99213; 99214; 99215; G0463 ==

== ENCOUNTER 2024-08-05 07:35 | Outpatient (CLI) | payer OTHER, SELFPAY | END 2024-08-05 07:36 | disposition home or self-care (01) | PROVIDERS: PCP Nurse Practitioner Family; Visit Provider Nurse Practitioner Family | DX: E03.9 Hypothyroidism, unspecified (principal); I10 Essential (primary) hypertension; E11.9 Type 2 diabetes mellitus without complications; E78.5 Hyperlipidemia, unspecified; R21 Rash and other nonspecific skin eruption; M19.92 Post-traumatic osteoarthritis, unspecified site; C43.9 Malignant melanoma of skin, unspecified | CPT/HCPCS: 80053; 80061; 82043; 82570; 82607; 83036; 83615; 84439; 84443; 85025 ==

== ENCOUNTER 2024-10-28 16:34 | Outpatient (CLI) | payer OTHER, SELFPAY | END 2024-10-28 16:35 | disposition home or self-care (01) | PROVIDERS: PCP Nurse Practitioner Family; Visit Provider Nurse Practitioner Family | DX: E03.9 Hypothyroidism, unspecified (principal) | CPT/HCPCS: 84443 ==

== ENCOUNTER 2024-11-04 15:40 | Outpatient (CLI) | payer OTHER, SELFPAY ==
--- NOTE | 2024-11-04 16:00 | CRLHL7_ITS ---
For Patients: As a result of the Century Cures Act, medical imaging exams and procedure reports are released immediately into your electronic medical record. You may view this report before your referring provider. If you have questions, please contact your health care provider. INDICATION: Follicular lymphoma. TECHNIQUE: CT chest, abdomen and pelvis acquired with IV contrast. 106 mL IV Isovue 370. COMPARISON: CT of the abdomen and pelvis 12/08/2023. FINDINGS: Chest: Cardiovascular structures: Heart size is normal. Thoracic aorta and main pulmonary artery are normal in caliber. Mediastinum and henry: No mediastinal or hilar lymphadenopathy. Axilla and chest wall: No axillary lymphadenopathy. Severe degenerative changes at the left glenohumeral joint and moderate to severe at the right. Mild degenerative changes in the thoracic spine. No acute fracture or suspicious osseous lesion. Lungs: There are few subcentimeter benign calcified pulmonary nodules. There is a 4 mm noncalcified left lower lobe pulmonary nodule (series 3, image 36). No consolidation, pleural effusion or pneumothorax. Abdomen and Pelvis: Liver: 1.5 cm benign cyst in the anterior left lobe of the liver. Gallbladder and bile ducts: Unremarkable. Spleen: Normal in size and appearance. Pancreas: Unremarkable. Adrenal glands: Unremarkable. Kidneys: No kidney or ureteral stones and no hydronephrosis. No renal lesions. GI tract: Small hiatal hernia. Colonic diverticuli but no evidence of acute diverticulitis. Small bowel surgical anastomosis. Appendix is normal. Vascular structures: Mild atherosclerotic calcification within a normal caliber abdominal aorta. Lymph nodes: There are a few mildly prominent mesenteric lymph nodes. The largest is in the mid abdomen and measures 1.3 x 0.9 cm (series 2, image 209). There is haziness of the mesenteric fat mainly in the left abdomen which is similar to the prior CT. No pelvic or inguinal lymphadenopathy. Miscellaneous: No ascites. No free air. Pelvic Organs: Evaluation of the pelvis is somewhat limited due to streak artifact from pelvic hardware and a left hip arthroplasty. Bones: Partially visualized left hip arthroplasty device. 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 Old healed left pubic ramus fracture. Orthopedic fixation of the left acetabulum and right sacrum. No suspicious bone lesion. IMPRESSION: 1. There are few mildly prominent mesenteric lymph nodes. The largest is nonenlarged with a short axis measurement of 0.9 cm. No other prominent or enlarged lymph nodes in the chest, abdomen or pelvis. 2. Unchanged haziness of the mesenteric fat. Please note that all CT scans at this facility use dose modulation, iterative reconstruction, and/or weight-based dosing when appropriate to reduce radiation dose to as low as reasonably achievable. Dictated by Louann Pepe MD @ 11/05/2024 4:05:35 PM (Electronically Signed)
[2024-11-04 16:31] LABS: Albumin* 4.5 g/dL (3.3-5.0); Chloride* 100 mmol/L (96-114); Potassium* 3.8 mmol/L (3.6-5.1); Sodium* 136 mmol/L (135-149)
[2024-11-04 16:34] LABS: Alanine Aminotransferase* 22 U/L (4-35); Alkaline Phosphatase* 80 U/L (40-150); Anion Gap 10 mEq/L (7-15); Aspartate Amino Transferase* 26 U/L (12-35); Bilirubin Total* 0.5 mg/dL (0.1-1.5); Blood Urea Nitrogen* 17 mg/dL (7-30); Calcium* 9.5 mg/dL (8.4-10.6); Carbon Dioxide* 26 mmol/L (20-32); Creatinine* 0.6 mg/dL (0.5-1.5); Estimated Glomerular Filt Rate 100 ml/min; Glucose* 168 mg/dL (60-115)
[2024-11-07 12:37] LABS: Lactate Dehydrogenase* 226 U/L (120-246)
== END 2024-11-04 15:41 | disposition home or self-care (01) ==
LOC: CT 15:42
PROVIDERS: PCP Nurse Practitioner Family; Visit Provider Internal Medicine Hematology & Oncology
DX: C82.90 Follicular lymphoma, unspecified, unspecified site (principal)
CPT/HCPCS: 36415; 71260; 74177; 80053; 82565; 83615; Q9967

== ENCOUNTER 2025-01-25 11:27 | Outpatient (CLI) | payer OTHER, SELFPAY ==
--- NOTE | 2025-01-25 11:30 | CRLHL7_ITS ---
For Patients: As a result of the Century Cures Act, medical imaging exams and procedure reports are released immediately into your electronic medical record. You may view this report before your referring provider. If you have questions, please contact your health care provider. INDICATION: BILATERAL SCREENING MAMMOGRAM, ASYMPTOMATIC 64 Y/O FEMALE COMPARISON: 09/03/2023, 10/13/2018, 06/12/2017 TECHNIQUE: Digital mammogram in CC and MLO projections including computer-aided detection (CAD) and tomosynthesis. BREAST COMPOSITION: There are scattered areas of fibroglandular density. FINDINGS: No suspicious findings. ASSESSMENT: BI-RADS 1 Negative RECOMMENDATION: Annual screening mammogram. A lay language report of this examination will be provided to the patient. Dictated by: Kim Lainez MD @ 01/26/2025 15:50:18 (Electronically Signed)
== END 2025-01-25 11:28 | disposition home or self-care (01) ==
LOC: MAMMO 11:28
PROVIDERS: PCP Nurse Practitioner Family; Visit Provider Nurse Practitioner Family
DX: Z12.31 Encounter for screening mammogram for malignant neoplasm of breast (principal)
CPT/HCPCS: 77063; 77067

== ENCOUNTER 2025-01-26 07:58 | Outpatient (CLI) | payer OTHER, SELFPAY ==
[2025-01-26 13:24] LABS: Cholesterol* 137 mg/dL (90-199)
[2025-01-26 13:25] LABS: HDL Cholesterol* 48 mg/dL (>=50); Triglycerides* 177 mg/dL (40-149)
== END 2025-01-26 07:59 | disposition home or self-care (01) ==
LOC: NPINS 08:01
PROVIDERS: PCP Nurse Practitioner Family; Visit Provider Psychiatry & Neurology Neurology
DX: I63.9 Cerebral infarction, unspecified (principal)
CPT/HCPCS: 80061

== ENCOUNTER 2025-02-08 12:26 | Outpatient (CLI) | payer OTHER, SELFPAY ==
--- NOTE | 2025-02-08 13:00 | CRLHL7_ITS ---
For Patients: As a result of the Century Cures Act, medical imaging exams and procedure reports are released immediately into your electronic medical record. You may view this report before your referring provider. If you have questions, please contact your health care provider. Indication: FOLLICULAR LYMPHOMA Technique: CT Chest/Abd/Pelvis WITH 107 ISOVUE 370 INTRAVENOUS CONTRAST AND WATER PREP Please note that all CT scans at this facility use dose modulation, iterative reconstruction, and/or weight-based dosing when appropriate to reduce radiation dose to as low as reasonably achievable. Comparison: 11/04/2024 Findings: In the chest, the visualized thyroid is within normal limits. No enlarged intrathoracic lymph nodes. Chronic changes to the left proximal humerus. Chronic fracture of the right posterior 10th rib fracture. Dependent areas of atelectasis noted bilaterally. No pleural effusion or pulmonary edema. Stable small nodular density within the lingula, 3/51. 3 millimeter subpleural nodule left lower lobe, 3/58. No fracture. In the abdomen, stable cyst within the left hepatic lobe. Fatty liver. Gallbladder normal. Normal pancreas. Spleen is normal. Normal adrenal glands. Kidneys are within normal limits. Chronic linear densities in the central mesenteric fat. Stable 9 millimeter mesenteric lymph node in the anterior mid abdomen. In the pelvis. The bladder is normal. The uterus is absent. Left hip replacement hardware. Sigmoid diverticulosis. No bowel obstruction or free air. No free fluid or abscess. Appendix is normal. No adnexal mass. No enlarged pelvic or inguinal lymph nodes. Postop changes to the iliac bones bilaterally. Old bilateral pubic rami fractures. Degenerative disc disease L5-S1 Impression: Stable densities in the mesenteric fat with small lymph nodes measuring up to 9 millimeters. Please note that all CT scans at this facility use dose modulation, iterative reconstruction, and/or weight-based dosing when appropriate to reduce radiation dose to as low as reasonably achievable. Dictated by Keyshawn Barros MD @ 02/08/2025 4:00:06 PM (Electronically Signed)
== END 2025-02-08 12:27 | disposition home or self-care (01) ==
LOC: CT 12:27
PROVIDERS: PCP Nurse Practitioner Family; Visit Provider Internal Medicine Hematology & Oncology
DX: C82.90 Follicular lymphoma, unspecified, unspecified site (principal)
CPT/HCPCS: 71260; 74177; Q9967

== ENCOUNTER 2025-02-13 13:30 | Outpatient (RCR) | payer OTHER, SELFPAY ==
[2024-11-07 13:23] LABS: Hematocrit* 40.6 % (33.0-51.0); Hemoglobin* 13.2 gm/dL (12.0-16.0); Immature Granulocytes Abs Auto 0.02 K/uL (0.00-0.30); Immature Granulocytes Pct Auto 0.3 %; Mean Corpuscular HGB Conc 33 gm/dL (32-36); Mean Corpuscular Hemoglobin 29 pg (26-34); Mean Corpuscular Volume 88 fL (80-100); RDW Coefficient of Variation % 13.8 % (11.5-15.5); Red Blood Count* 4.62 m/uL (4.00-5.20); White Blood Count* 7.34 K/uL (4.50-11.00)
[2024-11-07 13:27] LABS: Lymphocytes Absolute Auto 1.20 K/uL (0.90-2.90)
[2024-11-07 13:28] LABS: Slide Review Reflex No
[2025-02-08 12:48] LABS: Hematocrit* 41.4 % (33.0-51.0); Hemoglobin* 13.4 gm/dL (12.0-16.0); Immature Granulocytes Abs Auto 0.03 K/uL (0.00-0.30); Immature Granulocytes Pct Auto 0.5 %; Mean Corpuscular HGB Conc 32 gm/dL (32-36); Mean Corpuscular Hemoglobin 28 pg (26-34); Mean Corpuscular Volume 87 fL (80-100); RDW Coefficient of Variation % 13.7 % (11.5-15.5); Red Blood Count* 4.78 m/uL (4.00-5.20); White Blood Count* 5.90 K/uL (4.50-11.00)
[2025-02-08 12:50] LABS: Lymphocytes Absolute Auto 1.20 K/uL (0.90-2.90); Slide Review Reflex No
[2025-02-08 13:04] LABS: Albumin* 4.6 g/dL (3.3-5.0); Chloride* 99 mmol/L (96-114)
[2025-02-08 13:05] LABS: Potassium* 3.9 mmol/L (3.6-5.1); Sodium* 136 mmol/L (135-149)
[2025-02-08 13:07] LABS: Alanine Aminotransferase* 29 U/L (4-35); Alkaline Phosphatase* 96 U/L (40-150); Anion Gap 9 mEq/L (7-15); Aspartate Amino Transferase* 34 U/L (12-35); Bilirubin Total* 0.5 mg/dL (0.1-1.5); Blood Urea Nitrogen* 10 mg/dL (7-30); Carbon Dioxide* 28 mmol/L (20-32); Creatinine* 0.6 mg/dL (0.5-1.5); Est. Creatinine Clearance* 50.47; Estimated Glomerular Filt Rate 100 ml/min
[2025-02-08 13:08] LABS: Calcium* 9.8 mg/dL (8.4-10.6); Glucose* 158 mg/dL (60-115); Total Protein* 7.5 g/dL (6.0-8.3)
== END 2025-05-06 23:59 | disposition home or self-care (01) ==
LOC: CCIC 13:30
PROVIDERS: PCP Nurse Practitioner Family; Referring Provider Nurse Practitioner Family; Visit Provider Internal Medicine Hematology & Oncology
DX: C82.90 Follicular lymphoma, unspecified, unspecified site (principal); I10 Essential (primary) hypertension; E03.9 Hypothyroidism, unspecified
CPT/HCPCS: 36415; 71260; 74177; 80053; 83615; 85025; 99213; 99214; G0463; Q9967

== ENCOUNTER 2025-05-25 08:05 | Outpatient (CLI) | payer OTHER, SELFPAY | END 2025-05-25 08:06 | disposition home or self-care (01) | LOC: NFLDREF 05-28 17:40 | PROVIDERS: PCP Nurse Practitioner Family; Referring Provider Nurse Practitioner Family; Visit Provider Nurse Practitioner Family | DX: E78.5 Hyperlipidemia, unspecified (principal) | CPT/HCPCS: 80053; 80061; 83615; 85025 ==